=== PATIENT | male | born 1965 | race Caucasian/White ===

== ENCOUNTER 2017-11-14 22:54 | Emergency (ER) | payer SELFPAY ==
[2017-11-15] MEDS ORDERED: KETOROLAC 30 MG/ML INJ ONE (00:28)
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
[2017-11-15 01:45] VITALS: TEMP 97.9
[2017-11-15 01:48] VITALS: BP 146/98; O2SAT 98
--- NOTE | 2017-11-15 08:58 | RAD REPORT ---
EXAM DESCRIPTION: RAD - Chest Single View - 11/15/2017 12:18 am CLINICAL HISTORY: Fall, shoulder pain COMPARISON: August 2017 TECHNIQUE: AP portable chest image was obtained 0005 hours . FINDINGS: No pulmonary contusion or focal lung parenchymal process. Heart and vasculature are normal . No measurable pleural effusion and no pneumothorax. Fractures of the lateral left fourth and fifth ribs noted. These are new from the August comparison. Overall rib detail is limited. Additional fra ctures could be present. Left shoulder degenerative change without acute finding. No acute aortic fin ding. IMPRESSION: Left fourth and fifth rib fractures on the left. No associated pneumothorax or pulmonary contusion identifiable. Additional fractures could be present and nonvisualized.
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
== END 2017-11-15 01:41 | disposition home or self-care (01) ==
LOC: ER 22:54
DX: S40.012A Contusion of left shoulder, initial encounter (principal); S00.83XA Contusion of other part of head, initial encounter; V18.0XXA Pedal cycle driver injured in noncollision transport accident in nontraffic accident, initial encounter; I10 Essential (primary) hypertension; Z88.0 Allergy status to penicillin; Z88.5 Allergy status to narcotic agent; Z91.013 Allergy to seafood; Z91.048 Other nonmedicinal substance allergy status
CPT/HCPCS: 71045; 96372; 99284

== ENCOUNTER 2017-12-08 | Emergency (ER) | payer OTHER, SELFPAY ==
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
== END 2017-12-08 11:17 | disposition home or self-care (01) ==
CPT/HCPCS: 99281

== ENCOUNTER 2018-10-30 05:39 | Emergency (ER) | payer OTHER ==
[2018-10-30] MEDS ORDERED: IPRATROPIUM BROM 0.5MG/2.5ML ONE ×2 (06:27→07:52)
[2018-10-30] MEDS ORDERED: predniSONE 20 MG TAB ONE (06:27)
[2018-10-30] MEDS ORDERED: ALBUTEROL 2.5 MG/3 ML NEB SOL ONE ×2 (06:27→07:52)
--- NOTE | 2018-10-30 08:19 | EDPHYS ---
Physician Documentation [facility] Name: Codey Morin Jr Age: 53 yrs Sex: Male : 1965 Arrival Date: 10/30/2018 Time: 05:39 Bed 16 Private MD: ED Physician Toño Gale HPI: 10/30 06:22 This 53 yrs old Male presents to ER via Wheelchair with complaints of kb Shortness Of Breath. 06:22 The patient has shortness of breath at rest, and the patient has a history of COPD. kb Onset: The symptoms/episode began/occurred 3 day(s) ago. Duration: The symptoms are continuous. The patient's shortness of breath is aggravated by nothing, is alleviated by nothing. Associated signs and symptoms: Pertinent positives: fever, Pertinent negatives: chest pain, non-productive cough, productive cough, diaphoresis, dizziness, hemoptysis, loss of consciousness, nausea, numbness in extremities, visual changes, vomiting. Severity of symptoms: At their worst the symptoms were moderate in the emergency department the symptoms are unchanged. The patient has experienced similar episodes in the past, chronically. The patient has not recently seen a physician. Pt reports he needs a breathing treatment because his COPD is acting up. Reports he is out of his proair. Historical: - Allergies: 05:41 Demerol; jb4 05:41 Iodine; jb4 05:41 PENICILLINS; jb4 05:41 SEAFOOD; jb4 - Home Meds: 05:41 albuterol sulfate inhalation Inhl [Active]; jb4 - PMHx: 05:41 Arthritis; Asthma; COPD; Gout; Hypertension; jb4 - PSHx: 05:41 Cholecystectomy; Tonsillectomy; jb4 - Immunization history:: Adult Immunizations up to date, Flu vaccine is not up to date. - Social history:: Smoking status: Patient/guardian denies using tobacco, Patient uses alcohol, on a daily basis. - Ebola Screening: : No symptoms or risks identified at this time. ROS: 06:19 ENT: Negative for injury, pain, and discharge, Neck: Negative for injury, pain, and kb swelling, Cardiovascular: Negative for chest pain, palpitations, and edema, Abdomen/GI: Negative for abdominal pain, nausea, vomiting, diarrhea, and constipation, Back: Negative for injury and pain, MS/Extremity: Negative for injury and deformity, Skin: Negative for injury, rash, and discoloration, Neuro: Negative for headache, weakness, numbness, tingling, and seizure. 06:19 Constitutional: Positive for fever, Negative for body aches, chills, fatigue, malaise, poor PO intake, weight loss. 06:19 Respiratory: Positive for cough, shortness of breath, wheezing, Negative for dyspnea on exertion, hemoptysis, orthopnea, pleurisy. Exam: 06:19 Constitutional: This is a well developed, well nourished patient who is awake, alert, kb and in no acute distress. Head/Face: Normocephalic, atraumatic. ENT: Nares patent. No nasal discharge, no septal abnormalities noted. Tympanic membranes are normal and external auditory canals are clear. Oropharynx with no redness, swelling, or masses, exudates, or evidence of obstruction, uvula midline. Mucous membranes moist. Neck: Trachea midline, no thyromegaly or masses palpated, and no cervical lymphadenopathy. Supple, full range of motion without nuchal rigidity, or vertebral point tenderness. No Meningismus. Chest/axilla: Normal chest wall appearance and motion. Nontender with no deformity. No lesions are appreciated. Cardiovascular: Regular rate and rhythm with a normal S1 and S2. No gallops, murmurs, or rubs. Normal PMI, no JVD. No pulse deficits. Abdomen/GI: Soft, non-tender, with normal bowel sounds. No distension or tympany. No guarding or rebound. No evidence of tenderness throughout. Back: No spinal tenderness. No costovertebral tenderness. Full range of motion. Skin: Warm, dry with normal turgor. Normal color with no rashes, no lesions, and no evidence of cellulitis. MS/ Extremity: Pulses equal, no cyanosis. Neurovascular intact. Full, normal range of motion. Neuro: Awake and alert, GCS 15, oriented to person, place, time, and situation. Cranial nerves II-XII grossly intact. Motor strength 5/5 in all extremities. Sensory grossly intact. Cerebellar exam normal. Normal gait. 06:19 Respiratory: the patient does not display signs of respiratory distress, Respirations: normal, Breath sounds: rhonchi, that are moderate, are scattered, wheezing: expiratory that is moderate, is scattered. Vital Signs: 05:41 BP 145 / 90; Pulse 87; Resp 16; Temp 97.8(O); Pulse Ox 96% on R/A; Weight 97.07 kg (R); jb4 Height 6 ft. 60 in. (335.28 cm) (R); Pain 0/10; 07:00 BP 143 / 76; Pulse 103; Resp 17; Pulse Ox 100% on R/A; Pain 0/10; rb1 07:30 BP 134 / 84; Pulse 100; Resp 18; Pulse Ox 93% on R/A; rb1 08:30 BP 144 / 79; Pulse 68; Resp 18; Pulse Ox 100% on R/A; Pain 0/10; rb1 05:41 Body Mass Index 8.64 (97.07 kg, 335.28 cm) jb4 MDM: 05:59 Patient medically screened. kb 06:19 Data reviewed: vital signs, nurses notes. Data interpreted: Pulse oximetry: on room air kb is 96 %. Interpretation: normal. 07:38 Counseling: I had a detailed discussion with the patient and/or guardian regarding: the kb historical points, exam findings, and any diagnostic results supporting the discharge/admit diagnosis, lab results, radiology results, the need for outpatient follow up, a family practitioner, to return to the emergency department if symptoms worsen or persist or if there are any questions or concerns that arise at home. 10/30 06:07 Order name: Flu kb 10/30 06:48 Order name: Influenza Screen (A ; Complete Time: 06:57 EDMS 10/30 06:07 Order name: Chest Single View XRAY kb Administered Medications: 06:27 Drug: DuoNeb (3:1) (2.5 mg - 0.5 mg) 3 ml Route: Nebulizer; jb4 07:07 Follow up: Response: No adverse reaction; Wheezing diminished jb4 06:27 Drug: predniSONE 40 mg Route: PO; jb4 07:07 Follow up: Response: No adverse reaction jb4 07:43 Drug: DuoNeb (3:1) (2.5 mg - 0.5 mg) 3 ml Route: Nebulizer; rb1 08:12 Follow up: Response: No adverse reaction; Marked relief of symptoms rb1 Disposition: 19:08 Co-signature as Attending Physician, Toño Gale MD. rn Disposition: 10/30/18 08:18 Discharged to Home. Impression: Chronic obstructive pulmonary disease with (acute) exacerbation. - Condition is Stable. - Discharge Instructions: Chronic Obstructive Pulmonary Disease Exacerbation. - Prescriptions for Prednisone 20 mg Oral Tablet - take 1 tablet by ORAL route once daily for 5 days; 5 tablet. Zithromax Z- Bradley 250 mg Oral Tablet - take 1 tablet by ORAL route as directed for 5 days Day 1 - take two (2) tablets one time. Day 2, 3, 4 , 5 take one (1) tablet once daily.; 6 tablet. Albuterol Sulfate 90 mcg/actuation - inhale 1-2 puff by INHALATION route every 4-6 hours; 1 Inhaler. - Medication Reconciliation Form, Thank You Letter, Antibiotic Education, Prescription Opioid Use, Work release form form. - Follow up: Emergency Department; When: As needed; Reason: Worsening of condition. Follow up: Private Physician; When: 2 - 3 days; Reason: Recheck today's complaints, Continuance of care, Re-evaluation by your physician. Signatures: Dispatcher [employer] EDMS Annika Mcdaniels, SEEMA-C DRIP PUMPER-Toño Can MD MD rn Barber, Rebecca RN RN rb1 Da Greene RN RN jb4 Corrections: (The following items were deleted from the chart) 08:39 08:18 10/30/2018 08:18 Discharged to Home. Impression: Chronic obstructive pulmonary rb1 disease with (acute) exacerbation. Condition is Stable. Discharge Instructions: Chronic Obstructive Pulmonary Disease Exacerbation. Prescriptions for Prednisone 20 mg Oral Tablet - take 1 tablet by ORAL route once daily for 5 days; 5 tablet, Zithromax Z-Bradley 250 mg Oral Tablet - take 1 tablet by ORAL route as directed for 5 days Day 1 - take two (2) tablets one time. Day 2, 3, 4 , 5 take one (1) tablet once daily.; 6 tablet, Albuterol Sulfate 90 mcg/actuation - inhale 1-2 puff by INHALATION route every 4-6 hours; 1 Inhaler. and Forms are Medication Reconciliation Form, Thank You Letter, Antibiotic Education, Prescription Opioid Use. Follow up: Emergency Department; When: As needed; Reason: Worsening of condition. Follow up: Private Physician; When: 2 - 3 days; Reason: Recheck today's complaints, Continuance of care, Re-evaluation by your physician. kb
--- NOTE | 2018-10-30 08:19 | ER ---
Nurse's Notes [facility] Name: Codey Morin Jr Age: 53 yrs Sex: Male : 1965 Arrival Date: 10/30/2018 Time: 05:39 Bed 16 Private MD: Diagnosis: Chronic obstructive pulmonary disease with (acute) exacerbation Presentation: 10/30 05:41 Presenting complaint: Patient states: I am having shortness of breathe that has been jb4 going on the past 2 days, and has just gotten worse tonight. I am out of my albuterol inhaler. 05:41 Transition of care: patient was not received from another setting of care. Onset of jb4 symptoms was October 28, 2018. Risk Assessment: Do you want to hurt yourself or someone else? Patient reports no desire to harm self or others. Initial Sepsis Screen: Does the patient meet any 2 criteria? No. Patient's initial sepsis screen is negative. Does the patient have a suspected source of infection? No. Patient's initial sepsis screen is negative. Care prior to arrival: None. 05:41 Method Of Arrival: Wheelchair jb4 05:41 Acuity: KAYLIE 3 jb4 Triage Assessment: 05:41 General: Appears in no apparent distress. uncomfortable, Behavior is calm, cooperative. jb4 Pain: Denies pain. EENT: No signs and/or symptoms were reported regarding the EENT system. Neuro: Level of Consciousness is awake, alert, obeys commands, Oriented to person, place, time, situation. Cardiovascular: Heart tones S1 S2 present Patient's skin is warm and dry. Respiratory: Reports shortness of breath on exertion cough that is productive, Airway is patent Respiratory effort is even, labored, Respiratory pattern is regular, symmetrical, Breath sounds with wheezes bilaterally. Onset: The symptoms/episode began/occurred gradually, the patient has mild shortness of breath. GI: No signs and/or symptoms were reported involving the gastrointestinal system. : No signs and/or symptoms were reported regarding the genitourinary system. Derm: Skin is intact, Skin is pink, warm \T\ dry. Musculoskeletal: Circulation, motion, and sensation intact. Historical: - Allergies: 05:41 Demerol; jb4 05:41 Iodine; jb4 05:41 PENICILLINS; jb4 05:41 SEAFOOD; jb4 - Home Meds: 05:41 albuterol sulfate inhalation Inhl [Active]; jb4 - PMHx: 05:41 Arthritis; Asthma; COPD; Gout; Hypertension; jb4 - PSHx: 05:41 Cholecystectomy; Tonsillectomy; jb4 - Immunization history:: Adult Immunizations up to date, Flu vaccine is not up to date. - Social history:: Smoking status: Patient/guardian denies using tobacco, Patient uses alcohol, on a daily basis. - Ebola Screening: : No symptoms or risks identified at this time. Screenin:41 Abuse screen: Denies threats or abuse. Nutritional screening: No deficits noted. jb4 Tuberculosis screening: No symptoms or risk factors identified. Fall Risk None identified. Assessment: 05:41 General: see triage assessment.. jb4 07:00 General: Appears in no apparent distress. comfortable, Behavior is calm, cooperative. rb1 Pain: Denies pain. Neuro: Level of Consciousness is awake, alert, obeys commands, Oriented to person, place, time, situation. Cardiovascular: Rhythm is regular. Respiratory: Reports cough that is non-productive, Airway is patent Respiratory effort is even, unlabored, Respiratory pattern is regular. GI: No signs and/or symptoms were reported involving the gastrointestinal system. : No signs and/or symptoms were reported regarding the genitourinary system. Derm: Skin is pink, warm \T\ dry. Musculoskeletal: Range of motion: intact in all extremities. 08:00 Reassessment: Patient appears in no apparent distress at this time. No changes from rb1 previously documented assessment. Vital Signs: 05:41 BP 145 / 90; Pulse 87; Resp 16; Temp 97.8(O); Pulse Ox 96% on R/A; Weight 97.07 kg (R); jb4 Height 6 ft. 60 in. (335.28 cm) (R); Pain 0/10; 07:00 BP 143 / 76; Pulse 103; Resp 17; Pulse Ox 100% on R/A; Pain 0/10; rb1 07:30 BP 134 / 84; Pulse 100; Resp 18; Pulse Ox 93% on R/A; rb1 08:30 BP 144 / 79; Pulse 68; Resp 18; Pulse Ox 100% on R/A; Pain 0/10; rb1 05:41 Body Mass Index 8.64 (97.07 kg, 335.28 cm) jb4 ED Course: 05:39 Patient arrived in ED. ds1 05:41 Arm band placed on right wrist. jb4 05:41 Patient has correct armband on for positive identification. Placed in gown. Bed in low jb4 position. Call light in reach. Side rails up X 1. Pulse ox on. NIBP on. 05:53 Da Greene, RN is Primary Nurse. jb4 05:54 Triage completed. jb4 05:58 [facility] kb 05:58 Toño Gale MD is Attending Physician. kb 07:18 Flu Sent. rb1 08:39 No provider procedures requiring assistance completed. Patient did not have IV access rb1 during this emergency room visit. Administered Medications: 06:27 Drug: DuoNeb (3:1) (2.5 mg - 0.5 mg) 3 ml Route: Nebulizer; jb4 07:07 Follow up: Response: No adverse reaction; Wheezing diminished jb4 06:27 Drug: predniSONE 40 mg Route: PO; jb4 07:07 Follow up: Response: No adverse reaction jb4 07:43 Drug: DuoNeb (3:1) (2.5 mg - 0.5 mg) 3 ml Route: Nebulizer; rb1 08:12 Follow up: Response: No adverse reaction; Marked relief of symptoms rb1 Outcome: 08:18 Discharge ordered by . kb 08:39 Patient left the ED. rb1 08:39 Discharged to home ambulatory. rb1 08:39 Condition: stable 08:39 Discharge instructions given to patient, Instructed on discharge instructions, follow up and referral plans. medication usage, Demonstrated understanding of instructions, follow-up care, medications, Prescriptions given X 3. Signatures: Annika Mcdaniels FNP-C FNP-Allison Mathias ds1 Clementine Soriano, RN RN rb1 Da Greene, RN RN jb4
[2018-10-30 08:44] VITALS: TEMP 97.8
[2018-10-30 08:47] VITALS: BP 134/84; O2SAT 93
--- NOTE | 2018-10-30 10:06 | RAD REPORT ---
EXAM DESCRIPTION: Meg Single View10/30/2018 6:41 am CLINICAL HISTORY: cough COMPARISON: November 2017 FINDINGS: The lungs appear clear of acute infiltrate. The heart is normal size IMPRESSION: No acute abnormalities displayed
== END 2018-10-30 08:39 | disposition home or self-care (01) ==
LOC: ER 05:39
DX: J44.1 Chronic obstructive pulmonary disease with (acute) exacerbation (principal); I10 Essential (primary) hypertension
CPT/HCPCS: 71045; 87804; 94640; 99284; J7512

== ENCOUNTER 2018-12-01 16:13 | Emergency (ER) | payer OTHER ==
[2018-12-01] MEDS ORDERED: NA CHLORIDE 0.9% 500 ML ONE (17:37)
[2018-12-01] MEDS ORDERED: LEVALBUTEROL 1.25 MG/3 ML NEB ONE (17:37)
[2018-12-01] MEDS ORDERED: predniSONE 20 MG TAB ONE (17:37)
[2018-12-01 17:47] LABS: Protime INR 1.12
[2018-12-01 18:12] LABS: Absolute Lymphocytes (CBC) 1.7 K/uL (0.7-4.9); Absolute Monocytes 0.6 K/uL (0.1-1.3); Absolute Neutrophil 8.1 K/uL (1.8-8.0); Basophils % 1.4 % (0-1.3); Hematocrit 44.8 % (39.6-49.0); Lymphocytes % 15.8 % (15.3-44.8); Monocytes % 5.9 % (3.3-12.3); RBC Red Blood Cell Count 4.59 M/uL (4.33-5.43)
--- NOTE | 2018-12-01 18:31 | EDPHYS ---
Physician Documentation [facility] Name: Codey Morin Jr Age: 53 yrs Sex: Male : 1965 Arrival Date: 12/01/2018 Time: 16:15 Bed 5 Private MD: ED Physician Kelton Cavazos HPI: 12/01 17:20 This 53 yrs old Male presents to ER via Ambulatory with complaints of kdr Breathing Difficulty. 17:20 The patient has shortness of breath at rest, with light activity. Onset: The kdr symptoms/episode began/occurred gradually, 2 day(s) ago. Duration: The symptoms are continuous, and are steadily getting worse. The patient's shortness of breath is aggravated by coughing, exertion, light activity, is alleviated by nothing. Associated signs and symptoms: Pertinent positives: productive cough, nausea, Pertinent negatives: diaphoresis, dizziness, fever, hemoptysis, loss of consciousness, numbness in extremities, visual changes. Severity of symptoms: At their worst the symptoms were mild moderate just prior to arrival, in the emergency department the symptoms are unchanged. The patient has experienced similar episodes in the past, chronically. The patient has been recently seen by a physician: The patient has been recently seen at the [facility] Emergency Department, last month. Historical: - Allergies: 16:19 Demerol; hb 16:19 Iodine; hb 16:19 PENICILLINS; hb 16:19 SEAFOOD; hb - Home Meds: 16:19 albuterol sulfate inhalation Inhl [Active]; hb - PMHx: 16:19 Arthritis; Asthma; COPD; Gout; Hypertension; hb - PSHx: 16:19 Cholecystectomy; Tonsillectomy; hb - Immunization history:: Adult Immunizations up to date. - Social history:: Smoking status: Patient/guardian denies using tobacco. - Ebola Screening: : No symptoms or risks identified at this time. ROS: 17:20 Constitutional: Negative for fever, chills, and weight loss, Eyes: Negative for injury, kdr pain, redness, and discharge, Neck: Negative for injury, pain, and swelling, Cardiovascular: Negative for chest pain, palpitations, and edema, Abdomen/GI: Negative for abdominal pain, nausea, vomiting, diarrhea, and constipation, Back: Negative for injury and pain, : Negative for injury, bleeding, discharge, and swelling, MS/Extremity: Negative for injury and deformity, Skin: Negative for injury, rash, and discoloration, Neuro: Negative for headache, weakness, numbness, tingling, and seizure activity. Psych: Negative for depression, anxiety, suicide ideation, homicidal ideation, and hallucinations, Allergy/Immunology: Negative for hives, rash, and allergies, Endocrine: Negative for neck swelling, polydipsia, polyuria, polyphagia, and marked weight changes, Hematologic/Lymphatic: Negative for swollen nodes, abnormal bleeding, and unusual bruising. 17:20 Respiratory: Positive for cough, dyspnea on exertion, shortness of breath, wheezing, Negative for hemoptysis, orthopnea, pleurisy. Exam: 17:20 Constitutional: This is a well developed, well nourished patient who is awake, alert, kdr and in no acute distress. Head/Face: Normocephalic, atraumatic. Eyes: Pupils equal round and reactive to light, extra-ocular motions intact. Lids and lashes normal. Conjunctiva and sclera are non-icteric and not injected. Cornea within normal limits. Periorbital areas with no swelling, redness, or edema. Neck: Trachea midline, no thyromegaly or masses palpated, and no cervical lymphadenopathy. Supple, full range of motion without nuchal rigidity, or vertebral point tenderness. No Meningismus. Chest/axilla: Normal chest wall appearance and motion. Nontender with no deformity. No lesions are appreciated. Cardiovascular: Regular rate and rhythm with a normal S1 and S2. No gallops, murmurs, or rubs. Normal PMI, no JVD. No pulse deficits. Abdomen/GI: Soft, non-tender, with normal bowel sounds. No distension or tympany. No guarding or rebound. No evidence of tenderness throughout. Back: No spinal tenderness. No costovertebral tenderness. Full range of motion. Skin: Warm, dry with normal turgor. Normal color with no rashes, no lesions, and no evidence of cellulitis. MS/ Extremity: Pulses equal, no cyanosis. Neurovascular intact. Full, normal range of motion. Neuro: Awake and alert, GCS 15, oriented to person, place, time, and situation. Cranial nerves II-XII grossly intact. Motor strength 5/5 in all extremities. Sensory grossly intact. Cerebellar exam normal. Normal gait. Psych: Awake, alert, with orientation to person, place and time. Behavior, mood, and affect are within normal limits. 17:20 Respiratory: mild respiratory distress is noted, Respirations: normal, Breath sounds: wheezing: that is moderate, is heard diffusely. 17:48 ECG was reviewed by the Attending Physician. kdr Vital Signs: 16:18 BP 142 / 81; Pulse 87; Resp 20; Temp 97.2; Pulse Ox 95% on R/A; Pain 0/10; hb 16:41 BP 147 / 64; Pulse 83; Resp 18; Pulse Ox 100% on R/A; Pain 5/10; pc1 18:12 BP 127 / 77; Pulse 103; Resp 16; Pulse Ox 100% on R/A; Pain 2/10; pc1 MDM: 18:30 Patient medically screened. kdr 18:39 Data reviewed: vital signs, nurses notes, lab test result(s), radiologic studies. kdr Counseling: I had a detailed discussion with the patient and/or guardian regarding: the historical points, exam findings, and any diagnostic results supporting the discharge/admit diagnosis, lab results, radiology results, the need for outpatient follow up. 12/01 17:18 Order name: Basic Metabolic Panel [facility] 12/01 17:18 Order name: CBC with Diff [facility] 12/01 17:18 Order name: LFT's [facility] 12/01 17:18 Order name: Magnesium [facility] 12/01 17:18 Order name: NT PRO-BNP [facility] 12/01 17:18 Order name: PT-INR; Complete Time: 18:02 [facility] 12/01 17:18 Order name: Troponin (emerg Dept Use Only) [facility] 12/01 17:18 Order name: XRAY Chest (1 view) [facility] 12/01 17:18 Order name: EKG; Complete Time: 17:19 kdr 12/01 17:18 Order name: Cardiac monitoring; Complete Time: 17:49 [facility] 12/01 18:26 Order name: Manual Differential EDMS 12/01 17:18 Order name: EKG - Nurse/Tech; Complete Time: 17:49 [facility] 12/01 17:18 Order name: IV Saline Lock; Complete Time: 17:49 kdr 12/01 17:18 Order name: Labs collected and sent; Complete Time: 17:49 [facility] 12/01 17:18 Order name: O2 Per Protocol; Complete Time: 17:49 kdr 12/01 17:18 Order name: O2 Sat Monitoring; Complete Time: 17:49 kdr EC:48 Rate is 80 beats/min. Rhythm is regular, Normal Sinus Rhythm. QRS [place] is Normal. NC kdr interval is normal. QRS interval is normal. QT interval is normal. No Q waves. Clinical impression: Normal ECG and NSR w/ Non-specific ST/T Changes. Administered Medications: 17:35 Drug: predniSONE 60 mg Route: PO; pc1 17:46 Follow up: Response: No adverse reaction; Marked relief of symptoms pc1 17:35 Drug: Xopenex (3) 1.25 mg Route: Inhalation; pc1 17:45 Follow up: Response: No adverse reaction; Marked relief of symptoms pc1 17:35 Drug: NS 0.9% 500 ml Volume: 500 ml; Route: IV; Rate: 1 bolus; Site: right antecubital; pc1 18:15 Follow up: IV Status: Completed infusion jl7 Disposition: 12/01/18 18:30 Discharged to Home. Impression: COPD Exacerbation, Cough. - Condition is Stable. - Discharge Instructions: Acute Bronchitis, [id number], Cough, Adult, [id number]-[id number], Chronic Obstructive Pulmonary Disease Exacerbation, [id number]. - Prescriptions for Tessalon Perles 100 mg Oral Capsule - take 1 capsule by ORAL route every 6 hours As needed; 20 capsule. Medrol (Bradley) 4 mg Oral Tablets, Dose Pack - take 1 tablet by ORAL route as directed - follow package instructions; 1 packet. Albuterol Sulfate 90 mcg/actuation Inhalation - inhale 1-2 puff by INHALATION route every 4-6 hours As needed; 2 Inhaler. - Medication Reconciliation Form, Thank You Letter, Work release form form. - Follow up: Private Physician; When: 2 - 3 days; Reason: If symptoms return, Further diagnostic work-up, Recheck today's complaints, Continuance of care, Re-evaluation by your physician. - Problem is an acute exacerbation. - Symptoms have improved. Signatures: Dispatcher [employer] Kelton Aguiar MD MD kdr Chrissy Vann RN RN Shukri Castaneda RN RN jl7 Delgado Hussein pc1 Corrections: (The following items were deleted from the chart) 19:13 18:30 12/01/2018 18:30 Discharged to Home. Impression: COPD Exacerbation; Cough. jl7 Condition is Stable. Forms are Medication Reconciliation Form, Thank You Letter, Antibiotic Education, Prescription Opioid Use. Follow up: Private Physician; When: 2 - 3 days; Reason: If symptoms return, Further diagnostic work-up, Recheck today's complaints, Continuance of care, Re-evaluation by your physician. Problem is an acute exacerbation. Symptoms have improved. kdr
--- NOTE | 2018-12-01 18:31 | ER ---
Nurse's Notes [facility] Name: Codey Morin Jr Age: 53 yrs Sex: Male : 1965 Arrival Date: 12/01/2018 Time: 16:15 Bed 5 Private MD: Diagnosis: COPD Exacerbation;Cough Presentation: 12/01 16:17 Presenting complaint: Chest tightness, SOB, and increased cough x 2-3 days. Denies hb fever. Transition of care: patient was not received from another setting of care. Onset of symptoms was November 28, 2018. Risk Assessment: Do you want to hurt yourself or someone else? Patient reports no desire to harm self or others. Care prior to arrival: None. 16:17 Method Of Arrival: Ambulatory hb 16:17 Acuity: KAYLIE 3 hb 18:11 Initial Sepsis Screen: Does the patient meet any 2 criteria? No. Patient's initial pc1 sepsis screen is negative. Does the patient have a suspected source of infection? No. Patient's initial sepsis screen is negative. Triage Assessment: 18:11 Respiratory: pc1 Historical: - Allergies: 16:19 Demerol; hb 16:19 Iodine; hb 16:19 PENICILLINS; hb 16:19 SEAFOOD; hb - Home Meds: 16:19 albuterol sulfate inhalation Inhl [Active]; hb - PMHx: 16:19 Arthritis; Asthma; COPD; Gout; Hypertension; hb - PSHx: 16:19 Cholecystectomy; Tonsillectomy; hb - Immunization history:: Adult Immunizations up to date. - Social history:: Smoking status: Patient/guardian denies using tobacco. - Ebola Screening: : No symptoms or risks identified at this time. Screenin:41 Abuse screen: Denies threats or abuse. Denies injuries from another. Nutritional pc1 screening: No deficits noted. Tuberculosis screening: No symptoms or risk factors identified. Fall Risk None identified. Assessment: 16:34 General: Appears uncomfortable, unkempt, Behavior is calm, cooperative, Reports pc1 Shortness of breath and Chest tightness. Pain: Complains of pain in chest Pain does not radiate. Pain currently is 5 out of 10 on a pain scale. Quality of pain is described as thightness. Pain: Pain began 2-3 days ago. Is continuous, Alleviated by nothing. Also complains of shortness of breath. Neuro: Level of Consciousness is awake, alert, obeys commands, Oriented to person, place, time, Merchandiser are equal bilaterally Moves all extremities. Full function Gait is steady, Speech is normal. Cardiovascular: Reports chest pain, shortness of breath, Heart tones S1 S2 present Capillary refill < 3 seconds in bilateral Patient's skin is warm and dry. Pulses are 2+ in right radial artery and left radial artery Rhythm is sinus rhythm. Respiratory: Reports shortness of breath at rest since Wednesday cough that is productive, Airway is patent Respiratory effort is even, labored, Respiratory pattern is regular, Sputum is green Breath sounds with wheezes bilaterally. in right upper lobe, left upper lobe, right middle lobe, left lower lobe, left posterior upper lobe, right posterior upper lobe, left posterior lower lobe and right posterior middle lobe. GI: No signs and/or symptoms were reported involving the gastrointestinal system. : No signs and/or symptoms were reported regarding the genitourinary system. EENT: No signs and/or symptoms were reported regarding the EENT system. Musculoskeletal: Circulation, motion, and sensation intact. Capillary refill < 3 seconds, Range of motion: intact in all extremities. 17:12 Reassessment: No changes from previously documented assessment. Patient and/or family pc1 updated on plan of care and expected duration. Pain level reassessed. Patient is alert, oriented x 3, equal unlabored respirations, skin warm/dry/pink. 18:08 Reassessment: Patient and/or family updated on plan of care and expected duration. Pain pc1 level reassessed. Patient is alert, oriented x 3, equal unlabored respirations, skin warm/dry/pink. stated that chest does not feel as tight. reports ease of breathing Patient states feeling better. Patient states symptoms have improved. Pain: Complains of pain in chest Pain does not radiate. Pain currently is 2 out of 10 on a pain scale. Respiratory: Airway is patent Respiratory effort is even, unlabored, Respiratory pattern is regular, symmetrical, Breath sounds with wheezes bilaterally. in right upper lobe, left upper lobe, left posterior upper lobe and right posterior upper lobe. Vital Signs: 16:18 BP 142 / 81; Pulse 87; Resp 20; Temp 97.2; Pulse Ox 95% on R/A; Pain 0/10; hb 16:41 BP 147 / 64; Pulse 83; Resp 18; Pulse Ox 100% on R/A; Pain 5/10; pc1 18:12 BP 127 / 77; Pulse 103; Resp 16; Pulse Ox 100% on R/A; Pain 2/10; pc1 ED Course: 16:15 Patient arrived in ED. rg4 16:18 Triage completed. hb 16:18 Kelton Cavazos MD is Attending Physician. kdr 16:19 Arm band placed on left wrist. hb 16:20 Shukri Castaneda, CRYSTAL is Primary Nurse. jl7 16:33 Inserted saline lock: 20 gauge in right antecubital area, using aseptic technique. pc1 16:35 air sampling and monitoring on. Pulse ox on. NIBP on. jl7 16:35 Initial lab(s) drawn, by me, sent to lab. jl7 16:41 Awaiting ED provider evaluation. pc1 16:41 Patient has correct armband on for positive identification. Placed in gown. Bed in low pc1 position. Call light in reach. Side rails up X2. 16:49 EKG done, by contract technician. reviewed by Kelton Cavazos MD. sm3 18:10 No provider procedures requiring assistance completed. pc1 18:14 XRAY Chest (1 view) In Process Unspecified. EDMS 19:08 IV discontinued, bleeding controlled, No redness/swelling at site. Pressure dressing pc1 applied. Administered Medications: 17:35 Drug: predniSONE 60 mg Route: PO; pc1 17:46 Follow up: Response: No adverse reaction; Marked relief of symptoms pc1 17:35 Drug: Xopenex (3) 1.25 mg Route: Inhalation; pc1 17:45 Follow up: Response: No adverse reaction; Marked relief of symptoms pc1 17:35 Drug: NS 0.9% 500 ml Volume: 500 ml; Route: IV; Rate: 1 bolus; Site: right antecubital; pc1 18:15 Follow up: IV Status: Completed infusion jl7 Outcome: 18:30 Discharge ordered by . kdr 19:06 Discharged to home ambulatory. pc1 19:06 Condition: improved 19:06 Discharge instructions given to patient, Instructed on discharge instructions, follow up and referral plans. medication usage, Demonstrated understanding of instructions, medications, Prescriptions given X 3. 19:13 Attestation : I agree with everything documented by Delgado Hussein, Student Nurse. jl7 19:13 Patient left the ED. jl7 Signatures: Dispatcher [employer] EDMS Kelton Cavazos MD MD [facility] Chrissy Vann, RN RN Marilynn Alicia rg4 Shukri Castaneda RN RN jl7 Liz Johnson 3 Delgado Hussein [facility] Corrections: (The following items were deleted from the chart) 19:13 18:41 Attestation : I agree with everything documented by Delgado Hussein, Student Nurse. brennan jl7
[2018-12-01 18:53] LABS: Platelet Estimate ADEQ
[2018-12-01 18:54] LABS: Blood Morphology Comment NOT SEEN (NOT SEEN)
--- NOTE | 2018-12-01 19:24 | RAD REPORT ---
EXAM DESCRIPTION: RAD - Chest Single View - 12/01/2018 6:14 pm CLINICAL HISTORY: Chest tightness, shortness of breath COMPARISON: October 30 TECHNIQUE: AP portable chest image was obtained 1756 hours . FINDINGS: Lungs are clear. Lung markings are similar to comparison. Heart and vasculature are normal . No measurable pleural effusion and no pneumothorax. No acute bony abnormality seen. No acute aortic findings suspected. IMPRESSION: No acute cardiopulmonary process.
[2018-12-01 19:32] LABS: ALT/SGPT 14 U/L (12-78); AST/SGOT 9 U/L (15-37); Albumin 3.3 g/dL (3.4-5.0); Alkaline Phosphatase 83 U/L (45-117); BUN Blood Urea Nitrogen 12 mg/dL (7-18); Bicarbonate 27 mmol/L (21-32); Bilirubin Direct 0.2 mg/dL (0-0.2); Bilirubin Total 0.6 mg/dL (0.2-1.0); Glucose Level 113 mg/dL (74-106); Magnesium 1.9 mg/dL (1.8-2.4); NT PRO-BNP 164 pg/mL (<125); Potassium 4.1 mmol/L (3.5-5.1); Protein, Total 6.6 g/dL (6.4-8.2); Sodium Level 141 mmol/L (136-145); Troponin (Emerg Dept Use Only) < 0.02 ng/mL (0.0-0.045)
[2018-12-01 20:02] VITALS: TEMP 97.2
[2018-12-01 20:04] VITALS: O2SAT 100
[2018-12-01 20:05] VITALS: BP 127/77
--- NOTE | 2018-12-02 06:13 | EKG ---
Test Date: 2018-12-01 Test Time: 16:46:32 Nuclear Engineer: NOELLE MEASUREMENT RESULTS: Intervals: Rate: 80 CO: 142 QRSD: 68 QT: 348 QTc: 401 [place]: P: 68 CO: 142 QRS: -25 T: 45 INTERPRETIVE STATEMENTS: Normal sinus rhythm Septal infarct, age undetermined Abnormal ECG Compared to ECG 07/06/2017 15:57:44 No significant changes Electronically Signed On 12-02-18 06:12:44 CDT by Rajendra Huynh
== END 2018-12-01 19:13 | disposition home or self-care (01) ==
LOC: ER 16:13
DX: J44.1 Chronic obstructive pulmonary disease with (acute) exacerbation (principal); I10 Essential (primary) hypertension; M10.9 Gout, unspecified; J44.9 Chronic obstructive pulmonary disease, unspecified; J45.909 Unspecified asthma, uncomplicated; Z88.5 Allergy status to narcotic agent; Z88.0 Allergy status to penicillin; Z91.013 Allergy to seafood
CPT/HCPCS: 36415; 71045; 80048; 80076; 83735; 83880; 84484; 85025; 85610; 93005; 96360; 99285; J7512

== ENCOUNTER 2019-01-18 16:44 | Emergency (ER) | payer OTHER ==
[2019-01-18] MEDS ORDERED: NA CHLORIDE 0.9% 1,000 ML ONE (17:53)
[2019-01-18] MEDS ORDERED: ONDANSETRON 4 MG/2 ML VIAL ONE (17:53)
[2019-01-18 17:57] LABS: Absolute Lymphocytes (CBC) 2.1 K/uL (0.7-4.9); Absolute Monocytes 0.7 K/uL (0.1-1.3); Absolute Neutrophil 6.3 K/uL (1.8-8.0); Basophils % 0.6 % (0-1.3); Eosinophils % 2.6 % (0-4.4); Hematocrit 43.7 % (39.6-49.0); Lymphocytes % 22.4 % (15.3-44.8); MPV 10.6 fL (7.6-11.3); Monocytes % 7.6 % (3.3-12.3); RBC Red Blood Cell Count 4.48 M/uL (4.33-5.43)
[2019-01-18 18:09] LABS: ALT/SGPT 16 U/L (12-78); AST/SGOT 10 U/L (15-37); Albumin 3.2 g/dL (3.4-5.0); Alkaline Phosphatase 69 U/L (45-117); BUN Blood Urea Nitrogen 8 mg/dL (7-18); Bicarbonate 27 mmol/L (21-32); Bilirubin Direct < 0.1 mg/dL (0-0.2); Bilirubin Total 0.3 mg/dL (0.2-1.0); Glucose Level 143 mg/dL (74-106); Lipase 122 U/L (73-393); Potassium 3.5 mmol/L (3.5-5.1); Protein, Total 6.3 g/dL (6.4-8.2); Sodium Level 142 mmol/L (136-145)
--- NOTE | 2019-01-18 18:10 | RAD REPORT ---
EXAM DESCRIPTION: CT - Abdomen Pelvis Wo Contrast - 01/18/2019 5:36 pm CLINICAL HISTORY: Abdominal pain left flank pain COMPARISON: 2016 TECHNIQUE: Computed axial tomography of the abdomen and pelvis was obtained. IV and oral contrast we re not requested. All CT scans are performed using dose optimization technique as appropriate and may include automated exposure control or mA/KV adjustment according to patient size. FINDINGS: The evaluation of solid organs, vessels and bowel is limited secondary to the lack of con trast administration. The liver, spleen, pancreas, adrenals and right kidney appear grossly normal. 5 millimeter nonobstructing left renal calculus. The appendix is normal. Diverticula stem from the colon without evidence of diverticulitis. Cholecystectomy Small inguinal hernias contain fat Bladder wall appears thickened The wall of the distal esophagus appears thickened Minimal stranding adjacent to the proximal sigmoid colon IMPRESSION: Minimal stranding adjacent to the proximal sigmoid colon likely indicating a minimal di verticulitis Nonobstructing left renal calculus Thickened bladder wall may indicate cystitis. Wall of the distal esophagus appears thickened which may indicate an esophagitis
[2019-01-18] MEDS ORDERED: MORPHINE 4 MG/ML SYR ONE (18:31)
[2019-01-18] MEDS ORDERED: METRONIDAZOLE 500mg IVPB 500 MG/100 ML BAG IV ONE (18:32)
[2019-01-18] MEDS ORDERED: CIPROFLOXACIN 400mg IV 400 MG/200 ML BAG IV ONE (18:32)
--- NOTE | 2019-01-18 18:41 | ER ---
Nurse's Notes [facility] Name: Codey Morin Jr Age: 53 yrs Sex: Male : 1965 Arrival Date: 01/18/2019 Time: 16:46 Bed 27 Private MD: None, None Diagnosis: Diverticulitis of large intestine without perforation or abscess without bleeding Presentation: 01/18 16:52 Presenting complaint: Patient states: feeling ill since Wednesday with nausea, headaches, la1 vomiting. Transition of care: patient was not received from another setting of care. Onset of symptoms was January 18, 2019. Risk Assessment: Do you want to hurt yourself or someone else? Patient reports no desire to harm self or others. Initial Sepsis Screen: Does the patient meet any 2 criteria? No. Patient's initial sepsis screen is negative. Does the patient have a suspected source of infection? No. Patient's initial sepsis screen is negative. Care prior to arrival: None. 16:52 Method Of Arrival: Ambulatory la1 16:52 Acuity: KAYLIE 3 la1 Historical: - Allergies: 16:53 Demerol; la1 16:53 Iodine; la1 16:53 PENICILLINS; la1 16:53 SEAFOOD; la1 - Home Meds: 17:03 albuterol sulfate inhalation Inhl [Active]; mg2 - PMHx: 16:53 Arthritis; Asthma; COPD; Gout; Hypertension; la1 - Immunization history:: Adult Immunizations up to date. - Social history:: Smoking status: Patient/guardian denies using tobacco. - Ebola Screening: : No symptoms or risks identified at this time. - Family history:: not pertinent. - Hospitalizations: : No recent hospitalization is reported. Screenin:01 Abuse screen: Denies threats or abuse. Denies injuries from another. Nutritional mg2 screening: No deficits noted. Tuberculosis screening: No symptoms or risk factors identified. Fall Risk None identified. Assessment: 16:59 General: Appears in no apparent distress. comfortable, Behavior is calm, cooperative. mg2 Pain: Complains of pain in head and left flank Pain does not radiate. Pain currently is 5 out of 10 on a pain scale. Quality of pain is described as aching, Pain began gradually, 6 days ago Is intermittent. Neuro: Level of Consciousness is awake, alert, obeys commands, Oriented to person, place, time, situation. Cardiovascular: Capillary refill < 3 seconds Clubbing of nail beds is absent Patient's skin is warm and dry. Respiratory: Airway is patent Respiratory effort is even, unlabored, Respiratory pattern is regular, symmetrical. GI: Abdomen is flat, non-distended, Reports diarrhea, nausea, vomiting, since Nikos. : No signs and/or symptoms were reported regarding the genitourinary system. EENT: No signs and/or symptoms were reported regarding the EENT system. Derm: Skin is intact, is healthy with good turgor, Skin is pink, warm \T\ dry. normal. Musculoskeletal: Circulation, motion, and sensation intact. Capillary refill < 3 seconds. 17:32 Reassessment: patient sent to ct scan via wheelchair. mg2 18:44 Reassessment: patient for discharge after completing the iv antibiotics. mg2 20:03 Reassessment: Patient states feeling better. mg2 Vital Signs: 16:53 BP 126 / 88; Pulse 76; Resp 16; Temp 98.4; Pulse Ox 98% on R/A; Weight 90.72 kg; Height la1 6 ft. 0 in. (182.88 cm); 18:00 BP 128 / 75; Pulse 65; Resp 18; Temp 98.2; Pulse Ox 96% on R/A; mg2 20:05 BP 129 / 78; Pulse 75; Resp 18; Temp 98.9; Pulse Ox 100% on R/A; Pain 0/10; mg2 16:53 Body Mass Index 27.12 (90.72 kg, 182.88 cm) la1 ED Course: 16:46 Patient arrived in ED. mr 16:47 None, None is Private Physician. mr 16:52 Triage completed. la1 16:53 Arm band placed on left wrist. la1 16:57 Casper Kelley, CRYSTAL is Primary Nurse. mg2 16:58 Toño Gale MD is Attending Physician. rn 17:01 Patient has correct armband on for positive identification. Door closed. Warm blanket mg2 given. 17:32 No provider procedures requiring assistance completed. Inserted saline lock: 20 gauge mg2 in right forearm, using aseptic technique. Blood collected. 17:34 CT completed. Patient tolerated procedure well. Patient moved to CT. Patient moved back wv from CT. 17:37 CT Abd/Pelvis - Without Cont In Process Unspecified. EDMS 20:03 IV discontinued, intact, bleeding controlled, No redness/swelling at site. Pressure mg2 dressing applied. Administered Medications: 17:30 Drug: Zofran 4 mg Route: IVP; Site: right antecubital; mg2 20:02 Follow up: Response: No adverse reaction; Marked relief of symptoms mg2 17:31 Drug: NS 0.9% 1000 ml Route: IV; Rate: 1000 ml; Site: right forearm; mg2 20:02 Follow up: Response: No adverse reaction; IV Status: Completed infusion mg2 18:22 Drug: Flagyl 500 mg Volume: 100 ml; Route: IVPB; Rate: 200 ml/hr; Infused Over: 30 mg2 mins; Site: left forearm; 20:01 Follow up: Response: No adverse reaction; IV Status: Completed infusion mg2 18:22 Drug: morphine 4 mg Route: IVP; Site: left forearm; mg2 19:58 Follow up: Response: No adverse reaction; Marked relief of symptoms mg2 18:55 Drug: Cipro 400 mg Volume: 200 ml; Route: IVPB; Infused Over: 60 mins; Site: right mg2 forearm; 20:02 Follow up: Response: No adverse reaction; IV Status: Completed infusion mg2 Outcome: 18:41 Discharge ordered by . rn 20:03 Discharged to home ambulatory. mg2 20:03 Condition: stable 20:03 Discharge instructions given to patient, Instructed on discharge instructions, follow up and referral plans. medication usage, Demonstrated understanding of instructions, follow-up care, medications, Prescriptions given X 4. 20:06 Patient left the ED. mg2 Signatures: Dispatcher [employer] [facility] BernalNona Roman, MD MD rn Attema, Lee, RN RN la1 Jordan, Nathan nj Gardose, Michele, RN RN mg2
--- NOTE | 2019-01-18 18:41 | EDPHYS ---
Physician Documentation [facility] Name: Codey Mroin Jr Age: 53 yrs Sex: Male : 1965 Arrival Date: 01/18/2019 Time: 16:46 Bed 27 Private MD: None, None ED Physician Toño Gale HPI: 01/18 17:22 This 53 yrs old Male presents to ER via Ambulatory with complaints of Nausea, rn Diarrhea, abd pain. 17:22 The patient presents to the emergency department with nausea, vomiting, diarrhea, rn abdominal pain, of the left upper quadrant and left lower quadrant. Onset: The symptoms/episode began/occurred 5 day(s) ago. Possible causes: unknown. The symptoms are aggravated by pressure, The symptoms are alleviated by nothing. Associated signs and symptoms: Pertinent positives: abdominal pain, diarrhea, nausea, vomiting, Pertinent negatives: fever, GI bleeding. Severity of symptoms: At their worst the symptoms were moderate in the emergency department the symptoms are unchanged. The patient has not experienced similar symptoms in the past. Reports left sided abd pain, radiates to left axilla, assoc with nausea/vomiting/diarrhea. Reports hx of COPD, and is home sick with similar symptoms. No blood in stool. . Historical: - Allergies: 16:53 Demerol; la1 16:53 Iodine; la1 16:53 PENICILLINS; la1 16:53 SEAFOOD; la1 - Home Meds: 17:03 albuterol sulfate inhalation Inhl [Active]; mg2 - PMHx: 16:53 Arthritis; Asthma; COPD; Gout; Hypertension; la1 - Immunization history:: Adult Immunizations up to date. - Social history:: Smoking status: Patient/guardian denies using tobacco. - Ebola Screening: : No symptoms or risks identified at this time. - Family history:: not pertinent. - Hospitalizations: : No recent hospitalization is reported. ROS: 17:22 Constitutional: + chills, no weight loss Eyes: Negative for injury, pain, redness, and photography intern, Neck: Negative for injury, pain, and swelling, Cardiovascular: Negative for chest pain, palpitations, and edema, Respiratory: + cough, negative for sob Abdomen/GI: + left sided abd pain and nausea/vomiting/diarrhea Back: Negative for injury and pain, MS/Extremity: Negative for injury and deformity, Neuro: Negative for weakness, numbness, tingling, and seizure. Exam: 17:22 Constitutional: This is a well developed, well nourished patient who is awake, alert, regulatory affairs intern to bathroom without assistance Head/Face: Normocephalic, atraumatic. Eyes: Pupils equal round and reactive to light, extra-ocular motions intact. Lids and lashes normal. Conjunctiva and sclera are non-icteric and not injected. Cornea within normal limits. Periorbital areas with no swelling, redness, or edema. ENT: dry MM Respiratory: Faint exp wheezing. No increased work of breathing, no retractions or nasal flaring. Abdomen/GI: soft, mild LLQ tenderness, no rebound/peritoneal signs MS/ Extremity: Pulses equal, no cyanosis. Neurovascular intact. Full, normal range of motion. Equal circumference. Neuro: Awake and alert, GCS 15, oriented to person, place, time, and situation. Cranial nerves II-XII grossly intact. Motor strength 5/5 in all extremities. Sensory grossly intact. Cerebellar exam normal. Normal gait. Vital Signs: 16:53 BP 126 / 88; Pulse 76; Resp 16; Temp 98.4; Pulse Ox 98% on R/A; Weight 90.72 kg; Height la1 6 ft. 0 in. (182.88 cm); 18:00 BP 128 / 75; Pulse 65; Resp 18; Temp 98.2; Pulse Ox 96% on R/A; mg2 20:05 BP 129 / 78; Pulse 75; Resp 18; Temp 98.9; Pulse Ox 100% on R/A; Pain 0/10; mg2 16:53 Body Mass Index 27.12 (90.72 kg, 182.88 cm) la1 MDM: 16:58 Patient medically screened. rn 18:16 Differential diagnosis: Nonspecific abd pain, gastritis, pancreatitis, diverticulitis, rn viral gastroenteritis, gastroenteritis. Data reviewed: vital signs, nurses notes, lab test result(s), radiologic studies, CT scan, and as a result, I will discharge patient. Counseling: I had a detailed discussion with the patient and/or guardian regarding: the historical points, exam findings, and any diagnostic results supporting the discharge/admit diagnosis, lab results, radiology results, the need for outpatient follow up, to return to the emergency department if symptoms worsen or persist or if there are any questions or concerns that arise at home. Response to treatment: the patient's symptoms have mildly improved after treatment, and as a result, I will discharge patient. 01/18 17:14 Order name: Basic Metabolic Panel; Complete Time: 18:10 rn 01/18 17:14 Order name: CBC with Diff; Complete Time: 18:10 rn 01/18 17:14 Order name: Hepatic Function; Complete Time: 18:10 rn 01/18 17:14 Order name: Lipase; Complete Time: 18:10 rn 01/18 17:14 Order name: Flu; Complete Time: 17:58 rn 01/18 17:14 Order name: CT Abd/Pelvis - Without Cont; Complete Time: 18:12 rn 01/18 17:14 Order name: IV Saline Lock; Complete Time: 17:31 rn 01/18 17:14 Order name: Labs collected and sent; Complete Time: 17:31 rn Administered Medications: 17:30 Drug: Zofran 4 mg Route: IVP; Site: right antecubital; mg2 20:02 Follow up: Response: No adverse reaction; Marked relief of symptoms mg2 17:31 Drug: NS 0.9% 1000 ml Route: IV; Rate: 1000 ml; Site: right forearm; mg2 20:02 Follow up: Response: No adverse reaction; IV Status: Completed infusion mg2 18:22 Drug: Flagyl 500 mg Volume: 100 ml; Route: IVPB; Rate: 200 ml/hr; Infused Over: 30 mg2 mins; Site: left forearm; 20:01 Follow up: Response: No adverse reaction; IV Status: Completed infusion mg2 18:22 Drug: morphine 4 mg Route: IVP; Site: left forearm; mg2 19:58 Follow up: Response: No adverse reaction; Marked relief of symptoms mg2 18:55 Drug: Cipro 400 mg Volume: 200 ml; Route: IVPB; Infused Over: 60 mins; Site: right mg2 forearm; 20:02 Follow up: Response: No adverse reaction; IV Status: Completed infusion mg2 Disposition: 01/18/19 18:41 Discharged to Home. Impression: Diverticulitis of large intestine without perforation or abscess without bleeding. - Condition is Stable. - Discharge Instructions: Diverticulitis. - Prescriptions for Zofran ODT 4 mg Oral tablet,disintegrating - place 1 tablet by TRANSLINGUAL route every 8 hours As needed; 20 tablet. Flagyl 500 mg Oral Tablet - take 1 tablet by ORAL route every 8 hours for 10 days; 30 tablet. Tylenol- Codeine #3 300-30 mg Oral Tablet - take 2 tablet by ORAL route every 6 hours As needed; 30 tablet. Cipro 500 mg Oral Tablet - take 1 tablet by ORAL route every 12 hours for 7 days; 14 tablet. - Medication Reconciliation Form, Thank You Letter, Antibiotic Education, Prescription Opioid Use, Work release form form. - Follow up: Private Physician; When: As needed; Reason: Recheck today's complaints, Re-evaluation by your physician. - Problem is new. - Symptoms have improved. Signatures: Dispatcher [employer] EDMS Toño Gale MD MD rn Attema, Lee, RN RN la1 Casper Kelley RN RN mg2 Corrections: (The following items were deleted from the chart) 20:06 18:41 01/18/2019 18:41 Discharged to Home. Impression: Diverticulitis of large mg2 intestine without perforation or abscess without bleeding. Condition is Stable. Discharge Instructions: Diverticulitis. Prescriptions for Zofran ODT 4 mg Oral tablet,disintegrating - place 1 tablet by TRANSLINGUAL route every 8 hours As needed; 20 tablet, Flagyl 500 mg Oral Tablet - take 1 tablet by ORAL route every 8 hours for 10 days; 30 tablet, Tylenol-Codeine #3 300-30 mg Oral Tablet - take 2 tablet by ORAL route every 6 hours As needed; 30 tablet, Cipro 500 mg Oral Tablet - take 1 tablet by ORAL route every 12 hours for 7 days; 14 tablet. and Forms are Medication Reconciliation Form, Thank You Letter, Antibiotic Education, Prescription Opioid Use. Follow up: Private Physician; When: As needed; Reason: Recheck today's complaints, Re-evaluation by your physician. Problem is new. Symptoms have improved. rn
[2019-01-19 03:18] VITALS: BP 129/78; TEMP 98.9; O2SAT 100
== END 2019-01-18 20:06 | disposition home or self-care (01) ==
LOC: ER 16:44
DX: K57.32 Diverticulitis of large intestine without perforation or abscess without bleeding (principal); J45.909 Unspecified asthma, uncomplicated; M10.9 Gout, unspecified; I10 Essential (primary) hypertension; J44.9 Chronic obstructive pulmonary disease, unspecified; Z88.5 Allergy status to narcotic agent; Z88.0 Allergy status to penicillin; Z91.013 Allergy to seafood
CPT/HCPCS: 36415; 74176; 80048; 80076; 83690; 85025; 87804; 99284; J0744; J2405; J7030

== ENCOUNTER 2019-04-25 18:38 | Emergency (ER) | payer OTHER ==
[2019-04-25 19:37] LABS: Absolute Lymphocytes (CBC) 2.3 K/uL (0.7-4.9); Basophils % 0.8 % (0-1.3); Hematocrit 44.1 % (39.6-49.0); Lymphocytes % 24.3 % (15.3-44.8); MPV 10.9 fL (7.6-11.3); RBC Red Blood Cell Count 4.38 M/uL (4.33-5.43)
[2019-04-25] MEDS ORDERED: MORPHINE 4 MG/ML SYR ONE (19:44)
[2019-04-25] MEDS ORDERED: ONDANSETRON 4 MG/2 ML VIAL ONE (19:44)
[2019-04-25 20:02] LABS: Albumin 3.4 g/dL (3.4-5.0); Bilirubin Direct 0.1 mg/dL (0-0.2); Bilirubin Total 0.4 mg/dL (0.2-1.0); Potassium 4.4 mmol/L (3.5-5.1); Protein, Total 6.9 g/dL (6.4-8.2)
[2019-04-25 20:21] LABS: Urine Blood 1+ (NEG); Urine Glucose NEGATIVE (NEG); Urine Protein NEGATIVE (NEG); Urine Specific Gravity >1.030 (1.005-1.030)
--- NOTE | 2019-04-25 20:27 | RAD REPORT ---
EXAM DESCRIPTION: CT - Abdomen Pelvis Wo Contrast - 04/25/2019 7:57 pm CLINICAL HISTORY: Left lower quadrant pain, history of diverticulitis, fever COMPARISON: CT imaging January 2019 TECHNIQUE: Axial [address] imaging of the abdomen and pelvis was performed without IV contrast. No IV contrast was given because of allergy, abnormal renal function, patient refusal or physician re quest. Oral contrast was given. All CT scans are performed using dose optimization technique as appropriate and may include automated exposure control or mA/KV adjustment according to patient size. FINDINGS: No suspicious findings in the lung bases. The liver, spleen and pancreas show no suspicious findings on non-contrast imaging. Cholecystectomy c lips are present. No abnormal biliary tree dilatation. No right-sided hydronephrosis or obstructing calculus. No nonobstructing calculi on the right. There is minimal dilatation of the left collecting system. A 4-5 mm left UVJ calculus is present. This obst ructing stone was seen in a calyx on the January 18 study. There is a small remnant [address] ill present in a calyx in the upper pole of the left kidney. No measurable perinephric stranding. No significant adrenal finding. Isodense renal masses and pyelonephritis cannot be excluded in the abse nce of IV contrast. Urinary bladder is mostly contracted. Simms of the bladder are prominent. This is similar to the prior study. A cystitis is not excluded. Wall thickening may be due to a urethral out let stricture. No gastric dilatation or gastric wall thickening. No small bowel abnormality. Swain diverticulosis is p resent. No appendicitis findings. Moderate stool volume throughout the colon. No diverticulitis findi ngs are seen. No free air, free fluid or inflammatory stranding. No mass or bulky lymphadenopathy. Sm all left-side and moderate right-sided fat filled inguinal hernia is present. No suspicious bony findings. IMPRESSION: A 4-5 mm left UVJ calculus is present with only minimal dilatation of the left collectin g system. Isodense masses and pyelonephritis are not excluded. Cystitis is not excluded. Bladder simms are thic kened but the bladder is too contracted to allow all accurate assessment. Scattered swain diverticulosis without acute diverticulitis findings. No acute GI findings seen. Full assessment is limited is the absence of IV contrast.
[2019-04-25] MEDS ORDERED: KETOROLAC 30 MG/ML INJ ONE (20:50)
[2019-04-25] MEDS ORDERED: TAMSULOSIN 0.4 MG SR CAP ONE (20:50)
[2019-04-25] MEDS ORDERED: NA CHLORIDE 0.9% 1,000 ML ONE (20:50)
--- NOTE | 2019-04-25 20:59 | ER ---
Nurse's Notes [facility] Name: Codey Morin Jr Age: 53 yrs Sex: Male : 1965 Arrival Date: 04/25/2019 Time: 18:43 Bed 27 Private MD: Diagnosis: Left ureteral calculous Presentation: 04/25 18:43 Presenting complaint: Patient states: i have hx of diverticulitis and billie been fighting hj this episode for 3 months now, reports L side pain of my abd, reports loose stools; reports fever;. Transition of care: patient was not received from another setting of care. Onset of symptoms was April 25, 2019. Risk Assessment: Do you want to hurt yourself or someone else? Patient reports no desire to harm self or others. Initial Sepsis Screen: Does the patient meet any 2 criteria? No. Patient's initial sepsis screen is negative. Does the patient have a suspected source of infection? No. Patient's initial sepsis screen is negative. Care prior to arrival: None. 18:43 Method Of Arrival: Ambulatory 18:43 Acuity: KAYLIE 3 hj Triage Assessment: 19:30 General: Appears in no apparent distress. uncomfortable, Behavior is calm, cooperative, rr5 appropriate for age. Historical: - Allergies: 18:45 Demerol; hj 18:45 Iodine; hj 18:45 PENICILLINS; hj 18:45 SEAFOOD; hj - PMHx: 18:45 Arthritis; Asthma; COPD; Gout; Hypertension; hj - PSHx: 18:45 Cholecystectomy; hj - Immunization history:: Adult Immunizations unknown. - Social history:: Smoking status: unknown. - Ebola Screening: : Patient negative for fever greater than or equal to 101.5 degrees Fahrenheit, and additional compatible Ebola Virus Disease symptoms Patient denies exposure to infectious person Patient denies travel to an Ebola-affected area in the 21 days before illness onset. Screenin:00 Abuse screen: Denies threats or abuse. Denies injuries from another. Nutritional rr5 screening: No deficits noted. Tuberculosis screening: No symptoms or risk factors identified. Fall Risk IV access (20 points). Total Campo Fall Scale indicates No Risk (0-24 pts). Assessment: 19:30 General: Appears in no apparent distress. uncomfortable, Behavior is calm, cooperative, rr5 appropriate for age, Reports chills for fever for. 19:30 Pain: Complains of pain in left upper quadrant Pain does not radiate. Pain currently is rr5 8 out of 10 on a pain scale. Quality of pain is described as aching, Pain began gradually. Neuro: Level of Consciousness is awake, alert, obeys commands, Oriented to person, place, time, situation, Appropriate for age. Cardiovascular: Capillary refill < 3 seconds Patient's skin is warm and dry. Respiratory: Airway is patent Respiratory effort is even, unlabored, Respiratory pattern is regular, symmetrical. GI: Abdomen is round Bowel sounds present X 4 quads. Abd is soft and non tender Reports diarrhea. : No signs and/or symptoms were reported regarding the genitourinary system. EENT: No signs and/or symptoms were reported regarding the EENT system. Derm: Skin is intact, Skin temperature is warm. Musculoskeletal: Circulation, motion, and sensation intact. Capillary refill < 3 seconds. 20:15 Reassessment: Patient appears in no apparent distress at this time. Patient and/or rr5 family updated on plan of care and expected duration. Pain level reassessed. Patient is alert, oriented x 3, equal unlabored respirations, skin warm/dry/pink. awaiting for the results. 21:00 Reassessment: Patient appears in no apparent distress at this time. Patient is alert, rr5 oriented x 3, equal unlabored respirations, skin warm/dry/pink. awaiting for the fluid to finish then discharge. Patient states feeling better. Patient states symptoms have improved. 21:50 Reassessment: Patient appears in no apparent distress at this time. Patient is alert, rr5 oriented x 3, equal unlabored respirations, skin warm/dry/pink. discharge instruction given and explained without complaints made, verbalized understanding. Patient states feeling better. Patient states symptoms have improved. Pain: Pain currently is 3 out of 10 on a pain scale. Vital Signs: 18:45 BP 128 / 82; Pulse 73; Resp 18; Temp 97.7(TE); Pulse Ox 96% on R/A; Weight 81.65 kg; hj Height 6 ft. 0 in. (182.88 cm); Pain 5/10; 19:26 BP 130 / 73 LA (auto/reg); Pulse 65; Resp 18; Pulse Ox 97% on R/A; Pain 5/10; jp3 20:15 BP 131 / 86; Pulse 79; Resp 17; Pulse Ox 98% on R/A; Pain 5/10; rr5 21:00 BP 136 / 76; Pulse 69; Resp 15; Pulse Ox 98% on R/A; rr5 21:50 BP 121 / 70; Pulse 62; Resp 17; Temp 98; Pulse Ox 100% ; Pain 3/10; rr5 18:45 Body Mass Index 24.41 (81.65 kg, 182.88 cm) ED Course: 18:43 Patient arrived in ED. hj 18:45 Triage completed. hj 18:45 Arm band placed on right wrist. hj 19:15 Inserted saline lock: 20 gauge in right antecubital area, using aseptic technique. jp3 Blood collected. by Casper Kelley R.N. Patient maintains SpO2 saturation greater than 95% on room air. 19:15 Initial lab(s) drawn, by ED staff, sent to lab. jp3 19:17 Delgado Chaidez NP is PHCP. pm1 19:17 Bi Clemens MD is Attending Physician. pm1 19:24 Harry Dwyer RN is Primary Nurse. rr5 19:25 Placed in gown. Bed in low position. Call light in reach. Side rails up X 1. Warm jp3 blanket given. Pillow given. Verbal reassurance given. Pulse ox on. NIBP on. 20:02 CT Abd/Pelvis - Without Contrast In Process Unspecified. EDMS 20:59 Rica Kraft MD is Referral Physician. pm1 21:50 No provider procedures requiring assistance completed. IV discontinued, intact, rr5 bleeding controlled, No redness/swelling at site. Pressure dressing applied. Administered Medications: 20:13 Drug: Zofran 4 mg Route: IVP; Site: right antecubital; rr5 21:15 Follow up: Response: No adverse reaction rr5 20:15 Drug: morphine 4 mg {Note: rass 0.} Route: IVP; Site: right antecubital; rr5 21:15 Follow up: Response: No adverse reaction; RASS: Alert and Calm (0) rr5 20:55 Drug: NS 0.9% 1000 ml Route: IV; Rate: 1000 ml; Site: right antecubital; mg2 21:48 Follow up: Response: No adverse reaction; IV Status: Completed infusion; IV Intake: rr5 1000ml 20:55 Drug: TORadol 30 mg Route: IVP; Site: right antecubital; mg2 21:50 Follow up: Response: No adverse reaction rr5 20:55 Drug: Flomax 0.4 mg Route: PO; mg2 21:50 Follow up: Response: No adverse reaction rr5 21:13 Drug: Cipro 500 mg Route: PO; rr5 21:50 Follow up: Response: No adverse reaction rr5 Intake: 21:48 IV: 1000ml; Total: 1000ml. rr5 Outcome: 20:58 Discharge ordered by MD. pm1 21:50 Discharged to home ambulatory, with friend. rr5 21:50 Condition: stable 21:50 Discharge instructions given to patient, Instructed on discharge instructions, follow up and referral plans. medication usage, Demonstrated understanding of instructions, follow-up care, medications, Prescriptions given X 4. 21:52 Patient left the ED. rr5 Signatures: Dispatcher [employer] EDMS Petr Burnette RN RN Delgado Chaidez NP DIRECTOR TITLE pm1 Casper Kelley RN RN mg2 Daniel Azul jp3 Harry Dwyer, RN RN rr5 Corrections: (The following items were deleted from the chart) 18:47 18:45 Pulse 73bpm; Resp 18bpm; Pulse Ox 96% RA; Temp 97.7F Temporal; 81.65 kg; Height 6 hj ft. 0 in.; BMI: 24.4; Pain 5/10; hj
--- NOTE | 2019-04-25 20:59 | EDPHYS ---
Physician Documentation [facility] Name: Codey Morin Jr Age: 53 yrs Sex: Male : 1965 Arrival Date: 04/25/2019 Time: 18:43 Bed 27 Private MD: ED Physician Bi Clemens HPI: 04/25 19:08 This 53 yrs old Male presents to ER via Ambulatory with complaints of pm1 Abdominal Pain. 19:08 The patient presents with abdominal pain in the left lower quadrant. Onset: The pm1 symptoms/episode began/occurred today. The symptoms do not radiate. Associated signs and symptoms: Pertinent negatives: nausea, vomiting, and diarrhea, chest pain, dysuria, fever, shortness of breath, testicular pain. The symptoms are described as achy. Modifying factors: The symptoms are alleviated by nothing, the symptoms are aggravated by nothing. Severity of pain: in the emergency department the pain is actually worse. The patient has experienced similar episodes in the past, several times, feels like his diverticulitis in the past. The patient has not recently seen a physician. Historical: - Allergies: 18:45 Demerol; hj 18:45 Iodine; hj 18:45 PENICILLINS; hj 18:45 SEAFOOD; hj - PMHx: 18:45 Arthritis; Asthma; COPD; Gout; Hypertension; hj - PSHx: 18:45 Cholecystectomy; hj - Immunization history:: Adult Immunizations unknown. - Social history:: Smoking status: unknown. - Ebola Screening: : Patient negative for fever greater than or equal to 101.5 degrees Fahrenheit, and additional compatible Ebola Virus Disease symptoms Patient denies exposure to infectious person Patient denies travel to an Ebola-affected area in the 21 days before illness onset. ROS: 19:08 Constitutional: Negative for fever, chills, and weight loss, Eyes: Negative for injury, pm1 pain, redness, and discharge, ENT: Negative for injury, pain, and discharge, Neck: Negative for injury, pain, and swelling, Cardiovascular: Negative for chest pain, palpitations, and edema, Respiratory: Negative for shortness of breath, cough, wheezing, and pleuritic chest pain. 19:08 Back: Negative for injury and pain, : Negative for injury, bleeding, discharge, and swelling, MS/Extremity: Negative for injury and deformity, Skin: Negative for injury, rash, and discoloration, Neuro: Negative for headache, weakness, numbness, tingling, and seizure. 19:08 Abdomen/GI: Positive for abdominal pain, Negative for nausea, vomiting, and diarrhea, constipation. Exam: 19:08 Constitutional: This is a well developed, well nourished patient who is awake, alert, pm1 and in no acute distress. Head/Face: Normocephalic, atraumatic. Neck: Trachea midline, no thyromegaly or masses palpated, and no cervical lymphadenopathy. Supple, full range of motion without nuchal rigidity, or vertebral point tenderness. No Meningismus. Chest/axilla: Normal chest wall appearance and motion. Nontender with no deformity. No lesions are appreciated. Cardiovascular: Regular rate and rhythm with a normal S1 and S2. No gallops, murmurs, or rubs. Normal PMI, no JVD. No pulse deficits. Respiratory: Lungs have equal breath sounds bilaterally, clear to auscultation and percussion. No rales, rhonchi or wheezes noted. No increased work of breathing, no retractions or nasal flaring. Abdomen/GI: Soft, non-tender, with normal bowel sounds. No distension or tympany. No guarding or rebound. No evidence of tenderness throughout. Back: No spinal tenderness. No costovertebral tenderness. Full range of motion. Skin: Warm, dry with normal turgor. Normal color with no rashes, no lesions, and no evidence of cellulitis. MS/ Extremity: Pulses equal, no cyanosis. Neurovascular intact. Full, normal range of motion. 19:08 Neuro: Orientation: is normal, Motor: is normal, moves all fours. Vital Signs: 18:45 BP 128 / 82; Pulse 73; Resp 18; Temp 97.7(TE); Pulse Ox 96% on R/A; Weight 81.65 kg; hj Height 6 ft. 0 in. (182.88 cm); Pain 5/10; 19:26 BP 130 / 73 LA (auto/reg); Pulse 65; Resp 18; Pulse Ox 97% on R/A; Pain 5/10; jp3 20:15 BP 131 / 86; Pulse 79; Resp 17; Pulse Ox 98% on R/A; Pain 5/10; rr5 21:00 BP 136 / 76; Pulse 69; Resp 15; Pulse Ox 98% on R/A; rr5 21:50 BP 121 / 70; Pulse 62; Resp 17; Temp 98; Pulse Ox 100% ; Pain 3/10; rr5 18:45 Body Mass Index 24.41 (81.65 kg, 182.88 cm) hj MDM: 19:37 Patient medically screened. pm1 20:56 Data reviewed: vital signs. Data interpreted: Pulse oximetry: on room air is 97 %. pm1 Interpretation: normal. Counseling: I had a detailed discussion with the patient and/or guardian regarding: the historical points, exam findings, and any diagnostic results supporting the discharge/admit diagnosis, lab results, radiology results, the need for outpatient follow up, for definitive care, a urologist, to return to the emergency department if symptoms worsen or persist or if there are any questions or concerns that arise at home. 04/25 19:07 Order name: Basic Metabolic Panel; Complete Time: 20:05 mg2 04/25 19:07 Order name: CBC with Diff; Complete Time: 20:05 mg2 04/25 19:07 Order name: Creatinine for Radiology; Complete Time: 20:05 mg2 04/25 19:07 Order name: Hepatic Function; Complete Time: 20:05 mg2 04/25 19:07 Order name: Lipase; Complete Time: 20:05 mg2 04/25 19:25 Order name: Urine Dipstick--Ancillary (enter results); Complete Time: 20:28 mw2 04/25 19:07 Order name: IV Saline Lock; Complete Time: 19:29 mg2 04/25 19:39 Order name: CT Abd/Pelvis - Without Contrast; Complete Time: 20:41 pm1 04/25 19:07 Order name: Labs collected and sent; Complete Time: 19:29 mg2 Administered Medications: 20:13 Drug: Zofran 4 mg Route: IVP; Site: right antecubital; rr5 21:15 Follow up: Response: No adverse reaction rr5 20:15 Drug: morphine 4 mg {Note: rass 0.} Route: IVP; Site: right antecubital; rr5 21:15 Follow up: Response: No adverse reaction; RASS: Alert and Calm (0) rr5 20:55 Drug: NS 0.9% 1000 ml Route: IV; Rate: 1000 ml; Site: right antecubital; mg2 21:48 Follow up: Response: No adverse reaction; IV Status: Completed infusion; IV Intake: rr5 1000ml 20:55 Drug: TORadol 30 mg Route: IVP; Site: right antecubital; mg2 21:50 Follow up: Response: No adverse reaction rr5 20:55 Drug: Flomax 0.4 mg Route: PO; mg2 21:50 Follow up: Response: No adverse reaction rr5 21:13 Drug: Cipro 500 mg Route: PO; rr5 21:50 Follow up: Response: No adverse reaction rr5 Disposition: 04/25/19 20:58 Discharged to Home. Impression: Left ureteral calculous. - Condition is Stable. - Discharge Instructions: Kidney Stones. - Prescriptions for Tylenol- Codeine #3 300-30 mg Oral Tablet - take 2 tablets by ORAL route every 6 hours As needed; 20 tablet. Zofran 4 mg Oral Tablet - take 1 tablet by ORAL route every 12 hours As needed; 20 tablet. Flomax 0.4 mg Oral Capsule, Sust. Release 24 hr - take 1 capsule by ORAL route once daily 1/2 hour following the same meal each day; 10 capsule. Cipro 500 mg Oral Tablet - take 1 tablet by ORAL route every 12 hours for 7 days; 14 tablet. - Medication Reconciliation Form, Thank You Letter, Antibiotic Education, Prescription Opioid Use, Work release form form. - Follow up: Emergency Department; When: As needed; Reason: Worsening of condition. Follow up: Private Physician; When: 2 - 3 days; Reason: Recheck today's complaints, Continuance of care, Re-evaluation by your physician. Follow up: Rica Kraft MD; When: 2 - 3 days; Reason: Recheck today's complaints, Continuance of care, Re-evaluation by your physician. - Problem is new. - Symptoms have improved. Signatures: Dispatcher [employer] EDMS Petr Burnette RN RN hj Marinas, Patrick, NP UI DEVELOPER WITH [employer] JS pm1 Casper Kelley RN RN mg2 Harry Dwyer RN RN rr5 Corrections: (The following items were deleted from the chart) 20:59 20:58 04/25/2019 20:58 Discharged to Home. Impression: Left ureteral calculous. pm1 Condition is Stable. Forms are Medication Reconciliation Form, Thank You Letter, Antibiotic Education, Prescription Opioid Use. Follow up: Emergency Department; When: As needed; Reason: Worsening of condition. Follow up: Private Physician; When: 2 - 3 days; Reason: Recheck today's complaints, Continuance of care, Re-evaluation by your physician. Problem is new. Symptoms have improved. pm1 21:52 20:59 04/25/2019 20:58 Discharged to Home. Impression: Left ureteral calculous. rr5 Condition is Stable. Discharge Instructions: Kidney Stones. Prescriptions for Tylenol-Codeine #3 300-30 mg Oral Tablet - take 2 tablets by ORAL route every 6 hours As needed; 20 tablet, Zofran 4 mg Oral Tablet - take 1 tablet by ORAL route every 12 hours As needed; 20 tablet, Flomax 0.4 mg Oral Capsule, Sust. Release 24 hr - take 1 capsule by ORAL route once daily 1/2 hour following the same meal each day; 10 capsule, Cipro 500 mg Oral Tablet - take 1 tablet by ORAL route every 12 hours for 7 days; 14 tablet. and Forms are Medication Reconciliation Form, Thank You Letter, Antibiotic Education, Prescription Opioid Use. Follow up: Emergency Department; When: As needed; Reason: Worsening of condition. Follow up: Private Physician; When: 2 - 3 days; Reason: Recheck today's complaints, Continuance of care, Re-evaluation by your physician. Follow up: Rica Kraft; When: 2 - 3 days; Reason: Recheck today's complaints, Continuance of care, Re-evaluation by your physician. Problem is new. Symptoms have improved. pm1
[2019-04-25] MEDS ORDERED: CIPROFLOXACIN HCL 500 MG TAB ONE (21:11)
[2019-04-25 23:27] VITALS: TEMP 97.7
[2019-04-25 23:28] VITALS: BP 130/73; O2SAT 97
== END 2019-04-25 21:52 | disposition home or self-care (01) ==
LOC: ER 18:38
DX: N20.1 Calculus of ureter (principal); I10 Essential (primary) hypertension; Z88.0 Allergy status to penicillin; Z88.5 Allergy status to narcotic agent; Z91.013 Allergy to seafood; Z91.048 Other nonmedicinal substance allergy status
CPT/HCPCS: 85025; 80048; 36415; 80076; 81003; 83690; 74176; J7030; J2405; 96361; 96374; 96375; 99284

== ENCOUNTER 2019-05-24 15:17 | Emergency (ER) | payer OTHER ==
[2019-05-24] MEDS ORDERED: CYCLOBENZAPRINE 10 MG TAB ONE (15:50)
[2019-05-24] MEDS ORDERED: KETOROLAC 30 MG/ML INJ ONE (15:50)
[2019-05-24 16:21] LABS: Absolute Lymphocytes (CBC) 2.2 K/uL (0.7-4.9); Basophils % 0.9 % (0-1.3); Lymphocytes % 26.1 % (15.3-44.8); MPV 10.4 fL (7.6-11.3); RBC Red Blood Cell Count 4.36 M/uL (4.33-5.43)
[2019-05-24 16:28] LABS: Potassium 3.6 mmol/L (3.5-5.1)
--- NOTE | 2019-05-24 16:36 | EDPHYS ---
Physician Documentation [facility] Name: Codey Morin Jr Age: 53 yrs Sex: Male : 1965 Arrival Date: 05/24/2019 Time: 15:20 Bed 13 Private MD: ED Physician Kelton Cavazos HPI: 05/24 15:29 This 53 yrs old Male presents to ER via EMS with complaints of low back pain. kb 15:29 The patient presents with pain that is acute, with no known mechanism of injury, and kb tenderness. The symptoms are located in the left low back. The pain radiates to the left leg. The problem was sustained without known cause. Onset: The symptoms/episode began/occurred last night. Modifying factors: The patient symptoms are alleviated by nothing, the patient symptoms are aggravated by any movement. Associated signs and symptoms: Pertinent positives: none. Severity of symptoms: At their worst the symptoms were moderate, in the emergency department the symptoms are unchanged. The patient has not experienced similar symptoms in the past. The patient has not recently seen a physician. Pt reports he started having low back pain when he got off of work that just kept getting worse throughout the day. States he has also had itching and swelling to hands and feet. Reports he has been dealing with diverticulitis all summer and thinks the infection is spreading now. Denies abd pain, fever, n/v/d. Came in to get something for the back pain and to get checked for infection. . Historical: - Allergies: 15:28 Demerol; ph 15:28 Iodine; ph 15:28 PENICILLINS; ph 15:28 SEAFOOD; ph - Home Meds: 15:28 albuterol sulfate inhalation Inhl [Active]; ph - PMHx: 15:28 Arthritis; Asthma; COPD; Gout; Hypertension; ph - PSHx: 15:28 Cholecystectomy; ph - Immunization history:: Adult Immunizations unknown. - Social history:: Smoking status: Patient uses tobacco products, denies chronic smoking, but will smoke occasionally. - Ebola Screening: : No symptoms or risks identified at this time. ROS: 15:33 Constitutional: Negative for fever, chills, and weight loss, Neck: Negative for injury, kb pain, and swelling, Cardiovascular: Negative for chest pain, palpitations, and edema, Respiratory: Negative for shortness of breath, cough, wheezing, and pleuritic chest pain, Abdomen/GI: Negative for abdominal pain, nausea, vomiting, diarrhea, and constipation, Skin: Negative for injury, rash, and discoloration, Neuro: Negative for headache, weakness, numbness, tingling, and seizure. 15:33 Back: Positive for pain at rest, pain with movement, radiated pain, of the left low back. 15:33 MS/extremity: Positive for swelling and itching to hands and feet. Exam: 15:33 Constitutional: This is a well developed, well nourished patient who is awake, alert, kb and in no acute distress. Head/Face: Normocephalic, atraumatic. ENT: Nares patent. No nasal discharge, no septal abnormalities noted. Tympanic membranes are normal and external auditory canals are clear. Oropharynx with no redness, swelling, or masses, exudates, or evidence of obstruction, uvula midline. Mucous membranes moist. Neck: Trachea midline, no thyromegaly or masses palpated, and no cervical lymphadenopathy. Supple, full range of motion without nuchal rigidity, or vertebral point tenderness. No Meningismus. Chest/axilla: Normal chest wall appearance and motion. Nontender with no deformity. No lesions are appreciated. Cardiovascular: Regular rate and rhythm with a normal S1 and S2. No gallops, murmurs, or rubs. Normal PMI, no JVD. No pulse deficits. Respiratory: Lungs have equal breath sounds bilaterally, clear to auscultation and percussion. No rales, rhonchi or wheezes noted. No increased work of breathing, no retractions or nasal flaring. Abdomen/GI: Soft, non-tender, with normal bowel sounds. No distension or tympany. No guarding or rebound. No evidence of tenderness throughout. Skin: Warm, dry with normal turgor. Normal color with no rashes, no lesions, and no evidence of cellulitis. MS/ Extremity: Pulses equal, no cyanosis. Neurovascular intact. Full, normal range of motion. Small area of localized swelling to dorsal aspect of right hand just above 2nd and 3rd digit. Scarring noted to area and pt reports old fracture. No tenderness or decreased ROM. No other swelling, redness or other signs on infection/cellulitis noted to hands or feet. Neuro: Awake and alert, GCS 15, oriented to person, place, time, and situation. Cranial nerves II-XII grossly intact. Motor strength 5/5 in all extremities. Sensory grossly intact. Cerebellar exam normal. Normal gait. 15:33 Back: pain, that is moderate, of the left low back, ROM is normal, normal spinal alignment noted. Vital Signs: 15:26 BP 136 / 86; Pulse 60; Resp 18; Temp 97.8; Pulse Ox 100% on R/A; Weight 81.65 kg; ph Height 6 ft. 0 in. (182.88 cm); Pain 8/10; 16:36 BP 128 / 78; Pulse 62; Resp 18; Temp 98.0; Pulse Ox 100% on R/A; Pain 5/10; ph 15:26 Body Mass Index 24.41 (81.65 kg, 182.88 cm) ph MDM: 15:20 Patient medically screened. kb 15:33 Data reviewed: vital signs, nurses notes. Data interpreted: Pulse oximetry: on room air kb is 100 %. Interpretation: normal. 16:34 Counseling: I had a detailed discussion with the patient and/or guardian regarding: the kb historical points, exam findings, and any diagnostic results supporting the discharge/admit diagnosis, lab results, the need for outpatient follow up, a family practitioner, to return to the emergency department if symptoms worsen or persist or if there are any questions or concerns that arise at home. 05/24 15:28 Order name: CBC with Diff; Complete Time: 16:28 kb 05/24 15:28 Order name: Basic Metabolic Panel; Complete Time: 16:33 kb 05/24 15:28 Order name: IV Start; Complete Time: 16:11 kb Administered Medications: 16:00 Drug: TORadol - Ketorolac 15 mg Route: IVP; Site: right antecubital; ph 16:37 Follow up: Response: No adverse reaction; Pain is decreased ph 16:11 Drug: Flexeril 10 mg Route: PO; ph 16:37 Follow up: Response: No adverse reaction; Pain is decreased ph Disposition: 05/25 08:54 Co-signature as Attending Physician, Kelton Cavazos MD I agree with the assessment and kdr plan of care. Disposition: 05/24/19 16:35 Discharged to Home. Impression: Sciatica, left side. - Condition is Stable. - Discharge Instructions: Sciatica, [id number], Back Exercises, [id number]. - Prescriptions for Cyclobenzaprine 10 mg Oral Tablet - take 1 tablet by ORAL route every 8 hours As needed; 21 tablet. Diclofenac Sodium 75 mg Oral Tablet, Delayed Release (E.C.) - take 1 tablet by ORAL route 2 times per day As needed; 30 tablet. - Medication Reconciliation Form, Thank You Letter, Antibiotic Education, Prescription Opioid Use, Work release form form. - Follow up: Emergency Department; When: As needed; Reason: Worsening of condition. Follow up: Private Physician; When: 2 - 3 days; Reason: Recheck today's complaints, Continuance of care, Re-evaluation by your physician. Signatures: Dispatcher [employer] EDMS Annika Mcdaniels, Kelton Simpson MD MD kdr Hall, Patricia, RN RN ph Corrections: (The following items were deleted from the chart) 05/24 16:37 15:33 Constitutional: This is a well developed, well nourished patient who is awake, kb alert, and in no acute distress. Head/Face: Normocephalic, atraumatic. ENT: Nares patent. No nasal discharge, no septal abnormalities noted. Tympanic membranes are normal and external auditory canals are clear. Oropharynx with no redness, swelling, or masses, exudates, or evidence of obstruction, uvula midline. Mucous membranes moist. Neck: Trachea midline, no thyromegaly or masses palpated, and no cervical lymphadenopathy. Supple, full range of motion without nuchal rigidity, or vertebral point tenderness. No Meningismus. Chest/axilla: Normal chest wall appearance and motion. Nontender with no deformity. No lesions are appreciated. Cardiovascular: Regular rate and rhythm with a normal S1 and S2. No gallops, murmurs, or rubs. Normal PMI, no JVD. No pulse deficits. Respiratory: Lungs have equal breath sounds bilaterally, clear to auscultation and percussion. No rales, rhonchi or wheezes noted. No increased work of breathing, no retractions or nasal flaring. Abdomen/GI: Soft, non-tender, with normal bowel sounds. No distension or tympany. No guarding or rebound. No evidence of tenderness throughout. Skin: Warm, dry with normal turgor. Normal color with no rashes, no lesions, and no evidence of cellulitis. MS/ Extremity: Pulses equal, no cyanosis. Neurovascular intact. Full, normal range of motion. Small area of localized swelling to dorsal aspect of right hand just above 2nd and 3rd digit. Scarring noted to area and pt reports old fracture. No other swelling, redness or other signs on infection/cellulitis noted to hands or feet. Neuro: Awake and alert, GCS 15, oriented to person, place, time, and situation. Cranial nerves II-XII grossly intact. Motor strength 5/5 in all extremities. Sensory grossly intact. Cerebellar exam normal. Normal gait. kb 16:56 16:35 05/24/2019 16:35 Discharged to Home. Impression: Sciatica, left side. Condition ph is Stable. Forms are Medication Reconciliation Form, Thank You Letter, Antibiotic Education, Prescription Opioid Use. Follow up: Emergency Department; When: As needed; Reason: Worsening of condition. Follow up: Private Physician; When: 2 - 3 days; Reason: Recheck today's complaints, Continuance of care, Re-evaluation by your physician. kb
--- NOTE | 2019-05-24 16:36 | ER ---
Nurse's Notes [facility] Name: Codey Morin Jr Age: 53 yrs Sex: Male : 1965 Arrival Date: 05/24/2019 Time: 15:20 Bed 13 Private MD: Diagnosis: Sciatica, left side Presentation: 05/24 15:25 Presenting complaint: EMS states: Pt c/o low back and burning, itching pain to pauly ph feet, denies N/V/D fever, or urinary symptoms. Transition of care: patient was not received from another setting of care. Onset of symptoms was May 24, 2019. Risk Assessment: Do you want to hurt yourself or someone else? Patient reports no desire to harm self or others. Initial Sepsis Screen: Does the patient meet any 2 criteria? No. Patient's initial sepsis screen is negative. Does the patient have a suspected source of infection? No. Patient's initial sepsis screen is negative. Care prior to arrival: None. 15:25 Method Of Arrival: EMS: [facility] ph 15:25 Acuity: KAYLIE 3 ph Historical: - Allergies: 15:28 Demerol; ph 15:28 Iodine; ph 15:28 PENICILLINS; ph 15:28 SEAFOOD; ph - Home Meds: 15:28 albuterol sulfate inhalation Inhl [Active]; ph - PMHx: 15:28 Arthritis; Asthma; COPD; Gout; Hypertension; ph - PSHx: 15:28 Cholecystectomy; ph - Immunization history:: Adult Immunizations unknown. - Social history:: Smoking status: Patient uses tobacco products, denies chronic smoking, but will smoke occasionally. - Ebola Screening: : No symptoms or risks identified at this time. Screenin:29 Abuse screen: Denies threats or abuse. Denies injuries from another. Nutritional ph screening: No deficits noted. Tuberculosis screening: No symptoms or risk factors identified. Fall Risk None identified. Assessment: 16:30 General: Appears in no apparent distress. uncomfortable, unkempt, Behavior is ph cooperative, appropriate for age, Denies fever. Pain: Complains of pain in right hand, left hand, right foot and left foot and left low back Pain radiates to left leg. Neuro: Level of Consciousness is awake, alert, obeys commands, Oriented to person, place, time, situation. Cardiovascular: Capillary refill < 3 seconds in bilateral fingers Patient's skin is warm and dry. Respiratory: Airway is patent Respiratory effort is even, unlabored, Respiratory pattern is regular, symmetrical. GI: Patient currently denies diarrhea, nausea, vomiting. Derm: Skin is intact, Skin is pink, warm \T\ dry. Musculoskeletal: Circulation, motion, and sensation intact. Range of motion: intact in all extremities, Reports pain in left low back. Vital Signs: 15:26 BP 136 / 86; Pulse 60; Resp 18; Temp 97.8; Pulse Ox 100% on R/A; Weight 81.65 kg; ph Height 6 ft. 0 in. (182.88 cm); Pain 8/10; 16:36 BP 128 / 78; Pulse 62; Resp 18; Temp 98.0; Pulse Ox 100% on R/A; Pain 5/10; ph 15:26 Body Mass Index 24.41 (81.65 kg, 182.88 cm) ph ED Course: 15:20 Patient arrived in ED. kb 15:20 Annika Mcdaniels FNP-C [facility]. kb 15:20 Kelton Cavazos MD is Attending Physician. kb 15:24 Jessica Groves, CRYSTAL is Primary Nurse. ph 15:26 Triage completed. ph 15:29 Arm band placed on Patient placed in an exam room, on a stretcher. ph 15:29 Patient has correct armband on for positive identification. Placed in gown. Bed in low ph position. Call light in reach. Side rails up X 1. Pulse ox on. NIBP on. Door closed. Noise minimized. Warm blanket given. Head of bed elevated. 16:00 Inserted saline lock: 22 gauge in right antecubital area, using aseptic technique. ph Blood collected. 16:36 No provider procedures requiring assistance completed. IV discontinued, intact, ph bleeding controlled, No redness/swelling at site. Pressure dressing applied. Administered Medications: 16:00 Drug: TORadol - Ketorolac 15 mg Route: IVP; Site: right antecubital; ph 16:37 Follow up: Response: No adverse reaction; Pain is decreased ph 16:11 Drug: Flexeril 10 mg Route: PO; ph 16:37 Follow up: Response: No adverse reaction; Pain is decreased ph Outcome: 16:35 Discharge ordered by . kb 16:56 Discharged to home ambulatory. ph 16:56 Condition: good 16:56 Discharge instructions given to patient, Instructed on discharge instructions, follow up and referral plans. medication usage, Demonstrated understanding of instructions, follow-up care, medications, Prescriptions given X 2. 16:56 Patient left the ED. ph Signatures: Annika Mcdaniels FNP-C FNP-Jessica Cruz RN RN ph Corrections: (The following items were deleted from the chart) 15:29 15:25 Acuity: KAYLIE 4 ph ph
[2019-05-24 17:18] VITALS: BP 128/78; TEMP 98; O2SAT 100
== END 2019-05-24 16:56 | disposition home or self-care (01) ==
LOC: ER 15:17
DX: M54.32 Sciatica, left side (principal); I10 Essential (primary) hypertension; J45.909 Unspecified asthma, uncomplicated; Z72.0 Tobacco use; Z88.0 Allergy status to penicillin; Z88.5 Allergy status to narcotic agent; Z91.013 Allergy to seafood; Z91.048 Other nonmedicinal substance allergy status
CPT/HCPCS: 36415; 80048; 85025; 96374; 99284

== ENCOUNTER 2019-10-05 11:42 | Emergency (ER) | payer OTHER, SELFPAY ==
[2019-10-05] MEDS ORDERED: ALBUTEROL 2.5 MG/3 ML NEB SOL ONE (12:23)
[2019-10-05] MEDS ORDERED: IPRATROPIUM BROM 0.5MG/2.5ML ONE (12:23)
--- NOTE | 2019-10-05 12:42 | RAD REPORT ---
EXAM DESCRIPTION: Meg Corado (2 Views)10/05/2019 12:35 pm CLINICAL HISTORY: Cough COMPARISON: November 2018 FINDINGS: The lungs appear clear of acute infiltrate. The heart is normal size IMPRESSION: No acute abnormalities displayed
--- NOTE | 2019-10-05 12:51 | RAD REPORT ---
EXAM DESCRIPTION: CT - Stone Protocol - 10/05/2019 12:28 pm CLINICAL HISTORY: Abdominal pain. Left flank pain COMPARISON: April 2019 TECHNIQUE: Computed axial tomography of the abdomen pelvis was obtained without oral or IV contrast. Lack of IV and oral contrast limits evaluation of solid organs, bowel, and vessels. Coronal reformat tyson images were obtained and reviewed. All CT scans are performed using dose optimization technique as appropriate and may include automated exposure control or mA/KV adjustment according to patient size. FINDINGS: Bilateral renal calculi. Mild left hydronephrosis. 5 millimeter calculus very distal left ureter. The liver, spleen, pancreas and adrenals appear grossly normal Cholecystectomy There is no evidence of diverticulitis. The appendix appears normal Inguinal hernias contain fat IMPRESSION: 5 millimeter calculus very distal left ureter resulting in mild left hydronephrosis
[2019-10-05 13:12] LABS: Urine Blood NEGATIVE (NEG); Urine Glucose NEGATIVE (NEG); Urine Protein NEGATIVE (NEG); Urine pH 7.5 (5.0-7.0)
--- NOTE | 2019-10-05 13:42 | ER ---
Nurse's Notes [facility] Name: Codey Morin Jr Age: 53 yrs Sex: Male : 1965 Arrival Date: 10/05/2019 Time: 11:46 Bed 26 Private MD: Diagnosis: Bronchitis, not specified as acute or chronic;Calculus of ureter Presentation: 10/05 11:55 Presenting complaint: Patient states: , chill, congestion, difficulty urination, ca1 headache, L flank pain that radiates to the L shoulder blade 2-3 days ago. Denies N/V. Transition of care: patient was not received from another setting of care. Onset of symptoms was October 05, 2019. Risk Assessment: Do you want to hurt yourself or someone else? Patient reports no desire to harm self or others. Initial Sepsis Screen: Does the patient meet any 2 criteria? No. Patient's initial sepsis screen is negative. Does the patient have a suspected source of infection? No. Patient's initial sepsis screen is negative. Care prior to arrival: None. 11:55 Method Of Arrival: Ambulatory ca1 11:55 Acuity: KAYLIE 3 ca1 Historical: - Allergies: 12:03 Demerol; ca1 12:03 Iodine; ca1 12:03 PENICILLINS; ca1 12:03 SEAFOOD; ca1 - Home Meds: 13:11 omeprazole 40 mg Oral cpDR 1 cap 30 minutes before first meal of the day. [Active]; vc Advair Diskus 250-50 mcg/dose Inhl dsdv 1 puff 2 times per day [Active]; albuterol sulfate 90 mcg/actuation inhalation HFAA [Active]; ibuprofen 600 mg Oral tab 1 tab 3 times per day [Active]; - PMHx: 12:03 Arthritis; Asthma; COPD; Gout; Hypertension; ca1 - PSHx: 12:03 Cholecystectomy; ca1 - Immunization history:: Adult Immunizations up to date, Flu vaccine is up to date. - Coronavirus screen:: The patient has NOT traveled to [place], [place], or [place] in the past 14 days. The patient has NOT had contact with known/suspected case of Coronavirus?. - Social history:: Smoking status: Patient denies any tobacco usage or history of. - Ebola Screening: : Patient negative for fever greater than or equal to 101.5 degrees Fahrenheit, and additional compatible Ebola Virus Disease symptoms Patient denies exposure to infectious person Patient denies travel to an Ebola-affected area in the 21 days before illness onset No symptoms or risks identified at this time. Screenin:15 Abuse screen: Denies threats or abuse. Denies injuries from another. Nutritional sv screening: No deficits noted. Tuberculosis screening: No symptoms or risk factors identified. Fall Risk None identified. Assessment: 12:15 General: Appears in no apparent distress. uncomfortable, Behavior is calm, cooperative, sv appropriate for age. Pain: Complains of pain in left flank Pain currently is 5 out of 10 on a pain scale. Neuro: Level of Consciousness is awake, alert, obeys commands, Oriented to person, place, time, situation, Moves all extremities. Full function Gait is steady, Speech is normal. Respiratory: Airway is patent Respiratory effort is even, unlabored, Respiratory pattern is regular, symmetrical, Breath sounds with wheezes bilaterally. : Reports urinary retention. Derm: Skin is intact, Skin is pink, warm \T\ dry. 13:54 Reassessment: Patient appears in no apparent distress at this time. No changes from sv previously documented assessment. Patient and/or family updated on plan of care and expected duration. Pain level reassessed. Patient is alert, oriented x 3, equal unlabored respirations, skin warm/dry/pink. 15:46 Reassessment: Patient appears in no apparent distress at this time. No changes from sv previously documented assessment. Patient and/or family updated on plan of care and expected duration. Pain level reassessed. Patient is alert, oriented x 3, equal unlabored respirations, skin warm/dry/pink. Vital Signs: 12:03 BP 153 / 71; Pulse 77; Resp 19 S; Temp 98.2(O); Pulse Ox 100% on R/A; Weight 86.18 kg ca1 (R); Height 5 ft. 11 in. (180.34 cm) (R); Pain 5/10; 12:03 Body Mass Index 26.50 (86.18 kg, 180.34 cm) ca1 ED Course: 11:46 Patient arrived in ED. as 11:56 Annika Mcdaniels FNP-C [facility]. kb 11:56 Toño Gale MD is Attending Physician. kb 12:00 Triage completed. ca1 12:03 Arm band placed on right wrist. ca1 12:15 Patient has correct armband on for positive identification. Bed in low position. Call sv light in reach. Door closed. Head of bed elevated. 12:19 Svetlana Purdy, RN is Primary Nurse. sv 12:22 Flu and/or RSV swab sent to lab. jp3 12:[address] via wheelchair. sv 12:23 Flu Sent. jp3 12:30 CT Stone Protocol In Process Unspecified. EDMS 12:38 Chest Pa And Lat (2 Views) XRAY In Process Unspecified. EDMS 13:53 No provider procedures requiring assistance completed. Patient did not have IV access sv during this emergency room visit. Administered Medications: 12:46 Drug: DuoNeb (3:1) (2.5 mg - 0.5 mg) 3 ml Route: Nebulizer; sv 13:47 Follow up: Response: No adverse reaction sv 13:51 Drug: Flomax 0.4 mg Route: PO; sv 13:53 Follow up: Response: No adverse reaction; Medication administered at discharge. sv Outcome: 13:43 Discharge ordered by . kb 13:54 Discharged to home ambulatory. sv 13:54 Condition: stable 13:54 Discharge instructions given to patient, Instructed on discharge instructions, follow up and referral plans. medication usage, Demonstrated understanding of instructions, follow-up care, medications, Prescriptions given X 1. 13:54 Patient left the ED. sv Signatures: Dispatcher [employer] EDIN Annika Mcdaniels, SERVER SECURITY ADMINISTRATOR-C SERVER SECURITY ADMINISTRATOR-Svetlana Escobedo RN RN Dali Nelson Jacob jp3 Silvia Bello RN RN ca1 Radha Childress RN RN vc Corrections: (The following items were deleted from the chart) 12:01 11:55 Presenting complaint: Patient states: , chill, congestion, difficulty ca1 urination, headache, LLQ pain that radiates to the L shoulder blade 2-3 days ago. Denies N/V ca1
--- NOTE | 2019-10-05 13:43 | EDPHYS ---
Physician Documentation [facility] Name: Codey Morin Jr Age: 53 yrs Sex: Male : 1965 Arrival Date: 10/05/2019 Time: 11:46 Bed 26 Private MD: ED Physician Toño Gale HPI: 10/05 13:42 This 53 yrs old Male presents to ER via Ambulatory with complaints of Flu kb Symptoms, Urinary Retention. 13:42 The patient or guardian reports cough, that is intermittent, described as moderate, kb difficulty breathing. Onset: The symptoms/episode began/occurred 7 day(s) ago. Severity of symptoms: At their worst the symptoms were moderate, in the emergency department the symptoms are unchanged. Modifying factors: The symptoms are alleviated by nothing, the symptoms are aggravated by nothing. Associated signs and symptoms: The patient has no apparent associated signs or symptoms. The patient has experienced similar episodes in the past. The patient has not recently seen a physician. Pt reports cough, chills, difficulty breathing, difficulty urinating and left flank pain for 1 week. Historical: - Allergies: 12:03 Demerol; ca1 12:03 Iodine; ca1 12:03 PENICILLINS; ca1 12:03 SEAFOOD; ca1 - Home Meds: 13:11 omeprazole 40 mg Oral cpDR 1 cap 30 minutes before first meal of the day. [Active]; vc Advair Diskus 250-50 mcg/dose Inhl dsdv 1 puff 2 times per day [Active]; albuterol sulfate 90 mcg/actuation inhalation HFAA [Active]; ibuprofen 600 mg Oral tab 1 tab 3 times per day [Active]; - PMHx: 12:03 Arthritis; Asthma; COPD; Gout; Hypertension; ca1 - PSHx: 12:03 Cholecystectomy; ca1 - Immunization history:: Adult Immunizations up to date, Flu vaccine is up to date. - Coronavirus screen:: The patient has NOT traveled to [place], [place], or [place] in the past 14 days. The patient has NOT had contact with known/suspected case of Coronavirus?. - Social history:: Smoking status: Patient denies any tobacco usage or history of. - Ebola Screening: : Patient negative for fever greater than or equal to 101.5 degrees Fahrenheit, and additional compatible Ebola Virus Disease symptoms Patient denies exposure to infectious person Patient denies travel to an Ebola-affected area in the 21 days before illness onset No symptoms or risks identified at this time. ROS: 13:40 Eyes: Negative for injury, pain, redness, and discharge, ENT: Negative for injury, kb pain, and discharge, Neck: Negative for injury, pain, and swelling, Cardiovascular: Negative for chest pain, palpitations, and edema, Abdomen/GI: Negative for abdominal pain, nausea, vomiting, diarrhea, and constipation, MS/Extremity: Negative for injury and deformity, Skin: Negative for injury, rash, and discoloration, Neuro: Negative for headache, weakness, numbness, tingling, and seizure. 13:40 Constitutional: Positive for chills, malaise. 13:40 Respiratory: Positive for cough, shortness of breath. 13:40 : Positive for flank pain, difficulty urinating. Exam: 13:40 Constitutional: This is a well developed, well nourished patient who is awake, alert, kb and in no acute distress. Head/Face: Normocephalic, atraumatic. ENT: Nares patent. No nasal discharge, no septal abnormalities noted. Tympanic membranes are normal and external auditory canals are clear. Oropharynx with no redness, swelling, or masses, exudates, or evidence of obstruction, uvula midline. Mucous membranes moist. Neck: Trachea midline, no thyromegaly or masses palpated, and no cervical lymphadenopathy. Supple, full range of motion without nuchal rigidity, or vertebral point tenderness. No Meningismus. Chest/axilla: Normal chest wall appearance and motion. Nontender with no deformity. No lesions are appreciated. Cardiovascular: Regular rate and rhythm with a normal S1 and S2. No gallops, murmurs, or rubs. Normal PMI, no JVD. No pulse deficits. Abdomen/GI: Soft, non-tender, with normal bowel sounds. No distension or tympany. No guarding or rebound. No evidence of tenderness throughout. Skin: Warm, dry with normal turgor. Normal color with no rashes, no lesions, and no evidence of cellulitis. MS/ Extremity: Pulses equal, no cyanosis. Neurovascular intact. Full, normal range of motion. Neuro: Awake and alert, GCS 15, oriented to person, place, time, and situation. Cranial nerves II-XII grossly intact. Motor strength 5/5 in all extremities. Sensory grossly intact. Cerebellar exam normal. Normal gait. 13:40 Respiratory: the patient does not display signs of respiratory distress, Respirations: normal, Breath sounds: wheezing: expiratory that is mild, is scattered. 13:40 Back: CVA tenderness, that is mild, is noted on the left. Vital Signs: 12:03 BP 153 / 71; Pulse 77; Resp 19 S; Temp 98.2(O); Pulse Ox 100% on R/A; Weight 86.18 kg ca1 (R); Height 5 ft. 11 in. (180.34 cm) (R); Pain 5/10; 12:03 Body Mass Index 26.50 (86.18 kg, 180.34 cm) ca1 MDM: 11:56 Patient medically screened. kb 13:40 Data reviewed: vital signs, nurses notes. Data interpreted: Pulse oximetry: on room air kb is 100 %. Interpretation: normal. Counseling: I had a detailed discussion with the patient and/or guardian regarding: the historical points, exam findings, and any diagnostic results supporting the discharge/admit diagnosis, lab results, radiology results, the need for outpatient follow up, a family practitioner, to return to the emergency department if symptoms worsen or persist or if there are any questions or concerns that arise at home. 10/05 12:13 Order name: Flu; Complete Time: 12:51 kb 10/05 12:48 Order name: Urine Dipstick--Ancillary (enter results); Complete Time: 13:17 eb 10/05 12:13 Order name: CT Stone Protocol; Complete Time: 12:55 kb 10/05 12:13 Order name: Chest Pa And Lat (2 Views) XRAY; Complete Time: 12:51 kb 10/05 12:13 Order name: Urine Dipstick-Ancillary (obtain specimen); Complete Time: 12:46 kb Administered Medications: 12:46 Drug: DuoNeb (3:1) (2.5 mg - 0.5 mg) 3 ml Route: Nebulizer; sv 13:47 Follow up: Response: No adverse reaction sv 13:51 Drug: Flomax 0.4 mg Route: PO; sv 13:53 Follow up: Response: No adverse reaction; Medication administered at discharge. sv Disposition: 15:53 Co-signature as Attending Physician, Toño Gale MD. rn Disposition: 10/05/19 13:43 Discharged to Home. Impression: Bronchitis, not specified as acute or chronic, Calculus of ureter. - Condition is Stable. - Discharge Instructions: Kidney Stones, [id number], Acute Bronchitis, Nufd-fx-Ohfs, Viral Respiratory Infection, [id number]-[id number]. - Prescriptions for Flomax 0.4 mg Oral Capsule, Sust. Release 24 hr - take 1 capsule by ORAL route once daily; 10 capsule. - Medication Reconciliation Form, Thank You Letter, Antibiotic Education, Prescription Opioid Use form. - Follow up: Emergency Department; When: As needed; Reason: Worsening of condition. Follow up: Private Physician; When: 2 - 3 days; Reason: Recheck today's complaints, Continuance of care, Re-evaluation by your physician. Signatures: Dispatcher [employer] EDMS Annika Mcdaniels, SEEMA-C SEEMA-Svetlana Escobedo, RN RN Toño Teresa MD MD rn Acob, Silvia RN RN ca1 Radha Childress RN RN vc Corrections: (The following items were deleted from the chart) 13:54 13:43 10/05/2019 13:43 Discharged to Home. Impression: Bronchitis, not specified as sv acute or chronic; Calculus of ureter. Condition is Stable. Forms are Medication Reconciliation Form, Thank You Letter, Antibiotic Education, Prescription Opioid Use. Follow up: Emergency Department; When: As needed; Reason: Worsening of condition. Follow up: Private Physician; When: 2 - 3 days; Reason: Recheck today's complaints, Continuance of care, Re-evaluation by your physician. kb
[2019-10-05] MEDS ORDERED: TAMSULOSIN 0.4 MG SR CAP ONE (13:50)
[2019-10-05 17:15] VITALS: BP 153/71; TEMP 98.2; O2SAT 100
== END 2019-10-05 13:54 | disposition home or self-care (01) ==
LOC: ER 11:42
DX: J40 Bronchitis, not specified as acute or chronic (principal); N20.1 Calculus of ureter; J45.909 Unspecified asthma, uncomplicated; J44.9 Chronic obstructive pulmonary disease, unspecified; Z88.6 Allergy status to analgesic agent; Z91.09 Other allergy status, other than to drugs and biological substances; Z88.0 Allergy status to penicillin; Z91.013 Allergy to seafood
CPT/HCPCS: 71046; 74176; 76377; 81003; 87804; 94640; 99285

== ENCOUNTER 2019-10-13 02:08 | Emergency (ER) | payer SELFPAY ==
[2019-10-13 02:44] LABS: Absolute Lymphocytes (CBC) 2.3 K/uL (0.7-4.9); Basophils % 0.6 % (0-1.3); Hematocrit 40.6 % (39.6-49.0); MPV 9.9 fL (7.6-11.3); RBC Red Blood Cell Count 4.19 M/uL (4.33-5.43)
[2019-10-13] MEDS ORDERED: FAMOTIDINE 20 MG/2 ML VIAL IV ONE (02:44)
[2019-10-13] MEDS ORDERED: METHYLPREDNISOLONE 125 MG INJ ONE (02:44)
[2019-10-13] MEDS ORDERED: DIPHENHYDRAMINE 50 MG/ML VIAL ONE (02:44)
[2019-10-13] MEDS ORDERED: NA CHLORIDE 0.9% 1,000 ML ONE (02:44)
[2019-10-13] MEDS ORDERED: predniSONE 20 MG TAB ONE (02:44)
[2019-10-13 03:02] LABS: Albumin 3.3 g/dL (3.4-5.0); Bilirubin Total 0.6 mg/dL (0.2-1.0); Potassium 3.6 mmol/L (3.5-5.1); Protein, Total 6.2 g/dL (6.4-8.2)
--- NOTE | 2019-10-13 03:55 | ER ---
Nurse's Notes [facility] Name: Codey Morin Jr Age: 54 yrs Sex: Male : 1965 Arrival Date: 10/13/2019 Time: 02:11 Bed 8 Private MD: Diagnosis: Urticaria;Angioneurotic edema Presentation: 10/13 02:24 Presenting complaint: Patient states: NOTICED SWELLING ON THE LEFT HAND AND FACE AT rv ABOUT MIDNIGHT. DENIES ANY SOB/. Transition of care: patient was not received from another setting of care. Onset of symptoms was October 13, 2019 at 00:00. Risk Assessment: Do you want to hurt yourself or someone else? Patient reports no desire to harm self or others. Initial Sepsis Screen: Does the patient meet any 2 criteria? No. Patient's initial sepsis screen is negative. Does the patient have a suspected source of infection? No. Patient's initial sepsis screen is negative. Care prior to arrival: None. 02:24 Method Of Arrival: Ambulatory rv 02:24 Acuity: KAYLIE 3 rv Historical: - Allergies: 02:26 Demerol; rv 02:26 Iodine; rv 02:26 PENICILLINS; rv 02:26 SEAFOOD; rv - PMHx: 02:26 Arthritis; Asthma; COPD; Gout; Hypertension; rv - PSHx: 02:26 Cholecystectomy; Tonsillectomy; rv - Immunization history:: Adult Immunizations up to date. - Coronavirus screen:: The patient has NOT traveled to [place], [place], or [place] in the past 14 days. Proceed with normal triage process as indicated. The patient has NOT had contact with known/suspected case of Coronavirus? Proceed with normal triage procedures. - Social history:: Smoking status: Patient/guardian denies using tobacco, the patient reports quitting approximately 8 years ago. - Family history:: not pertinent. - Ebola Screening: : No symptoms or risks identified at this time. Screenin:27 Abuse screen: Denies threats or abuse. Denies injuries from another. Nutritional rv screening: No deficits noted. Tuberculosis screening: No symptoms or risk factors identified. Fall Risk None identified. Assessment: 02:26 General: Appears in no apparent distress. Behavior is calm, cooperative. Pain: Denies rv pain. Neuro: Level of Consciousness is awake, alert, obeys commands, Oriented to person, place, time, situation. Cardiovascular: Patient's skin is warm and dry. Respiratory: Airway is patent. GI: No signs and/or symptoms were reported involving the gastrointestinal system. : No signs and/or symptoms were reported regarding the genitourinary system. EENT: No signs and/or symptoms were reported regarding the EENT system. Derm: Skin is intact. Musculoskeletal: Swelling present in face and left hand. 04:13 Reassessment: Patient appears in no apparent distress at this time. Patient and/or rv family updated on plan of care and expected duration. Pain level reassessed. Patient is alert, oriented x 3, equal unlabored respirations, skin warm/dry/pink. PATIENT IS DISCHARGED, AMBULATORY. WITH THE SPOUSE WAITING OUTSIDE TO TAKE HIM BACK HOME. Vital Signs: 02:25 BP 145 / 88; Pulse 88; Resp 16; Temp 98.6; Pulse Ox 97% ; Weight 86.18 kg; Height 5 ft. rv 11 in. (180.34 cm); Pain 0/10; 03:00 BP 139 / 80; Pulse 82; Resp 16; Pulse Ox 99% on R/A; rv 04:12 BP 134 / 84; Pulse 72; Resp 16; Pulse Ox 97% on R/A; rv 02:25 Body Mass Index 26.50 (86.18 kg, 180.34 cm) rv ED Course: 02:11 Patient arrived in ED. [id number] 02:16 Azeem Burger MD is Attending Physician. [facility] 02:16 Jimy Nieves RN is Primary Nurse. rv 02:25 Triage completed. rv 02:26 Arm band placed on Patient placed Patient notified of wait time. rv 02:27 Patient has correct armband on for positive identification. Bed in low position. Call rv light in reach. Pulse ox on. NIBP on. 02:47 Inserted saline lock: 22 gauge in right forearm, using aseptic technique. Blood rv collected. 04:13 No provider procedures requiring assistance completed. IV discontinued, intact, rv bleeding controlled, No redness/swelling at site. Pressure dressing applied. Administered Medications: 02:45 Drug: SOLU-Medrol 125 mg Route: IVP; Site: right forearm; rv 04:12 Follow up: Response: No adverse reaction rv 02:45 Drug: predniSONE 60 mg Route: PO; rv 04:12 Follow up: Response: No adverse reaction rv 02:45 Drug: Benadryl 50 mg Route: IVP; Site: right forearm; rv 04:12 Follow up: Response: No adverse reaction rv 02:46 Drug: Pepcid 40 mg Route: IVP; Site: right forearm; rv 04:11 Follow up: Response: No adverse reaction rv 02:46 Drug: NS 0.9% 1000 ml Route: IV; Rate: 1 bolus; Site: right forearm; rv 04:11 Follow up: IV Status: Completed infusion; IV Intake: 1000ml rv Intake: 04:11 IV: 1000ml; Total: 1000ml. rv Outcome: 03:54 Discharge ordered by . deric 04:14 Discharged to home ambulatory, with family. rv 04:14 Condition: good 04:14 Discharge instructions given to patient, Instructed on discharge instructions, follow up and referral plans. medication usage, Demonstrated understanding of instructions, follow-up care, medications, Prescriptions given X 3. 04:14 Patient left the ED. rv Signatures: Azeem Burger MD MD cha Vicente, Ronaldo, RN RN Carlee Alexandra jg7
--- NOTE | 2019-10-13 03:56 | EDPHYS ---
Physician Documentation [facility] Name: Codey Morin Jr Age: 54 yrs Sex: Male : 1965 Arrival Date: 10/13/2019 Time: 02:11 Bed 8 Private MD: ED Physician Azeem Burger HPI: 10/13 02:32 This 54 yrs old Male presents to ER via Ambulatory with complaints of deric POSSIBLE ALLERGIC REACTION. 02:32 The patient presents with nasal itching, runny nose, swelling of the lips. Onset: The deric symptoms/episode began/occurred just prior to arrival, this morning. Associated signs and symptoms: The patient has no apparent associated signs or symptoms. Possible causes: The patient has no known obvious cause for the symptoms. At home the patient or guardian has treated the symptoms with nothing. Severity of symptoms: At their worst the symptoms were mild moderate in the emergency department the symptoms are unchanged. The patient has not experienced similar symptoms in the past. Historical: - Allergies: 02:26 Demerol; rv 02:26 Iodine; rv 02:26 PENICILLINS; rv 02:26 SEAFOOD; rv - PMHx: 02:26 Arthritis; Asthma; COPD; Gout; Hypertension; rv - PSHx: 02:26 Cholecystectomy; Tonsillectomy; rv - Immunization history:: Adult Immunizations up to date. - Coronavirus screen:: The patient has NOT traveled to [place], [place], or [place] in the past 14 days. Proceed with normal triage process as indicated. The patient has NOT had contact with known/suspected case of Coronavirus? Proceed with normal triage procedures. - Social history:: Smoking status: Patient/guardian denies using tobacco, the patient reports quitting approximately 8 years ago. - Family history:: not pertinent. - Ebola Screening: : No symptoms or risks identified at this time. ROS: 02:32 Constitutional: Negative for fever, chills, and weight loss, Eyes: Negative for injury, deric pain, redness, and discharge, ENT: Negative for injury, pain, and discharge, Neck: Negative for injury, pain, and swelling, Cardiovascular: Negative for chest pain, palpitations, and edema, Respiratory: Negative for shortness of breath, cough, wheezing, and pleuritic chest pain, Abdomen/GI: Negative for abdominal pain, nausea, vomiting, diarrhea, and constipation, Back: Negative for injury and pain, : Negative for injury, bleeding, discharge, and swelling, MS/Extremity: Negative for injury and deformity, Skin: Negative for injury, rash, and discoloration, Neuro: Negative for headache, weakness, numbness, tingling, and seizure, Psych: Negative for depression, anxiety, suicide ideation, homicidal ideation, and hallucinations, Allergy/Immunology: Negative for hives, rash, and allergies, Endocrine: Negative for neck swelling, polydipsia, polyuria, polyphagia, and marked weight changes, Hematologic/Lymphatic: Negative for swollen nodes, abnormal bleeding, and unusual bruising. Exam: 02:32 Constitutional: This is a well developed, well nourished patient who is awake, alert, deric and in no acute distress. Eyes: Pupils equal round and reactive to light, extra-ocular motions intact. Lids and lashes normal. Conjunctiva and sclera are non-icteric and not injected. Cornea within normal limits. Periorbital areas with no swelling, redness, or edema. ENT: Nares patent. No nasal discharge, no septal abnormalities noted. Tympanic membranes are normal and external auditory canals are clear. Oropharynx with no redness, swelling, or masses, exudates, or evidence of obstruction, uvula midline. Mucous membranes moist. Neck: Trachea midline, no thyromegaly or masses palpated, and no cervical lymphadenopathy. Supple, full range of motion without nuchal rigidity, or vertebral point tenderness. No Meningismus. Chest/axilla: Normal chest wall appearance and motion. Nontender with no deformity. No lesions are appreciated. Cardiovascular: Regular rate and rhythm with a normal S1 and S2. No gallops, murmurs, or rubs. Normal PMI, no JVD. No pulse deficits. Respiratory: Lungs have equal breath sounds bilaterally, clear to auscultation and percussion. No rales, rhonchi or wheezes noted. No increased work of breathing, no retractions or nasal flaring. Abdomen/GI: Soft, non-tender, with normal bowel sounds. No distension or tympany. No guarding or rebound. No evidence of tenderness throughout. Back: No spinal tenderness. No costovertebral tenderness. Full range of motion. Skin: Warm, dry with normal turgor. Normal color with no rashes, no lesions, and no evidence of cellulitis. MS/ Extremity: Pulses equal, no cyanosis. Neurovascular intact. Full, normal range of motion. Neuro: Awake and alert, GCS 15, oriented to person, place, time, and situation. Cranial nerves II-XII grossly intact. Motor strength 5/5 in all extremities. Sensory grossly intact. Cerebellar exam normal. Normal gait. Psych: Awake, alert, with orientation to person, place and time. Behavior, mood, and affect are within normal limits. 02:32 Head/face: Noted is swelling, that is mild, of the mouth. Vital Signs: 02:25 BP 145 / 88; Pulse 88; Resp 16; Temp 98.6; Pulse Ox 97% ; Weight 86.18 kg; Height 5 ft. rv 11 in. (180.34 cm); Pain 0/10; 03:00 BP 139 / 80; Pulse 82; Resp 16; Pulse Ox 99% on R/A; rv 04:12 BP 134 / 84; Pulse 72; Resp 16; Pulse Ox 97% on R/A; rv 02:25 Body Mass Index 26.50 (86.18 kg, 180.34 cm) rv MDM: 02:[address] [facility] 02:32 Data reviewed: vital signs, nurses notes, lab test result(s). [facility] 10/13 02:32 Order name: CBC with Diff [facility] 10/13 02:32 Order name: Comprehensive Metabolic Panel [facility] 10/13 02:48 Order name: CBC with Automated Diff; Complete Time: 03:54 EDMS 10/13 03:02 Order name: Comprehensive Metabolic Panel; Complete Time: 03:54 EDMS Administered Medications: 02:45 Drug: SOLU-Medrol 125 mg Route: IVP; Site: right forearm; rv 04:12 Follow up: Response: No adverse reaction rv 02:45 Drug: predniSONE 60 mg Route: PO; rv 04:12 Follow up: Response: No adverse reaction rv 02:45 Drug: Benadryl 50 mg Route: IVP; Site: right forearm; rv 04:12 Follow up: Response: No adverse reaction rv 02:46 Drug: Pepcid 40 mg Route: IVP; Site: right forearm; rv 04:11 Follow up: Response: No adverse reaction rv 02:46 Drug: NS 0.9% 1000 ml Route: IV; Rate: 1 bolus; Site: right forearm; rv 04:11 Follow up: IV Status: Completed infusion; IV Intake: 1000ml rv Disposition: 10/13/19 03:54 Discharged to Home. Impression: Urticaria, Angioneurotic edema. - Condition is Stable. - Discharge Instructions: Allergies, Adult, Hives, Angioedema, Angioedema, [id number]-[id number], Hives, Wjwn-us-Mpih. - Prescriptions for Benadryl 25 mg Oral Capsule - take 1 capsule by ORAL route every 6 hours As needed; 30 tablet. Pepcid 20 mg Oral Tablet - take 1 tablet by ORAL route every 12 hours for 10 days; 20 tablet. Prednisone 20 mg Oral Tablet - take 2 tablet by ORAL route once daily for 5 days; 10 tablet. EpiPen 0.3 mg Injection auto- injector - inject 1 pen by INTRAMUSCULAR route one time Inject into the outer portion of the thigh, through clothing if necessary. Indicated in the emergency treatment of allergic reactions; 1 Cartridge. - Medication Reconciliation Form, Thank You Letter, Antibiotic Education, Prescription Opioid Use, Work release form, Family Work Release form. - Follow up: Private Physician; When: 2 - 3 days; Reason: Recheck today's complaints, Continuance of care, Re-evaluation by your physician. - Problem is new. - Symptoms have improved. Signatures: Dispatcher [employer] EDMS Azeem Burger MD MD cha Vicente, Ronaldo RN RN rv Corrections: (The following items were deleted from the chart) 04:14 03:54 10/13/2019 03:54 Discharged to Home. Impression: Urticaria; Angioneurotic edema. rv Condition is Stable. Discharge Instructions: Allergies, Adult, Hives, Hives, Lqcb-iz-Oboa, Angioedema, Angioedema, Hmpo-lc-Bhao. Prescriptions for Benadryl 25 mg Oral Capsule - take 1 capsule by ORAL route every 6 hours As needed; 30 tablet, Pepcid 20 mg Oral Tablet - take 1 tablet by ORAL route every 12 hours for 10 days; 20 tablet, Prednisone 20 mg Oral Tablet - take 2 tablet by ORAL route once daily for 5 days; 10 tablet, EpiPen 0.3 mg Injection auto-injector - inject 1 pen by INTRAMUSCULAR route one time Inject into the outer portion of the thigh, through clothing if necessary. Indicated in the emergency treatment of allergic reactions; 1 Cartridge. and Forms are Medication Reconciliation Form, Thank You Letter, Antibiotic Education, Prescription Opioid Use. Follow up: Private Physician; When: 2 - 3 days; Reason: Recheck today's complaints, Continuance of care, Re-evaluation by your physician. Problem is new. Symptoms have improved. deric
[2019-10-13 04:22] VITALS: TEMP 98.6
[2019-10-13 04:24] VITALS: BP 134/84; O2SAT 97
== END 2019-10-13 04:14 | disposition home or self-care (01) ==
LOC: ER 02:08
DX: T78.3XXA Angioneurotic edema, initial encounter (principal); Z88.0 Allergy status to penicillin; Z88.6 Allergy status to analgesic agent; Z91.09 Other allergy status, other than to drugs and biological substances; Z91.013 Allergy to seafood
CPT/HCPCS: 36415; 80053; 85025; 96361; 96374; 96375; 99284; J1200; J2930; J7030; J7512

== ENCOUNTER 2019-11-20 14:07 | Emergency (ER) | payer SELFPAY ==
--- OUTSIDE RECORDS SUMMARY | 2019-11-20 14:11 | XMS REPORT ---
:1965 [facility] [place] [address] Care Team Providers Name Role Phone Unavailable Unavailable Unavailable Problems This patient has no known problems. Allergies, Adverse Reactions, Alerts This patient has no known allergies or adverse reactions. Medications This patient has no known medications. Results Test Description Test Time Test Comments Text Results Atomic Results Result Comments Thyroid Stimulating Hormone 2019-11-15 08:34:50 Test Item Value Reference Range Comments TSH (test code=TSH) 16.180 mIU/mL 0.270-4.200 Complete Blood Count with [id number] 07:30:28 Test Item Value Reference Range Comments WBC (test code=WBC) 8.2 x10 4.4-10.5 RBC (test code=RBC) 4.17 x10 4.10-5.70 Hgb (test code=Hgb) 13.4 g/dL 13.4-17.4 Hct (test code=Hct) 42.6 % 38.7-52.0 MCV (test code=MCV) 102.20 fL 80.00-100.00 MCHC (test code=MCHC) 31.50 g/dL 32.00-37.50 RDW CV (test code=RDW CV) 12.5 % 11.5-14.5 MCH (test code=MCH) 32.1 pg 27.0-32.5 Platelets (test 170.0 x10 140.0-440.0 code=Platelets) MPV (test code=MPV) 11.8 fL Slide Review (test code=Slide Auto Auto Result created by Review) GL_SJM_SLIDE_REV_AUTO nRBC (test code=nRBC) 0 NRBC Abs (test code=NRBC Abs) 0.00 x10 IPF (test code=IPF) 0 % Automated [id number] 07:30:28 Test Item Value Reference Range Comments Neutro Auto (test code=Neutro Auto) 46.1 % 36.0-70.0 Lymph Auto (test code=Lymph Auto) 34.0 % 12.0-44.0 [place] Auto (test code=[place] Auto) 11.2 % 0.0-11.0 Eos, Auto (test code=Eos, Auto) 7.6 % 0.0-7.0 Basophil Auto (test code=Basophil Auto) 0.4 % 0.0-2.0 Neutro Absolute (test code=Neutro Absolute) 3.8 x10 1.6-7.4 Lymph Absolute (test code=Lymph Absolute) 2.79 x10 .50-4.60 [place] Absolute (test code=[place] Absolute) .92 x10 .00-1.20 Eos Absolute (test code=Eos Absolute) 0.62 x10 0.00-0.74 Baso Absolute (test code=Baso Absolute) 0.03 x10 0.00-0.21 IG [id number] 07:30:28 Test Item Value Reference Range Comments IG (test code=IG) 0.7 % 0.0-5.0 IG Abs (test code=IG Abs) 0 x10 RPR [id number] 05:28:06 Test Item Value Reference Range Comments RPR Qual (test code=RPR Qual) Non-Reactive Non-Reactive Reactive Control (test code=Reactive Control) Reactive Weak Reactive Control (test code=Weak Reactive Weak Reactive Control) Non-Reactive Control (test code=Non-Reactive Non-Reactive Control) Lot # (test code=Lot #) [id number] Expiration Dt (test code=Expiration Dt) 09.05.2020 Hemoglobin [id number] 05:16:07 Test Item Value Reference Range Comments Hemoglobin A1c (test 5.4 % 4.8-5.9 Non Diabetic 4.8-5.9%Diabetic code=Hemoglobin A1c) <7.0% Lipid [id number] 05:16:07 Test Item Value Reference Range Comments Cholesterol Total (test 133 mg/dL 0-200 RISK OF HEART DISEASEPublished code=Cholesterol Total) by [place] [employer] Analyte Optimal Borderline Increased RiskCHOL <200 200-239 >240TRIG <150 150-199 >200HDL Male >60 <40HDL Female >60 <50LDL <100 130-159 >160LDL Near optimal is 100-129 Triglycerides (test 71 mg/dL 9-200 code=Triglycerides) HDL (test code=HDL) 55 mg/dL 40-60 LDL (test code=LDL) 64 mg/dL 0-130 The equation being used in this calculation is LDL=(Chol - HDL) - (Trig / 5) VLDL (test code=VLDL) 14 mg/dL 5-40 The equation being used in this calculation is VLDL=Trig / 5 Chol/HDL (test 2.4 ratio 0.0-5.0 code=Chol/HDL) LDL/HDL Ratio (test 1 The equation being used in this code=LDL/HDL Ratio) calculation is LDL/HDL Ratio=LDL Calc/HDL Chol Thyroid Stimulating [id number] 05:16:07 Test Item Value Reference Range Comments TSH (test code=TSH) 12.450 mIU/mL 0.270-4.200 Urine Drug [id number] 05:06:35 Test Item Value Reference Range Comments Amphetamine Screen Ur (test Negative Negative code=Amphetamine Screen Ur) Barbiturate Screen Ur (test Negative Negative code=Barbiturate Screen Ur) Benzodiazepines Ur (test Negative Negative code=Benzodiazepines Ur) Cocaine Screen Ur (test Negative Negative code=Cocaine Screen Ur) U Methadone Scr (test code=U Negative Negative Methadone Scr) Opiate Screen Ur (test Negative Negative code=Opiate Screen Ur) U PCP Scrn (test code=U PCP Negative Negative Scrn) Cannabinoid Screen Ur (test Negative Negative code=Cannabinoid Screen Ur) U TCA (test code=U TCA) Negative Negative The results of all drug screen tests are only preliminary. Clinical consideration and professional judgment should be applied to any drug of abuse test result, particularly when preliminary positive results are obtained. Please order a separate confirmatory test if desired. Urinalysis with Microscopic if [id number] 04:50:25 Test Item Value Reference Range Comments UA Color (test code=UA Color) YELLO Yellow UA Appear (test code=UA CLEAR Clear Appear) UA pH (test code=UA pH) 5 UA Spec Grav (test code=UA 1.019 1.001-1.035 Spec Grav) UA Glucose (test code=UA NEG Negative Glucose) UA Ketones (test code=UA NEG Negative Ketones) UA Blood (test code=UA Blood) NEG Negative UA Protein (test code=UA NEG Negative Protein) UA Bili (test code=UA Bili) NEG Negative UA Urobilinogen (test code=UA 0.2 mg/dL Urobilinogen) UA Nitrite (test code=UA NEG Negative Nitrite) UA Leuk Est (test code=UA Leuk NEG Negative Est) UA Micro Ind? (test code=UA Not Indicated Not Indicated Result created by rule Micro Ind?) GL_SJM_UA_MICRO_IND IG [id number] 04:01:31 Test Item Value Reference Range Comments IG (test code=IG) 0.4 % 0.0-5.0 IG Abs (test code=IG Abs) 0 x10 Complete Blood Count with [id number] 04:01:30 Test Item Value Reference Range Comments WBC (test code=WBC) 13.0 x10 4.4-10.5 RBC (test code=RBC) 4.32 x10 4.10-5.70 Hgb (test code=Hgb) 13.8 g/dL 13.4-17.4 Hct (test code=Hct) 43.4 % 38.7-52.0 MCV (test code=MCV) 100.50 fL 80.00-100.00 MCHC (test code=MCHC) 31.80 g/dL 32.00-37.50 RDW CV (test code=RDW CV) 12.4 % 11.5-14.5 MCH (test code=MCH) 31.9 pg 27.0-32.5 Platelets (test 225.0 x10 140.0-440.0 code=Platelets) MPV (test code=MPV) 12.1 fL Slide Review (test code=Slide Auto Auto Result created by Review) GL_SJM_SLIDE_REV_AUTO nRBC (test code=nRBC) 0 NRBC Abs (test code=NRBC Abs) 0.00 x10 IPF (test code=IPF) 0 % Automated [id number] 04:01:30 Test Item Value Reference Range Comments Neutro Auto (test code=Neutro Auto) 62.6 % 36.0-70.0 Lymph Auto (test code=Lymph Auto) 24.4 % 12.0-44.0 [place] Auto (test code=[place] Auto) 10.8 % 0.0-11.0 Eos, Auto (test code=Eos, Auto) 1.5 % 0.0-7.0 Basophil Auto (test code=Basophil Auto) 0.3 % 0.0-2.0 Neutro Absolute (test code=Neutro Absolute) 8.1 x10 1.6-7.4 Lymph Absolute (test code=Lymph Absolute) 3.18 x10 .50-4.60 [place] Absolute (test code=[place] Absolute) 1.41 x10 .00-1.20 Eos Absolute (test code=Eos Absolute) 0.19 x10 0.00-0.74 Baso Absolute (test code=Baso Absolute) 0.04 x10 0.00-0.21 Comprehensive Metabolic [id number] 03:49:38 Test Item Value Reference Range Comments Sodium Level (test code=Sodium Level) 142.0 mmol/L 135.0-145.0 Potassium Level (test code=Potassium Level) 4.5 mmol/L 3.5-5.1 Chloride Level (test code=Chloride Level) 105 mmol/L 98-105 CO2 (test code=CO2) 25 mmol/L 22-29 Anion Gap (test code=Anion Gap) 12 mmol/L 7-16 BUN (test code=BUN) 18.60 mg/dL 6.00-20.00 Creatinine Level (test code=Creatinine Level) 1.00 mg/dL 0.70-1.20 BUN/Creat Ratio (test code=BUN/Creat Ratio) 19 Glucose Level (test code=Glucose Level) 92 mg/dL 70-115 Calcium Level (test code=Calcium Level) 9.2 mg/dL 8.3-10.5 Alk Phos (test code=Alk Phos) 66 U/L 40-129 Bilirubin Total (test code=Bilirubin Total) 0.3 mg/dL 0.1-0.9 Albumin Level (test code=Albumin Level) 4.2 g/dL 3.5-5.2 Protein Total (test code=Protein Total) 6.6 g/dL 6.4-8.3 ALT (test code=ALT) 17 U/L 1-41 AST (test code=AST) 19 U/L 1-40 Globulin (test code=Globulin) 2.4 g/dL 2.9-3.1 A/G Ratio (test code=A/G Ratio) 1.8 ratio Comprehensive Metabolic [id number] 03:49:38 Test Item Value Reference Range Comments Sodium Level (test 142.0 mmol/L 135.0-145.0 code=Sodium Level) Potassium Level (test 4.5 mmol/L 3.5-5.1 code=Potassium Level) Chloride Level (test 105 mmol/L 98-105 code=Chloride Level) CO2 (test code=CO2) 25 mmol/L 22-29 Anion Gap (test 12 mmol/L 7-16 code=Anion Gap) BUN (test code=BUN) 18.60 mg/dL 6.00-20.00 Creatinine Level (test 1.00 mg/dL 0.70-1.20 code=Creatinine Level) BUN/Creat Ratio (test 19 code=BUN/Creat Ratio) Glucose Level (test 92 mg/dL 70-115 code=Glucose Level) Calcium Level (test 9.2 mg/dL 8.3-10.5 code=Calcium Level) Alk Phos (test code=Alk 66 U/L 40-129 Phos) Bilirubin Total (test 0.3 mg/dL 0.1-0.9 code=Bilirubin Total) Albumin Level (test 4.2 g/dL 3.5-5.2 code=Albumin Level) Protein Total (test 6.6 g/dL 6.4-8.3 code=Protein Total) ALT (test code=ALT) 17 U/L 1-41 AST (test code=AST) 19 U/L 1-40 Globulin (test 2.4 g/dL 2.9-3.1 code=Globulin) A/G Ratio (test code=A/G 1.8 ratio Ratio) eGFR AA (test code=eGFR >60 mL/min/1.73 m2 eGFR (estimated AA) Glomerular Filtration Rate) is an estimated value, calculated from the patient's serum creatinine using the MDRD equation. It is NOT the patient's actual GFR. The eGFR provides a more clinically useful measure of kidney disease than serum creatinine alone.This calculation takes sex and race into account, if the information is provided. If the race is not provided, and the patient is -[place], multiply by 1.212. If sex is not provided, and the patient is female, multiply by 0.742. Results for patients <18 years of age have not been validated by the MDRD study and should be interpreted with caution. eGFR Result Interpretation:eGFR > or=60 is in the Normal RangeeGFR < 60 may mean kidney diseaseeGFR < 15 may mean kidney failure Ranges recommended by the National Kidney Foundation, http://nkdep.nih.gov Alcohol [id number] 03:49:38 Test Item Value Reference Range Comments Ethanol Level (test <0.00 g/dL 0.00-0.01 Intoxicated 0.080 g/dL or more code=Ethanol Level) Ethanol Inst (test <0 code=Ethanol Inst) Comprehensive Metabolic [id number] 03:49:38 Test Item Value Reference Range Comments Sodium Level (test 142.0 mmol/L 135.0-145.0 code=Sodium Level) Potassium Level (test 4.5 mmol/L 3.5-5.1 code=Potassium Level) Chloride Level (test 105 mmol/L 98-105 code=Chloride Level) CO2 (test code=CO2) 25 mmol/L 22-29 Anion Gap (test 12 mmol/L 7-16 code=Anion Gap) BUN (test code=BUN) 18.60 mg/dL 6.00-20.00 Creatinine Level (test 1.00 mg/dL 0.70-1.20 code=Creatinine Level) BUN/Creat Ratio (test 19 code=BUN/Creat Ratio) Glucose Level (test 92 mg/dL 70-115 code=Glucose Level) Calcium Level (test 9.2 mg/dL 8.3-10.5 code=Calcium Level) Alk Phos (test code=Alk 66 U/L 40-129 Phos) Bilirubin Total (test 0.3 mg/dL 0.1-0.9 code=Bilirubin Total) Albumin Level (test 4.2 g/dL 3.5-5.2 code=Albumin Level) Protein Total (test 6.6 g/dL 6.4-8.3 code=Protein Total) ALT (test code=ALT) 17 U/L 1-41 AST (test code=AST) 19 U/L 1-40 Globulin (test 2.4 g/dL 2.9-3.1 code=Globulin) A/G Ratio (test code=A/G 1.8 ratio Ratio) eGFR AA (test code=eGFR >60 mL/min/1.73 m2 eGFR (estimated AA) Glomerular Filtration Rate) is an estimated value, calculated from the patient's serum creatinine using the MDRD equation. It is NOT the patient's actual GFR. The eGFR provides a more clinically useful measure of kidney disease than serum creatinine alone.This calculation takes sex and race into account, if the information is provided. If the race is not provided, and the patient is -[place], multiply by 1.212. If sex is not provided, and the patient is female, multiply by 0.742. Results for patients <18 years of age have not been validated by the MDRD study and should be interpreted with caution. eGFR Result Interpretation:eGFR > or=60 is in the Normal RangeeGFR < 60 may mean kidney diseaseeGFR < 15 may mean kidney failure Ranges recommended by the National Kidney Foundation, http://nkdep.nih.gov eGFR Non-AA (test >60.00 mL/min/1.73 eGFR (estimated code=eGFR Non-AA) m2 Glomerular Filtration Rate) is an estimated value, calculated from the patient's serum creatinine using the MDRD equation. It is NOT the patient's actual GFR. The eGFR provides a more clinically useful measure of kidney disease than serum creatinine alone.This calculation takes sex and race into account, if the information is provided. If the race is not provided, and the patient is -[place], multiply by 1.212. If sex is not provided, and the patient is female, multiply by 0.742. Results for patients <18 years of age have not been validated by the MDRD study and should be interpreted with caution. eGFR Result Interpretation:eGFR > or=60 is in the Normal RangeeGFR < 60 may mean kidney diseaseeGFR < 15 may mean kidney failure Ranges recommended by the National Kidney Foundation, http://nkdep.nih.gov
--- NOTE | 2019-11-20 14:44 | ER ---
Nurse's Notes [facility] Name: Codey Morin Jr Age: 54 yrs Sex: Male : 1965 Arrival Date: 11/20/2019 Time: 14:10 Bed 23 Private MD: Diagnosis: Chronic pain, not elsewhere classified Presentation: 11/19 14:20 Chief complaint: Patient states: [employer] told him he needs his thyroid levels and social security needs a CXR and blood work done for COPD , for disability. Coronavirus screen: The patient has NOT traveled to a country currently being monitored by the [facility] within the last 14 days. Proceed with normal triage procedures. The patient has NOT had contact with any known and/or suspected case of coronavirus. Proceed with normal triage procedures. Ebola Screen: Patient negative for fever greater than or equal to 101.5 degrees Fahrenheit, and additional compatible Ebola Virus Disease symptoms Patient denies exposure to infectious person. Patient denies travel to an Ebola-affected area in the 21 days before illness onset. No symptoms or risks identified at this time. Initial Sepsis Screen: Does the patient meet any 2 criteria? No. Patient's initial sepsis screen is negative. Does the patient have a suspected source of infection? No. Patient's initial sepsis screen is negative. Risk Assessment: Do you want to hurt yourself or someone else? Patient reports no desire to harm self or others. 14:20 Method Of Arrival: Ambulatory iw 14:20 Acuity: KAYLIE 4 iw 14:48 Onset of symptoms is unknown. dw Triage Assessment: 14:47 General: Appears in no apparent distress. Behavior is calm, cooperative. Pain: Denies dw pain. Historical: - Allergies: 14:23 Demerol; iw 14:23 Iodine; iw 14:23 PENICILLINS; iw 14:23 SEAFOOD; iw - Home Meds: 14:23 Advair Diskus 250-50 mcg/dose Inhl dsdv 1 puff 2 times per day [Active]; albuterol iw sulfate 90 mcg/actuation Inhl HFAA [Active]; ibuprofen 600 mg Oral tab 1 tab 3 times per day [Active]; omeprazole 40 mg Oral cpDR 1 cap 30 minutes before first meal of the day. [Active]; - PMHx: 14:23 Arthritis; Asthma; COPD; Gout; Hypertension; iw - PSHx: 14:23 Cholecystectomy; Tonsillectomy; iw - Immunization history:: Adult Immunizations up to date. - Social history:: Smoking status: Patient/guardian denies using tobacco, the patient reports quitting approximately 9 years ago. - Family history:: not pertinent. - Hospitalizations: : Patient was recently seen at. Screenin:46 Abuse screen: Denies threats or abuse. Nutritional screening: No deficits noted. dw Tuberculosis screening: No symptoms or risk factors identified. Fall Risk None identified. No IV (0 pts). Assessment: 14:49 General: Appears in no apparent distress. dw Vital Signs: 14:23 BP 146 / 92; Pulse 79; Resp 16; Temp 97.4; Pulse Ox 98% on R/A; Weight 86.18 kg; Height iw 5 ft. 11 in. (180.34 cm); Pain 0/10; 14:23 Body Mass Index 26.50 (86.18 kg, 180.34 cm) ED Course: 14:10 Patient arrived in ED. ag5 14:22 Triage completed. iw 14:23 Arm band placed on. iw 14:25 Toño Gale MD is Attending Physician. rn 14:45 Ernestina Olvera RN is Primary Nurse. dw 14:46 Patient has correct armband on for positive identification. Call light in reach. dw 14:47 No provider procedures requiring assistance completed. Patient did not have IV access dw during this emergency room visit. 14:49 Awaiting: Patient left before receiving discharge instructions. dw Administered Medications: No medications were administered Outcome: 14:42 Discharge ordered by . rn 14:48 Discharged to home ambulatory. dw 14:48 Condition: good 14:48 Following a medical screening exam, the patient was provided information regarding alternative care sites and resources available per registration personnel. 14:51 Patient left the ED. dw Signatures: Ernestina Olvera, RN Tamiko Yoder RN RN Toño Gale MD MD rn Gaskin, Ajare ag5
--- NOTE | 2019-11-20 14:44 | EDPHYS ---
Physician Documentation [facility] Name: Codey Morin Jr Age: 54 yrs Sex: Male : 1965 Arrival Date: 11/20/2019 Time: 14:10 Bed 23 Private MD: ED Physician Tooñ Gale HPI: 11/19 14:30 This 54 yrs old Male presents to ER via Ambulatory with complaints of Needs rn Blood Work. 14:30 Reports seen at [facility] recently, told to get repeat thyroid studies, rn otherwise feels asymptomatic. Also hoping to get CXR and spinal xrays for disability. No recent injury or new complaint. . Onset: The symptoms/episode began/occurred at an unknown time. Severity of symptoms: At their worst the symptoms were mild in the emergency department the symptoms are unchanged. The patient has experienced similar episodes in the past, chronically. The patient has been recently seen by a physician:. Historical: - Allergies: 14:23 Demerol; iw 14:23 Iodine; iw 14:23 PENICILLINS; iw 14:23 SEAFOOD; iw - Home Meds: 14:23 Advair Diskus 250-50 mcg/dose Inhl dsdv 1 puff 2 times per day [Active]; albuterol iw sulfate 90 mcg/actuation Inhl HFAA [Active]; ibuprofen 600 mg Oral tab 1 tab 3 times per day [Active]; omeprazole 40 mg Oral cpDR 1 cap 30 minutes before first meal of the day. [Active]; - PMHx: 14:23 Arthritis; Asthma; COPD; Gout; Hypertension; iw - PSHx: 14:23 Cholecystectomy; Tonsillectomy; iw - Immunization history:: Adult Immunizations up to date. - Social history:: Smoking status: Patient/guardian denies using tobacco, the patient reports quitting approximately 9 years ago. - Family history:: not pertinent. - Hospitalizations: : Patient was recently seen at. ROS: 14:30 Constitutional: Negative for fever, chills, and weight loss, Eyes: Negative for injury, rn pain, redness, and discharge, Neck: Negative for injury, pain, and swelling, Cardiovascular: Negative for chest pain, palpitations, and edema, Respiratory: Negative for shortness of breath, cough, wheezing, and pleuritic chest pain, Abdomen/GI: Negative for abdominal pain, nausea, vomiting, diarrhea, and constipation, Back: + chronic back pain MS/Extremity: Negative for injury and deformity, Skin: Negative for injury, rash, and discoloration, Neuro: Negative for headache, weakness, numbness, tingling, and seizure. Exam: 14:30 Constitutional: This is a well developed, well nourished patient who is awake, alert, rn and in no acute distress. Ambulatory to room without difficulty or assistance. Head/Face: Normocephalic, atraumatic. ENT: MMM Neuro: Awake and alert, GCS 15 Vital Signs: 14:23 BP 146 / 92; Pulse 79; Resp 16; Temp 97.4; Pulse Ox 98% on R/A; Weight 86.18 kg; Height iw 5 ft. 11 in. (180.34 cm); Pain 0/10; 14:23 Body Mass Index 26.50 (86.18 kg, 180.34 cm) iw MDM: 14:25 Patient medically screened. rn 14:30 Differential Diagnosis chronic illness. Data reviewed: vital signs, nurses notes, and rn as a result, I will discharge patient. Special discussion: I discussed with the patient/guardian in detail that at this point there is no indication for admission to the hospital. It is understood, however, that if the symptoms persist or worsen the patient needs to return immediately for re-evaluation. ED course: Pt medically screened as does not need emergent testing or imaging, directed to PCP for further care. . Administered Medications: No medications were administered Disposition: 11/20/19 14:42 Discharged to Home as Medical Screen. Impression: Chronic pain, not elsewhere classified. - Condition is Stable. - Discharge Instructions: Chronic Pain. - Medication Reconciliation Form, Thank You Letter, Antibiotic Education, Prescription Opioid Use form. - Follow up: Private Physician; When: As needed; Reason: Recheck today's complaints, Re-evaluation by your physician. - Problem is an ongoing problem. - Symptoms have improved. Signatures: Ernestina Olvera RN RN dw Williams, Irene, RN RN Toño Schwartz MD MD supervisor metal furniture fabrication: (The following items were deleted from the chart) 14:51 14:42 11/20/2019 14:42 Discharged to Home as Medical Screen. Impression: Chronic pain, dw not elsewhere classified. Condition is Stable. Forms are Medication Reconciliation Form, Thank You Letter, Antibiotic Education, Prescription Opioid Use. Follow up: Private Physician; When: As needed; Reason: Recheck today's complaints, Re-evaluation by your physician. Problem is an ongoing problem. Symptoms have improved. rn
== END 2019-11-20 14:51 | disposition home or self-care (01) ==
LOC: ER 14:07
DX: G89.29 Other chronic pain (principal); I10 Essential (primary) hypertension; J45.909 Unspecified asthma, uncomplicated; Z88.0 Allergy status to penicillin; Z88.5 Allergy status to narcotic agent; Z88.8 Allergy status to other drugs, medicaments and biological substances; Z91.013 Allergy to seafood
CPT/HCPCS: 99281

== ENCOUNTER 2020-07-17 13:52 | Emergency (ER) | payer SELFPAY ==
--- OUTSIDE RECORDS SUMMARY | 2020-07-17 14:05 | XMS REPORT | Continuity of Care Document ---
:1965 Author Organization [facility] t Address [address] [place] [address] Care Team Providers Name Role Phone Unavailable Unavailable Unavailable Problems This patient has no known problems. Allergies, Adverse Reactions, Alerts This patient has no known allergies or adverse reactions. Medications This patient has no known medications. Procedures This patient has no known procedures. Results Test Description Test Time Test Comments Results Result Comments Source Thyroid Stimulating Hormone 2019-11-15 08:34:50 Test Item Value Reference Range Interpretation Comme nts TSH (test code = TSH) 16.180 mIU/mL 0.270-4.200 H Complete Blood Count with [id number] 07:30:28 Test Item Value Reference Range Interpretation Comments WBC (test code = WBC) 8.2 x10 4.4-10.5 RBC (test code = RBC) 4.17 x10 4.10-5.70 Hgb (test code = Hgb) 13.4 g/dL 13.4-17.4 Hct (test code = Hct) 42.6 % 38.7-52.0 MCV (test code = MCV) 102.20 fL 80.00-100.00 H MCHC (test code = 31.50 g/dL 32.00-37.50 L MCHC) RDW CV (test code = 12.5 % 11.5-14.5 RDW CV) MCH (test code = MCH) 32.1 pg 27.0-32.5 Platelets (test code = 170.0 x10 140.0-440.0 Platelets) MPV (test code = MPV) 11.8 fL N Slide Review (test Auto Auto Result cr eated by code = Slide Review) GL_SJM_ SLIDE_REV_AUTO nRBC (test code = 0 N nRBC) NRBC Abs (test code = 0.00 x10 N NRBC Abs) IPF (test code = IPF) 0 % N Automated [id number] 07:30:28 Test Item Value Reference Range Interpretation Comments Neutro Auto (test code = Neutro 46.1 % 36.0-70.0 Auto) Lymph Auto (test code = Lymph Auto) 34.0 % 12.0-44.0 [place] Auto (test code = [place] Auto) 11.2 % 0.0-11.0 H Eos, Auto (test code = Eos, Auto) 7.6 % 0.0-7.0 H Basophil Auto (test code = Basophil 0.4 % 0.0-2.0 Auto) Neutro Absolute (test code = Neutro 3.8 x10 1.6-7.4 Absolute) Lymph Absolute (test code = Lymph 2.79 x10 .50-4.60 Absolute) [place] Absolute (test code = [place] .92 x10 .00-1.20 Absolute) Eos Absolute (test code = Eos 0.62 x10 0.00-0.74 Absolute) Baso Absolute (test code = Baso 0.03 x10 0.00-0.21 Absolute) IG [id number] 07:30:28 Test Item Value Reference Range Interpretation Comments IG (test code = IG) 0.7 % 0.0-5.0 IG Abs (test code = IG Abs) 0 x10 N RPR [id number] 05:28:06 Test Item Value Reference Range Interpretation Comments RPR Qual (test code = RPR Qual) Non-Reactive Non-Reactive Reactive Control (test code = Reactive Reactive Control) Weak Reactive Control (test Weak Reactive code = Weak Reactive Control) Non-Reactive Control (test code Non-Reactive = Non-Reactive Control) Lot # (test code = Lot #) [id number] N Expiration Dt (test code = 09.05.2020 N Expiration Dt) Hemoglobin [id number] 05:16:07 Test Item Value Reference Range Interpretation Comments Hemoglobin A1c (test code 5.4 % 4.8-5.9 No n Diabetic = Hemoglobin A1c) 4.8-5.9%Di abetic <7.0% Lipid [id number] 05:16:07 Test Item Value Reference Range Interpretation Comments Cholesterol Total 133 mg/dL 0-200 RISK OF HE ART (test code = DISEASEPublishe d by Cholesterol Total) [place] [employer] Nida lyte Optimal Borderl ine Increased RiskC HOL <200 200-239 >2 40TRIG <150 150-199 >2 00HDL Male >60 <40H DL Female >60 <5 0LDL <100 130-159 >1 60LDL Near optimal is 100-129 Triglycerides (test 71 mg/dL 9-200 code = Triglycerides) HDL (test code = HDL) 55 mg/dL 40-60 LDL (test code = LDL) 64 mg/dL 0-130 The eq uation being used in this calcula tion is LDL = (Chol - H DL) - (Trig / 5) VLDL (test code = 14 mg/dL 5-40 The equati on being used VLDL) in this calcula tion is VLDL = Trig / 5 Chol/HDL (test code = 2.4 ratio 0.0-5.0 Chol/HDL) LDL/HDL Ratio (test 1 N The equa tion being used code = LDL/HDL Ratio) in thi s calculation is LDL/HDL Ratio=L DL Calc/HDL Chol Thyroid Stimulating [id number] 05:16:07 Test Item Value Reference Range Interpretation Comments TSH (test code = TSH) 12.450 mIU/mL 0.270-4.200 H Urine Drug [id number] 05:06:35 Test Item Value Reference Range Interpretation Comments Amphetamine Screen Ur Negative Negative (test code = Amphetamine Screen Ur) Barbiturate Screen Ur Negative Negative (test code = Barbiturate Screen Ur) Benzodiazepines Ur (test Negative Negative code = Benzodiazepines Ur) Cocaine Screen Ur (test Negative Negative code = Cocaine Screen Ur) U Methadone Scr (test Negative Negative code = U Methadone Scr) Opiate Screen Ur (test Negative Negative code = Opiate Screen Ur) U PCP Scrn (test code = Negative Negative U PCP Scrn) Cannabinoid Screen Ur Negative Negative (test code = Cannabinoid Screen Ur) U TCA (test code = U Negative Negative The res ults of all TCA) drug screen anabelle ts are only preliminar y. Clinical consideration a nd professional ju dgment should be appli ed to any drug of abu se test result, particularly wh en preliminary pos itive results are obt ained. Please order a separate confir matory test if desired . Urinalysis with Microscopic if [id number] 04:50:25 Test Item Value Reference Range Interpretation Comments UA Color (test code = YELLO Yellow UA Color) UA Appear (test code = CLEAR Clear UA Appear) UA pH (test code = UA 5 N pH) UA Spec Grav (test 1.019 1.001-1.035 code = UA Spec Grav) UA Glucose (test code NEG Negative = UA Glucose) UA Ketones (test code NEG Negative = UA Ketones) UA Blood (test code = NEG Negative UA Blood) UA Protein (test code NEG Negative = UA Protein) UA Bili (test code = NEG Negative UA Bili) UA Urobilinogen (test 0.2 mg/dL N code = UA Urobilinogen) UA Nitrite (test code NEG Negative = UA Nitrite) UA Leuk Est (test code NEG Negative = UA Leuk Est) UA Micro Ind? (test Not Indicated Not Indicated Result created by code = UA Micro Ind?) rule GL_SJM_UA_MICRO _IN D IG [id number] 04:01:31 Test Item Value Reference Range Interpretation Comments IG (test code = IG) 0.4 % 0.0-5.0 IG Abs (test code = IG Abs) 0 x10 N Complete Blood Count with [id number] 04:01:30 Test Item Value Reference Range Interpretation Comments WBC (test code = WBC) 13.0 x10 4.4-10.5 H RBC (test code = RBC) 4.32 x10 4.10-5.70 Hgb (test code = Hgb) 13.8 g/dL 13.4-17.4 Hct (test code = Hct) 43.4 % 38.7-52.0 MCV (test code = MCV) 100.50 fL 80.00-100.00 H MCHC (test code = 31.80 g/dL 32.00-37.50 L MCHC) RDW CV (test code = 12.4 % 11.5-14.5 RDW CV) MCH (test code = MCH) 31.9 pg 27.0-32.5 Platelets (test code = 225.0 x10 140.0-440.0 Platelets) MPV (test code = MPV) 12.1 fL N Slide Review (test Auto Auto Result cr eated by code = Slide Review) GL_SJM_ SLIDE_REV_AUTO nRBC (test code = 0 N nRBC) NRBC Abs (test code = 0.00 x10 N NRBC Abs) IPF (test code = IPF) 0 % N Automated [id number] 04:01:30 Test Item Value Reference Range Interpretation Comments Neutro Auto (test code = Neutro 62.6 % 36.0-70.0 Auto) Lymph Auto (test code = Lymph Auto) 24.4 % 12.0-44.0 [place] Auto (test code = [place] Auto) 10.8 % 0.0-11.0 Eos, Auto (test code = Eos, Auto) 1.5 % 0.0-7.0 Basophil Auto (test code = Basophil 0.3 % 0.0-2.0 Auto) Neutro Absolute (test code = Neutro 8.1 x10 1.6-7.4 H Absolute) Lymph Absolute (test code = Lymph 3.18 x10 .50-4.60 Absolute) [place] Absolute (test code = [place] 1.41 x10 .00-1.20 H Absolute) Eos Absolute (test code = Eos 0.19 x10 0.00-0.74 Absolute) Baso Absolute (test code = Baso 0.04 x10 0.00-0.21 Absolute) Comprehensive Metabolic [id number] 03:49:38 Test Item Value Reference Range Interpretation Comments Sodium Level (test code = Sodium 142.0 mmol/L 135.0-145.0 Level) Potassium Level (test code = 4.5 mmol/L 3.5-5.1 Potassium Level) Chloride Level (test code = 105 mmol/L 98-105 Chloride Level) CO2 (test code = CO2) 25 mmol/L 22-29 Anion Gap (test code = Anion 12 mmol/L 7-16 Gap) BUN (test code = BUN) 18.60 mg/dL 6.00-20.00 Creatinine Level (test code = 1.00 mg/dL 0.70-1.20 Creatinine Level) BUN/Creat Ratio (test code = 19 N BUN/Creat Ratio) Glucose Level (test code = 92 mg/dL 70-115 Glucose Level) Calcium Level (test code = 9.2 mg/dL 8.3-10.5 Calcium Level) Alk Phos (test code = Alk Phos) 66 U/L 40-129 Bilirubin Total (test code = 0.3 mg/dL 0.1-0.9 Bilirubin Total) Albumin Level (test code = 4.2 g/dL 3.5-5.2 Albumin Level) Protein Total (test code = 6.6 g/dL 6.4-8.3 Protein Total) ALT (test code = ALT) 17 U/L 1-41 AST (test code = AST) 19 U/L 1-40 Globulin (test code = Globulin) 2.4 g/dL 2.9-3.1 L A/G Ratio (test code = A/G 1.8 ratio N Ratio) Comprehensive Metabolic [id number] 03:49:38 Test Item Value Reference Range Interpretation Comments Sodium Level (test 142.0 mmol/L 135.0-145.0 code = Sodium Level) Potassium Level 4.5 mmol/L 3.5-5.1 (test code = Potassium Level) Chloride Level (test 105 mmol/L 98-105 code = Chloride Level) CO2 (test code = 25 mmol/L 22-29 CO2) Anion Gap (test code 12 mmol/L 7-16 = Anion Gap) BUN (test code = 18.60 mg/dL 6.00-20.00 BUN) Creatinine Level 1.00 mg/dL 0.70-1.20 (test code = Creatinine Level) BUN/Creat Ratio 19 N (test code = BUN/Creat Ratio) Glucose Level (test 92 mg/dL 70-115 code = Glucose Level) Calcium Level (test 9.2 mg/dL 8.3-10.5 code = Calcium Level) Alk Phos (test code 66 U/L 40-129 = Alk Phos) Bilirubin Total 0.3 mg/dL 0.1-0.9 (test code = Bilirubin Total) Albumin Level (test 4.2 g/dL 3.5-5.2 code = Albumin Level) Protein Total (test 6.6 g/dL 6.4-8.3 code = Protein Total) ALT (test code = 17 U/L 1-41 ALT) AST (test code = 19 U/L 1-40 AST) Globulin (test code 2.4 g/dL 2.9-3.1 L = Globulin) A/G Ratio (test code 1.8 ratio N = A/G Ratio) eGFR AA (test code = >60 N eGFR (e stimated eGFR AA) mL/min/1.73 m2 Glomerular Filtration Rate ) is an estimated va lue, calculated from the patient's serum creatinine usin g the MDRD equation. It is NOT the patient 's actual GFR. The eGFR provides a more clinically usef ul measure of kidn ey disease than se rum creatinine alone.This calculation tristin es sex and race in to account, if the information is provided. If th e race is not provided, and t he patient is -Rocio n, multiply by 1.2 12. If sex is not provided, and t he patient is fema le, multiply by 0.7 42. Results for pat ients <18 years of ag e have not been validated by th e MDRD study and should be interpreted wit h caution. eGFR R esult Interpretation: eGFR > or = 60 is in the Normal RangeeGF R < 60 may mean kid elton diseaseeGFR < 1 5 may mean kidney failure Rang es recommended by the National Kidney Foundation, http://nkdep.ni h.gov Alcohol [id number] 03:49:38 Test Item Value Reference Range Interpretation Comments Ethanol Level (test <0.00 g/dL 0.00-0.01 Intoxica tyson 0.080 g/dL code = Ethanol or more Level) Ethanol Inst (test <0 N code = Ethanol Inst) Comprehensive Metabolic [id number] 03:49:38 Test Item Value Reference Range Interpretation Comments Sodium Level (test 142.0 mmol/L 135.0-145.0 code = Sodium Level) Potassium Level 4.5 mmol/L 3.5-5.1 (test code = Potassium Level) Chloride Level (test 105 mmol/L 98-105 code = Chloride Level) CO2 (test code = 25 mmol/L 22-29 CO2) Anion Gap (test code 12 mmol/L 7-16 = Anion Gap) BUN (test code = 18.60 mg/dL 6.00-20.00 BUN) Creatinine Level 1.00 mg/dL 0.70-1.20 (test code = Creatinine Level) BUN/Creat Ratio 19 N (test code = BUN/Creat Ratio) Glucose Level (test 92 mg/dL 70-115 code = Glucose Level) Calcium Level (test 9.2 mg/dL 8.3-10.5 code = Calcium Level) Alk Phos (test code 66 U/L 40-129 = Alk Phos) Bilirubin Total 0.3 mg/dL 0.1-0.9 (test code = Bilirubin Total) Albumin Level (test 4.2 g/dL 3.5-5.2 code = Albumin Level) Protein Total (test 6.6 g/dL 6.4-8.3 code = Protein Total) ALT (test code = 17 U/L 1-41 ALT) AST (test code = 19 U/L 1-40 AST) Globulin (test code 2.4 g/dL 2.9-3.1 L = Globulin) A/G Ratio (test code 1.8 ratio N = A/G Ratio) eGFR AA (test code = >60 N eGFR (e stimated eGFR AA) mL/min/1.73 m2 Glomerular Filtration Rate ) is an estimated va lue, calculated from the patient's serum creatinine usin g the MDRD equation. It is NOT the patient 's actual GFR. The eGFR provides a more clinically usef ul measure of kidn ey disease than se rum creatinine alone.This calculation tristin es sex and race in to account, if the information is provided. If th e race is not provided, and t he patient is -Rocio n, multiply by 1.2 12. If sex is not provided, and t he patient is fema le, multiply by 0.7 42. Results for pat ients <18 years of ag e have not been validated by th e MDRD study and should be interpreted wit h caution. eGFR R esult Interpretation: eGFR > or = 60 is in the Normal RangeeGF R < 60 may mean kid elton diseaseeGFR < 1 5 may mean kidney failure Rang es recommended by the National Kidney Foundation, http://nkdep.ni h.gov eGFR Non-AA (test >60.00 N eGFR (jared mated code = eGFR Non-AA) mL/min/1.73 m2 Glomer ular Filtration Rate ) is an estimated va lue, calculated from the patient's serum creatinine usin g the MDRD equation. It is NOT the patient 's actual GFR. The eGFR provides a more clinically usef ul measure of kidn ey disease than se rum creatinine alone.This calculation tristin es sex and race in to account, if the information is provided. If th e race is not provided, and t he patient is -Rocio n, multiply by 1.2 12. If sex is not provided, and t he patient is fema le, multiply by 0.7 42. Results for pat ients <18 years of ag e have not been validated by th e MDRD study and should be interpreted wit h caution. eGFR R esult Interpretation: eGFR > or = 60 is in the Normal RangeeGF R < 60 may mean kid elton diseaseeGFR < 1 5 may mean kidney failure Rang es recommended by the National Kidney Foundation, http://nkdep.ni h.gov
[2020-07-17] MEDS ORDERED: dexAMETHasone 4 MG/ML VIAL ONE (14:51)
[2020-07-17] MEDS ORDERED: ALBUTEROL 2.5 MG/3 ML NEB SOL ONE (14:52)
[2020-07-17 15:05] LABS: Absolute Lymphocytes (CBC) 1.9 K/uL (0.7-4.9); Basophils % 0.7 % (0-1.3); Hematocrit 41.8 % (39.6-49.0); Lymphocytes % 21.1 % (15.3-44.8); MPV 10.1 fL (7.6-11.3); RBC Red Blood Cell Count 4.43 M/uL (4.33-5.43)
[2020-07-17 15:05] LABS: Blood Gas Oxyhemoglobin 98.2 % (94-97)
[2020-07-17 15:13] LABS: Protime INR 1.03
[2020-07-17] MEDS ORDERED: FAMOTIDINE 20 MG/2 ML VIAL IV ONE (15:23)
[2020-07-17] MEDS ORDERED: DIPHENHYDRAMINE 50 MG/ML VIAL ONE (15:23)
[2020-07-17 15:34] LABS: ALT/SGPT 17 U/L (12-78); AST/SGOT 16 U/L (15-37); Albumin 3.6 g/dL (3.4-5.0); Alkaline Phosphatase 96 U/L (45-117); BUN Blood Urea Nitrogen 15 mg/dL (7-18); Bicarbonate 28 mmol/L (21-32); Bilirubin Direct 0.1 mg/dL (0-0.2); Bilirubin Total 0.5 mg/dL (0.2-1.0); Glucose Level 100 mg/dL (74-106); Magnesium 2.1 mg/dL (1.8-2.4); NT PRO-BNP 36 pg/mL (<125); Sodium Level 140 mmol/L (136-145); Troponin (Emerg Dept Use Only) < 0.02 ng/mL (0.0-0.045)
--- NOTE | 2020-07-17 16:28 | RAD REPORT ---
EXAM DESCRIPTION: RAD - Chest Single View - 07/17/2020 3:53 pm CLINICAL HISTORY: shortness of breath COMPARISON: Two-view chest September 2019 TECHNIQUE: AP portable chest image was obtained 07/17/2020 3:53 pm . FINDINGS: Lung volumes are low accentuating the baseline interstitial pattern. No peripheral mass or consolidation. No significant failure or volume overload. Heart and vasculature are normal. No measu rable pleural effusion and no pneumothorax. No acute bony abnormality seen. No acute aortic findings suspected. IMPRESSION: No acute cardiopulmonary process. No significant changes from comparison.
--- NOTE | 2020-07-17 17:59 | EDPHYS ---
Physician Documentation [facility] Name: Codey Morin Jr Age: 54 yrs Sex: Male : 1965 Arrival Date: 07/17/2020 Time: 13:55 Bed 2 Private MD: ED Physician Azeem Burger HPI: 07/17 14:30 This 54 yrs old Male presents to ER via Ambulatory with complaints of jmm Breathing Difficulty. 14:30 The patient has shortness of breath at rest. Onset: The symptoms/episode began/occurred jmm today. Duration: The symptoms are continuous. The patient's shortness of breath has no apparent modifying factors. Associated signs and symptoms: Pertinent positives: non-productive cough, Pertinent negatives: fever. This is a 54 year old male with a history of asthma, copd, gout, htn that presents to the ED with complaints of shortness of breath beginning earlier today. Denies chest pain, denies fever. . Historical: - Allergies: 14:04 Demerol; aa5 14:04 Iodine; aa5 14:04 PENICILLINS; aa5 14:04 SEAFOOD; aa5 - PMHx: 14:04 Arthritis; Asthma; COPD; Gout; Hypertension; aa5 - PSHx: 14:04 Cholecystectomy; Tonsillectomy; aa5 - Immunization history:: Adult Immunizations unknown. - Social history:: Smoking status: Patient denies any tobacco usage or history of. ROS: 14:30 Constitutional: Negative for fever, chills, and weight loss, Cardiovascular: Negative jmm for chest pain, palpitations, and edema. 14:30 Respiratory: Positive for shortness of breath. 14:30 All other systems are negative. Exam: 14:30 Head/Face: atraumatic. Eyes: EOMI, no conjunctival erythema appreciated ENT: Moist jmm Mucus Membranes Neck: Trachea midline, Supple Chest/axilla: Normal chest wall appearance and motion. 14:30 Abdomen/GI: Non distended, soft Back: Normal ROM Skin: General appearance color normal MS/ Extremity: Moves all extremities, no obvious deformities appreciated, no edema noted to the lower extremities Neuro: Awake and alert, normal gait Psych: Behavior is normal, Mood is normal, Patient is cooperative and pleasant 14:30 Constitutional: The patient appears alert, awake, anxious, uncomfortable. 14:30 Cardiovascular: Rate: normal, Rhythm: regular. 14:30 Respiratory: mild respiratory distress is noted, Respirations: labored breathing, that is mild, Breath sounds: + upper airway congestion. Vital Signs: 14:00 BP 139 / 95; Pulse 81; Resp 18 S; Temp 99.0(O); Pulse Ox 99% on R/A; Weight 92.99 kg aa5 (R); Height 5 ft. 11 in. (180.34 cm) (R); Pain 0/10; 15:46 BP 151 / 76; Pulse 83; Resp 18; Pulse Ox 99% on R/A; ph 16:30 BP 142 / 70; Pulse 68; Resp 18; Pulse Ox 99% on R/A; em 17:50 BP 129 / 71; Pulse 72; Resp 18; Pulse Ox 99% on R/A; em 14:00 Body Mass Index 28.59 (92.99 kg, 180.34 cm) aa5 MDM: 14:30 Patient medically screened. deric 17:54 Data reviewed: vital signs, nurses notes. Counseling: I had a detailed discussion with taya the patient and/or guardian regarding: the historical points, exam findings, and any diagnostic results supporting the discharge/admit diagnosis, lab results, radiology results, the need for outpatient follow up, to return to the emergency department if symptoms worsen or persist or if there are any questions or concerns that arise at home. Refusal of service: The patient/guardian displays adequate decision making capability and despite a detailed discussion of alternatives, benefits, risks, and consequences refuses: Admission to the hospital for further work-up and treatment. ED course: Symptoms improved in the ED. Patient states symptoms were most likely due to frying chicken in oil. He has had similar episodes in the past. Symptoms alleviated after IV steroids. . 07/17 14:35 Order name: Basic Metabolic Panel; Complete Time: 15:35 [facility] 07/17 14:35 Order name: CBC with Diff; Complete Time: 15:11 [facility] 07/17 14:35 Order name: LFT's; Complete Time: 15:35 [facility] 07/17 14:35 Order name: Magnesium; Complete Time: 15:35 [facility] 07/17 14:35 Order name: NT PRO-BNP; Complete Time: 15:35 [facility] 07/17 14:35 Order name: PT-INR; Complete Time: 15:18 [facility] 07/17 14:35 Order name: Troponin (emerg Dept Use Only); Complete Time: 15:35 [facility] 07/17 14:35 Order name: XRAY Chest (1 view); Complete Time: 16:40 [facility] 07/17 14:37 Order name: Lactate; Complete Time: 15:33 [facility] 07/17 14:37 Order name: Procalcitonin; Complete Time: 15:54 [facility] 07/17 14:37 Order name: Blood Culture Adult (2) [facility] 07/17 14:37 Order name: COVID-19 [facility] 07/17 14:57 Order name: ABG [facility] 07/17 14:58 Order name: ABG Arterial Blood Gas; Complete Time: 15:18 [facility] 07/17 14:35 Order name: EKG; Complete Time: 14:36 [facility] 07/17 14:35 Order name: Cardiac monitoring; Complete Time: 14:52 [facility] 07/17 14:35 Order name: EKG - Nurse/Tech; Complete Time: 17:22 [facility] 07/17 14:35 Order name: IV Saline Lock; Complete Time: 15:13 [facility] 07/17 14:35 Order name: Labs collected and sent; Complete Time: 15:13 [facility] 07/17 14:35 Order name: O2 Per Protocol; Complete Time: 15:13 [facility] 07/17 14:35 Order name: O2 Sat Monitoring; Complete Time: 15:13 [facility] Administered Medications: 14:44 Drug: Decadron - Dexamethasone 10 mg Route: IVP; Site: right antecubital; em 15:48 Follow up: Response: No adverse reaction ph 14:46 Drug: Albuterol 2.5 mg Route: Inhalation; em 15:48 Follow up: Response: No adverse reaction ph 14:46 Drug: Albuterol 2.5 mg Route: Inhalation; em 14:46 Drug: Albuterol 2.5 mg Route: Inhalation; em 15:18 Drug: Pepcid 20 mg Route: IVP; Site: right antecubital; em 15:48 Follow up: Response: No adverse reaction ph 15:20 Drug: diphenhydrAMINE 25 mg Route: IVP; Site: right antecubital; em 15:48 Follow up: Response: No adverse reaction ph Disposition: 11/12 05:35 Co-signature as Attending Physician, Azeem Burger MD I agree with the assessment and [facility] plan of care. Disposition: 07/17/20 17:58 Discharged to Home. Impression: Dyspnea, Allergic Reaction. - Condition is Stable. - Prescriptions for Prednisone 20 mg Oral Tablet - take 3 tablet by ORAL route once daily for 5 days; 15 tablet. Albuterol Sulfate 90 mcg/actuation - inhale 1-2 puff by INHALATION route every 4-6 hours; 1 Inhaler. EpiPen 0.3 mg Injection auto- injector - inject 1 pen by INTRAMUSCULAR route as directed Inject into the outer portion of the thigh, through clothing if necessary. Indicated in the emergency treatment of allergic reactions; 1 unit. - Medication Reconciliation Form, Thank You Letter, Antibiotic Education, Prescription Opioid Use, Work release form form. - Follow up: Private Physician; When: 2 - 3 days; Reason: Recheck today's complaints, Continuance of care, Re-evaluation by your physician. Signatures: Dispatcher [employer] EDAzeem Sommers MD MD cha Mickail, Joel, PA PA jmm Munoz, Edgar, RN RN Cristy Casarez, RN RN aa5 Jessica Groves RN ph Corrections: (The following items were deleted from the chart) 07/17 18:16 17:58 07/17/2020 17:58 Discharged to Home. Impression: Dyspnea; Allergic Reaction. em Condition is Stable. Forms are Medication Reconciliation Form, Thank You Letter, Antibiotic Education, Prescription Opioid Use. Follow up: Private Physician; When: 2 - 3 days; Reason: Recheck today's complaints, Continuance of care, Re-evaluation by your physician. taya
--- NOTE | 2020-07-17 17:59 | ER ---
Nurse's Notes [facility] Name: Codey Morin Jr Age: 54 yrs Sex: Male : 1965 Arrival Date: 07/17/2020 Time: 13:55 Bed 2 Private MD: Diagnosis: Dyspnea;Allergic Reaction Presentation: 07/17 14:00 Chief complaint: Patient states: "I woke up with trouble breathing this morning". Pt aa5 also reports difficulty swallowing. 14:00 Coronavirus screen: cough unrelated to allergies, shortness of breath, Client presents aa5 with at least one sign or symptom that may indicate coronavirus-19. Standard/surgical mask placed on the client. Provider contacted for isolation considerations. Ebola Screen: Patient negative for fever greater than or equal to 101.5 degrees Fahrenheit, and additional compatible Ebola Virus Disease symptoms. Initial Sepsis Screen: Does the patient meet any 2 criteria? No. Patient's initial sepsis screen is negative. Does the patient have a suspected source of infection? No. Patient's initial sepsis screen is negative. Risk Assessment: Do you want to hurt yourself or someone else? Patient reports no desire to harm self or others. Onset of symptoms was July 17, 2020. 14:00 Acuity: KAYLIE 2 aa5 14:00 Method Of Arrival: Ambulatory aa5 Historical: - Allergies: 14:04 Demerol; aa5 14:04 Iodine; aa5 14:04 PENICILLINS; aa5 14:04 SEAFOOD; aa5 - PMHx: 14:04 Arthritis; Asthma; COPD; Gout; Hypertension; aa5 - PSHx: 14:04 Cholecystectomy; Tonsillectomy; aa5 - Immunization history:: Adult Immunizations unknown. - Social history:: Smoking status: Patient denies any tobacco usage or history of. Screenin:29 Abuse screen: Denies threats or abuse. Denies injuries from another. Nutritional ph screening: No deficits noted. Tuberculosis screening: No symptoms or risk factors identified. Fall Risk None identified. Assessment: 15:44 General: Appears in no apparent distress. comfortable, Behavior is calm, cooperative, ph appropriate for age, Denies fever, feeling ill. Pain: Denies pain. Neuro: Level of Consciousness is awake, alert, obeys commands, Oriented to person, place, time, situation. Cardiovascular: Reports shortness of breath, Capillary refill < 3 seconds Patient's skin is warm and dry. Respiratory: Airway is patent Respiratory effort is even, unlabored, Respiratory pattern is regular, symmetrical. GI: No signs and/or symptoms were reported involving the gastrointestinal system. EENT: Reports pain when swallowing. Derm: Skin is intact, is healthy with good turgor, Skin is pink, warm \\T\\ dry. Musculoskeletal: Circulation, motion, and sensation intact. Range of motion: intact in all extremities. 16:35 Reassessment: Patient appears in no apparent distress at this time. Patient and/or em family updated on plan of care and expected duration. Pain level reassessed. Patient is alert, oriented x 3, equal unlabored respirations, skin warm/dry/pink. 17:25 Reassessment: Patient appears in no apparent distress at this time. Patient and/or em family updated on plan of care and expected duration. Pain level reassessed. Patient is alert, oriented x 3, equal unlabored respirations, skin warm/dry/pink. Vital Signs: 14:00 BP 139 / 95; Pulse 81; Resp 18 S; Temp 99.0(O); Pulse Ox 99% on R/A; Weight 92.99 kg aa5 (R); Height 5 ft. 11 in. (180.34 cm) (R); Pain 0/10; 15:46 BP 151 / 76; Pulse 83; Resp 18; Pulse Ox 99% on R/A; ph 16:30 BP 142 / 70; Pulse 68; Resp 18; Pulse Ox 99% on R/A; em 17:50 BP 129 / 71; Pulse 72; Resp 18; Pulse Ox 99% on R/A; em 14:00 Body Mass Index 28.59 (92.99 kg, 180.34 cm) aa ED Course: 13:55 Patient arrived in ED. mr 14:01 Arm band placed on. aa5 14:03 Triage completed. [facility] 14:27 David Dhillon PA is PHCP. [facility] 14:27 Azeem Burger MD is Attending Physician. [facility] 14:29 Jessica Groves, CRYSTAL is Primary Nurse. ph 14:29 Patient has correct armband on for positive identification. Bed in low position. Call ph light in reach. Side rails up X 1. claims sorter on. Pulse ox on. NIBP on. 14:40 Initial lab(s) drawn, by me, sent to lab. Inserted saline lock: 20 gauge in right em antecubital area, using aseptic technique. Blood collected. 15:54 XRAY Chest (1 view) In Process Unspecified. EDMS 18:13 No provider procedures requiring assistance completed. IV discontinued, intact, em bleeding controlled, No redness/swelling at site. Pressure dressing applied. Administered Medications: 14:44 Drug: Decadron - Dexamethasone 10 mg Route: IVP; Site: right antecubital; em 15:48 Follow up: Response: No adverse reaction ph 14:46 Drug: Albuterol 2.5 mg Route: Inhalation; em 15:48 Follow up: Response: No adverse reaction ph 14:46 Drug: Albuterol 2.5 mg Route: Inhalation; em 14:46 Drug: Albuterol 2.5 mg Route: Inhalation; em 15:18 Drug: Pepcid 20 mg Route: IVP; Site: right antecubital; em 15:48 Follow up: Response: No adverse reaction ph 15:20 Drug: diphenhydrAMINE 25 mg Route: IVP; Site: right antecubital; em 15:48 Follow up: Response: No adverse reaction ph Outcome: 17:58 Discharge ordered by MD. jmm 18:13 Discharged to home ambulatory. em 18:13 Condition: good 18:13 Discharge instructions given to patient, Instructed on discharge instructions, follow up and referral plans. medication usage, Demonstrated understanding of instructions, follow-up care, medications, Prescriptions given X 3. 18:16 Patient left the ED. em Signatures: Dispatcher [employer] EDMS David Dhillon PA PA jmm Rivera, Mary mr Mohsen Garvin, RN RN em Cristy Dodge, RN RN aa5 Jessica Groves RN RN ph
[2020-07-17 19:20] VITALS: TEMP 99; O2SAT 99
[2020-07-17 19:26] VITALS: BP 129/71
--- NOTE | 2020-07-21 07:54 | EKG ---
Test Date: 2020-07-17 Test Time: 17:16:29 Automatic Packer Operator: THOMAS MEASUREMENT RESULTS: Intervals: Rate: 78 VA: 150 QRSD: 72 QT: 384 QTc: 437 Longs: P: 71 VA: 150 QRS: -14 T: 97 INTERPRETIVE STATEMENTS: Normal sinus rhythm Septal infarct, age undetermined Abnormal ECG Compared to ECG 12/01/2018 16:46:32 No significant changes Electronically Signed On 07-21-20 07:42:39 MOTOR POOL DRIVER by Bogdan Chou
== END 2020-07-17 18:16 | disposition home or self-care (01) ==
LOC: ER 13:52
DX: R06.00 Dyspnea, unspecified (principal); I10 Essential (primary) hypertension; Z88.0 Allergy status to penicillin; Z88.5 Allergy status to narcotic agent; Z91.013 Allergy to seafood; Z91.048 Other nonmedicinal substance allergy status
CPT/HCPCS: 36415; 71045; 80048; 80076; 82805; 83605; 83735; 83880; 84145; 84484; 85025; 85610; 87040; 93005; 96374; 96375; 99285; J1100; J1200

== ENCOUNTER 2020-09-16 11:05 | Emergency (ER) | payer SELFPAY ==
--- OUTSIDE RECORDS SUMMARY | 2020-09-16 11:27 | XMS REPORT | Continuity of Care Document ---
:1965 Author Organization [facility] t Address [address] [place] [address] Care Team Providers Name Role Phone Unavailable [...] mIU/mL 0.270-4.200 H Complete Blood Count with [id number] 07:30:28 Test Item Value Reference Range Interpretation [...] code = IPF) 0 % N Automated [id number] 07:30:28 Test Item Value Reference Range Interpretation Comments Neutro Auto (test code = Neutro 46.1 % 36.0-70.0 Auto) Lymph Auto (test code = Lymph Auto) 34.0 % 12.0-44.0 [place] Auto (test code = [place] Auto) 11.2 % 0.0-11.0 H Eos, Auto (test code = Eos, Auto) 7.6 % 0.0-7.0 H Basophil Auto (test code = Basophil 0.4 % 0.0-2.0 Auto) Neutro Absolute (test code = Neutro 3.8 x10 1.6-7.4 Absolute) Lymph Absolute (test code = Lymph 2.79 x10 .50-4.60 Absolute) [place] Absolute (test code = [place] .92 x10 .00-1.20 Absolute) Eos Absolute (test code = Eos 0.62 x10 0.00-0.74 Absolute) Baso Absolute (test code = Baso 0.03 x10 0.00-0.21 Absolute) IG [id number] 07:30:28 Test Item Value Reference Range Interpretation Comments IG (test code = IG) 0.7 % 0.0-5.0 IG Abs (test code = IG Abs) 0 x10 N RPR [id number] 05:28:06 Test Item Value Reference Range Interpretation Comments RPR Qual (test code = RPR Qual) Non-Reactive Non-Reactive Reactive Control (test code = Reactive Reactive Control) Weak Reactive Control (test Weak Reactive code = Weak Reactive Control) Non-Reactive Control (test code Non-Reactive = Non-Reactive Control) Lot # (test code = Lot #) [id number] N Expiration Dt (test code = 09.05.2020 N Expiration Dt) Hemoglobin [id number] 05:16:07 Test Item Value Reference Range Interpretation Comments Hemoglobin A1c (test code 5.4 % 4.8-5.9 No n Diabetic = Hemoglobin A1c) 4.8-5.9%Di abetic <7.0% Lipid [id number] 05:16:07 Test Item Value Reference Range Interpretation Comments Cholesterol Total 133 mg/dL 0-200 RISK OF HE ART (test code = DISEASEPublishe d by Cholesterol Total) [place] [employer] Nida lyte Optimal Borderl ine [...] LDL/HDL Ratio=L DL Calc/HDL Chol Thyroid Stimulating [id number] 05:16:07 Test Item Value Reference Range Interpretation Comments TSH (test code = TSH) 12.450 mIU/mL 0.270-4.200 H Urine Drug [id number] 05:06:35 Test Item Value Reference Range Interpretation [...] if desired . Urinalysis with Microscopic if [id number] 04:50:25 Test Item Value Reference Range Interpretation [...] Micro Ind?) rule GL_SJM_UA_[id number] _IN D IG [id number] 04:01:31 Test Item Value Reference Range Interpretation Comments IG (test code = IG) 0.4 % 0.0-5.0 IG Abs (test code = IG Abs) 0 x10 N Complete Blood Count with [id number] 04:01:30 Test Item Value Reference Range Interpretation [...] code = IPF) 0 % N Automated [id number] 04:01:30 Test Item Value Reference Range Interpretation Comments Neutro Auto (test code = Neutro 62.6 % 36.0-70.0 Auto) Lymph Auto (test code = Lymph Auto) 24.4 % 12.0-44.0 [place] Auto (test code = [place] Auto) 10.8 % 0.0-11.0 Eos, Auto (test code = Eos, Auto) 1.5 % 0.0-7.0 Basophil Auto (test code = Basophil 0.3 % 0.0-2.0 Auto) Neutro Absolute (test code = Neutro 8.1 x10 1.6-7.4 H Absolute) Lymph Absolute (test code = Lymph 3.18 x10 .50-4.60 Absolute) [place] Absolute (test code = [place] 1.41 x10 .00-1.20 H Absolute) Eos Absolute (test code = Eos 0.19 x10 0.00-0.74 Absolute) Baso Absolute (test code = Baso 0.04 x10 0.00-0.21 Absolute) Comprehensive Metabolic [id number] 03:49:38 Test Item Value Reference Range Interpretation [...] A/G 1.8 ratio N Ratio) Comprehensive Metabolic [id number] 03:49:38 Test Item Value Reference Range Interpretation [...] the National Kidney Foundation, http://nkdep.ni h.gov Alcohol [id number] 03:49:38 Test Item Value Reference Range Interpretation Comments Ethanol Level (test <0.00 g/dL 0.00-0.01 Intoxica tyson 0.080 g/dL code = Ethanol or more Level) Ethanol Inst (test <0 N code = Ethanol Inst) Comprehensive Metabolic [id number] 03:49:38 Test Item Value Reference Range Interpretation [...]
[2020-09-16] MEDS ORDERED: NA CHLORIDE 0.9% 1,000 ML ONE (12:01)
[2020-09-16] MEDS ORDERED: FAMOTIDINE 20 MG/2 ML VIAL IV ONE (12:01)
[2020-09-16] MEDS ORDERED: DIPHENHYDRAMINE 50 MG/ML VIAL ONE (12:01)
[2020-09-16] MEDS ORDERED: METHYLPREDNISOLONE 125 MG INJ ONE (12:01)
--- NOTE | 2020-09-16 13:56 | ER ---
Nurse's Notes [facility] Name: Codey Morin Jr Age: 54 yrs Sex: Male : 1965 Arrival Date: 09/16/2020 Time: 11:07 Bed 3 Private MD: Diagnosis: Allergy status, other than to drugs and biological substances-swelling Presentation: 09/16 11:33 Chief complaint: Patient states: Tongue, throat and R hand swelling that began this ss morning. Pt reports he may be allergic to the smoke from frying food yesterday. Coronavirus screen: Client denies travel out of the [place] in the last 14 days. Ebola Screen: Patient denies exposure to infectious person. Patient denies travel to an Ebola-affected area in the 21 days before illness onset. Onset: The symptoms/episode began/occurred this morning. Anaphylaxis evaluation, moderate swelling to tongue. Initial Sepsis Screen: Does the patient meet any 2 criteria? No. Patient's initial sepsis screen is negative. Does the patient have a suspected source of infection? No. Patient's initial sepsis screen is negative. Risk Assessment: Do you want to hurt yourself or someone else? Patient reports no desire to harm self or others. Onset of symptoms was September 16, 2020. 11:33 Method Of Arrival: Ambulatory 11:33 Acuity: KAYLIE 3 ss Historical: - Allergies: 11:36 Demerol; ss 11:36 Iodine; ss 11:36 PENICILLINS; ss 11:36 SEAFOOD; ss - PMHx: 11:36 Arthritis; Asthma; COPD; Gout; Hypertension; ss - PSHx: 11:36 Cholecystectomy; Tonsillectomy; ss - Immunization history:: Adult Immunizations up to date. - Social history:: Smoking status: Patient denies any tobacco usage or history of. Screenin:50 Abuse screen: Denies threats or abuse. Nutritional screening: No deficits noted. em Tuberculosis screening: No symptoms or risk factors identified. Fall Risk None identified. Assessment: 11:50 General: Appears in no apparent distress. comfortable, Behavior is calm, cooperative, em appropriate for age, Reports swollen tongue and right hand since this morning. Pain: Denies pain. Neuro: Level of Consciousness is awake, alert, obeys commands, Oriented to person, place, time, situation, Appropriate for age. Cardiovascular: Capillary refill < 3 seconds Patient's skin is warm and dry. Respiratory: Airway is patent Respiratory effort is even, unlabored, Respiratory pattern is regular, symmetrical, Breath sounds are clear Denies shortness of breath labored breathing. Derm: Skin is intact, is healthy with good turgor, Skin is pink, warm \T\ dry. Musculoskeletal: Capillary refill < 3 seconds, Range of motion: intact in all extremities. 13:00 Reassessment: Patient appears in no apparent distress at this time. Patient and/or em family updated on plan of care and expected duration. Pain level reassessed. Patient is alert, oriented x 3, equal unlabored respirations, skin warm/dry/pink. 14:05 Reassessment: Patient appears in no apparent distress at this time. Patient and/or em family updated on plan of care and expected duration. Pain level reassessed. Patient is alert, oriented x 3, equal unlabored respirations, skin warm/dry/pink. Vital Signs: 11:33 BP 152 / 95; Pulse 75; Resp 18; Temp 97.7(TE); Pulse Ox 99% on R/A; Weight 97.52 kg; ss Height 5 ft. 11 in. (180.34 cm); Pain 0/10; 12:30 BP 140 / 86; Pulse 59; Resp 18; Pulse Ox 100% on R/A; em 13:55 BP 134 / 89; Pulse 76; Resp 17; Pulse Ox 100% on R/A; tw2 11:33 Body Mass Index 29.99 (97.52 kg, 180.34 cm) ED Course: 11:07 Patient arrived in ED. rg4 11:11 [facility]cd[facility]iels [facility] kb 11:11 Kelton Cavazos MD is Attending Physician. kb 11:35 Triage completed. ss 11:36 Arm band placed on right wrist. ss 11:42 Mohsen Garvin, CRYSTAL is Primary Nurse. em 11:50 Patient has correct armband on for positive identification. Bed in low position. Call em light in reach. Side rails up X2. Pulse ox on. NIBP on. Warm blanket given. 11:55 Inserted saline lock: 20 gauge in right antecubital area, using aseptic technique. em 14:05 No provider procedures requiring assistance completed. IV discontinued, intact, em bleeding controlled, No redness/swelling at site. Pressure dressing applied. Administered Medications: 11:55 Drug: NS 0.9% 1000 ml Route: IV; Rate: 1000 ml; Site: right antecubital; em 13:56 Follow up: Response: No adverse reaction; IV Status: Completed infusion; IV Intake: tw2 1000ml 11:55 Drug: SOLU-Medrol 125 mg Route: IVP; Site: right antecubital; em 13:56 Follow up: Response: No adverse reaction tw2 11:57 Drug: Pepcid 20 mg Route: IVP; Site: right antecubital; em 13:56 Follow up: Response: No adverse reaction tw2 11:59 Drug: Benadryl 25 mg Route: IVP; Site: right antecubital; em 13:57 Follow up: Response: No adverse reaction tw2 Intake: 13:56 IV: 1000ml; Total: 1000ml. tw2 Outcome: 13:55 Discharge ordered by . kb 14:05 Discharged to home ambulatory. em 14:05 Condition: improved 14:05 Discharge instructions given to patient, Instructed on discharge instructions, follow up and referral plans. medication usage, Demonstrated understanding of instructions, follow-up care, medications, Prescriptions given X 2. 14:06 Patient left the ED. em Signatures: Annika Mcdaniels, SEEMA-C INSPECTOR [employer]CH[employer]-Mohsen Elizabeth RN RN Oriana Tyler RN RN Jeanie Chilel RN RN tw2 Marilynn Mederos rg4
--- NOTE | 2020-09-16 13:56 | EDPHYS ---
Physician Documentation [facility] Name: Codey Morin Jr Age: 54 yrs Sex: Male : 1965 Arrival Date: 09/16/2020 Time: 11:07 Bed 3 Private MD: ED Physician Kelton Cavazos HPI: 09/16 11:50 This 54 yrs old Male presents to ER via Ambulatory with complaints of kb Allergic Reaction. 11:50 The patient presents with difficulty swallowing, localized swelling, swelling of the kb tongue. Onset: The symptoms/episode began/occurred last night. Associated signs and symptoms: Pertinent positives: swelling. Possible causes: possibly smoke. At home the patient or guardian has treated the symptoms with nothing. Severity of symptoms: At their worst the symptoms were moderate in the emergency department the symptoms are unchanged. The patient has experienced similar episodes in the past. The patient has not recently seen a physician. Pt reports swelling to tongue, right hand, and neck that began in the middle of the night. States he was smoking a ham last night and thinks this is a reaction to the smoke. Pt has had this several times in the past, but unable to identify cause. . Historical: - Allergies: 11:36 Demerol; ss 11:36 Iodine; ss 11:36 PENICILLINS; ss 11:36 SEAFOOD; ss - PMHx: 11:36 Arthritis; Asthma; COPD; Gout; Hypertension; ss - PSHx: 11:36 Cholecystectomy; Tonsillectomy; ss - Immunization history:: Adult Immunizations up to date. - Social history:: Smoking status: Patient denies any tobacco usage or history of. ROS: 11:52 Constitutional: Negative for fever, chills, and weight loss, Cardiovascular: Negative kb for chest pain, palpitations, and edema, Respiratory: Negative for shortness of breath, cough, wheezing, and pleuritic chest pain, Abdomen/GI: Negative for abdominal pain, nausea, vomiting, diarrhea, and constipation, Back: Negative for injury and pain, MS/Extremity: Negative for injury and deformity, Neuro: Negative for headache, weakness, numbness, tingling, and seizure. 11:52 ENT: Positive for tongue swelling. 11:52 Neck: Positive for swelling. 11:52 Skin: Positive for swelling, of the right hand. Exam: 11:52 Constitutional: This is a well developed, well nourished patient who is awake, alert, kb and in no acute distress. Head/Face: Normocephalic, atraumatic. Chest/axilla: Normal chest wall appearance and motion. Nontender with no deformity. No lesions are appreciated. Cardiovascular: Regular rate and rhythm with a normal S1 and S2. No gallops, murmurs, or rubs. Normal PMI, no JVD. No pulse deficits. Respiratory: Lungs have equal breath sounds bilaterally, clear to auscultation and percussion. No rales, rhonchi or wheezes noted. No increased work of breathing, no retractions or nasal flaring. Abdomen/GI: Soft, non-tender, with normal bowel sounds. No distension or tympany. No guarding or rebound. No evidence of tenderness throughout. Skin: Warm, dry with normal turgor. Normal color with no rashes, no lesions, and no evidence of cellulitis. Neuro: Awake and alert, GCS 15, oriented to person, place, time, and situation. Cranial nerves II-XII grossly intact. Motor strength 5/5 in all extremities. Sensory grossly intact. Cerebellar exam normal. Normal gait. 11:52 ENT: Mouth: Tongue: is swollen. 11:52 Neck: External neck: swelling, that is mild, of the right side of neck. 11:52 Musculoskeletal/extremity: Extremities: grossly normal except: noted in the right hand: swelling, ROM: intact in all extremities, Circulation is intact in all extremities. Sensation intact. Vital Signs: 11:33 BP 152 / 95; Pulse 75; Resp 18; Temp 97.7(TE); Pulse Ox 99% on R/A; Weight 97.52 kg; ss Height 5 ft. 11 in. (180.34 cm); Pain 0/10; 12:30 BP 140 / 86; Pulse 59; Resp 18; Pulse Ox 100% on R/A; em 13:55 BP 134 / 89; Pulse 76; Resp 17; Pulse Ox 100% on R/A; tw2 11:33 Body Mass Index 29.99 (97.52 kg, 180.34 cm) MDM: 11:41 Patient medically screened. kb 12:33 Data reviewed: vital signs, nurses notes. Data interpreted: Pulse oximetry: on room air kb is 99 %. Interpretation: normal. 12:34 Response to treatment: the patient's symptoms have mildly improved after treatment. kb 13:53 Counseling: I had a detailed discussion with the patient and/or guardian regarding: the kb historical points, exam findings, and any diagnostic results supporting the discharge/admit diagnosis, the need for outpatient follow up, a family practitioner, to return to the emergency department if symptoms worsen or persist or if there are any questions or concerns that arise at home. Response to treatment: the patient's symptoms have markedly improved after treatment. ED course: Pt reports he feels much better. . 09/16 11:42 Order name: IV Start; Complete Time: 11:58 kb Administered Medications: 11:55 Drug: NS 0.9% 1000 ml Route: IV; Rate: 1000 ml; Site: right antecubital; em 13:56 Follow up: Response: No adverse reaction; IV Status: Completed infusion; IV Intake: tw2 1000ml 11:55 Drug: SOLU-Medrol 125 mg Route: IVP; Site: right antecubital; em 13:56 Follow up: Response: No adverse reaction tw2 11:57 Drug: Pepcid 20 mg Route: IVP; Site: right antecubital; em 13:56 Follow up: Response: No adverse reaction tw2 11:59 Drug: Benadryl 25 mg Route: IVP; Site: right antecubital; em 13:57 Follow up: Response: No adverse reaction tw2 Disposition: 09/17 07:29 Co-signature as Attending Physician, Kelton Cavazos MD I agree with the assessment and kdr plan of care. Disposition: 09/16/20 13:55 Discharged to Home. Impression: Allergy status, other than to drugs and biological substances - swelling . - Condition is Stable. - Discharge Instructions: Angioedema, [id number], Allergies, [id number]. - Prescriptions for Pepcid 20 mg Oral Tablet - take 1 tablet by ORAL route every 12 hours for 5 days; 10 tablet. Prednisone 20 mg Oral Tablet - take 1 tablet by ORAL route once daily for 5 days; 5 tablet. - Medication Reconciliation Form, Thank You Letter, Antibiotic Education, Prescription Opioid Use, Work release form form. - Follow up: Emergency Department; When: As needed; Reason: Worsening of condition. Follow up: Private Physician; When: 2 - 3 days; Reason: Recheck today's complaints, Continuance of care, Re-evaluation by your physician. Signatures: Annika Mcdaniels, RACHEL STEPHENSON-Kelton Manzanares MD MD kdr Munoz, Edgar, RN RN em Smirch, Shelby, RN RN ss Wise, Tara RN tw2 Corrections: (The following items were deleted from the chart) 09/16 14:06 13:55 09/16/2020 13:55 Discharged to Home. Impression: Allergy status, other than to em drugs and biological substances - swelling . Condition is Stable. Forms are Medication Reconciliation Form, Thank You Letter, Antibiotic Education, Prescription Opioid Use. Follow up: Emergency Department; When: As needed; Reason: Worsening of condition. Follow up: Private Physician; When: 2 - 3 days; Reason: Recheck today's complaints, Continuance of care, Re-evaluation by your physician. kb
[2020-09-16 14:10] VITALS: TEMP 97.7
[2020-09-16 14:12] VITALS: O2SAT 100
[2020-09-16 14:13] VITALS: BP 134/89
== END 2020-09-16 14:06 | disposition home or self-care (01) ==
LOC: ER 11:05
DX: T78.40XA Allergy, unspecified, initial encounter (principal); J44.9 Chronic obstructive pulmonary disease, unspecified; M19.90 Unspecified osteoarthritis, unspecified site; M10.9 Gout, unspecified; I10 Essential (primary) hypertension
CPT/HCPCS: 96361; 96374; 96375; 99284; J1200; J2930; J7030

== ENCOUNTER 2020-12-02 11:34 | Emergency (ER) | payer SELFPAY ==
--- OUTSIDE RECORDS SUMMARY | 2020-12-02 11:37 | XMS REPORT | Continuity of Care Document ---
:1965 Author Organization [facility] t Address [address] [place] [address] Care Team Providers Name Role Phone Unavailable [...] mIU/mL 0.270-4.200 H Complete Blood Count with [id number] 07:30:28 Test Item Value Reference Range Interpretation [...] code = IPF) 0 % N Automated [id number] 07:30:28 Test Item Value Reference Range Interpretation Comments Neutro Auto (test code = Neutro 46.1 % 36.0-70.0 Auto) Lymph Auto (test code = Lymph Auto) 34.0 % 12.0-44.0 [place] Auto (test code = [place] Auto) 11.2 % 0.0-11.0 H Eos, Auto (test code = Eos, Auto) 7.6 % 0.0-7.0 H Basophil Auto (test code = Basophil 0.4 % 0.0-2.0 Auto) Neutro Absolute (test code = Neutro 3.8 x10 1.6-7.4 Absolute) Lymph Absolute (test code = Lymph 2.79 x10 .50-4.60 Absolute) [place] Absolute (test code = [place] .92 x10 .00-1.20 Absolute) Eos Absolute (test code = Eos 0.62 x10 0.00-0.74 Absolute) Baso Absolute (test code = Baso 0.03 x10 0.00-0.21 Absolute) IG [id number] 07:30:28 Test Item Value Reference Range Interpretation Comments IG (test code = IG) 0.7 % 0.0-5.0 IG Abs (test code = IG Abs) 0 x10 N RPR [id number] 05:28:06 Test Item Value Reference Range Interpretation Comments RPR Qual (test code = RPR Qual) Non-Reactive Non-Reactive Reactive Control (test code = Reactive Reactive Control) Weak Reactive Control (test Weak Reactive code = Weak Reactive Control) Non-Reactive Control (test code Non-Reactive = Non-Reactive Control) Lot # (test code = Lot #) [id number] N Expiration Dt (test code = 09.05.2020 N Expiration Dt) Hemoglobin [id number] 05:16:07 Test Item Value Reference Range Interpretation Comments Hemoglobin A1c (test code 5.4 % 4.8-5.9 No n Diabetic = Hemoglobin A1c) 4.8-5.9%Di abetic <7.0% Lipid [id number] 05:16:07 Test Item Value Reference Range Interpretation Comments Cholesterol Total 133 mg/dL 0-200 RISK OF HE ART (test code = DISEASEPublishe d by Cholesterol Total) [place] [employer] Nida lyte Optimal Borderl ine [...] LDL/HDL Ratio=L DL Calc/HDL Chol Thyroid Stimulating [id number] 05:16:07 Test Item Value Reference Range Interpretation Comments TSH (test code = TSH) 12.450 mIU/mL 0.270-4.200 H Urine Drug [id number] 05:06:35 Test Item Value Reference Range Interpretation [...] if desired . Urinalysis with Microscopic if [id number] 04:50:25 Test Item Value Reference Range Interpretation [...] Micro Ind?) rule GL_SJM_UA_MICRO _IN D IG [id number] 04:01:31 Test Item Value Reference Range Interpretation Comments IG (test code = IG) 0.4 % 0.0-5.0 IG Abs (test code = IG Abs) 0 x10 N Complete Blood Count with [id number] 04:01:30 Test Item Value Reference Range Interpretation [...] code = IPF) 0 % N Automated [id number] 04:01:30 Test Item Value Reference Range Interpretation Comments Neutro Auto (test code = Neutro 62.6 % 36.0-70.0 Auto) Lymph Auto (test code = Lymph Auto) 24.4 % 12.0-44.0 [place] Auto (test code = [place] Auto) 10.8 % 0.0-11.0 Eos, Auto (test code = Eos, Auto) 1.5 % 0.0-7.0 Basophil Auto (test code = Basophil 0.3 % 0.0-2.0 Auto) Neutro Absolute (test code = Neutro 8.1 x10 1.6-7.4 H Absolute) Lymph Absolute (test code = Lymph 3.18 x10 .50-4.60 Absolute) [place] Absolute (test code = [place] 1.41 x10 .00-1.20 H Absolute) Eos Absolute (test code = Eos 0.19 x10 0.00-0.74 Absolute) Baso Absolute (test code = Baso 0.04 x10 0.00-0.21 Absolute) Comprehensive Metabolic [id number] 03:49:38 Test Item Value Reference Range Interpretation [...] A/G 1.8 ratio N Ratio) Comprehensive Metabolic [id number] 03:49:38 Test Item Value Reference Range Interpretation [...] the National Kidney Foundation, http://nkdep.ni h.gov Alcohol [id number] 03:49:38 Test Item Value Reference Range Interpretation Comments Ethanol Level (test <0.00 g/dL 0.00-0.01 Intoxica tyson 0.080 g/dL code = Ethanol or more Level) Ethanol Inst (test <0 N code = Ethanol Inst) Comprehensive Metabolic [id number] 03:49:38 Test Item Value Reference Range Interpretation [...]
--- NOTE | 2020-12-02 14:25 | RAD REPORT ---
EXAM DESCRIPTION: RAD - Chest Single View - 12/02/2020 2:10 pm CLINICAL HISTORY: COUGH Chest pain. COMPARISON: Chest Single View dated 07/17/2020; Chest Pa And Lat (2 Views) dated 10/05/2019; Chest Si ngle View dated 12/01/2018; Chest Single View dated 10/30/2018 FINDINGS: Portable technique limits examination quality. The lungs are grossly clear. The heart is normal in size. No displaced fractures.Old left posterior r ib fractures are seen. IMPRESSION: No acute intrathoracic process suspected.
[2020-12-02] MEDS ORDERED: LIDOCAINE 4% PATCH ONE (14:38)
[2020-12-02] MEDS ORDERED: HYDROCODONE/CHLORPHEN 5 ML/OSYR ONE (14:38)
[2020-12-02 16:02] LABS: SARS-COV-2 RT PCR NEGATIVE (NEGATIVE)
--- NOTE | 2020-12-02 16:56 | ER ---
Nurse's Notes [facility] Name: Codey Morin Jr Age: 55 yrs Sex: Male : 1965 Arrival Date: 12/02/2020 Time: 11:43 Bed 17 Private MD: Diagnosis: Strain of muscle, fascia and tendon at neck level;Acute pharyngitis;Chronic obstructive pulmonary disease, unspecified Presentation: 12/02 12:51 Chief complaint: Chief complaint: Patient states: Been going on for a while, for about ca1 a month. Back my head hurts, back of my neck hurt, pauly ears ringing. And has uncontrollable consistent shakes/tremors. 12:51 Method Of Arrival: Ambulatory ca1 12:59 Coronavirus screen: Client denies travel out of the [place] in the last 14 days. At this ca1 time, the client does not indicate any symptoms associated with coronavirus-19. Ebola Screen: Patient negative for fever greater than or equal to 101.5 degrees Fahrenheit, and additional compatible Ebola Virus Disease symptoms Patient denies exposure to infectious person. Patient denies travel to an Ebola-affected area in the 21 days before illness onset. No symptoms or risks identified at this time. Initial Sepsis Screen: Does the patient meet any 2 criteria? No. Patient's initial sepsis screen is negative. Does the patient have a suspected source of infection? No. Patient's initial sepsis screen is negative. Risk Assessment: Do you want to hurt yourself or someone else? Patient reports no desire to harm self or others. Onset of symptoms was December 02, 2020. 12:59 Acuity: KAYLIE 3 ca1 Triage Assessment: 13:22 General: Appears in no apparent distress. uncomfortable, Behavior is cooperative, bp appropriate for age, anxious. Pain: Complains of pain in head and neck. EENT: Reports ringing. Neuro: Reports headache. Cardiovascular: No deficits noted. Respiratory: No deficits noted. GI: No signs and/or symptoms were reported involving the gastrointestinal system. : No signs and/or symptoms were reported regarding the genitourinary system. Derm: No deficits noted. Musculoskeletal: No deficits noted. Historical: - Allergies: 13:02 Demerol; ca1 13:02 Iodine; ca1 13:02 PENICILLINS; ca1 13:02 SEAFOOD; ca1 - PMHx: 13:02 Arthritis; Asthma; COPD; Gout; Hypertension; Diverticulitis; ca1 - PSHx: 13:02 Cholecystectomy; Tonsillectomy; ca1 - Immunization history:: Flu vaccine is up to date. - Social history:: Smoking status: Patient/guardian denies using tobacco, the patient reports quitting approximately 10 years ago. Screenin:30 Abuse screen: Denies threats or abuse. Denies injuries from another. Nutritional bp screening: No deficits noted. Tuberculosis screening: No symptoms or risk factors identified. Fall Risk None identified. Assessment: 13:30 General: SEE TRIAGE NOTE. bp 14:30 Reassessment: No changes from previously documented assessment. Patient and/or family bp updated on plan of care and expected duration. Pain level reassessed. 16:30 Reassessment: Patient appears in no apparent distress at this time. No changes from bp previously documented assessment. Patient and/or family updated on plan of care and expected duration. Pain level reassessed. 17:33 Reassessment: PT D/C HOME AMBULATORY, DX WITH MUSCLE AND FASCIA STRAIN. bp Vital Signs: 12:59 BP 133 / 99; Pulse 83; Resp 16 S; Pulse Ox 99% on R/A; Weight 99.79 kg (R); Height 6 ca1 ft. 0 in. (182.88 cm) (R); Pain 5/10; 14:30 BP 113 / 78; Pulse 95; Resp 23; Pulse Ox 100% ; bp 16:30 BP 120 / 77; Pulse 60; Resp 17; Pulse Ox 97% ; bp 17:33 BP 121 / 70; Pulse 63; Resp 17; Temp 98; Pulse Ox 98% ; bp 12:59 Body Mass Index 29.84 (99.79 kg, 182.88 cm) ca1 ED Course: 11:43 Patient arrived in ED. as 13:01 Triage completed. ca1 13:02 Arm band placed on right wrist. ca1 13:21 Gaurang Willis, RN is Primary Nurse. bp 13:30 Patient has correct armband on for positive identification. Bed in low position. Call bp light in reach. Side rails up X2. 13:33 Delgado Chaidez NP is PHCP. pm1 13:33 Sanjana Fitzgerald MD is Attending Physician. pm1 14:11 Chest Single View XRAY In Process Unspecified. EDMS 17:34 No provider procedures requiring assistance completed. Patient did not have IV access bp during this emergency room visit. Administered Medications: 14:15 Drug: Lidoderm 5 % (700 mg/patch) 1 patches Route: Topical; Site: affected area; bp 14:15 Drug: Tussionex Pennkinetic ER (chlorpheniramine-hydrocodone) 5 ml Route: PO; bp 16:34 Follow up: Response: No adverse reaction bp Outcome: 16:55 Discharge ordered by MD. pm1 17:34 Discharged to home ambulatory. bp 17:34 Condition: stable 17:34 Discharge instructions given to patient, Instructed on discharge instructions, follow up and referral plans. medication usage, Demonstrated understanding of instructions, follow-up care, medications, Prescriptions given X 2. 17:34 Patient left the ED. bp Signatures: Dispatcher [employer] EDMS Dali Nelson Patrick, PROPULSION ENGINEER PROPULSION ENGINEER pm1 Gaurang Willis RN RN bp Silvia Bello RN RN ca1 Corrections: (The following items were deleted from the chart) 13:01 12:51 Chief complaint: ca1 ca1
--- NOTE | 2020-12-02 16:56 | EDPHYS ---
Physician Documentation [facility] Name: Codey Morin Jr Age: 55 yrs Sex: Male : 1965 Arrival Date: 12/02/2020 Time: 11:43 Bed 17 Private MD: ED Physician Sanjana Fitzgerald HPI: 12/02 14:29 This 55 yrs old Male presents to ER via Ambulatory with complaints of Neck pm1 Pain, >24Hrs Old, Headache, Ear Pain. 14:29 The patient or guardian complains of pain, that is acute. The symptoms are located pm1 posterior aspect of neck and bilateral trapezius. Onset: The symptoms/episode began/occurred 1 month(s) ago. Context: The problem was sustained at home, The neck injury/problem resulted from woke up with neck pain 1 month ago. Attributes to pillow. Bought a new pill to help with the neck pain. Associated signs and symptoms: Pertinent positives: headache, Pertinent negatives: fever, numbness, tingling, weakness. The pain does not radiate. Modifying factors: the symptoms are aggravated by movement. Severity of symptoms: in the emergency department the symptoms are unchanged. The patient has not recently seen a physician. Patient's main complaint is neck pain, but he also reports bilateral ear pain and headache for 1 month, cough and shortness of breath for two weeks, tremors to bilateral arms for 1 year. Historical: - Allergies: 13:02 Demerol; ca1 13:02 Iodine; ca1 13:02 PENICILLINS; ca1 13:02 SEAFOOD; ca1 - PMHx: 13:02 Arthritis; Asthma; COPD; Gout; Hypertension; Diverticulitis; ca1 - PSHx: 13:02 Cholecystectomy; Tonsillectomy; ca1 - Immunization history:: Flu vaccine is up to date. - Social history:: Smoking status: Patient/guardian denies using tobacco, the patient reports quitting approximately 10 years ago. ROS: 14:29 Constitutional: Negative for fever, chills, and weight loss, Cardiovascular: Negative pm1 for chest pain, palpitations, and edema, Respiratory: Negative for shortness of breath, cough, wheezing, and pleuritic chest pain, Abdomen/GI: Negative for abdominal pain, nausea, vomiting, diarrhea, and constipation, Back: Negative for injury and pain, MS/Extremity: Negative for injury and deformity, Skin: Negative for injury, rash, and discoloration. 14:29 ENT: Positive for ear pain, Negative for sore throat, difficulty swallowing, difficulty handling secretions, hoarseness. 14:29 Neck: Positive for muscle spasm, Negative for bony tenderness. 14:29 Neuro: Positive for headache, Negative for dizziness, numbness, tingling, weakness. Exam: 14:29 Constitutional: This is a well developed, well nourished patient who is awake, alert, pm1 and in no acute distress. Head/Face: Normocephalic, atraumatic. 14:29 Back: No spinal tenderness. No costovertebral tenderness. Full range of motion. Skin: Warm, dry with normal turgor. Normal color with no rashes, no lesions, and no evidence of cellulitis. MS/ Extremity: Pulses equal, no cyanosis. Neurovascular intact. Full, normal range of motion. 14:29 Neck: External neck: muscle spasm, C-spine: vertebral tenderness, is not appreciated, ROM/movement: is normal, is supple. 14:29 Cardiovascular: Rate: normal, Rhythm: regular, Pulses: no pulse deficits are appreciated, Edema: is not appreciated. 14:29 Respiratory: Exam negative for acute changes, respiratory distress, shortness of breath, Breath sounds: are clear throughout. 14:29 Neuro: Exam negative for acute changes, Orientation: is normal, Mentation: is normal, Motor: is normal, moves all fours. Vital Signs: 12:59 BP 133 / 99; Pulse 83; Resp 16 S; Pulse Ox 99% on R/A; Weight 99.79 kg (R); Height 6 ca1 ft. 0 in. (182.88 cm) (R); Pain 5/10; 14:30 BP 113 / 78; Pulse 95; Resp 23; Pulse Ox 100% ; bp 16:30 BP 120 / 77; Pulse 60; Resp 17; Pulse Ox 97% ; bp 17:33 BP 121 / 70; Pulse 63; Resp 17; Temp 98; Pulse Ox 98% ; bp 12:59 Body Mass Index 29.84 (99.79 kg, 182.88 cm) ca1 MDM: 13:34 Patient medically screened. pm1 16:55 Data reviewed: vital signs. Data interpreted: Pulse oximetry: on room air is 97 %. pm1 Interpretation: normal. Counseling: I had a detailed discussion with the patient and/or guardian regarding: the historical points, exam findings, and any diagnostic results supporting the discharge/admit diagnosis, lab results, radiology results, the need for outpatient follow up, to return to the emergency department if symptoms worsen or persist or if there are any questions or concerns that arise at home. 16:58 ED course: [place] reviewed. pm1 12/02 13:48 Order name: Strep pm1 12/02 16:03 Order name: COVID-19/FLU A+B; Complete Time: 16:09 EDAR 12/02 16:53 Order name: Throat Culture EDAR 12/02 13:48 Order name: Chest Single View XRAY; Complete Time: 14:29 pm1 12/02 13:48 Order name: Droplet/Contact Precautions; Complete Time: 14:14 pm1 12/02 13:48 Order name: Labs collected and sent; Complete Time: 14:14 pm1 12/02 13:48 Order name: O2 Per Protocol; Complete Time: 14:14 pm1 Administered Medications: 14:15 Drug: Lidoderm 5 % (700 mg/patch) 1 patches Route: Topical; Site: affected area; bp 14:15 Drug: Tussionex Pennkinetic ER (chlorpheniramine-hydrocodone) 5 ml Route: PO; bp 16:34 Follow up: Response: No adverse reaction bp Disposition: 12/02/20 16:55 Discharged to Home. Impression: Strain of muscle, fascia and tendon at neck level, Acute pharyngitis, Chronic obstructive pulmonary disease, unspecified. - Condition is Stable. - Discharge Instructions: Chronic Obstructive Pulmonary Disease, Muscle Strain, Pharyngitis. - Prescriptions for Tylenol- Codeine #3 300-30 mg Oral Tablet - take 2 tablets by ORAL route every 4-6 hours As needed; 20 tablet. Cyclobenzaprine 10 mg Oral Tablet - take 1 tablet by ORAL route every 8 hours As needed; 30 tablet. - Medication Reconciliation Form, Thank You Letter, Antibiotic Education, Prescription Opioid Use form. - Follow up: Emergency Department; When: As needed; Reason: Worsening of condition. Follow up: Private Physician; When: 2 - 3 days; Reason: Recheck today's complaints, Continuance of care, Re-evaluation by your physician. - Problem is new. - Symptoms have improved. Addendum: 12/03/2020 18:44 Co-signature as Attending Physician, Sanjana Fitzgerald MD. m a2 Signatures: Dispatcher [employer] [facility] Delgado Chaidez, ROLANDA PAY PER CLICK STRATEGIST pm1 Gaurang Willis, RN RN bp Sanjana Fitzgerald MD MD ma2 Silvia Bello RN RN ca1 Corrections: (The following items were deleted from the chart) 12/02 15:15 13:49 Influenza Screen (A \T\ B)+BA.LAB.BRZ ordered. [facility] EDAR 15:15 13:49 Influenza Screen (A ordered. [facility] EDAR 16:55 16:55 12/02/2020 16:55 Discharged to Home. Impression: Strain of muscle, fascia and pm1 tendon at neck level. Condition is Stable. Forms are Medication Reconciliation Form, Thank You Letter, Antibiotic Education, Prescription Opioid Use. Follow up: Emergency Department; When: As needed; Reason: Worsening of condition. Follow up: Private Physician; When: 2 - 3 days; Reason: Recheck today's complaints, Continuance of care, Re-evaluation by your physician. Problem is new. Symptoms have improved. pm1 17:00 16:55 12/02/2020 16:55 Discharged to Home. Impression: Strain of muscle, fascia and pm1 tendon at neck level; Acute pharyngitis. Condition is Stable. Forms are Medication Reconciliation Form, Thank You Letter, Antibiotic Education, Prescription Opioid Use. Follow up: Emergency Department; When: As needed; Reason: Worsening of condition. Follow up: Private Physician; When: 2 - 3 days; Reason: Recheck today's complaints, Continuance of care, Re-evaluation by your physician. Problem is new. Symptoms have improved. pm1 17:34 17:00 12/02/2020 16:55 Discharged to Home. Impression: Strain of muscle, fascia and bp tendon at neck level; Acute pharyngitis; Chronic obstructive pulmonary disease, unspecified. Condition is Stable. Discharge Instructions: Muscle Strain, Pharyngitis. Prescriptions for Tylenol-Codeine #3 300-30 mg Oral Tablet - take 2 tablets by ORAL route every 4-6 hours As needed; 20 tablet, Cyclobenzaprine 10 mg Oral Tablet - take 1 tablet by ORAL route every 8 hours As needed; 30 tablet. and Forms are Medication Reconciliation Form, Thank You Letter, Antibiotic Education, Prescription Opioid Use. Follow up: Emergency Department; When: As needed; Reason: Worsening of condition. Follow up: Private Physician; When: 2 - 3 days; Reason: Recheck today's complaints, Continuance of care, Re-evaluation by your physician. Problem is new. Symptoms have improved. pm1
[2020-12-02 17:53] VITALS: BP 121/70; TEMP 98; O2SAT 98
== END 2020-12-02 17:34 | disposition home or self-care (01) ==
LOC: ER 11:34
DX: S16.1XXA Strain of muscle, fascia and tendon at neck level, initial encounter (principal); J44.9 Chronic obstructive pulmonary disease, unspecified; J02.9 Acute pharyngitis, unspecified; Z20.822 Contact with and (suspected) exposure to COVID-19; I10 Essential (primary) hypertension; Z88.0 Allergy status to penicillin; Z88.5 Allergy status to narcotic agent; Z91.013 Allergy to seafood; Z91.048 Other nonmedicinal substance allergy status
CPT/HCPCS: 0240U; 71045; 87070; 87081; 99283

== ENCOUNTER 2020-12-10 14:54 | Emergency (ER) | payer SELFPAY ==
--- OUTSIDE RECORDS SUMMARY | 2020-12-10 14:57 | XMS REPORT | Continuity of Care Document ---
:1965 Author Organization [facility] t Address [address] [place] [address] Care Team Providers Name Role Phone Unavailable [...] mIU/mL 0.270-4.200 H Complete Blood Count with [id number] 07:30:28 Test Item Value Reference Range Interpretation [...] code = IPF) 0 % N Automated [id number] 07:30:28 Test Item Value Reference Range Interpretation Comments Neutro Auto (test code = Neutro 46.1 % 36.0-70.0 Auto) Lymph Auto (test code = Lymph Auto) 34.0 % 12.0-44.0 [place] Auto (test code = [place] Auto) 11.2 % 0.0-11.0 H Eos, Auto (test code = Eos, Auto) 7.6 % 0.0-7.0 H Basophil Auto (test code = Basophil 0.4 % 0.0-2.0 Auto) Neutro Absolute (test code = Neutro 3.8 x10 1.6-7.4 Absolute) Lymph Absolute (test code = Lymph 2.79 x10 .50-4.60 Absolute) [place] Absolute (test code = [place] .92 x10 .00-1.20 Absolute) Eos Absolute (test code = Eos 0.62 x10 0.00-0.74 Absolute) Baso Absolute (test code = Baso 0.03 x10 0.00-0.21 Absolute) IG [id number] 07:30:28 Test Item Value Reference Range Interpretation Comments IG (test code = IG) 0.7 % 0.0-5.0 IG Abs (test code = IG Abs) 0 x10 N RPR [id number] 05:28:06 Test Item Value Reference Range Interpretation Comments RPR Qual (test code = RPR Qual) Non-Reactive Non-Reactive Reactive Control (test code = Reactive Reactive Control) Weak Reactive Control (test Weak Reactive code = Weak Reactive Control) Non-Reactive Control (test code Non-Reactive = Non-Reactive Control) Lot # (test code = Lot #) [id number] N Expiration Dt (test code = 09.05.2020 N Expiration Dt) Hemoglobin [id number] 05:16:07 Test Item Value Reference Range Interpretation Comments Hemoglobin A1c (test code 5.4 % 4.8-5.9 No n Diabetic = Hemoglobin A1c) 4.8-5.9%Di abetic <7.0% Lipid [id number] 05:16:07 Test Item Value Reference Range Interpretation Comments Cholesterol Total 133 mg/dL 0-200 RISK OF HE ART (test code = DISEASEPublishe d by Cholesterol Total) [place] [employer] Nida lyte Optimal Borderl ine [...] LDL/HDL Ratio=L DL Calc/HDL Chol Thyroid Stimulating [id number] 05:16:07 Test Item Value Reference Range Interpretation Comments TSH (test code = TSH) 12.450 mIU/mL 0.270-4.200 H Urine Drug [id number] 05:06:35 Test Item Value Reference Range Interpretation [...] if desired . Urinalysis with Microscopic if [id number] 04:50:25 Test Item Value Reference Range Interpretation [...] Micro Ind?) rule GL_SJM_UA_MICRO _IN D IG [id number] 04:01:31 Test Item Value Reference Range Interpretation Comments IG (test code = IG) 0.4 % 0.0-5.0 IG Abs (test code = IG Abs) 0 x10 N Complete Blood Count with [id number] 04:01:30 Test Item Value Reference Range Interpretation [...] code = IPF) 0 % N Automated [id number] 04:01:30 Test Item Value Reference Range Interpretation Comments Neutro Auto (test code = Neutro 62.6 % 36.0-70.0 Auto) Lymph Auto (test code = Lymph Auto) 24.4 % 12.0-44.0 [place] Auto (test code = [place] Auto) 10.8 % 0.0-11.0 Eos, Auto (test code = Eos, Auto) 1.5 % 0.0-7.0 Basophil Auto (test code = Basophil 0.3 % 0.0-2.0 Auto) Neutro Absolute (test code = Neutro 8.1 x10 1.6-7.4 H Absolute) Lymph Absolute (test code = Lymph 3.18 x10 .50-4.60 Absolute) [place] Absolute (test code = [place] 1.41 x10 .00-1.20 H Absolute) Eos Absolute (test code = Eos 0.19 x10 0.00-0.74 Absolute) Baso Absolute (test code = Baso 0.04 x10 0.00-0.21 Absolute) Comprehensive Metabolic [id number] 03:49:38 Test Item Value Reference Range Interpretation [...] A/G 1.8 ratio N Ratio) Comprehensive Metabolic [id number] 03:49:38 Test Item Value Reference Range Interpretation [...] the National Kidney Foundation, http://nkdep.ni h.gov Alcohol [id number] 03:49:38 Test Item Value Reference Range Interpretation Comments Ethanol Level (test <0.00 g/dL 0.00-0.01 Intoxica tyson 0.080 g/dL code = Ethanol or more Level) Ethanol Inst (test <0 N code = Ethanol Inst) Comprehensive Metabolic [id number] 03:49:38 Test Item Value Reference Range Interpretation [...]
[2020-12-10] MEDS ORDERED: NA CHLORIDE 0.9% 1,000 ML ONE (17:49)
[2020-12-10] MEDS ORDERED: KETOROLAC 30 MG/ML INJ ONE (17:49)
[2020-12-10] MEDS ORDERED: METOCLOPRAMIDE 10 MG/2mL INJ ONE (17:49)
[2020-12-10] MEDS ORDERED: DIPHENHYDRAMINE 50 MG/ML VIAL ONE (17:49)
--- NOTE | 2020-12-10 18:58 | RAD REPORT ---
EXAM DESCRIPTION: CT - Head Brain Wo Cont - 12/10/2020 6:24 pm CLINICAL HISTORY: HEADACHE COMPARISON: <Comparisons> TECHNIQUE: All CT scans are performed using dose optimization technique as appropriate and may inclu de automated exposure control or mA/KV adjustment according to patient size. FINDINGS: No intracranial hemorrhage, hydrocephalus or extra-axial fluid collection.No areas of brai n edema or evidence of midline shift. The paranasal sinuses and mastoids are clear. The calvarium is intact. IMPRESSION: No acute intracranial abnormality.
--- NOTE | 2020-12-10 19:38 | EDPHYS ---
[facility] Name: Codey Morin Jr Age: 55 yrs Sex: Male : 1965 Arrival Date: 12/10/2020 Time: 14:56 Bed 13 Private MD: ED Physician Toño Gale HPI: 12/10 17:39 This 55 yrs old Male presents to ER via EMS with complaints of Neck Pain, pm1 >24Hrs Old. 17:39 The patient complains of pain to the left occipital area and right occipital area. The pm1 patient describes the headache as aching. Onset: The symptoms/episode began/occurred 2 week(s) ago. Associated signs and symptoms: Pertinent positives: tinnitus, Pertinent negatives: dizziness, fever, nausea, vision changes, vision loss, vomiting. Severity of symptoms: in the emergency department the pain is unchanged. Headache History: The patient has had previous headaches and this one is similar to previous episodes. The patient has not experienced similar symptoms in the past. Historical: - Allergies: 15:20 Demerol; ll1 15:20 Iodine; ll1 15:20 PENICILLINS; ll1 15:20 SEAFOOD; ll1 - PMHx: 15:20 Arthritis; Asthma; COPD; Diverticulitis; Gout; Hypertension; Hypothyroidism; ll1 - PSHx: 15:20 Cholecystectomy; Tonsillectomy; ll1 - Immunization history:: Flu vaccine is up to date. - Social history:: Smoking status: Patient/guardian denies using tobacco, the patient reports quitting approximately 10 years ago. ROS: 17:39 Constitutional: Negative for fever, chills, and weight loss, Neck: Negative for injury, pm1 pain, and swelling, Cardiovascular: Negative for chest pain, palpitations, and edema, Respiratory: Negative for shortness of breath, cough, wheezing, and pleuritic chest pain, Abdomen/GI: Negative for abdominal pain, nausea, vomiting, diarrhea, and constipation, Back: Negative for injury and pain. 17:39 MS/Extremity: Negative for injury and deformity, Skin: Negative for injury, rash, and discoloration. 17:39 ENT: Positive for tinnitus. 17:39 Neuro: Positive for headache, Negative for dizziness, numbness, tingling, weakness. Exam: 17:39 Constitutional: This is a well developed, well nourished patient who is awake, alert, pm1 and in no acute distress. 17:39 Neck: Trachea midline, no thyromegaly or masses palpated, and no cervical lymphadenopathy. Supple, full range of motion without nuchal rigidity, or vertebral point tenderness. No Meningismus. 17:39 Back: No spinal tenderness. No costovertebral tenderness. Full range of motion. Skin: Warm, dry with normal turgor. Normal color with no rashes, no lesions, and no evidence of cellulitis. MS/ Extremity: Pulses equal, no cyanosis. Neurovascular intact. Full, normal range of motion. 17:39 Head/face: Noted is no obvious of injury or deformity except tenderness, of the left occipital area and right occipital area. 17:39 Cardiovascular: Exam negative for acute changes, Rate: normal, Rhythm: regular, Pulses: no pulse deficits are appreciated. 17:39 Respiratory: Exam negative for acute changes, respiratory distress, shortness of breath. 17:39 Neuro: Exam negative for acute changes, Orientation: is normal, Mentation: is normal, Motor: is normal, moves all fours. Vital Signs: 15:18 BP 158 / 93; Pulse 88; Resp 17; Temp 98.4; Pulse Ox 98% ; Weight 99.79 kg; Height 6 ft. ll1 0 in. (182.88 cm); Pain 7/10; 17:13 BP 137 / 91; Pulse 74; Resp 18; Pulse Ox 99% on R/A; Pain 6/10; jp3 18:09 BP 153 / 93; Pulse 74; Resp 16; Pulse Ox 100% on R/A; vg1 19:35 BP 144 / 68; Pulse 80; Resp 16; Pulse Ox 100% on R/A; vg1 15:18 Body Mass Index 29.84 (99.79 kg, 182.88 cm) ll1 MDM: 17:15 Patient medically screened. pm1 19:34 Data reviewed: vital signs. Data interpreted: Pulse oximetry: on room air is 100 %. pm1 Interpretation: normal. Counseling: I had a detailed discussion with the patient and/or guardian regarding: the historical points, exam findings, and any diagnostic results supporting the discharge/admit diagnosis, radiology results, the need for outpatient follow up, to return to the emergency department if symptoms worsen or persist or if there are any questions or concerns that arise at home. 04/06 17:20 Order name: CT Head Brain wo Cont; Complete Time: 19:34 pm1 04 17:20 Order name: IV Saline Lock; Complete Time: 18:04 pm1 Administered Medications: 18:06 Drug: Benadryl (diphenhydrAMINE) 25 mg Route: IVP; Site: left hand; vg1 20:18 Follow up: Response: No adverse reaction vg1 18:06 Drug: TORadol 30 mg Route: IVP; Site: left hand; vg1 20:18 Follow up: Response: Pain is decreased vg1 18:06 Drug: NS 0.9% 1000 ml Route: IV; Rate: 1000 ml; Site: left hand; vg1 20:18 Follow up: IV Status: Completed infusion; IV Intake: 450ml vg1 18:07 Drug: Reglan 10 mg Route: IVP; Site: left hand; vg1 20:18 Follow up: Response: No adverse reaction; Nausea is decreased vg1 20:17 Drug: [place] (HYDROcodone-acetaminophen) 5 mg-325 mg 1 tabs Route: PO; vg1 20:18 Follow up: Response: Medication administered at discharge. vg1 Disposition: 12/11 07:02 Co-signature as Attending Physician, Toño Gale MD. rn Disposition: 12/10/20 19:37 Discharged to Home. Impression: Headache. - Condition is Stable. - Discharge Instructions: General Headache Without Cause. - Prescriptions for Fiorinal 50- 325-40 mg Oral Capsule - take 1 capsule by ORAL route every 4 hours As needed - not to exceed 6 capsules per day; 20 capsule. - Medication Reconciliation Form, Thank You Letter, Antibiotic Education, Prescription Opioid Use form. - Follow up: Emergency Department; When: As needed; Reason: Worsening of condition. Follow up: Private Physician; When: 2 - 3 days; Reason: Recheck today's complaints, Continuance of care, Re-evaluation by your physician. - Problem is new. - Symptoms have improved. Signatures: Dispatcher [employer] EDToño Auguste MD MD rn Marinas, Patrick, [employer] pm1 Alesha Mederos RN RN vg1 James Lee RN RN ll1 Corrections: (The following items were deleted from the chart) 12/10 20:19 19:37 12/10/2020 19:37 Discharged to Home. Impression: Headache. Condition is Stable. vg1 Forms are Medication Reconciliation Form, Thank You Letter, Antibiotic Education, Prescription Opioid Use. Follow up: Emergency Department; When: As needed; Reason: Worsening of condition. Follow up: Private Physician; When: 2 - 3 days; Reason: Recheck today's complaints, Continuance of care, Re-evaluation by your physician. Problem is new. Symptoms have improved. pm1
--- NOTE | 2020-12-10 19:38 | ER ---
Nurse's Notes [facility] Name: Codey oMrin Jr Age: 55 yrs Sex: Male : 1965 Arrival Date: 12/10/2020 Time: 14:56 Bed 13 Private MD: Diagnosis: Headache Presentation: 12/10 15:18 Chief complaint: Patient states: Occiptal KC and neck pain for 2+ weeks. No trauma or ll1 falls. Ringing to ears for 2 weeks. Coronavirus screen: Client denies travel out of the [place] in the last 14 days. At this time, the client does not indicate any symptoms associated with coronavirus-19. Ebola Screen: Patient denies travel to an Ebola-affected area in the 21 days before illness onset. Acute neurological deficit: none identified. Initial Sepsis Screen: Does the patient meet any 2 criteria? No. Patient's initial sepsis screen is negative. Does the patient have a suspected source of infection? Yes: Skin breakdown/wound. Risk Assessment: Do you want to hurt yourself or someone else? Patient reports no desire to harm self or others. Onset of symptoms was November 27, 2020. 15:18 Method Of Arrival: EMS ll1 15:18 Acuity: KAYLIE 4 ll1 Historical: - Allergies: 15:20 Demerol; ll1 15:20 Iodine; ll1 15:20 PENICILLINS; ll1 15:20 SEAFOOD; ll1 - PMHx: 15:20 Arthritis; Asthma; COPD; Diverticulitis; Gout; Hypertension; Hypothyroidism; ll1 - PSHx: 15:20 Cholecystectomy; Tonsillectomy; ll1 - Immunization history:: Flu vaccine is up to date. - Social history:: Smoking status: Patient/guardian denies using tobacco, the patient reports quitting approximately 10 years ago. Screenin:09 Abuse screen: Denies threats or abuse. Nutritional screening: No deficits noted. vg1 Tuberculosis screening: No symptoms or risk factors identified. Fall Risk No fall in past 12 months (0 pts). No secondary diagnosis (0 pts). IV access (20 points). Ambulatory Aid- None/Bed Rest/Nurse Assist (0 pts). Gait- Normal/Bed Rest/Wheelchair (0 pts) Mental Status- Oriented to own ability (0 pts). Total [place] Fall Scale indicates No Risk (0-24 pts). Assessment: 17:40 General: Appears in no apparent distress. uncomfortable, Behavior is calm, cooperative. vg1 Pain: Complains of pain in occipital area and base of the skull and neck Pain currently is 6 out of 10 on a pain scale. Quality of pain is described as dull. Neuro: Level of Consciousness is awake, alert, obeys commands, Oriented to person, place, time, situation. Cardiovascular: Patient's skin is warm and dry. Respiratory: Airway is patent Respiratory effort is even, unlabored. GI: Reports nausea. : No signs and/or symptoms were reported regarding the genitourinary system. EENT: No signs and/or symptoms were reported regarding the EENT system. Derm: Skin is intact, is healthy with good turgor. Musculoskeletal: Circulation, motion, and sensation intact. 19:35 Reassessment: Patient appears in no apparent distress at this time. Patient and/or vg1 family updated on plan of care and expected duration. Pain level reassessed. Patient is alert, oriented x 3, equal unlabored respirations, skin warm/dry/pink. Patient states feeling better. Vital Signs: 15:18 BP 158 / 93; Pulse 88; Resp 17; Temp 98.4; Pulse Ox 98% ; Weight 99.79 kg; Height 6 ft. ll1 0 in. (182.88 cm); Pain 7/10; 17:13 BP 137 / 91; Pulse 74; Resp 18; Pulse Ox 99% on R/A; Pain 6/10; jp3 18:09 BP 153 / 93; Pulse 74; Resp 16; Pulse Ox 100% on R/A; vg1 19:35 BP 144 / 68; Pulse 80; Resp 16; Pulse Ox 100% on R/A; vg1 15:18 Body Mass Index 29.84 (99.79 kg, 182.88 cm) ll1 ED Course: 14:56 Patient arrived in ED. as 15:19 Triage completed. ll1 15:21 Arm band placed on Patient notified of wait time. ll1 17:04 Delgado Chaidez NP is PHCP. pm1 17:04 Toño Gale MD is Attending Physician. pm1 17:13 Patient maintains SpO2 saturation greater than 95% on room air. jp3 17:14 Bed in low position. Call light in reach. Verbal reassurance given. Pulse ox on. NIBP jp3 on. 17:28 Alesha Mederos, RN is Primary Nurse. vg1 17:41 Missed attempt(s): 20 gauge in right antecubital area. mt 17:55 Missed attempt(s): 20 gauge in right antecubital area. Bleeding controlled, band aid jp3 applied, catheter tip intact. 17:59 Missed attempt(s): 22 gauge in right hand. Bleeding controlled, band aid applied, jp3 catheter tip intact. 18:03 Inserted saline lock: 24 gauge in left hand, using aseptic technique. Blood collected. jp3 18:24 CT Head Brain wo Cont In Process Unspecified. EDMS 20:18 No provider procedures requiring assistance completed. IV discontinued, intact, vg1 bleeding controlled, No redness/swelling at site. Pressure dressing applied. Administered Medications: 18:06 Drug: Benadryl (diphenhydrAMINE) 25 mg Route: IVP; Site: left hand; vg1 20:18 Follow up: Response: No adverse reaction vg1 18:06 Drug: TORadol 30 mg Route: IVP; Site: left hand; vg1 20:18 Follow up: Response: Pain is decreased vg1 18:06 Drug: NS 0.9% 1000 ml Route: IV; Rate: 1000 ml; Site: left hand; vg1 20:18 Follow up: IV Status: Completed infusion; IV Intake: 450ml vg1 18:07 Drug: Reglan 10 mg Route: IVP; Site: left hand; vg1 20:18 Follow up: Response: No adverse reaction; Nausea is decreased vg1 20:17 Drug: [place] (HYDROcodone-acetaminophen) 5 mg-325 mg 1 tabs Route: PO; vg1 20:18 Follow up: Response: Medication administered at discharge. vg1 Intake: 20:18 IV: 450ml; Total: 450ml. vg1 Outcome: 19:37 Discharge ordered by MD. pm1 20:19 Discharged to home ambulatory. vg1 20:19 Condition: stable 20:19 Discharge instructions given to patient, Instructed on discharge instructions, follow up and referral plans. medication usage, Demonstrated understanding of instructions, follow-up care, medications, Prescriptions given X 1. 20:19 Patient left the ED. vg1 Signatures: Dispatcher [employer] EDMS aDli Nelson Patrick, KEYBOARD INSTRUMENT TUNER KEYBOARD INSTRUMENT TUNER pm1 Kathryn Rodrigues mt, Jacob jp3 Alesha Mederos, RN RN vg1 James Lee, RN RN ll1
[2020-12-10 20:24] VITALS: TEMP 98.4
[2020-12-10] MEDS ORDERED: HYDROCODONE/APAP 5/325 MG TAB ONE (20:26)
[2020-12-10 20:27] VITALS: O2SAT 100
[2020-12-10 20:28] VITALS: BP 144/68
== END 2020-12-10 20:19 | disposition home or self-care (01) ==
LOC: ER 14:54
DX: R51.9 Headache, unspecified (principal); M54.2 Cervicalgia; H93.19 Tinnitus, unspecified ear; I10 Essential (primary) hypertension; Z88.0 Allergy status to penicillin; Z88.5 Allergy status to narcotic agent; Z91.013 Allergy to seafood; Z91.048 Other nonmedicinal substance allergy status
CPT/HCPCS: 70450; 96361; 96374; 96375; 99285; J1200; J2765; J7030

== ENCOUNTER 2020-12-25 17:22 | Emergency (ER) | payer SELFPAY ==
--- OUTSIDE RECORDS SUMMARY | 2020-12-25 17:25 | XMS REPORT | Continuity of Care Document ---
:1965 Author Organization [facility] t Address [address] [place] [address] Care Team Providers Name Role Phone Unavailable [...] mIU/mL 0.270-4.200 H Complete Blood Count with [id number] 07:30:28 Test Item Value Reference Range Interpretation [...] code = IPF) 0 % N Automated [id number] 07:30:28 Test Item Value Reference Range Interpretation Comments Neutro Auto (test code = Neutro 46.1 % 36.0-70.0 Auto) Lymph Auto (test code = Lymph Auto) 34.0 % 12.0-44.0 Weber Auto (test code = Weber Auto) 11.2 % 0.0-11.0 H Eos, Auto (test code = Eos, Auto) 7.6 % 0.0-7.0 H Basophil Auto (test code = Basophil 0.4 % 0.0-2.0 Auto) Neutro Absolute (test code = Neutro 3.8 x10 1.6-7.4 Absolute) Lymph Absolute (test code = Lymph 2.79 x10 .50-4.60 Absolute) Weber Absolute (test code = Weber .92 x10 .00-1.20 Absolute) Eos Absolute (test code = Eos 0.62 x10 0.00-0.74 Absolute) Baso Absolute (test code = Baso 0.03 x10 0.00-0.21 Absolute) IG [id number] 07:30:28 Test Item Value Reference Range Interpretation Comments IG (test code = IG) 0.7 % 0.0-5.0 IG Abs (test code = IG Abs) 0 x10 N RPR [id number] 05:28:06 Test Item Value Reference Range Interpretation Comments RPR Qual (test code = RPR Qual) Non-Reactive Non-Reactive Reactive Control (test code = Reactive Reactive Control) Weak Reactive Control (test Weak Reactive code = Weak Reactive Control) Non-Reactive Control (test code Non-Reactive = Non-Reactive Control) Lot # (test code = Lot #) [id number] N Expiration Dt (test code = 09.05.2020 N Expiration Dt) Hemoglobin [id number] 05:16:07 Test Item Value Reference Range Interpretation Comments Hemoglobin A1c (test code 5.4 % 4.8-5.9 No n Diabetic = Hemoglobin A1c) 4.8-5.9%Di abetic <7.0% Lipid [id number] 05:16:07 Test Item Value Reference Range Interpretation Comments Cholesterol Total 133 mg/dL 0-200 RISK OF HE ART (test code = DISEASEPublishe d by Cholesterol Total) [place] [employer] Nida lyte Optimal Borderl ine [...] LDL/HDL Ratio=L DL Calc/HDL Chol Thyroid Stimulating [id number] 05:16:07 Test Item Value Reference Range Interpretation Comments TSH (test code = TSH) 12.450 mIU/mL 0.270-4.200 H Urine Drug [id number] 05:06:35 Test Item Value Reference Range Interpretation [...] if desired . Urinalysis with Microscopic if [id number] 04:50:25 Test Item Value Reference Range Interpretation [...] Micro Ind?) rule [id number]_[id number] _IN D IG [id number] 04:01:31 Test Item Value Reference Range Interpretation Comments IG (test code = IG) 0.4 % 0.0-5.0 IG Abs (test code = IG Abs) 0 x10 N Complete Blood Count with [id number] 04:01:30 Test Item Value Reference Range Interpretation [...] code = IPF) 0 % N Automated [id number] 04:01:30 Test Item Value Reference Range Interpretation Comments Neutro Auto (test code = Neutro 62.6 % 36.0-70.0 Auto) Lymph Auto (test code = Lymph Auto) 24.4 % 12.0-44.0 Weber Auto (test code = Weber Auto) 10.8 % 0.0-11.0 Eos, Auto (test code = Eos, Auto) 1.5 % 0.0-7.0 Basophil Auto (test code = Basophil 0.3 % 0.0-2.0 Auto) Neutro Absolute (test code = Neutro 8.1 x10 1.6-7.4 H Absolute) Lymph Absolute (test code = Lymph 3.18 x10 .50-4.60 Absolute) Weber Absolute (test code = Weber 1.41 x10 .00-1.20 H Absolute) Eos Absolute (test code = Eos 0.19 x10 0.00-0.74 Absolute) Baso Absolute (test code = Baso 0.04 x10 0.00-0.21 Absolute) Comprehensive Metabolic [id number] 03:49:38 Test Item Value Reference Range Interpretation [...] A/G 1.8 ratio N Ratio) Comprehensive Metabolic [id number] 03:49:38 Test Item Value Reference Range Interpretation [...] the National Kidney Foundation, http://nkdep.ni h.gov Alcohol [id number] 03:49:38 Test Item Value Reference Range Interpretation Comments Ethanol Level (test <0.00 g/dL 0.00-0.01 Intoxica tyson 0.080 g/dL code = Ethanol or more Level) Ethanol Inst (test <0 N code = Ethanol Inst) Comprehensive Metabolic [id number] 03:49:38 Test Item Value Reference Range Interpretation [...]
[2020-12-25 20:54] LABS: Absolute Lymphocytes (CBC) 2.3 K/uL (0.7-4.9); Basophils % 0.3 % (0-1.3); Hematocrit 44.1 % (39.6-49.0); Lymphocytes % 25.7 % (15.3-44.8); MPV 10.3 fL (7.6-11.3); RBC Red Blood Cell Count 4.56 M/uL (4.33-5.43)
[2020-12-25 20:55] LABS: Protime INR 1.1
[2020-12-25 21:07] LABS: ALT/SGPT 32 U/L (12-78); AST/SGOT 19 U/L (15-37); Albumin 3.7 g/dL (3.4-5.0); Alkaline Phosphatase 77 U/L (45-117); BUN Blood Urea Nitrogen 20 mg/dL (7-18); Bicarbonate 22 mmol/L (21-32); Bilirubin Direct 0.1 mg/dL (0-0.2); Bilirubin Total 0.3 mg/dL (0.2-1.0); Glucose Level 107 mg/dL (74-106); Magnesium 2.1 mg/dL (1.8-2.4); NT PRO-BNP 106 pg/mL (<125); Sodium Level 138 mmol/L (136-145); Troponin (Emerg Dept Use Only) < 0.02 ng/mL (0.0-0.045)
--- NOTE | 2020-12-25 21:21 | RAD REPORT ---
EXAM DESCRIPTION: RAD - Chest Single View - 12/25/2020 8:43 pm CLINICAL HISTORY: CHEST PAIN COMPARISON: Portable December 02 TECHNIQUE: AP portable chest image was obtained 12/25/2020 8:43 pm . FINDINGS: Lung volumes are low. Right lung field is clear. There is hazy lower left lung field opaci fication part of which is due to the low lung volumes. Minimal left base infiltrate is possible and n eeds correlation with exam findings. Heart and vasculature are normal. No measurable pleural effusion and no pneumothorax. No acute bony abnormality seen. No acute aortic findings suspected. IMPRESSION: Questionable left lung base pneumonia.
[2020-12-25] MEDS ORDERED: METHYLPREDNISOLONE 125 MG INJ ONE (21:58)
[2020-12-25] MEDS ORDERED: LEVALBUTEROL 1.25 MG/3 ML NEB ONE (21:59)
[2020-12-25] MEDS ORDERED: METOPROLOL TAR 25 MG TAB ONE (21:59)
[2020-12-25] MEDS ORDERED: IPRATROPIUM BROM 0.5MG/2.5ML ONE (21:59)
[2020-12-25] MEDS ORDERED: ASPIRIN 81 MG CHEWABLE TABLET ONE (21:59)
[2020-12-25 22:07] LABS: Urine Blood Negative (Negative); Urine Glucose Negative (Negative); Urine Protein Negative (Negative)
--- NOTE | 2020-12-25 22:38 | EDPHYS ---
Physician Documentation [facility] Name: Codey Morin Jr Age: 55 yrs Sex: Male : 1965 Arrival Date: 12/25/2020 Time: 17:23 Bed 5 Private MD: ED Physician Azeem Burger HPI: 12/25 21:17 This 55 yrs old Male presents to ER via Ambulatory with complaints of Chest deric Pain, Headache. 21:17 The patient or guardian reports chest pain that is located primarily in the anterior deric chest wall, bilaterally. Onset: 2 day(s) ago. The pain does not radiate. Associated signs and symptoms: Pertinent positives: shortness of breath. Historical: - Allergies: 17:40 SEAFOOD; ll1 17:40 PENICILLINS; ll1 17:40 Iodine; ll1 17:40 Demerol; ll1 - PMHx: 17:40 Arthritis; Asthma; COPD; Diverticulitis; Gout; Hypertension; Hypothyroidism; ll1 - PSHx: 17:40 Cholecystectomy; Tonsillectomy; ll1 - Immunization history:: Flu vaccine is up to date. - Social history:: Smoking status: Patient denies any tobacco usage or history of. ROS: 21:24 Constitutional: Negative for fever, chills, and weight loss, Eyes: Negative for injury, deric pain, redness, and discharge, ENT: Negative for injury, pain, and discharge, Neck: Negative for injury, pain, and swelling, Abdomen/GI: Negative for abdominal pain, nausea, vomiting, diarrhea, and constipation, Back: Negative for injury and pain, : Negative for injury, bleeding, discharge, and swelling, MS/Extremity: Negative for injury and deformity, Skin: Negative for injury, rash, and discoloration, Neuro: Negative for headache, weakness, numbness, tingling, and seizure, Psych: Negative for depression, anxiety, suicide ideation, homicidal ideation, and hallucinations, Allergy/Immunology: Negative for hives, rash, and allergies, Endocrine: Negative for neck swelling, polydipsia, polyuria, polyphagia, and marked weight changes, Hematologic/Lymphatic: Negative for swollen nodes, abnormal bleeding, and unusual bruising. 21:24 Cardiovascular: Positive for chest pain, of the chest. 21:24 Respiratory: Positive for cough, shortness of breath, on exertion. wheezing, expiratory. Exam: 21:24 Constitutional: This is a well developed, well nourished patient who is awake, alert, deric and in no acute distress. Head/Face: Normocephalic, atraumatic. Eyes: Pupils equal round and reactive to light, extra-ocular motions intact. Lids and lashes normal. Conjunctiva and sclera are non-icteric and not injected. Cornea within normal limits. Periorbital areas with no swelling, redness, or edema. ENT: Nares patent. No nasal discharge, no septal abnormalities noted. Tympanic membranes are normal and external auditory canals are clear. Oropharynx with no redness, swelling, or masses, exudates, or evidence of obstruction, uvula midline. Mucous membranes moist. Neck: Trachea midline, no thyromegaly or masses palpated, and no cervical lymphadenopathy. Supple, full range of motion without nuchal rigidity, or vertebral point tenderness. No Meningismus. Chest/axilla: Normal chest wall appearance and motion. Nontender with no deformity. No lesions are appreciated. Cardiovascular: Regular rate and rhythm with a normal S1 and S2. No gallops, murmurs, or rubs. Normal PMI, no JVD. No pulse deficits. Abdomen/GI: Soft, non-tender, with normal bowel sounds. No distension or tympany. No guarding or rebound. No evidence of tenderness throughout. Back: No spinal tenderness. No costovertebral tenderness. Full range of motion. Male : Normal genitalia with no discharge or lesions. Skin: Warm, dry with normal turgor. Normal color with no rashes, no lesions, and no evidence of cellulitis. MS/ Extremity: Pulses equal, no cyanosis. Neurovascular intact. Full, normal range of motion. Neuro: Awake and alert, GCS 15, oriented to person, place, time, and situation. Cranial nerves II-XII grossly intact. Motor strength 5/5 in all extremities. Sensory grossly intact. Cerebellar exam normal. Normal gait. Psych: Awake, alert, with orientation to person, place and time. Behavior, mood, and affect are within normal limits. 21:24 Respiratory: the patient does not display signs of respiratory distress, Respirations: no acute changes, Breath sounds: bronchial sounds, that are mild, decreased breath sounds, rhonchi, that are mild, stridor, is not appreciated, Respiratory rate: 18 21:37 ECG was reviewed by the Attending Physician. deric 22:14 Musculoskeletal/extremity: DVT Exam: No signs of deep vein thrombosis. no pain, no deric swelling, no tenderness, negative Homans' sign noted on exam, no appreciated bluish discoloration, no erythema, no increased warmth. Vital Signs: 17:38 BP 130 / 91; Pulse 90; Resp 18; Temp 97.5; Pulse Ox 98% ; Weight 91.17 kg; Height 5 ft. ll1 6 in. (167.64 cm); Pain 5/10; 20:43 BP 133 / 75; Pulse 85; Resp 17; Pulse Ox 98% ; rr5 21:40 BP 126 / 89; Pulse 90; Resp 17; Pulse Ox 100% ; rr5 23:36 BP 135 / 70; Pulse 80; Resp 16; Pulse Ox 98% ; rr5 12/26 00:30 BP 120 / 83; Pulse 85; Resp 19; Pulse Ox 98% ; rr5 12/25 17:38 Body Mass Index 32.44 (91.17 kg, 167.64 cm) ll1 MDM: 12/25 20:48 Patient medically screened. deric 21:25 Differential diagnosis: abnormal EKG, acute myocardial infarction, coronary artery deric disease congestive heart failure costochondritis, hiatal hernia, pleurisy, stable angina, unstable angina. HEART Score: History: Slightly Suspicious (0), ECG: Normal (0), Age: > 45 and < 65 years (1), Risk Factors: > or = 3 Risk factors for atherosclerotic disease (2), [Hypercholesterolemia] [Hypertension] [+ Family HX] Troponin: < or = 1 x Normal Limit (0). The patient was given aspirin in the Emergency Department. The patient's deep vein thrombosis risk score was calculated as follows: Total Score: 0. This patient was found to be at low risk for a deep vein thrombosis by using the Well's assessment criteria. The patient's pulmonary embolism risk score was calculated as follows: Total Score: 0-2 points. This patient was found to be at low risk for a pulmonary embolism by using the Well's assessment criteria. JEANNE Risk Score: TOTAL SCORE = 0. Data reviewed: vital signs, nurses notes, lab test result(s), EKG, radiologic studies, doppler, plain films. Data interpreted: nuclear monitoring technician: rate is 85 beats/min, rhythm is regular, Pulse oximetry: on room air is 98 %. Test interpretation: by ED physician or midlevel provider: ECG, plain radiologic studies. Counseling: I had a detailed discussion with the patient and/or guardian regarding: the historical points, exam findings, and any diagnostic results supporting the discharge/admit diagnosis, lab results, radiology results, the need for outpatient follow up, for definitive care, a printing roller polisher, a family practitioner, a hadoop engineer. 12/25 20:19 Order name: Basic Metabolic Panel [facility] 12/25 20:19 Order name: CBC with Diff; Complete Time: 21:16 rr5 12/25 20:19 Order name: LFT's; Complete Time: 21:16 rr5 12/25 20:19 Order name: Magnesium; Complete Time: 21:16 rr5 12/25 20:19 Order name: NT PRO-BNP; Complete Time: 21:16 rr5 12/25 20:19 Order name: PT-INR; Complete Time: 21:16 rr 12/25 20:19 Order name: Troponin (emerg Dept Use Only); Complete Time: 21:16 rr5 12/25 20:19 Order name: XRAY Chest (1 view); Complete Time: 22:35 rr5 12/25 20:19 Order name: Basic Metabolic Panel; Complete Time: 21:16 EDWA 12/25 21:32 Order name: Troponin (emerg Dept Use Only): 10 pm; Complete Time: 22:35 [facility] 12/25 21:48 Order name: Blood Culture Adult (2) [facility] 12/25 22:07 Order name: Urine Dipstick-Ancillary; Complete Time: 22:35 EDWA 12/26 00:16 Order name: SARS-COV-2 RT PCR [facility] 12/25 17:44 Order name: EKG; Complete Time: 17:44 ll1 12/25 17:44 Order name: EKG - Nurse/Tech; Complete Time: 17:44 ll1 12/25 20:19 Order name: Cardiac monitoring; Complete Time: 20:40 rr5 12/25 20:19 Order name: IV Saline Lock; Complete Time: 20:40 rr5 12/25 20:19 Order name: Labs collected and sent; Complete Time: 20:41 rr5 12/25 20:19 Order name: O2 Per Protocol; Complete Time: 20:41 rr5 12/25 20:19 Order name: O2 Sat Monitoring; Complete Time: 20:41 rr5 12/25 21:48 Order name: CT Chest Wo Con deric 12/25 20:49 Order name: Urine Dipstick-Ancillary (obtain specimen); Complete Time: 22:11 deric EC:37 Rate is 93 beats/min. Rhythm is regular. QRS [place] is Normal. [place] interval is normal. QRS deric interval is normal. QT interval is normal. No Q waves. T waves are Normal. No ST changes noted. Clinical impression: NSR w/ Non-specific ST/T Changes and No evidence of ischemia. Interpreted by me. Reviewed by me. Administered Medications: 21:35 Drug: Aspirin Chewable Tablet 324 mg Route: PO; rr5 22:30 Follow up: Response: No adverse reaction rr5 21:35 Drug: Lopressor (metoprolol TARTRATE)) 25 mg Route: PO; rr5 22:30 Follow up: Response: No adverse reaction rr5 21:40 Drug: SOLU-Medrol (methylPrednisoLONE) 125 mg Route: IVP; Site: right wrist; rr5 22:59 Follow up: Response: No adverse reaction rr5 21:45 Drug: Xopenex (levalbuterol) 2.5 mg Route: Inhalation; rr5 22:45 Follow up: Response: No adverse reaction rr5 21:45 Drug: AtroVENT (ipratropium) Aerosol 0.5 mg Route: Inhalation; rr5 22:45 Follow up: Response: No adverse reaction rr5 22:20 Drug: Rocephin (cefTRIAXone) 2 grams Route: IV; Rate: per protocol; Site: right wrist; rr5 23:00 Follow up: Response: No adverse reaction; IV Status: Completed infusion; IV Intake: rr5 100ml 22:40 Drug: Pepcid (famotidine) 20 mg Route: IVP; Site: right wrist; rr5 23:40 Follow up: Response: No adverse reaction rr5 23:25 Dru mg of (Zithromax (azithromycin) 500 mg, NS 0.9% 250 ml) Route: IVPB; Infused rr5 Over: 1 hrs; Site: right wrist; 12/26 00:31 Follow up: Response: No adverse reaction; IV Status: Completed infusion; IV Intake: rr5 250ml Disposition: 12/25/20 22:38 Discharged to Home. Impression: Chest pain, unspecified, Chronic obstructive pulmonary disease, unspecified, Pneumonia, unspecified organism - left lower lobe, PATCHY BILATERAL, RERIPHERY, Other viral pneumonia - Covid 19. - Condition is Fair. - Discharge Instructions: Nonspecific Chest Pain, Chest Wall Pain, Chronic Bronchitis, Community-Acquired Pneumonia, Adult, Chest Wall Pain, [id number], Nonspecific Chest Pain, Sndz-lf-[id number], Community-Acquired Pneumonia, Adult, Fnav-wh-Nepw, Aspirin and Your Heart, COVID-19. - Prescriptions for Lopressor 50 mg Oral tablet - take 0.5 tablet by ORAL route 2 times per day with meals; 30 tablet. Pepcid 20 mg Oral Tablet - take 1 tablet by ORAL route every 12 hours for 10 days; 20 tablet. Albuterol Sulfate 90 mcg/actuation Inhalation - inhale 2 puff by INHALATION route every 4-6 hours; 1 Inhaler. Zithromax 500 mg Oral Tablet - take 1 tablet by ORAL route once daily for 5 days; 5 tablet. dexamethasone 2 mg Oral tablet - take 1 tablet by ORAL route 3 times per day; 15 tablet. - Medication Reconciliation Form, Thank You Letter, Antibiotic Education, Prescription Opioid Use, Family Work Release form. - Follow up: Private Physician; When: 2 - 3 days; Reason: Recheck today's complaints, Continuance of care, Re-evaluation by your physician. Follow up: Lisandro Gomez; When: 2 - 3 days; Reason: Recheck today's complaints, Re-evaluation by your physician. Follow up: Bogdan Chou; When: 2 - 3 days; Reason: Recheck today's complaints, Continuance of care, Re-evaluation by your physician. - Problem is new. - Symptoms have improved. Signatures: Dispatcher [employer] [facility] Azeem Burger MD MD cha Roque, Raymond RN RN rr5 James Lee RN RN ll1 Corrections: (The following items were deleted from the chart) 12/25 23:07 22:37 CORONAVIRUS+MRKT.BRZ ordered. [facility] 12/26 00:18 12/25 22:38 12/25/2020 22:38 Discharged to Home. Impression: Chest pain, unspecified; deric Chronic obstructive pulmonary disease, unspecified; Pneumonia, unspecified organism - left lower lobe, PATCHY BILATERAL, RERIPHERY. Condition is Fair. Discharge Instructions: Nonspecific Chest Pain, Chest Wall Pain, Chronic Bronchitis, Chest Wall Pain, Psdz-[id number], Nonspecific Chest Pain, Bsti-pp-Rijy, Aspirin and Your Heart, Community-Acquired Pneumonia, Adult, Community-Acquired Pneumonia, Adult, Clov-se-Obye. Prescriptions for Lopressor 50 mg Oral tablet - take 0.5 tablet by ORAL route 2 times per day with meals; 30 tablet, Pepcid 20 mg Oral Tablet - take 1 tablet by ORAL route every 12 hours for 10 days; 20 tablet, Albuterol Sulfate 90 mcg/actuation Inhalation - inhale 2 puff by INHALATION route every 4-6 hours; 1 Inhaler, Medrol ([place]) 4 mg Oral Tablets, Dose Pack - take 1 tablet by ORAL route as directed - follow package instructions; 1 packet, Zithromax 500 mg Oral Tablet - take 1 tablet by ORAL route once daily for 5 days; 5 tablet. and Forms are Medication Reconciliation Form, Thank You Letter, Antibiotic Education, Prescription Opioid Use. Follow up: Private Physician; When: 2 - 3 days; Reason: Recheck today's complaints, Continuance of care, Re-evaluation by your physician. Follow up: Lisandro Gomez; When: 2 - 3 days; Reason: Recheck today's complaints, Re-evaluation by your physician. Follow up: Bogdan Chou; When: 2 - 3 days; Reason: Recheck today's complaints, Continuance of care, Re-evaluation by your physician. Problem is new. Symptoms have improved. deric 12/26 00:31 00:18 12/25/2020 22:38 Discharged to Home. Impression: Chest pain, unspecified; Chronic rr5 obstructive pulmonary disease, unspecified; Pneumonia, unspecified organism - left lower lobe, PATCHY BILATERAL, RERIPHERY; Other viral pneumonia - Covid 19. Condition is Fair. Discharge Instructions: Nonspecific Chest Pain, Chest Wall Pain, Chronic Bronchitis, Chest Wall Pain, Gagh-fn-[id number], Nonspecific Chest Pain, Beyl-wy-Qudw, Aspirin and Your Heart, Community-Acquired Pneumonia, Adult, Community-Acquired Pneumonia, Adult, Xzkq-es-[id number]. Prescriptions for Lopressor 50 mg Oral tablet - take 0.5 tablet by ORAL route 2 times per day with meals; 30 tablet, Pepcid 20 mg Oral Tablet - take 1 tablet by ORAL route every 12 hours for 10 days; 20 tablet, Albuterol Sulfate 90 mcg/actuation Inhalation - inhale 2 puff by INHALATION route every 4-6 hours; 1 Inhaler, Zithromax 500 mg Oral Tablet - take 1 tablet by ORAL route once daily for 5 days; 5 tablet, dexamethasone 2 mg Oral tablet - take 1 tablet by ORAL route 3 times per day; 15 tablet. and Forms are Medication Reconciliation Form, Thank You Letter, Antibiotic Education, Prescription Opioid Use. Follow up: Private Physician; When: 2 - 3 days; Reason: Recheck today's complaints, Continuance of care, Re-evaluation by your physician. Follow up: Lisandro Gomez; When: 2 - 3 days; Reason: Recheck today's complaints, Re-evaluation by your physician. Follow up: Bogdan Chou; When: 2 - 3 days; Reason: Recheck today's complaints, Continuance of care, Re-evaluation by your physician. Problem is new. Symptoms have improved. deric
--- NOTE | 2020-12-25 22:38 | ER ---
Nurse's Notes [facility] Name: Codey Morin Jr Age: 55 yrs Sex: Male : 1965 Arrival Date: 12/25/2020 Time: 17:23 Bed 5 Private MD: Diagnosis: Chest pain, unspecified;Chronic obstructive pulmonary disease, unspecified;Pneumonia, unspecified organism-left lower lobe, PATCHY BILATERAL, RERIPHERY;Other viral pneumonia-Covid 19 Presentation: 12/25 17:38 Chief complaint:. Coronavirus screen: Client denies travel out of the [place] in the last ll1 14 days. cough unrelated to allergies, difficulty breathing, fatigue, muscle pain, shortness of breath, Client presents with at least one sign or symptom that may indicate coronavirus-19. Standard/surgical mask placed on the client. Ebola Screen: Patient denies travel to an Ebola-affected area in the 21 days before illness onset. Initial Sepsis Screen: Does the patient meet any 2 criteria? No. Patient's initial sepsis screen is negative. Does the patient have a suspected source of infection? Yes: Productive cough/pneumonia. Risk Assessment: Do you want to hurt yourself or someone else? Patient reports no desire to harm self or others. Onset of symptoms was November 23, 2020. 17:38 Method Of Arrival: Ambulatory ll1 17:38 Acuity: KAYLIE 3 ll1 Historical: - Allergies: 17:40 SEAFOOD; ll1 17:40 PENICILLINS; ll1 17:40 Iodine; ll1 17:40 Demerol; ll1 - PMHx: 17:40 Arthritis; Asthma; COPD; Diverticulitis; Gout; Hypertension; Hypothyroidism; ll1 - PSHx: 17:40 Cholecystectomy; Tonsillectomy; ll1 - Immunization history:: Flu vaccine is up to date. - Social history:: Smoking status: Patient denies any tobacco usage or history of. Screenin:41 Abuse screen: Denies threats or abuse. Denies injuries from another. Nutritional rr5 screening: No deficits noted. Tuberculosis screening: No symptoms or risk factors identified. Fall Risk IV access (20 points). Total [place] Fall Scale indicates No Risk (0-24 pts). Assessment: 20:42 General: Appears in no apparent distress. comfortable, Behavior is calm, cooperative, rr5 appropriate for age. Pain: Complains of pain in chest. Pain: Pain currently is 5 out of 10 on a pain scale. Quality of pain is described as aching, Pain began gradually, Is intermittent. Neuro: Level of Consciousness is awake, alert, obeys commands, Oriented to person, place, time, Reports headache. Cardiovascular: Reports chest pain, Capillary refill < 3 seconds Patient's skin is warm and dry. Respiratory: Airway is patent Respiratory effort is even, unlabored, Respiratory pattern is regular, symmetrical. GI: No signs and/or symptoms were reported involving the gastrointestinal system. : No signs and/or symptoms were reported regarding the genitourinary system. EENT: No signs and/or symptoms were reported regarding the EENT system. Derm: Skin is intact, is healthy with good turgor, Skin temperature is warm. Musculoskeletal: Capillary refill < 3 seconds. 21:40 Reassessment: Patient appears in no apparent distress at this time. Patient is alert, rr5 oriented x 3, equal unlabored respirations, skin warm/dry/pink. awaiting for results. 22:40 Reassessment: Patient appears in no apparent distress at this time. Patient is alert, rr5 oriented x 3, equal unlabored respirations, skin warm/dry/pink. for discharge after antibiotic infusion. 12/26 00:30 Reassessment: Patient appears in no apparent distress at this time. Patient is alert, rr5 oriented x 3, equal unlabored respirations, skin warm/dry/pink. discharge instruction given and explained without complaints made. Vital Signs: 12/25 17:38 BP 130 / 91; Pulse 90; Resp 18; Temp 97.5; Pulse Ox 98% ; Weight 91.17 kg; Height 5 ft. ll1 6 in. (167.64 cm); Pain 5/10; 20:43 BP 133 / 75; Pulse 85; Resp 17; Pulse Ox 98% ; rr5 21:40 BP 126 / 89; Pulse 90; Resp 17; Pulse Ox 100% ; rr5 23:36 BP 135 / 70; Pulse 80; Resp 16; Pulse Ox 98% ; rr5 12/26 00:30 BP 120 / 83; Pulse 85; Resp 19; Pulse Ox 98% ; rr5 12/25 17:38 Body Mass Index 32.44 (91.17 kg, 167.64 cm) ll1 ED Course: 12/25 17:23 Patient arrived in ED. am2 17:34 EKG completed in triage. Results shown to . ll1 17:39 Triage completed. ll1 17:40 Arm band placed on. ll1 20:11 Harry Dwyer, RN is Primary Nurse. rr5 20:40 XRAY Chest (1 view) In Process Unspecified. EDMS 20:41 Patient has correct armband on for positive identification. Placed in gown. Bed in low rr5 position. Call light in reach. surveillance monitor on. Pulse ox on. NIBP on. 20:41 Inserted saline lock: 20 gauge in right wrist, using aseptic technique. Blood collected.rr5 20:41 No provider procedures requiring assistance completed. Patient maintains SpO2 rr5 saturation greater than 95% on room air. 20:47 Azeem Burger MD is Attending Physician. [facility] 22:11 Urine collected: clean catch specimen, clear. rr5 22:13 CT Chest Wo Con In Process Unspecified. EDMS 22:37 Lisandro Gomez MD is Referral Physician. deric 22:37 Bogdan Chou MD is Referral Physician. [facility] 12/26 00:30 IV discontinued, intact, bleeding controlled, No redness/swelling at site. Pressure rr5 dressing applied. Administered Medications: 12/25 21:35 Drug: Aspirin Chewable Tablet 324 mg Route: PO; rr5 22:30 Follow up: Response: No adverse reaction rr5 21:35 Drug: Lopressor (metoprolol TARTRATE)) 25 mg Route: PO; rr5 22:30 Follow up: Response: No adverse reaction rr5 21:40 Drug: SOLU-Medrol (methylPrednisoLONE) 125 mg Route: IVP; Site: right wrist; rr5 22:59 Follow up: Response: No adverse reaction rr5 21:45 Drug: Xopenex (levalbuterol) 2.5 mg Route: Inhalation; rr5 22:45 Follow up: Response: No adverse reaction rr5 21:45 Drug: AtroVENT (ipratropium) Aerosol 0.5 mg Route: Inhalation; rr5 22:45 Follow up: Response: No adverse reaction rr5 22:20 Drug: Rocephin (cefTRIAXone) 2 grams Route: IV; Rate: per protocol; Site: right wrist; rr5 23:00 Follow up: Response: No adverse reaction; IV Status: Completed infusion; IV Intake: rr5 100ml 22:40 Drug: Pepcid (famotidine) 20 mg Route: IVP; Site: right wrist; rr5 23:40 Follow up: Response: No adverse reaction rr5 23:25 Dru mg of (Zithromax (azithromycin) 500 mg, NS 0.9% 250 ml) Route: IVPB; Infused rr5 Over: 1 hrs; Site: right wrist; 12/26 00:31 Follow up: Response: No adverse reaction; IV Status: Completed infusion; IV Intake: rr5 250ml Intake: 12/25 23:00 IV: 100ml; Total: 100ml. rr5 12/26 00:31 IV: 250ml; Total: 350ml. rr5 Outcome: 12/25 22:38 Discharge ordered by MD. leos 12/26 00:30 Discharged to home ambulatory. rr5 Condition: stable Discharge instructions given to patient, Instructed on discharge instructions, follow up and referral plans. medication usage, Demonstrated understanding of instructions, follow-up care, medications, Prescriptions given X 4. 00:31 Patient left the ED. rr5 Signatures: Dispatcher [employer] EDMS Azeem Burger MD MD cha Moreno, Amanda am2 Harry Dwyer RN RN rr5 James Lee RN RN ll1
[2020-12-25] MEDS ORDERED: FAMOTIDINE 20 MG/2 ML VIAL IV ONE (23:01)
[2020-12-25] MEDS ORDERED: NA CHLORIDE 0.9% 250 ML ONE (23:01)
[2020-12-25] MEDS ORDERED: AZITHROMYCIN 500 MG INJ IVPB ONE (23:01)
[2020-12-25] MEDS ORDERED: CEFTRIAXONE/SWI 1gm 2 GM/20 ML SYR ONE (23:01)
[2020-12-25] MEDS ORDERED: NA CHLORIDE 0.9% 100 ML ONE (23:01)
[2020-12-26 00:50] VITALS: TEMP 97.5
[2020-12-26 00:54] VITALS: O2SAT 98
[2020-12-26 00:56] VITALS: BP 120/83
--- NOTE | 2020-12-26 10:17 | RAD REPORT ---
EXAM DESCRIPTION: CT - Thorax Wo Lars - 12/26/2020 6:37 am CLINICAL HISTORY: PAIN. COMPARISON: None. TECHNIQUE: CT of the chest was performed without contrast. Axial, coronal, and sagittal reconstructi ons were created and sent to PACS. This exam was performed according to our departmental dose-optimization program, which includes autom ated exposure control, adjustment of the mA and/or kV according to patient size and/or use of iterati ve reconstruction technique. FINDINGS: Lungs and pleura: Numerous small patches of groundglass opacification in both lungs, most prominent in the periphery. Mild pleural thickening with associated thin pleural calcifications on th e left, measuring up to 1 cm in thickness in the medial aspect of the left lower lobe superior segmen t. No pleural effusion. No pneumothorax. Mediastinum and neck: No mediastinal lymphadenopathy by CT size criteria. Partially imaged hypodense nodule in the left thyroid lobe measures 1.7 cm. Cardiovascular: No cardiomegaly or pericardial effusion. No thoracic aortic aneurysm. Abdomen: Cholecystectomy. Musculoskeletal: No concerning osseous abnormality. Prior healed multilevel left-sided rib fractures. IMPRESSION: 1. Numerous small patches of groundglass opacification in both lungs, most prominent i n the periphery. Correlate for infectious or inflammatory change. 2. Mild partially calcified pleural thickening on the left. Correlate for prior asbestos exposure. 3. Incidentally noted 1.7 cm left thyroid nodule. Recommend thyroid US (Reference: J Am Heber Radiol . 2015 Oct;12(2): 143-50). Electronically signed by: Krystle Humphrey MD 12/25/2020 10:28 PM CDT Due to temporary technical issues with the PACS/Fluency reporting system, reports are being signed by the in house radiologist without review as a courtesy to ensure prompt reporting. The interpreting r adiologist is fully responsible for the content of the report.
== END 2020-12-26 00:31 | disposition home or self-care (01) ==
LOC: ER 17:22
DX: U07.1 COVID-19 (principal); J12.82 Pneumonia due to coronavirus disease 2019; J44.9 Chronic obstructive pulmonary disease, unspecified; I10 Essential (primary) hypertension; Z88.0 Allergy status to penicillin; Z88.5 Allergy status to narcotic agent; Z88.8 Allergy status to other drugs, medicaments and biological substances; Z91.013 Allergy to seafood
CPT/HCPCS: 36415; 71045; 71250; 80048; 80076; 81003; 83735; 83880; 84484; 85025; 85610; 87040; 87205; 93005; 96365; 96367; 96375; 99285; J0456; J0696; J2930; J7050; U0003

== ENCOUNTER 2022-11-07 18:15 | Inpatient (IN) | payer OTHER, SELFPAY ==
--- OUTSIDE RECORDS SUMMARY | 2022-11-07 18:18 | XMS REPORT | Continuity of Care Document ---
:1965 Author Organization [facility] t Address [address] [place] [address] Care Team Providers Name Role Phone JENNIFER TRUJILLO Primary Care Physician Unavailable BEAU STAFUFER Attending Clinician Unavailable Shoaib Nguyen MD Attending Clinician SHOAIB NGUYEN Attending Clinician Unavailable Doctor Unassigned, [place] Attending Clinician Unavailable Sally Galicia Attending Clinician Unavailable Sally Galicia Attending Clinician Unavailable Sally Galicia Admitting Clinician Unavailable Problems Condition Condition Condition Status Onset Resolution Last Treating Co mments Source Name Details Category Date Date Treatment Clinician Date No known No known Disease Unive rs active active ity of problems problems [facility] Allergies, Adverse Reactions, Alerts Allergy Allergy Status Severity Reaction(s) Onset Inactive Treating Comm ents Source Name Type Date Date Clinician Fluticas Propensi Active Other - See Headache Univers one ty to comments 02-25 ity of Propion- adverse 00:00: [place] Salmeter reaction 00 Medica l ol s Branch Meperidi Propensi Active Swelling Univ ers ne ty to 02-25 ity of adverse 00:00: [place] reaction 00 Medical s Branch Penicill Propensi Active Hives Univer s ins ty to 02-25 ity of adverse 00:00: [place] reaction 00 Medical s Branch Seafood/ Propensi Active Swelling Allergic Un sybil Fish ty to 02-25 to the ity of adverse 00:00: iodine [place] reaction 00 Medical s Branch FLUTICAS DRUG Active Hives Univers ONE - ity of PROPION- 00:00: [place] SALMETER 00 Medical OL Branch MEPERIDI DRUG Active SOB Univers NE INGREDI 02-25 ity of 00:00: [place] 00 Medical Branch PENICILL Drug Active Hives Univers INS Class 02-25 ity of 00:00: [place] 00 Medical Branch SEAFOOD/ Food Active Swelling Univer s FISH 02-25 ity of 00:00: [place] 00 Medical Branch NO KNOWN Drug Active Univers ALLERGIE Class ity of S [facility] penicill Drug Active [facility] penicill Drug Active [facility] penicill Drug Active [facility] penicill Drug Active [facility] penicill Drug Active . [facility] penicill Drug Active . [facility] penicill Drug Active . [facility] penicill Drug Active . [facility] penicill Drug Active . [facility] penicill Drug Active . [facility] penicill Drug Active . [facility] Social History Social Habit Start Date Stop Date Quantity Comments Source Tobacco use and 2021-02-25 2021-02-25 Never used [facility] exposure 00:00:00 00:00:00 [facility] Sex Ass[birth year] [facility] 00:00:00 00:00:00 [facility] Smoking Status Start Date Stop Date Source Unknown if ever smoked [facility] Never smoker [facility] Medications Ordered Filled Start Stop Current Ordering Indication Dosage Frequency Signature Comments Components Source Medication Medication Date Date Medication? Clinician (SIG) Name Name No known No Univers medications [facility] No known No Univers medications [facility] Vital Signs Vital Name Observation Time Observation Value Comments Source Systolic blood 2021-02-25 21:18:00 149 mm[facility]Hg[facility] pressure [facility] Diastolic blood 2021-02-25 21:18:00 96 mm[facility]Hg[facility] 2021-02-25 21:17:00 77 /min [facility] Body weight 2021-02-25 21:17:00 92.987 kg [facility] Oxygen saturation 2021-02-25 21:17:00 97 /min [facility] in Arterial blood Medical Br anch by Pulse oximetry Height/Length 2021-09-23 10:02:11 180.34 cm Measured Weight Dosing 2021-09-23 10:02:11 83.20 kg Height/Length 2021-09-23 09:44:18 180.34 cm Measured Weight Dosing 2021-09-23 09:44:18 83.20 kg Height/Length 2021-09-23 09:42:57 180.34 cm Measured Weight Dosing 2021-09-23 09:42:57 83.20 kg Height/Length 2021-09-23 09:32:08 180.34 cm Measured Weight Dosing 2021-09-23 09:32:08 83.20 kg Height/Length 2021-09-23 09:28:21 180.34 cm Measured Weight Dosing 2021-09-23 09:28:21 83.20 kg Height/Length 2021-09-23 09:27:56 180.34 cm Measured Weight Dosing 2021-09-23 09:27:56 83.20 kg Height/Length 2021-09-23 09:27:48 180.34 cm Measured Weight Dosing 2021-09-23 09:27:48 83.20 kg Height/Length 2021-09-23 09:26:59 180.34 cm Measured Height/Length 2021-09-23 09:26:58 180.34 cm Measured Height/Length 2021-09-23 09:26:57 180.34 cm Measured Height/Length 2021-09-23 09:26:56 180.34 cm Measured Height/Length 2021-09-23 09:26:55 180.34 cm Measured Height/Length 2019-11-11 02:28:04 Measured Procedures Procedure Date / Time Performed Performing Clinician [facility] e CONSENT/REFUSAL FOR 2021-02-25 21:01:54 [facility] Name [facility] Branch TREATMENT Encounters Start End Encounter Admission Attending Care Care Encounter Source Date/Time Date/Time Type Type Clinicians Facility Department ID 2021-08-21 2021-08-21 Outpatient Ulisses STAUFFER [facility] [id number] Univers 14:30:00 14:30:00 BEAU mo [facility] 2021-04-09 2021-04-09 Outpatient Ulisses STAUFFER [facility] [id number] Univers 09:00:00 09:00:00 BEAU ity of [facility] 2021-02-25 2021-02-25 [facility] [id number] Univers 16:02:45 16:30:08 Visit Shoaib Anderson [id number] [id number] [id number] dical nal [address] [facility] 2021-02-25 2021-02-25 Outpatient R WENDY [facility] [id number] Univers 16:00:00 16:00:00 SHOAIB chely o f [facility] 2021-02-25 2021-02-25 Orders Doctor ALEJANDRA [id number] Univers 00:00:00 00:00:00 Only Unassigned, REILLY [id number] ity of [place] [facility] [id number] [place] as [id number] [address] 2019-11-11 2019-11-11 Emergency [facility] [id number] 00:52:00 00:52:00 [facility] 2019-11-11 2019-11-11 Emergency 1 [facility] [id number] 00:52:00 00:52:00 Sally Galicia -[id number] [facility] Results Test Description Test Time Test Comments Results Result Comments Source Thyroid Stimulating Hormone 2019-11-15 08:34:50 Test Item Value Reference Range Interpretation Comme nts TSH (test code = TSH) 16.180 mIU/mL 0.270-4.200 H Complete Blood Count with [id number] 07:30:28 Test Item Value Reference Range Interpretation [...] code = IPF) 0 % N Automated [id number] 07:30:28 Test Item Value Reference Range Interpretation Comments Neutro Auto (test code = Neutro 46.1 % 36.0-70.0 Auto) Lymph Auto (test code = Lymph Auto) 34.0 % 12.0-44.0 Duval Auto (test code = Duval Auto) 11.2 % 0.0-11.0 H Eos, Auto (test code = Eos, Auto) 7.6 % 0.0-7.0 H Basophil Auto (test code = Basophil 0.4 % 0.0-2.0 Auto) Neutro Absolute (test code = Neutro 3.8 x10 1.6-7.4 Absolute) Lymph Absolute (test code = Lymph 2.79 x10 .50-4.60 Absolute) Duval Absolute (test code = Duval .92 x10 .00-1.20 Absolute) Eos Absolute (test code = Eos 0.62 x10 0.00-0.74 Absolute) Baso Absolute (test code = Baso 0.03 x10 0.00-0.21 Absolute) IG [id number] 07:30:28 Test Item Value Reference Range Interpretation Comments IG (test code = IG) 0.7 % 0.0-5.0 IG Abs (test code = IG Abs) 0 x10 N RPR [id number] 05:28:06 Test Item Value Reference Range Interpretation Comments RPR Qual (test code = RPR Qual) Non-Reactive Non-Reactive Reactive Control (test code = Reactive Reactive Control) Weak Reactive Control (test Weak Reactive code = Weak Reactive Control) Non-Reactive Control (test code Non-Reactive = Non-Reactive Control) Lot # (test code = Lot #) [id number] N Expiration Dt (test code = 09.05.2020 N Expiration Dt) Hemoglobin [id number] 05:16:07 Test Item Value Reference Range Interpretation Comments Hemoglobin A1c (test code 5.4 % 4.8-5.9 No n Diabetic = Hemoglobin A1c) 4.8-5.9%Di abetic <7.0% Lipid [id number] 05:16:07 Test Item Value Reference Range Interpretation Comments Cholesterol Total 133 mg/dL 0-200 RISK OF HE ART (test code = DISEASEPublishe d by Cholesterol Total) [place] [employer] Nida lyte Optimal Borderl ine Increased RiskC HOL <200 200-239 >240TRI G <150 150-199 >200HDL Male >60 <40HDL Fema le >60 <50LDL <100 130 -159 >160LDL Near op timal is 100-129 Triglycerides (test 71 mg/dL 9-200 [...] LDL/HDL Ratio=L DL Calc/HDL Chol Thyroid Stimulating [id number] 05:16:07 Test Item Value Reference Range Interpretation Comments TSH (test code = TSH) 12.450 mIU/mL 0.270-4.200 H Urine Drug [id number] 05:06:35 Test Item Value Reference Range Interpretation [...] if desired . Urinalysis with Microscopic if [id number] 04:50:25 Test Item Value Reference Range Interpretation [...] Micro Ind?) rule GL_[id number]_[id number] _IN D IG [id number] 04:01:31 Test Item Value Reference Range Interpretation Comments IG (test code = IG) 0.4 % 0.0-5.0 IG Abs (test code = IG Abs) 0 x10 N Complete Blood Count with [id number] 04:01:30 Test Item Value Reference Range Interpretation [...] code = IPF) 0 % N Automated [id number] 04:01:30 Test Item Value Reference Range Interpretation Comments Neutro Auto (test code = Neutro 62.6 % 36.0-70.0 Auto) Lymph Auto (test code = Lymph Auto) 24.4 % 12.0-44.0 Duval Auto (test code = Duval Auto) 10.8 % 0.0-11.0 Eos, Auto (test code = Eos, Auto) 1.5 % 0.0-7.0 Basophil Auto (test code = Basophil 0.3 % 0.0-2.0 Auto) Neutro Absolute (test code = Neutro 8.1 x10 1.6-7.4 H Absolute) Lymph Absolute (test code = Lymph 3.18 x10 .50-4.60 Absolute) Duval Absolute (test code = Duval 1.41 x10 .00-1.20 H Absolute) Eos Absolute (test code = Eos 0.19 x10 0.00-0.74 Absolute) Baso Absolute (test code = Baso 0.04 x10 0.00-0.21 Absolute) Comprehensive Metabolic [id number] 03:49:38 Test Item Value Reference Range Interpretation [...] A/G 1.8 ratio N Ratio) Comprehensive Metabolic [id number] 03:49:38 Test Item Value Reference Range Interpretation [...] the National Kidney Foundation, http://nkdep.ni h.gov Alcohol [id number] 03:49:38 Test Item Value Reference Range Interpretation Comments Ethanol Level (test <0.00 g/dL 0.00-0.01 Intoxica tyson 0.080 g/dL code = Ethanol or more Level) Ethanol Inst (test <0 N code = Ethanol Inst) Comprehensive Metabolic [id number] 03:49:38 Test Item Value Reference Range Interpretation [...]
[2022-11-07] MEDS ORDERED: ALBUTEROL 2.5 MG/3 ML NEB SOL ONE (18:59)
[2022-11-07] MEDS ORDERED: FUROSEMIDE 40 MG/4 ML VIAL ONE (18:59)
[2022-11-07] MEDS ORDERED: ASPIRIN 81 MG CHEWABLE TABLET ONE (18:59)
[2022-11-07] MEDS ORDERED: IPRATROPIUM BROM 0.5MG/2.5ML ONE (19:00)
[2022-11-07 19:07] LABS: Absolute Lymphocytes (CBC) 2.2 K/uL (0.7-4.9); Hematocrit 42.6 % (39.6-49.0); Lymphocytes % 16.1 % (15.3-44.8); MPV 9.6 fL (7.6-11.3); RBC Red Blood Cell Count 4.48 M/uL (4.33-5.43)
[2022-11-07 19:14] LABS: Protime INR 1.06
[2022-11-07 19:33] LABS: Albumin 3.5 g/dL (3.4-5.0); Bilirubin Direct 0.1 mg/dL (0-0.2); Bilirubin Total 0.4 mg/dL (0.2-1.0); Protein, Total 7.8 g/dL (6.4-8.2); Troponin High Sensitivity 17.7 pg/mL (<58.9)
[2022-11-07] MEDS ORDERED: NITROGLYCERIN 1 GM PKT TD ONE (19:37)
[2022-11-07] MEDS ORDERED: dexAMETHasone 10 MG/ML VIAL ONE (19:37)
[2022-11-07] MEDS ORDERED: NA CHLORIDE 0.9% 250 ML ONE (19:38)
[2022-11-07] MEDS ORDERED: AZITHROMYCIN 500 MG INJ IVPB ONE (19:38)
[2022-11-07 19:39] LABS: Magnesium 2.3 mg/dL (1.6-2.4); Potassium 4.6 mmol/L (3.5-5.1)
[2022-11-07 19:43] LABS: SARS-CoV-2 Antigen Rapid Res Negative (Negative)
--- NOTE | 2022-11-07 20:03 | ER ---
Nurse's Notes [facility] Name: Codey Morin Jr Age: 57 yrs Sex: Male : 1965 Arrival Date: 11/07/2022 Time: 18:21 Bed 4 Private MD: Justin Mahajan Diagnosis: COPD/ Chronic obstructive pulmonary disease with (acute) exacerbation;Unspecified systolic (congestive) heart failure Presentation: 11/07 18:26 Chief complaint: Patient states: cough and difficulty breathing that began a week ago. ss Denies fever. HX of COPD. Pt believes it may be a COPD exacerbation. Coronavirus screen: Client denies travel out of the [place] in the last 14 days. Ebola Screen: Patient denies exposure to infectious person. Patient denies travel to an Ebola-affected area in the 21 days before illness onset. Initial Sepsis Screen: Does the patient meet any 2 criteria? No. Patient's initial sepsis screen is negative. Does the patient have a suspected source of infection? No. Patient's initial sepsis screen is negative. Risk Assessment: Do you want to hurt yourself or someone else? Patient reports no desire to harm self or others. Onset of symptoms was November 03, 2022. 18:26 Method Of Arrival: Ambulatory ss 18:26 Acuity: KAYLIE 2 ss Historical: - Allergies: 18:30 Demerol; ss 18:30 Iodine; ss 18:30 PENICILLINS; ss 18:30 SEAFOOD; ss - Home Meds: 18:30 Advair Diskus 250-50 mcg/dose Inhl dsdv 1 puff 2 times per day [Active]; albuterol ss sulfate 90 mcg/actuation Inhl HFAA [Active]; levothyroxine oral [Active]; unknown BP med [Active]; - PMHx: 18:30 Arthritis; Asthma; COPD; Diverticulitis; Gout; Hypertension; Hypothyroidism; ss - Immunization history:: Client reports having NOT received the Covid vaccine. - Social history:: Smoking status: Patient/guardian denies using tobacco, but has a distant history of tobacco abuse. Screenin:26 [facility] ED Fall Risk Assessment (Adult) Score/Fall Risk Level 0 - 2 = Low Risk. Abuse as6 screen: Denies threats or abuse. Denies injuries from another. Nutritional screening: No deficits noted. Tuberculosis screening: No symptoms or risk factors identified. Assessment: 19:02 General: Appears distressed, uncomfortable, Behavior is cooperative, appropriate for kr3 age. Neuro: Level of Consciousness is awake, alert, obeys commands, Oriented to person, place, time, situation. Cardiovascular: Patient's skin is warm and dry. Respiratory: Airway is patent Respiratory effort is labored, Respiratory pattern is tachypnea. GI: No signs and/or symptoms were reported involving the gastrointestinal system. : No signs and/or symptoms were reported regarding the genitourinary system. EENT: No signs and/or symptoms were reported regarding the EENT system. Derm: No signs and/or symptoms reported regarding the dermatologic system. Musculoskeletal: No signs and/or symptoms reported regarding the musculoskeletal system. 22:27 General: attempted to call report, no answer . as6 23:24 Pain: Denies pain. as6 Vital Signs: 18:26 BP 147 / 95; Pulse 85; Resp 22; Temp 98.5(O); Pulse Ox 94% on R/A; Weight 114.31 kg; ss Height 6 ft. 0 in. (182.88 cm); Pain 3/10; 20:19 BP 140 / 61; Pulse 92; Resp 22 S; Temp 98.6(O); Pulse Ox 97% on R/A; as7 22:25 BP 128 / 81; Pulse 95; Resp 17 S; Pulse Ox 95% on R/A; as6 23:24 BP 139 / 69; Pulse 90; Resp 18 S; Pulse Ox 95% on R/A; as6 18:26 Body Mass Index 34.18 (114.31 kg, 182.88 cm) ED Course: 18:21 Patient arrived in ED. am2 18:21 Justin Mahajan DO is Private Physician. am2 18:30 Triage completed. ss 18:30 Arm band placed on right wrist. ss 18:37 Melissa Segovia FNP-C is PHCP. snw 18:37 Eliecer Mahajan MD is Attending Physician. snw 18:52 Ciara Morales RN is Primary Nurse. kr3 19:24 Blood Culture Adult (2) Sent. kr3 19:25 Inserted saline lock: 20 gauge in right antecubital area, using aseptic technique. rv1 Blood collected. 19:25 Basic Metabolic Panel Sent. rv1 19:25 CBC with Diff Sent. rv1 19:25 LFT's Sent. rv1 19:25 Magnesium Sent. rv1 19:25 NT PRO-BNP Sent. rv1 19:25 PT-INR Sent. rv1 19: Troponin HS Sent. rv1 19:30 SARS RAPID Sent. rv1 20:01 Lisandro Gomez MD is Hospitalizing Provider. snw 22:26 Placed in gown. Bed in low position. Call light in reach. Side rails up X2. Client as6 placed on continuous cardiac and pulse oximetry monitoring. NIBP monitoring applied. 22:26 No provider procedures requiring assistance completed. Patient admitted, IV remains in as6 place. Administered Medications: 19:02 Drug: Aspirin Chewable Tablet 324 mg Route: PO; kr3 22:28 Follow up: Response: No adverse reaction as6 19:02 Drug: Albuterol - atroVENT (ipratropium) (3:1) (2.5 mg - 0.5 mg) 3 ml Route: Nebulizer; kr3 22:28 Follow up: Response: No adverse reaction as6 19:24 Drug: Lasix (furosemide) 40 mg Route: IVP; Site: right antecubital; kr3 23:25 Follow up: Response: No adverse reaction as6 19:49 Drug: Nitro-Bid (nitroglycerin) Ointment 2 % 1 inches Route: Transdermal; Site: kr3 anterior chest wall; 22:28 Follow up: Response: No adverse reaction as6 19:49 Drug: Decadron - Dexamethasone 10 mg Route: IVP; Site: right antecubital; kr3 22:28 Follow up: Response: No adverse reaction as6 19:49 Drug: Zithromax (azithromycin) 500 mg Route: IVPB; Infused Over: 1 hrs; Site: right kr3 antecubital; 22:28 Follow up: Response: No adverse reaction; IV Status: Completed infusion; IV Intake: as6 250ml Medication: 22:26 VIS not applicable for this client. as6 Intake: 22:28 IV: 250ml; Total: 250ml. as6 Outcome: 20:02 Decision to Hospitalize by Provider. snw 22:26 Condition: stable as6 22:26 Instructed on the need for admit. 23:24 Admitted to Tele accompanied by jim via wheelchair, room 408, with chart, Report as6 called to Veronica ROJAS 23:25 Patient left the ED. as6 Signatures: Melissa Segovia, RACHEL STEPHENSON-Oriana Orona, RN RN Gilma Rodríguez Ashby, RN RN as6 Ciara Morales RN RN kr Clementine Leyva [facility] Isabella Saenz as7
--- NOTE | 2022-11-07 20:03 | EDPHYS ---
Physician Documentation [facility] Name: Codey Morin Jr Age: 57 yrs Sex: Male : 1965 Arrival Date: 11/07/2022 Time: 18:21 Bed 4 Private MD: Keyshawn [facility] ED Physician Eliecer Mahajan HPI: 11/07 19:02 This 57 yrs old Male presents to ER via Ambulatory with complaints of Breathing snw Difficulty. 19:02 The patient has shortness of breath at rest, and the patient has a history of COPD, snw denies hx of CHF. Onset: The symptoms/episode began/occurred gradually, 1 week(s) ago, and became persistent. Duration: The symptoms are continuous, and are unchanged since they started. Associated signs and symptoms: Pertinent positives: non-productive cough, fatigue, dyspnea. Severity of symptoms: At their worst the symptoms were moderate severe. The patient has experienced similar episodes in the past. sees Dr. Welch. Historical: - Allergies: 18:30 Demerol; ss 18:30 Iodine; ss 18:30 PENICILLINS; ss 18:30 SEAFOOD; ss - Home Meds: 18:30 Advair Diskus 250-50 mcg/dose Inhl dsdv 1 puff 2 times per day [Active]; albuterol ss sulfate 90 mcg/actuation Inhl HFAA [Active]; levothyroxine oral [Active]; unknown BP med [Active]; - PMHx: 18:30 Arthritis; Asthma; COPD; Diverticulitis; Gout; Hypertension; Hypothyroidism; ss - Immunization history:: Client reports having NOT received the Covid vaccine. - Social history:: Smoking status: Patient/guardian denies using tobacco, but has a distant history of tobacco abuse. ROS: 19:01 Constitutional: Negative for fever, chills, and weight loss, Eyes: Negative for injury, snw pain, redness, and discharge, ENT: Negative for injury, pain, and discharge, Neck: Negative for injury, pain, and swelling, Cardiovascular: Negative for chest pain, palpitations, and edema. 19:01 Abdomen/GI: Negative for abdominal pain, nausea, vomiting, diarrhea, and constipation, Back: Negative for injury and pain, : Negative for injury, bleeding, discharge, and swelling, MS/Extremity: Negative for injury and deformity, Skin: Negative for injury, rash, and discoloration, Neuro: Negative for headache, weakness, numbness, tingling, and seizure, Psych: Negative for depression, anxiety, suicide ideation, homicidal ideation, and hallucinations. 19:01 Respiratory: Positive for cough, dyspnea on exertion, orthopnea, shortness of breath, wheezing, expiratory. Exam: 18:50 Head/Face: Normocephalic, atraumatic. Eyes: Pupils equal round and reactive to light, snw extra-ocular motions intact. Lids and lashes normal. Conjunctiva and sclera are non-icteric and not injected. Cornea within normal limits. Periorbital areas with no swelling, redness, or edema. ENT: Nares patent. No nasal discharge, no septal abnormalities noted. Tympanic membranes are normal and external auditory canals are clear. Oropharynx with no redness, swelling, or masses, exudates, or evidence of obstruction, uvula midline. Mucous membranes moist. Neck: Trachea midline, no thyromegaly or masses palpated, and no cervical lymphadenopathy. Supple, full range of motion without nuchal rigidity, or vertebral point tenderness. No Meningismus. Chest/axilla: Normal chest wall appearance and motion. Nontender with no deformity. No lesions are appreciated. 18:50 Back: No spinal tenderness. No costovertebral tenderness. Full range of motion. 18:50 Neuro: Awake and alert, GCS 15, oriented to person, place, time, and situation. Cranial nerves II-XII grossly intact. Motor strength 5/5 in all extremities. Sensory grossly intact. Cerebellar exam normal. Normal gait. Psych: Awake, alert, with orientation to person, place and time. Behavior, mood, and affect are within normal limits. 18:50 Constitutional: The patient appears awake, in obvious distress, mildly distressed, pale, uncomfortable. 18:50 Cardiovascular: Rate: normal, Rhythm: regular, Heart sounds: normal, Edema: 3+ edema to level of waist, left ankle, left foot, right ankle and right foot, JVD: is noted bilaterally. 18:50 Cardiovascular: pt has on shoes that have been cut 2nd to swelling this week. Pt states he has not been on diuretics and knows of no hx of CHF. 18:50 Respiratory: mild respiratory distress is noted, Respirations: shallow respirations, Breath sounds: bronchial sounds, that are moderate, wheezing: expiratory is heard diffusely. 18:50 Abdomen/GI: Inspection: distension, obese Bowel sounds: normal, Palpation: tense. 18:50 Skin: Appearance: Color: mary, pale. Vital Signs: 18:26 BP 147 / 95; Pulse 85; Resp 22; Temp 98.5(O); Pulse Ox 94% on R/A; Weight 114.31 kg; ss Height 6 ft. 0 in. (182.88 cm); Pain 3/10; 20:19 BP 140 / 61; Pulse 92; Resp 22 S; Temp 98.6(O); Pulse Ox 97% on R/A; as7 22:25 BP 128 / 81; Pulse 95; Resp 17 S; Pulse Ox 95% on R/A; as6 23:24 BP 139 / 69; Pulse 90; Resp 18 S; Pulse Ox 95% on R/A; as6 18:26 Body Mass Index 34.18 (114.31 kg, 182.88 cm) ss MDM: 18:38 Patient medically screened. snw 20:07 Differential diagnosis: CHF exacerbation, Chronic Obstructive Pulmonary Disease snw pneumonia, pulmonary edema. Data reviewed: vital signs, nurses notes, lab test result(s), radiologic studies. Management of patient was discussed with the following: Hospitalist: Haider Zapata NP. Counseling: I had a detailed discussion with the patient and/or guardian regarding: the historical points, exam findings, and any diagnostic results supporting the discharge/admit diagnosis, the presence of at least one elevated blood pressure reading (>120/80) during this emergency department visit, lab results, radiology results, the need for further work-up and treatment in the hospital. Special discussion:. ED course: Pt feeling much better, SpO2 on room air 97%, pt states he has not voided but needs to at this time. 11/07 18:38 Order name: Basic Metabolic Panel snw 11/07 18:38 Order name: CBC with Diff snw 11/07 18:38 Order name: LFT's w 11/07 18:38 Order name: Magnesium snw 11/07 18:38 Order name: NT PRO-BNP snw 11/07 18:38 Order name: PT-INR snw 11/07 18:38 Order name: Troponin HS snw 11/07 18:38 Order name: XRAY Chest (1 view) snw 11/07 18:38 Order name: EKG; Complete Time: 18:39 snw 11/07 18:38 Order name: Cardiac monitoring; Complete Time: 19:09 snw 11/07 18:38 Order name: EKG - Nurse/Tech; Complete Time: 19:26 snw 11/07 18:38 Order name: IV Saline Lock; Complete Time: 19:24 snw 11/07 18:38 Order name: Labs collected and sent; Complete Time: 19:24 snw 11/07 18:38 Order name: O2 Per Protocol; Complete Time: 19:09 snw 11/07 18:38 Order name: O2 Sat Monitoring; Complete Time: 19:09 snw 11/07 18:38 Order name: Blood Culture Adult (2) w 11/07 18:50 Order name: SARS RAPID snw 11/07 19:08 Order name: CBC with Automated Diff; Complete Time: 19:08 EDMS 11/07 19:14 Order name: Protime (+INR); Complete Time: 19:23 EDMS 11/07 19:39 Order name: Basic Metabolic Panel; Complete Time: 19:40 EDMS 11/07 19:39 Order name: Liver (Hepatic) Function; Complete Time: 19:40 EDMS 04 19:39 Order name: Troponin High Sensitivity; Complete Time: 19:40 EDMS 04 19:39 Order name: NT PRO-BNP; Complete Time: 19:40 EDMS 04 19:39 Order name: Magnesium; Complete Time: 19:40 EDMS 04 19:44 Order name: SARS-COV-2 Antigen Rapid; Complete Time: 19:48 EDMS 04 21:16 Order name: RAD; Complete Time: 22:46 EDMS EC:20 Rate is 89 beats/min. Rhythm is regular. QRS [place] is Normal. GA interval is normal. QRS snw interval is normal. ST Segment is elevated in leads V1, V2. Clinical impression: NSR w/ Non-specific ST/T Changes. Administered Medications: 19:02 Drug: Aspirin Chewable Tablet 324 mg Route: PO; kr3 22:28 Follow up: Response: No adverse reaction as6 19:02 Drug: Albuterol - atroVENT (ipratropium) (3:1) (2.5 mg - 0.5 mg) 3 ml Route: Nebulizer; kr3 22:28 Follow up: Response: No adverse reaction as6 19:24 Drug: Lasix (furosemide) 40 mg Route: IVP; Site: right antecubital; kr3 23:25 Follow up: Response: No adverse reaction as6 19:49 Drug: Nitro-Bid (nitroglycerin) Ointment 2 % 1 inches Route: Transdermal; Site: kr3 anterior chest wall; 22:28 Follow up: Response: No adverse reaction as6 19:49 Drug: Decadron - Dexamethasone 10 mg Route: IVP; Site: right antecubital; kr3 22:28 Follow up: Response: No adverse reaction as6 19:49 Drug: Zithromax (azithromycin) 500 mg Route: IVPB; Infused Over: 1 hrs; Site: right kr3 antecubital; 22:28 Follow up: Response: No adverse reaction; IV Status: Completed infusion; IV Intake: as6 250ml Disposition Summary: 11/07/22 20:02 Hospitalization Ordered Hospitalization Status: Inpatient Admission snw Provider: Lisandro Gomez Location: Telemetry/MedSurg (Inpatient) snw Condition: Stable snw Problem: an ongoing problem snw Symptoms: have improved snw Bed/Room Type: Standard snw Room Assignment: [id number](11/07/22 22:20) cg Diagnosis - COPD/ Chronic obstructive pulmonary disease with (acute) exacerbation snw - Unspecified systolic (congestive) heart failure snw Forms: - Medication Reconciliation Form snw - SBAR form snw Signatures: Dispatcher [employer] Melissa Ibarra FNP-C RAIL CAR PAINTER/SANDBLASTER-Maryw Oriana Tyler RN RN ss Haider Zapata FNP-C FNP-Nora Baker RN RN cg Ciara Morales RN RN [id number] Mil Alvarez RN as6 Corrections: (The following items were deleted from the chart) 22:20 20:02 snw cg
--- NOTE | 2022-11-07 21:15 | RAD REPORT ---
[facility] 9:04 pm CLINICAL HISTORY: COPD COMPARISON: < 12/25/2020 and 12/02/2020 TECHNIQUE: Portable AP view of the chest. FINDINGS: The lungs are clear. No pneumothorax or effusion. The cardiomediastinal contours are unrem arkable. IMPRESSION: No acute cardiopulmonary process.
--- NOTE | 2022-11-07 21:41 | P.HP ---
Certification for Inpatient Patient admitted to: Inpatient With expected LOS: >2 Midnights Patient will require the following post-hospital care: None Practitioner: I am a practitioner with admitting privileges, knowledge of patient current condition, hospital course, and medical plan of care. Services: Services provided to patient in accordance with Admission requirements found in Title 42 Section 412.3 of the Code of Federal Regulations Patient History Date of Service: 11/07/22 Reason for admission: COPD exacerbation, anasarca History of Present Illness: 57-year-old male with history of COPD, hypertension, hypothyroidism presents to the emergency department for 1 week of worsening dyspnea, swelling of the lower extremities. He was evaluated in the emergency department his labs were significant for mild leukocytosis with a white blood cell count of 13.4 chest x- ray was performed which showed no acute cardiopulmonary process. Patient was s till dyspneic, sats in the low 90s after nebulizer treatments he does have expiratory wheezing as well as 3+ pitting edema of the lower extremities and anasarca of the abdomen. He has no known history of congestive heart failure. Will admit for further evaluation and management of dyspnea, anasarca, COPD exacerbation. Allergies iodine Allergy (Unverified 09/25/16 16:25) Unknown ketorolac [From Toradol] Allergy (Verified 03/25/16 21:11) Anaphylaxis meperidine [From Demerol] Allergy (Unverified 09/02/17 14:25) Unknown Penicillins Allergy (Verified 12/23/12 07:25) Itching/Hives/Rash seafood Allergy (Intermediate, Uncoded 03/26/16 00:27) Hives/Rash "unknown antibiotic Allergy (Uncoded 05/11/16 14:11) Unknown Home Medications: Diphenhydramine [Benadryl Tab/Cap] 25 mg PO Q6HP PRN #30 tab 03/26/16 Epinephrine [Epipen Jr 2-Bradley] 0.15 mg IM PRN PRN #1 ml 03/26/16 Methylprednisolone [Medrol dosepack] 4 mg PO DIRECTED #1 bradley 03/26/16 - Past Medical/Surgical History Diabetic: No -: HTN -: GOUT -: COPD -: Hypothyroidism -: cholecysectomy 2004 -: tonsillectomy Psychosocial/ Personal History: Patient lives at home with his family - Family History Mother -: Lung disease, Cancer Father -: Heart disease - Social History Smoking Status: Former smoker Alcohol use: Yes CD- Drugs: No Caffeine use: Yes Place of Residence: Home Review of Systems 10-point ROS is otherwise unremarkable Respiratory: Cough, Shortness of Breath Cardiovascular: Edema Physical Examination - Physical Exam General: Alert, In no apparent distress, Oriented x3 HEENT: Atraumatic, PERRLA, Mucous membr. moist/pink, EOMI, Sclerae nonicteric Neck: Supple, 2+ carotid pulse no bruit, No LAD, Without JVD or thyroid abnormality Respiratory: Clear to auscultation bilaterally, Normal air movement Cardiovascular: Regular rate/rhythm, Normal S1 S2, Edema (3+ pitting edema bilateral lower extremities, anasarca of the abdomen) Capillary refill: <2 Seconds Gastrointestinal: Normal bowel sounds, No tenderness Musculoskeletal: No tenderness Integumentary: No rashes Neurological: Normal speech, Normal strength at 5/5 x4 extr, Normal tone, Normal affect - Studies Laboratory Data (last 24 hrs) 11/07/22 18:55: PT 11.7, INR 1.06 11/07/22 18:55: WBC 13.40 H, Hgb 13.8, Hct 42.6, Plt Count 183 11/07/22 18:55: Sodium 136, Potassium 4.6, BUN 13, Creatinine 1.01, Glucose 109 H, Magnesium 2.3, Total Bilirubin 0.4, AST 27, ALT 24, Alkaline Phosphatase 90 Assessment and Plan - Plan Assessment: Dyspnea secondary to COPD with exacerbation Anasarca Hypertension Hyperlipidemia Hypothyroidism Plan: Dyspnea secondary to COPD with exacerbation Continue steroids, as needed breathing treatments, ICS. Pulmonology to see patient. Anasarca Suspect underlying CHFunknown EF. Echocardiogram ordered, cardiology consulted continue diuresis with IV Lasix. Significant edema of the lower extremities, abdomen. Hypertension Hyperlipidemia Hypothyroidism Continue home meds. DVT PPX: Lovenox Code status: Full Discharge Plan: Home Plan to discharge in: 48 Hours - Advance Directives Does patient have a Living Will: No Does patient have a Durable POA for Healthcare: No - Code Status/Comfort Care Code Status Assessed: Yes (Full code) Critical Care: No Time Spent Managing Pts Care (In Minutes): 70
[2022-11-07] MEDS ORDERED: IPRATROPIUM BROM 0.5MG/2.5ML NEB PRN (22:04)
[2022-11-07] MEDS ORDERED: ONDANSETRON 4 MG/2 ML VIAL IV PRN (22:04)
[2022-11-07] MEDS ORDERED: ALBUTEROL 2.5 MG/3 ML NEB SOL NEB PRN (22:04)
[2022-11-07 23:34] VITALS: O2SAT 95
[2022-11-07 23:57] VITALS: BMI 35.5
[2022-11-08 03:45] LABS: Absolute Lymphocytes (CBC) 0.6 K/uL (0.7-4.9); Lymphocytes % 5.3 % (15.3-44.8); MCV 95.5 fL (80-100); MPV 9.9 fL (7.6-11.3); RBC Red Blood Cell Count 4.08 M/uL (4.33-5.43)
[2022-11-08 04:09] LABS: Potassium 4.5 mmol/L (3.5-5.1); Troponin High Sensitivity 9.8 pg/mL (<58.9)
[2022-11-08 04:19] LABS: Thyroid Stimulating Hormone 13.6 uIU/mL (0.358-3.740)
[2022-11-08] MEDS: DULERA 200/5 (MOMETASONE/FORMOTEROL) INHALER IH SCH ×2 (08:17→20:58)
[2022-11-08] MEDS: ENOXAPARIN 40 MG/0.4 ML SQ SCH (08:18)
[2022-11-08] MEDS ORDERED: predniSONE 20 MG TAB PO SCH ×2 (09:00→21:00)
[2022-11-08] MEDS ORDERED: FUROSEMIDE 40 MG/4 ML VIAL IV SCH (09:00)
--- NOTE | 2022-11-08 10:20 | P.PN ---
Subjective Date of Service: 11/08/22 Chief Complaint: COPD exacerbation, anasarca Subjective: Improving (Patient is doing better admitted with 1 week history of increasing shortness of breath orthopnea lower extremity edema former smoker prior history of coronary artery disease) Review of Systems General: Weakness Respiratory: Shortness of Breath Physical Examination - Vital Signs Temperature: 97.0 F Blood Pressure: 132/63 Pulse: 84 Respirations: 16 Pulse Ox (%): 93 - Physical Exam General: Alert, In no apparent distress, Oriented x3 Respiratory: Clear to auscultation bilaterally, Diminished Cardiovascular: Normal S1 S2 (3+ edema), Edema - Studies Laboratory Data (last 24 hrs) 11/07/22 18:55: PT 11.7, INR 1.06 11/07/22 18:55: WBC 13.40 H, Hgb 13.8, Hct 42.6, Plt Count 183 11/07/22 18:55: Sodium 136, Potassium 4.6, BUN 13, Creatinine 1.01, Glucose 109 H, Magnesium 2.3, Total Bilirubin 0.4, AST 27, ALT 24, Alkaline Phosphatase 90 Assessment And Plan - Current Problems (Diagnosis) (1) Cor pulmonale Current Visit: Yes Status: Acute Plan: Patient admitted with 1 week history of increasing shortness of breath wheezing lower extremity edema chest x-ray is clear BNP is also normal echocardiogram has been ordered of ordered spine spironolactone change Lasix to once a day bronchodilators liver function test is normal
[2022-11-08] MEDS: SPIRONOLACTONE 25 MG TABLET PO SCH ×2 (11:04→20:56)
[2022-11-08] MEDS: IPRATROPIUM BROM 0.5MG/2.5ML NEB SCH ×2 (14:40→20:00)
[2022-11-09] MEDS: IPRATROPIUM BROM 0.5MG/2.5ML NEB SCH ×4 (01:32→20:15)
[2022-11-09 06:20] LABS: Potassium 4.4 mmol/L (3.5-5.1)
--- NOTE | 2022-11-09 07:31 | P.PN ---
Subjective Date of Service: 11/09/22 Chief Complaint: COPD exacerbation, anasarca Subjective: Improving (Slightly better still has significant lower extremity edema no new change) Review of Systems General: Weakness Respiratory: Shortness of Breath Cardiovascular: Edema Physical Examination - Vital Signs Temperature: 98.3 F Blood Pressure: 148/68 Pulse: 96 Respirations: 18 Pulse Ox (%): 95 - Physical Exam General: Alert, In no apparent distress, Oriented x3 Respiratory: Clear to auscultation bilaterally Cardiovascular: Regular rate/rhythm, Normal S1 S2, Edema (3+ edema) Assessment And Plan - Current Problems (Diagnosis) (1) Cor pulmonale Current Visit: Yes Status: Acute Plan: No changes still patient is edematous numbness of breath is only slightly better patient is on once a day of Lasix and spironolactone chest x-ray clear no evidence of left ventricular heart failure echocardiogram is pending Labs reviewed unremarkable vital signs oxygenation stable. Cardiology consult possible underlying obstructive airways disease reduced dose of prednisone continue with inhalers patient's oxygenation is normal
[2022-11-09 09:03] LABS: Absolute Lymphocytes (CBC) 2.2 K/uL (0.7-4.9); Hematocrit 39.3 % (39.6-49.0); Lymphocytes % 11.4 % (15.3-44.8); MCV 95.5 fL (80-100); MPV 10.3 fL (7.6-11.3); RBC Red Blood Cell Count 4.12 M/uL (4.33-5.43)
[2022-11-09] MEDS: DULERA 200/5 (MOMETASONE/FORMOTEROL) INHALER IH SCH ×2 (09:38→21:14)
[2022-11-09] MEDS: predniSONE 10 MG TAB PO SCH ×2 (09:38→21:13)
[2022-11-09] MEDS: ENOXAPARIN 40 MG/0.4 ML SQ SCH (09:38)
[2022-11-09] MEDS: SPIRONOLACTONE 25 MG TABLET PO SCH ×2 (09:38→21:13)
[2022-11-09] MEDS: FUROSEMIDE 40 MG/4 ML VIAL IV SCH (09:39)
[2022-11-09 09:50] LABS: Arterial Blood Carboxyhemoglob 1.1 % (0-1.5); Blood Gas Oxyhemoglobin 89.9 % (94-97); Blood O2 Saturation 92.1 % (92-98.5)
[2022-11-09] MEDS ORDERED: ALBUTEROL 2.5 MG/3 ML NEB SOL NEB PRN (15:00)
--- NOTE | 2022-11-09 16:43 | EKG ---
Test Date: 2022-11-07 Test Time: 19:18:38 Computer Lab Assistant: RV MEASUREMENT RESULTS: Intervals: Rate: 89 RI: 150 QRSD: 68 QT: 378 QTc: 459 [place]: P: 70 RI: 150 QRS: 10 T: 87 INTERPRETIVE STATEMENTS: Normal sinus rhythm Low voltage QRS Septal infarct, age undetermined Abnormal ECG Compared to ECG 12/25/2020 17:33:12 Low QRS voltage now present Atrial premature complex(es) no longer present Myocardial infarct finding still present Electronically Signed On 11-09-22 16:38:27 SOCIAL MEDIA MARKETING ANALYST by Cb Mendoza
--- NOTE | 2022-11-09 22:42 | CON ---
Date of Consultation: 11/09/2022 Reason For Consultation: Fluid retention. History Of Present Illness: This is a 57-year-old with history of hypertension, hypothyroidism, COPD , presented with worsening shortness of breath, orthopnea, and lower extremity edema. Denies having any chest pain or cough. He is wheezing. Nebulizers helps some, but the patient has significant ort hopnea as well. Past Medical History: As outlined above in the HPI. Medications: Refer to reconciliation sheet for detailed list. Allergies: IODINE, TORADOL, MEPERIDINE, AND PENICILLIN. Family History: No premature coronary artery disease. Social History: He is an ex-smoker. Does not drink or use any drugs. Review of Systems: All systems were reviewed and they were all negative except what mentioned in HPI. Physical Examination: Vital Signs: Reviewed. Head and Neck: Pupils are equal and reactive to light. Intact eye movements. No cervical lymphaden opathy. No JVD. Lungs: Clear to auscultation bilaterally, but decreased breathing sounds. No accessory muscle use o r muscle retraction. Heart: Irregular. No extra sounds. Abdomen: Soft, nontender. Bowel sounds positive. No organomegaly. No masses or hernia. No rigidi ty or rebound. Extremities: No clubbing or cyanosis, but has 3+ edema bilaterally. Neurologic: Alert, awake, and oriented x3. No acute focal deficits appreciated. Investigations: Cardiac enzymes are negative. NT-proBNP is normal. BUN 22 and creatinine 1.03. Assessment/recommendations: 1.Fluid retention. NT-proBNP is normal and his echocardiogram was very poor study, but the ejection fraction appears to be normal. I agree with the diuresis. Continue Lasix and Aldactone. Carefully monitor BUN, creatinine, and electrolytes. 2.Chronic obstructive pulmonary disease exacerbation. Under the care of Dr. Gomez. SR/MODL Voice ID: [id number] Report ID: [id number]
[2022-11-10] MEDS: IPRATROPIUM BROM 0.5MG/2.5ML NEB SCH ×4 (02:00→20:10)
--- NOTE | 2022-11-10 07:38 | ECHO ---
HEIGHT: 6 ft 0 in WEIGHT: 262 lb 1.6 oz DATE OF STUDY: 11/09/[address]: Haider Zapata NP 2-DIMENSIONAL: YES M.MODE: YES DOPPLER: YES COLOR FLOW: YES TDS: YES PORTABLE: YES DEFINITY: NO BUBBLE STUDY: NO DIAGNOSIS: DYSPNEA CARDIAC HISTORY: CATHERIZATION: SURGERY: PROSTHETIC VALVE: PACEMAKER: MEASUREMENTS (cm) DIASTOLIC (NORMALS) SYSTOLIC (NORMALS) IVSd 1.1 (0.6-1.2) LA Diam 3.4 (1.9-4.0) LVEF 74% LVIDd 4.4 (3.5-5.7) LVIDs 2.5 (2.0-3.5) %FS 42% LVPWd 1.2 (0.6-1.2) Ao Diam 2.7 (2.0-3.7) 2 DIMENSIONAL ASSESSMENT: RIGHT ATRIUM: NOT SEEN WELL LEFT ATRIUM: NORMAL RIGHT VENTRICLE: NORMAL LEFT VENTRICLE: NORMAL TRICUSPID VALVE: NOT SEEN WELL MITRAL VALVE: NORMAL PULMONIC VALVE: NOT SEEN WELL AORTIC VALVE: NORMAL PERICARDIAL EFFUSION: NONE AORTIC ROOT: NORMAL LEFT VENTRICULAR WALL MOTION: APPEARS NORMAL DOPPLER/COLOR FLOW: SEE BELOW COMMENTS: 1. VERY POOR WINDOWS. 2. LEFT VENTRICULAR EJECTION FRACTION APPEARS NORMAL >60%. TECHNOLOGIST: Marcus JOHNSON
[2022-11-10 07:50] LABS: Absolute Lymphocytes (CBC) 3.4 K/uL (0.7-4.9); Hematocrit 41.2 % (39.6-49.0); MCV 95.3 fL (80-100); MPV 9.6 fL (7.6-11.3); RBC Red Blood Cell Count 4.32 M/uL (4.33-5.43)
[2022-11-10 08:16] LABS: Potassium 4.1 mmol/L (3.5-5.1)
[2022-11-10] MEDS: ENOXAPARIN 40 MG/0.4 ML SQ SCH (08:27)
[2022-11-10] MEDS: SPIRONOLACTONE 25 MG TABLET PO SCH ×2 (08:27→22:00)
[2022-11-10] MEDS: FUROSEMIDE 40 MG/4 ML VIAL IV SCH (08:27)
[2022-11-10] MEDS: DULERA 200/5 (MOMETASONE/FORMOTEROL) INHALER IH SCH ×2 (08:27→22:01)
[2022-11-10] MEDS: predniSONE 10 MG TAB PO SCH ×2 (08:27→21:00)
--- NOTE | 2022-11-10 13:51 | RAD REPORT ---
EXAM DESCRIPTION: NM - Vent Perfusion VQ Scan - 11/10/2022 1:34 pm CLINICAL HISTORY: RO PE Chest pain, shortness of breath COMPARISON: Thorax Wo Con dated 12/25/2020 TECHNIQUE: 20.4mCi Xe-133 gas inhaled and 7.6mCi Tc-MAA IV. Planar ventilation scan was performed in posterior projection after Xe-133 gas inhalation (wash-in, e quilibrium, and wash-out phases) followed by perfusion scan with Tc-MAA IV in multiple projections. Examination is correlated with recent chest radiograph. FINDINGS: Normal ventilation with appropriate wash-out and no significant air-trapping. There are several defects noted peripherally of both lungs compatible with mismatched perfusion defec ts. IMPRESSION: High probability of pulmonary embolism. Findings discussed with Dr. Gomez at 1:47 pm on 11/10/22 by telephone.
[2022-11-10] MEDS ORDERED: DIPHENHYDRAMINE 50 MG/ML VIAL IV PRN (14:53)
[2022-11-10] MEDS ORDERED: DIPHENHYDRAMINE 50 MG/ML VIAL IV ONE (14:58)
[2022-11-10] MEDS ORDERED: METHYLPREDNISOLONE 125 MG INJ IV ONE (14:59)
--- NOTE | 2022-11-10 15:55 | RAD REPORT ---
EXAM DESCRIPTION: CT - Chest For Pe Angio - 11/10/2022 3:47 pm CLINICAL HISTORY: Chest pain. PE COMPARISON: Thorax Wo Con dated 12/25/2020 TECHNIQUE: CT angiogram of the pulmonary arteries was performed with MIP. All CT scans are performed using dose optimization technique as appropriate and may include automated exposure control or mA/KV adjustment according to patient size. FINDINGS: No evidence of pulmonary thromboembolism. No acute aortic finding demonstrated. The lungs are clear. Thyroid gland appears prominent in size. Calcified pleural plaquing is seen on the left. No concerning bony finding. IMPRESSION: No evidence of pulmonary thromboembolism. No acute lung findings.
[2022-11-10] MEDS: METHYLPREDNISOLONE 125 MG INJ IV SCH (22:01)
[2022-11-11] MEDS: IPRATROPIUM BROM 0.5MG/2.5ML NEB SCH ×2 (02:00→08:20)
[2022-11-11] MEDS: METHYLPREDNISOLONE 125 MG INJ IV SCH ×2 (06:47)
[2022-11-11] MEDS: FUROSEMIDE 40 MG/4 ML VIAL IV SCH (08:52)
[2022-11-11] MEDS: ENOXAPARIN 40 MG/0.4 ML SQ SCH (08:52)
[2022-11-11] MEDS: SPIRONOLACTONE 25 MG TABLET PO SCH (08:53)
[2022-11-11] MEDS: DULERA 200/5 (MOMETASONE/FORMOTEROL) INHALER IH SCH (08:53)
[2022-11-11 08:54] VITALS: BP 152/64
[2022-11-11] MEDS: predniSONE 10 MG TAB PO SCH (08:54)
[2022-11-11 08:58] VITALS: TEMP 97.7
--- NOTE | 2022-11-11 21:32 | PN ---
Date of Progress Note: 11/10/2022 Subjective: Seen by bedside. Doing clinically well and diuresing. Review of Systems: No chest pain. Has shortness of breath and wheezing. No nausea, vomiting, or diarrhea. All other s ystems were reviewed, they were negative. Physical Examination: Vital Signs: Reviewed. Head and Neck: Pupils are equal and reactive to light. Intact eye movements. No JVD. No cervical lymphadenopathy. Neck is supple. Thyroid is not enlarged. Lungs: Decreased breathing sounds with faint crackles on the bases. No accessory muscle use or musc le retraction. Heart: Regular rate and rhythm. No extra sounds. Abdomen: Soft, nontender. Bowel sounds positive. No organomegaly. No masses or hernia. No rigidi ty or rebound. Extremities: No clubbing or cyanosis. 2+ pedal edema. Neurologic: Alert, awake, and oriented x3. No acute focal deficits appreciated. Investigations: BUN is 28, creatinine 1.09, and hemoglobin was 13.4. Assessment And Recommendations: 1.Fluid overload, improving. Continue IV diuresis. May be switch by tomorrow to oral diuretics whe re he can be released home. 2.Chronic obstructive pulmonary disease exacerbation. This is stable. SR/MODL Voice ID: [id number] Report ID: [id number]
== END 2022-11-11 10:45 | disposition home or self-care (01) | DRG 192 ==
LOC: ER 18:15 → ERHOLD 21:03 → 4TH 22:27
PROVIDERS: ADMIT Internal Medicine Sleep Medicine; ATTEND Hospitalist
DX: J44.1 Chronic obstructive pulmonary disease with (acute) exacerbation (principal); E87.70 Fluid overload, unspecified; E03.9 Hypothyroidism, unspecified; I10 Essential (primary) hypertension; I27.81 Cor pulmonale (chronic); M10.9 Gout, unspecified; I25.10 Atherosclerotic heart disease of native coronary artery without angina pectoris; Z88.0 Allergy status to penicillin; Z88.5 Allergy status to narcotic agent; Z90.49 Acquired absence of other specified parts of digestive tract; Z91.013 Allergy to seafood; Z91.048 Other nonmedicinal substance allergy status; Z79.890 Hormone replacement therapy; Z79.899 Other long term (current) drug therapy; Z28.310 Unvaccinated for COVID-19; Z87.891 Personal history of nicotine dependence; Z20.822 Contact with and (suspected) exposure to COVID-19
CPT/HCPCS: 36415; 71045; 71275; 78582; 80048; 80076; 82805; 83735; 83880; 84439; 84443; 84484; 85025; 85610; 87040; 87811; 93005; 93306; 94640; 96365; 96366; 96375; 99285; A9540; A9558; J0456; J1100; J1200; J1650; J1940; J2930; J3535; J7050; J7512; J7613; J7644; Q9967

== ENCOUNTER 2023-01-27 02:06 | Observation (INO) | payer OTHER ==
--- OUTSIDE RECORDS SUMMARY | 2023-01-27 02:09 | XMS REPORT | Continuity of Care Document ---
:1965 Author Organization [facility] t Address [address] [facility] [address] [place] [address] Care Team Providers Name Role Phone JENNIFER TRUJILLO Primary Care Physician Unavailable BEAU STAUFFER Attending Clinician Unavailable Shoaib Nguyen MD Attending Clinician SHOAIB NGUYEN Attending Clinician Unavailable Doctor Unassigned, [place] Attending Clinician Unavailable Sally Galicia Attending Clinician Unavailable Sally Galicia Attending Clinician Unavailable Sally Galicia Admitting Clinician Unavailable Problems Condition Condition Condition Status Onset Resolution Last Treating Co mments Source Name Details Category Date Date Treatment Clinician Date No known No known Disease Unive rs active active ity of problems problems [facility] Allergies, Adverse Reactions, Alerts Allergy Allergy Status [...] Univers NE INGREDI 02-25 ity of 00:00: [place] [facility] PENICILL Drug Active Hives Univers INS Class 02-25 ity of 00:00: [facility] SEAFOOD/ Food Active Swelling Univer s FISH 02-25 ity of 00:00: [place] [facility] NO KNOWN Drug Active Univers ALLERGIE Class ity of S [facility] penicill Drug Active [facility] penicill Drug Active [facility] penicill Drug Active [facility] penicill Drug Active [facility] penicill Drug Active . [facility] penicill Drug Active . [facility] penicill Drug Active . [facility] penicill Drug Active . [facility] penicill Drug Active . [facility] penicill Drug Active . [facility] penicill Drug Active . [facility] Social History Social Habit Start Date Stop Date Quantity Comments Source Tobacco use and 2021-02-25 2021-02-25 Never used [facility] exposure 00:00:00 00:00:00 [facility] Sex Ass[birth year] At [birth year] [facility] 00:00:00 00:00:00 [facility] Smoking Status Start Date Stop Date Source Unknown if ever smoked [facility] Never smoker [facility] Medications Ordered Filled Start Stop Current Ordering Indication Dosage Frequency Signature Comments Components Source Medication Medication Date Date Medication? Clinician (SIG) Name Name No known No [facility] medications [facility] No known No [facility] medications [facility] Vital Signs Vital Name Observation Time Observation Value Comments Source Systolic blood 2021-02-25 21:18:00 149 mm[Hg] [facility] [place] Diastolic blood 2021-02-25 21:18:00 96 mm[Hg] [facility] Heart rate 2021-02-25 21:17:00 77 /min [facility] Body weight 2021-02-25 21:17:00 92.987 kg [facility] Oxygen saturation 2021-02-25 21:17:00 97 /min [facility] in Arterial blood Medical Br anch by [...] Procedure Date / Time Performed Performing Clinician [facility] e CONSENT/REFUSAL FOR 2021-02-25 21:01:54 [facility] TREATMENT Encounters Start End Encounter Admission Attending Care Care Encounter Source Date/Time Date/Time Type Type Clinicians Facility Department ID 2022-12-03 2022-12-03 Outpatient AMELIA CISNEROS [id number] [place] 14:59:45 14:59:45 0330 Diana Umanzor 2021-08-21 2021-08-21 Outpatient Ulisses STAUFFER [facility] [id number] Univers 14:30:00 14:30:00 BEAU mo [facility] 2021-04-09 2021-04-09 Outpatient R XIOMY [facility] [id number] Univers 09:00:00 09:00:00 BEAU mo [facility] 2021-02-25 2021-02-25 [id number] Univers 16:02:45 16:30:08 Visit Shoaib Anderson [id number] ity [facility] [id number] [id number] [facility] 2021-02-25 2021-02-25 [facility] [id number] Univers 16:00:00 16:00:00 SHOAIB mo o f [facility] 2021-02-25 2021-02-25 Orders Doctor ALEJANDRA [id number] Univers 00:00:00 00:00:00 Only Unassigned, REILLY [id number] ity of [facility] [id number] [place] [id number] [address] 2019-11-11 2019-11-11 Emergency [facility] [id number] 00:52:00 00:52:00 [facility] 2019-11-11 2019-11-11 Emergency 1 Sally Galicia [facility] [id number] 00:52:00 00:52:00 Sally Galicia -[id number] [facility] Results Test Description Test Time Test Comments Results Result Comments Source Thyroid Stimulating Hormone 2019-11-15 08:34:50 Test Item Value Reference Range Interpretation Comme nts TSH (test code = TSH) 16.180 mIU/mL 0.270-4.200 H Complete Blood Count with [id number] 07:30:28 Test Item Value Reference Range Interpretation [...] code = IPF) 0 % N Automated [id number] 07:30:28 Test Item Value Reference Range Interpretation Comments Neutro Auto (test code = Neutro 46.1 % 36.0-70.0 Auto) Lymph Auto (test code = Lymph Auto) 34.0 % 12.0-44.0 [place] Auto (test code = [place] Auto) 11.2 % 0.0-11.0 H Eos, Auto (test code = Eos, Auto) 7.6 % 0.0-7.0 H Basophil Auto (test code = Basophil 0.4 % 0.0-2.0 Auto) Neutro Absolute (test code = Neutro 3.8 x10 1.6-7.4 Absolute) Lymph Absolute (test code = Lymph 2.79 x10 .50-4.60 Absolute) [place] Absolute (test code = [place] .92 x10 .00-1.20 Absolute) Eos Absolute (test code = Eos 0.62 x10 0.00-0.74 Absolute) Baso Absolute (test code = Baso 0.03 x10 0.00-0.21 Absolute) IG [id number] 07:30:28 Test Item Value Reference Range Interpretation Comments IG (test code = IG) 0.7 % 0.0-5.0 IG Abs (test code = IG Abs) 0 x10 N RPR [id number] 05:28:06 Test Item Value Reference Range Interpretation Comments RPR Qual (test code = RPR Qual) Non-Reactive Non-Reactive Reactive Control (test code = Reactive Reactive Control) Weak Reactive Control (test Weak Reactive code = Weak Reactive Control) Non-Reactive Control (test code Non-Reactive = Non-Reactive Control) Lot # (test code = Lot #) [id number] Expiration Dt (test code = 09.05.2020 N Expiration Dt) Hemoglobin [id number] 05:16:07 Test Item Value Reference Range Interpretation Comments Hemoglobin A1c (test code 5.4 % 4.8-5.9 No n Diabetic = Hemoglobin A1c) 4.8-5.9%Di abetic <7.0% Lipid [id number] 05:16:07 Test Item Value Reference Range Interpretation Comments Cholesterol Total 133 mg/dL 0-200 RISK OF HE ART (test code = DISEASEPublishe d by Cholesterol Total) [place] [employer] Nida lyte Optimal Borderl ine [...] LDL/HDL Ratio=L DL Calc/HDL Chol Thyroid Stimulating [id number] 05:16:07 Test Item Value Reference Range Interpretation Comments TSH (test code = TSH) 12.450 mIU/mL 0.270-4.200 H Urine Drug [id number] 05:06:35 Test Item Value Reference Range Interpretation [...] if desired . Urinalysis with Microscopic if [id number] 04:50:25 Test Item Value Reference Range Interpretation [...] Micro Ind?) rule GL_SJM_UA_MICRO _IN D IG [id number] 04:01:31 Test Item Value Reference Range Interpretation Comments IG (test code = IG) 0.4 % 0.0-5.0 IG Abs (test code = IG Abs) 0 x10 N Complete Blood Count with [id number] 04:01:30 Test Item Value Reference Range Interpretation [...] code = IPF) 0 % N Automated [id number] 04:01:30 Test Item Value Reference Range Interpretation Comments Neutro Auto (test code = Neutro 62.6 % 36.0-70.0 Auto) Lymph Auto (test code = Lymph Auto) 24.4 % 12.0-44.0 [place] Auto (test code = [place] Auto) 10.8 % 0.0-11.0 Eos, Auto (test code = Eos, Auto) 1.5 % 0.0-7.0 Basophil Auto (test code = Basophil 0.3 % 0.0-2.0 Auto) Neutro Absolute (test code = Neutro 8.1 x10 1.6-7.4 H Absolute) Lymph Absolute (test code = Lymph 3.18 x10 .50-4.60 Absolute) [place] Absolute (test code = [place] 1.41 x10 .00-1.20 H Absolute) Eos Absolute (test code = Eos 0.19 x10 0.00-0.74 Absolute) Baso Absolute (test code = Baso 0.04 x10 0.00-0.21 Absolute) Comprehensive Metabolic [id number] 03:49:38 Test Item Value Reference Range Interpretation [...] A/G 1.8 ratio N Ratio) Comprehensive Metabolic [id number] 03:49:38 Test Item Value Reference Range Interpretation [...] the National Kidney Foundation, http://nkdep.ni h.gov Alcohol [id number] 03:49:38 Test Item Value Reference Range Interpretation Comments Ethanol Level (test <0.00 g/dL 0.00-0.01 Intoxica tyson 0.080 g/dL code = Ethanol or more Level) Ethanol Inst (test <0 N code = Ethanol Inst) Comprehensive Metabolic [id number] 03:49:38 Test Item Value Reference Range Interpretation [...] ag e have not been validated by [facility] MDRD study and should be interpreted wit [...] ag e have not been validated by [facility] MDRD study and should be interpreted wit h caution. eGFR R esult Interpretation: eGFR > or = 60 is in the Normal RangeeGF R < 60 may mean kid elton diseaseeGFR < 1 5 may mean kidney failure Rang es recommended by the National Kidney Foundation, http://nkdep.ni h.gov
[2023-01-27] MEDS ORDERED: METHYLPREDNISOLONE 125 MG INJ ONE (02:28)
[2023-01-27] MEDS ORDERED: ASPIRIN 325 MG TAB ONE (02:29)
[2023-01-27] MEDS ORDERED: CODEINE 30MG/APAP 300MG TAB ONE (03:03)
[2023-01-27] MEDS ORDERED: ALBUTEROL 2.5 MG/3 ML NEB SOL ONE ×2 (03:03→03:53)
[2023-01-27] MEDS ORDERED: AZITHROMYCIN 500 MG INJ IVPB ONE (03:04)
[2023-01-27] MEDS ORDERED: IPRATROPIUM BROM 0.5MG/2.5ML ONE ×2 (03:04→03:53)
[2023-01-27] MEDS ORDERED: NA CHLORIDE 0.9% 250 ML ONE (03:04)
[2023-01-27 03:36] LABS: Absolute Lymphocytes (CBC) 2.1 K/uL (0.7-4.9); Hematocrit 37.3 % (39.6-49.0); Lymphocytes % 19.9 % (15.3-44.8); MCV 98.3 fL (80-100); Protime INR 1.1
[2023-01-27 03:44] LABS: Arterial Blood Carboxyhemoglob 0.8 % (0-1.5); Blood Gas Oxyhemoglobin 97.1 % (94-97); Blood O2 Saturation 99.1 % (92-98.5)
[2023-01-27 03:47] LABS: Albumin 3.2 g/dL (3.4-5.0); Bilirubin Direct 0.1 mg/dL (0-0.2); Bilirubin Indirect, Calculated 0.2 mg/dL (0.2-0.8); Bilirubin Total 0.3 mg/dL (0.2-1.0); Magnesium 2.2 mg/dL (1.6-2.4); Potassium 3.9 mEq/L (3.5-5.1); Protein, Total 7.1 g/dL (6.4-8.2); Troponin High Sensitivity 9.4 pg/mL (<58.9)
--- NOTE | 2023-01-27 04:54 | EKG ---
Test Date: 2023-01-27 Test Time: 02:47:22 Salvage Worker: SANJAY MEASUREMENT RESULTS: Intervals: Rate: 90 SD: 148 QRSD: 72 QT: 356 QTc: 435 [place]: P: 66 SD: 148 QRS: -5 T: 86 INTERPRETIVE STATEMENTS: Normal sinus rhythm Low voltage QRS Septal infarct, age undetermined Abnormal ECG Compared to ECG 11/07/2022 19:18:38 No significant changes Electronically Signed On 01-27-23 04:53:29 CDT by Bogdan Chou
--- NOTE | 2023-01-27 04:55 | ER ---
Nurse's Notes [facility] Name: Codey Morin Jr Age: 57 yrs Sex: Male : 1965 Arrival Date: 01/27/2023 Time: 02:06 Bed 6 Private MD: Diagnosis: COPD/ Chronic obstructive pulmonary disease with (acute) exacerbation;Bilateral lower extremity edema with pitting , dyspnea on exertion. Presentation: 01/27 02:07 Chief complaint: EMS states: He started having shortness of breath about a week ago. Pt kd3 states that he has a history of COPD and there is audible wheezing on exhalation. A\T\A treatment given in route. Wheezing slightly improved. Coronavirus screen: Vaccine status: Patient reports being unvaccinated. Ebola Screen: No symptoms or risks identified at this time. Initial Sepsis Screen: Does the patient meet any 2 criteria? No. Patient's initial sepsis screen is negative. Does the patient have a suspected source of infection? No. Patient's initial sepsis screen is negative. Risk Assessment: Do you want to hurt yourself or someone else? Patient reports no desire to harm self or others. Onset of symptoms was January 27, 2023. 02:07 Method Of Arrival: EMS: [facility] kd3 02:07 Acuity: KAYLIE 3 kd3 Triage Assessment: 02:09 General: Appears ill, Behavior is calm, cooperative. Pain: Denies pain. Cardiovascular: kd3 Patient's skin is warm and dry. Respiratory: Reports shortness of breath at rest Onset: The symptoms/episode began/occurred gradually, the patient has moderate shortness of breath. Historical: - Allergies: 02:09 Demerol; kd3 02:09 Iodine; kd3 02:09 PENICILLINS; kd3 02:09 SEAFOOD; kd3 - PMHx: 02:09 Hypothyroidism; Hypertension; Gout; Diverticulitis; COPD; Arthritis; Asthma; kd3 - Immunization history:: Adult Immunizations up to date. - Social history:: Smoking status: Patient denies any tobacco usage or history of. - Family history:: not pertinent. Screenin:10 [facility] ED Fall Risk Assessment (Adult) History of falling in the last 3 months, kd3 including since admission No falls in past 3 months (0 pts). [facility] ED Fall Risk Assessment (Adult) History of falling in the last 3 months, including since admission No falls in past 3 months (0 pts) Confusion or Disorientation No (0 pts) Intoxicated or Sedated No (0 pts) Impaired Gait No (0 pts) Mobility Assist Device Used No (0 pt) Altered Elimination No (0 pt) Score/Fall Risk Level 0 - 2 = Low Risk Maintained a safe environment. Abuse screen: Denies threats or abuse. Denies injuries from another. Nutritional screening: No deficits noted. Tuberculosis screening: No symptoms or risk factors identified. Assessment: 02:11 Cardiovascular: Rhythm is regular. Respiratory: Airway is patent Respiratory effort is kd3 even, unlabored, Breath sounds with wheezes bilaterally. 03:30 Reassessment: Patient appears in no apparent distress at this time. Patient and/or jb4 family updated on plan of care and expected duration. Pain level reassessed. Patient is alert, oriented x 3, equal unlabored respirations, skin warm/dry/pink. Lab paged again for second set of blood cultures. 04:51 Reassessment: Patient appears in no apparent distress at this time. Patient and/or jb4 family updated on plan of care and expected duration. Pain level reassessed. Patient is alert, oriented x 3, equal unlabored respirations, skin warm/dry/pink. admitting provider at the bedside. 05:32 General: Appears uncomfortable, Behavior is calm, cooperative. Pain: Complains of pain kd3 in chest. Neuro: Level of Consciousness is awake, alert, obeys commands, Oriented to person, place, time, situation. 07:00 Reassessment: Patient appears in no apparent distress at this time. No changes from kc6 previously documented assessment. Patient and/or family updated on plan of care and expected duration. Pain level reassessed. Patient is alert, oriented x 3, equal unlabored respirations, skin warm/dry/pink. 07:20 Reassessment: ATTEMPTED TO CALL REPORT. FLOOR STAFF IN MEETING. bp 07:38 Reassessment: ATTEMPTED TO CALL REPORT. FLOOR STAFF IN STAFF MEETING. bp 08:00 Reassessment: Patient appears in no apparent distress at this time. No changes from kc6 previously documented assessment. Patient and/or family updated on plan of care and expected duration. Pain level reassessed. Patient is alert, oriented x 3, equal unlabored respirations, skin warm/dry/pink. 08:05 Reassessment: ATTEMPTED TO CALL REPORT. STAFF IN READY. bp 08:30 Reassessment: ATTEMPTED TO CALL REPORT, PT NOT ASSIGNED. FLOOR WILL CALL BACK. bp 09:00 Reassessment: Patient appears in no apparent distress at this time. No changes from kc6 previously documented assessment. Patient and/or family updated on plan of care and expected duration. Pain level reassessed. Patient is alert, oriented x 3, equal unlabored respirations, skin warm/dry/pink. 09:15 Reassessment: Patient denies pain at this time. report called to Scarlett French RN on kc6 second floor. Vital Signs: 02:07 BP 144 / 80; Pulse 96; Resp 21; Temp 98.2(O); Pulse Ox 98% on R/A; Weight 109.77 kg; kd3 Height 6 ft. 0 in. ; 03:07 BP 148 / 80; Pulse 92; Resp 22; Pulse Ox 100% on Nebulizer Mask; jb4 04:45 BP 121 / 74; Pulse 107; Resp 22; Pulse Ox 95% on R/A; jb4 09:17 BP 140 / 86; Pulse 96; Resp 17 S; Pulse Ox 96% on R/A; kc6 02:07 Body Mass Index 32.82 (109.77 kg, 182.88 cm) kd3 ED Course: 02:00 Missed attempt(s): 18 gauge in left in right antecubital area. Bleeding controlled, jb4 band aid applied, catheter tip intact. 02:06 Patient arrived in ED. ja2 02:07 Claire Youssef, CRYSTAL is Primary Nurse. kd3 02:09 Triage completed. kd3 02:09 Arm band placed on right wrist. kd3 02:10 Patient has correct armband on for positive identification. Bed in low position. Call kd3 light in reach. Side rails up X2. 02:16 Severo Ansari MD is Attending Physician. sp4 02:45 EKG done, by ED staff, reviewed by Severo Ansari MD. wm 02:49 XRAY CXR (1 view) In Process Unspecified. EDMS 02:54 Inserted saline lock: 20 gauge in left antecubital area, using aseptic technique. Blood kd3 collected. 04:54 Brett Victor MD is Hospitalizing Provider. sp4 05:59 No provider procedures requiring assistance completed. Patient admitted, IV remains in kd3 place. Administered Medications: 02:43 Drug: Aspirin PO 325 mg Route: PO; jb4 05:33 Follow up: Response: No adverse reaction kd3 03:04 Drug: MethylPrednisoLONE IVP 125 mg Route: IVP; Site: left antecubital; jb4 05:33 Follow up: Response: No adverse reaction kd3 03:04 Drug: DuoNeb Nebulize (3:1) (2.5 mg - 0.5 mg) 3 ml Route: Nebulizer; jb4 05:33 Follow up: Response: No adverse reaction kd3 03:04 Drug: Acetaminophen-Codeine PO (300 mg-30 mg) 2 tabs Route: PO; jb4 05:32 Follow up: Response: No adverse reaction; Pain is decreased kd3 04:31 Drug: Zithromax IVPB 500 mg Route: IVPB; Infused Over: 1 hrs; Site: left antecubital; jb4 06:00 Follow up: Response: No adverse reaction; IV Status: Completed infusion kd3 Medication: 02:12 VIS not applicable for this client. kd3 Outcome: 04:55 Decision to Hospitalize by Provider. sp4 05:59 Admitted to ER Hold. Please see [facility] for further documentation. kd3 05:59 Condition: stable 05:59 Discharge instructions given to patient, Instructed on the need for admit, Demonstrated understanding of instructions. 09:47 Patient left the ED. kc6 Signatures: Dispatcher [employer] EDDa Valentine RN RN jb4 Gaurang Willis RN RN bp Marsh, Wendy Carlee David Kyli, RN RN kd3 Anayeli Reeves RN RN kc6 Severo Ansari MD MD sp4
--- NOTE | 2023-01-27 04:56 | EDPHYS ---
Physician Documentation [facility] Name: Codey Morin Jr Age: 57 yrs Sex: Male : 1965 Arrival Date: 01/27/2023 Time: 02:06 Bed 6 Private MD: ED Physician Severo Ansari HPI: 01/27 02:18 This 57 yrs old Male presents to ER via EMS with complaints of Breathing sp4 Difficulty. 04:42 Acute onset of worsening shortness of breath which has been present for the past 2 sp4 weeks associated with history of COPD. Patient reports wheezing and associated cough without fever. Breathing was much worse this morning.. Historical: - Allergies: 02:09 Demerol; kd3 02:09 Iodine; kd3 02:09 PENICILLINS; kd3 02:09 SEAFOOD; kd3 - PMHx: 02:09 Hypothyroidism; Hypertension; Gout; Diverticulitis; COPD; Arthritis; Asthma; kd3 - Immunization history:: Adult Immunizations up to date. - Social history:: Smoking status: Patient denies any tobacco usage or history of. - Family history:: not pertinent. ROS: 04:42 Constitutional: Negative for fever, chills, and weight loss, Eyes: Negative for injury, sp4 pain, redness, and discharge, ENT: Negative for injury, pain, and discharge, Neck: Negative for injury, pain, and swelling, Cardiovascular: Negative for chest pain, palpitations, and edema, Respiratory: Positive for shortness of breath, cough, bilateral wheezing, dyspnea on exertion Abdomen/GI: Negative for abdominal pain, nausea, vomiting, diarrhea, and constipation, Back: Negative for injury and pain, : Negative for injury, bleeding, discharge, and swelling, MS/Extremity: Negative for injury and deformity, Skin: Negative for injury, rash, and discoloration, Neuro: Negative for headache, weakness, numbness, tingling, and seizure, Psych: Negative for depression, anxiety, Allergy/Immunology: Negative for hives, rash, and allergies Endocrine: Negative for neck swelling, polydipsia, polyuria, polyphagia, and weight changes Hematologic/Lymphatic: Negative for swollen nodes, abnormal bleeding, and unusual bruising Exam: 04:42 Constitutional: This is a well developed, well nourished patient who is awake, alert, sp4 and in no acute distress. Head/Face: Normocephalic, atraumatic. Eyes: Pupils equal round and reactive to light, extra-ocular motions intact. Lids and lashes normal. Conjunctiva and sclera are not injected. Cornea within normal limits. Periorbital areas with no swelling, redness, or edema. ENT: Nares patent. No nasal discharge, no septal abnormalities noted. Tympanic membranes are normal and external auditory canals are clear. Oropharynx with no redness, swelling, or masses, exudates, or evidence of obstruction, uvula midline. Mucous membranes moist. Neck: Trachea midline, no thyromegaly or masses palpated, and no cervical lymphadenopathy. Supple, full range of motion without nuchal rigidity, or vertebral point tenderness. No Meningismus. Chest/axilla: Normal chest wall appearance and motion. Nontender with no deformity. No lesions are appreciated. Cardiovascular: Regular rate and rhythm with a normal S1 and S2. No gallops, murmurs, or rubs. Normal PMI, no JVD. No pulse deficits. Respiratory: Lungs have equal breath sounds bilaterally, positive bilateral moderate expiratory wheezing, positive mild retractions, dyspnea, tachypnea, Abdomen/GI: Soft, non-tender, with normal bowel sounds. No distension or tympany. No guarding or rebound. No evidence of tenderness throughout. Back: No spinal tenderness. No costovertebral tenderness. Male : Normal genitalia with no discharge or lesions. Skin: Warm, dry with normal turgor. Normal color with no rashes, no lesions, and no evidence of cellulitis. MS/ Extremity: Pulses equal, no cyanosis. Neurovascular intact. Full, normal range of motion. Neuro: Awake and alert, GCS 15, oriented to person, place, time, and situation. Cranial nerves II-XII grossly intact. Motor strength 5/5 in all extremities. Sensory grossly intact. Psych: Awake, alert, with orientation to person, place and time. Behavior, mood, and affect are within normal limits 04:42 ECG was reviewed by the Attending Physician. The area a normal sinus rhythm at the rate sp4 of 90. EKG time 0 247. 01/27/2023. Normal sinus rhythm. No ST elevation or depression. No ectopy , overall normal EKG. Vital Signs: 02:07 BP 144 / 80; Pulse 96; Resp 21; Temp 98.2(O); Pulse Ox 98% on R/A; Weight 109.77 kg; kd3 Height 6 ft. 0 in. ; 03:07 BP 148 / 80; Pulse 92; Resp 22; Pulse Ox 100% on Nebulizer Mask; jb4 04:45 BP 121 / 74; Pulse 107; Resp 22; Pulse Ox 95% on R/A; jb4 09:17 BP 140 / 86; Pulse 96; Resp 17 S; Pulse Ox 96% on R/A; kc6 02:07 Body Mass Index 32.82 (109.77 kg, 182.88 cm) kd3 MDM: 02:18 Patient medically screened. sp4 04:42 Differential diagnosis: asthma, Bronchitis CHF exacerbation, Chronic Obstructive sp4 Pulmonary Disease pneumonia, Psychogenic pulmonary edema. Antibiotic administration: Zithromax given IV. Data reviewed: vital signs, nurses notes, old medical records, lab test result(s), CBC, electrolytes, hepatic panel, urinalysis, EKG, radiologic studies, plain films. 04:52 ED course: Patient has history of extensive COPD, not oxygen dependent, hypertension, sp4 hypothyroidism. Last management for COPD was 11/11/2022, patient today presents with persistent wheeze, worsening dyspnea, exacerbation of COPD. Home medications include Benadryl. EpiPen. Medrol Dosepak. Albuterol. Spironolactone. Prednisone. Nebulizer. At this time patient warrants admission for COPD exacerbation.. 01/27 02:17 Order name: BMP; Complete Time: 04:01/27 02:17 Order name: Blood Culture Adult (2) sp4 01/27 02:17 Order name: CBC with Diff; Complete Time: 04:4 01/27 02:17 Order name: CPK; Complete Time: 04:4 01/27 02:17 Order name: Hepatic Function; Complete Time: 04:4 01/27 02:17 Order name: Lipase; Complete Time: 04:01/27 02:17 Order name: Magnesium; Complete Time: 04:4 01/27 02:17 Order name: NT PRO-BNP; Complete Time: 04:4 01/27 02:17 Order name: PT-INR; Complete Time: 04:4 01/27 02:17 Order name: Ptt, Activated; Complete Time: 04:23 01/27 02:17 Order name: Troponin HS; Complete Time: 04:23 01/27 02:17 Order name: ABG 01/27 02:18 Order name: Blood Culture Adult (2) 01/27 02:45 Order name: Lactate w/ 2H reflex if indic.; Complete Time: 04:23 3 01/27 02:17 Order name: XRAY CXR (1 view) 01/27 02:17 Order name: Call RT 01/27 02:17 Order name: EKG; Complete Time: 02:18 01/27 02:17 Order name: Cardiac monitoring; Complete Time: 02:18 01/27 02:17 Order name: EKG - Nurse/Tech; Complete Time: 02:45 01/27 02:17 Order name: IV Saline Lock; Complete Time: 02:44 01/27 02:17 Order name: Labs collected and sent; Complete Time: 02:44 01/27 02:17 Order name: O2 Per Protocol; Complete Time: 02:17 01/27 02:17 Order name: O2 Sat Monitoring; Complete Time: 02:17 EC:42 Rate is 90 beats/min. Rhythm is regular, Normal Sinus Rhythm. QRS [place] is Normal. [place] sp4 interval is normal. QRS interval is normal. T waves are Normal. No ST changes noted. Interpreted by me. Administered Medications: 02:43 Drug: Aspirin PO 325 mg Route: PO; jb4 05:33 Follow up: Response: No adverse reaction kd3 03:04 Drug: MethylPrednisoLONE IVP 125 mg Route: IVP; Site: left antecubital; jb4 05:33 Follow up: Response: No adverse reaction kd3 03:04 Drug: DuoNeb Nebulize (3:1) (2.5 mg - 0.5 mg) 3 ml Route: Nebulizer; jb4 05:33 Follow up: Response: No adverse reaction kd3 03:04 Drug: Acetaminophen-Codeine PO (300 mg-30 mg) 2 tabs Route: PO; jb4 05:32 Follow up: Response: No adverse reaction; Pain is decreased kd3 04:31 Drug: Zithromax IVPB 500 mg Route: IVPB; Infused Over: 1 hrs; Site: left antecubital; jb4 06:00 Follow up: Response: No adverse reaction; IV Status: Completed infusion kd3 Disposition Summary: 01/27/23 04:55 Hospitalization Ordered Hospitalization Status: Inpatient Admission sp4 Provider: Brett Victor sp4 Condition: Stable sp4 Problem: new sp4 Symptoms: have improved sp4 Bed/Room Type: Standard sp4 Location: Telemetry/MedSurg (Inpatient)(01/27/23 07:05) ja1 Room Assignment: 224(01/27/23 07:05) ja1 Diagnosis - COPD/ Chronic obstructive pulmonary disease with (acute) exacerbation sp4 - Bilateral lower extremity edema with pitting , dyspnea on exertion. sp4 Forms: - Medication Reconciliation Form sp4 - SBAR form sp4 Signatures: Dispatcher [employer] EDMS Mabel Wilson RN RN Da Kelley RN RN jb4 Sanchez Dennis RN RN ja1 Claire Youssef RN RN kd3 Severo Ansari MD MD sp4 Corrections: (The following items were deleted from the chart) 04:19 02:18 BLOOD CULTURE*+[id number].BRZ ordered. EDMS EDMS 05:54 04:55 Telemetry/MedSurg (Inpatient) sp4 mw 05:54 04:55 sp4 mw 07:05 05:54 BR ER HOLD mw ja1 07:05 05:54 ERHOLD- mw ja1
--- NOTE | 2023-01-27 05:03 | P.HP ---
Certification for Inpatient Patient admitted to: Observation With expected LOS: <2 Midnights Patient will require the following post-hospital care: None Practitioner: I am a practitioner with admitting privileges, knowledge of patient current condition, hospital course, and medical plan of care. Services: Services provided to patient in accordance with Admission requirements found in Title 42 Section 412.3 of the Code of Federal Regulations Patient History Date of Service: 01/27/23 Reason for admission: COPD exacerbation History of Present Illness: 57-year-old male with history of COPD, hypertension, hypothyroidism, gout presents to the emergency department with chief complaint of shortness of breath. He reports increasing shortness of breath over the course of the last 1 week or so, not getting relief with his rescue inhaler or nebulizer treatments at home. He was evaluated in the emergency department his labs were significant for white blood cell count 10.5 hemoglobin 12.3 hematocrit 37.3 BNP 195 chest x- ray was unremarkable. He was given IV steroids, nebulizer treatments in ED, still with expiratory wheezing, dyspnea. ED provider wishes to admit under observation for COPD exacerbation. Allergies iodine Allergy (Verified 11/08/22 00:02) Unknown ketorolac [From Toradol] Allergy (Verified 11/08/22 00:02) Anaphylaxis meperidine [From Demerol] Allergy (Verified 11/08/22 00:02) Unknown Penicillins Allergy (Verified 11/08/22 00:02) Itching/Hives/Rash seafood Allergy (Intermediate, Uncoded 11/08/22 00:02) Hives/Rash Home Medications: Diphenhydramine [Benadryl*] 25 mg PO Q6HP PRN #30 tab 03/26/16 Epinephrine [Epipen Jr 2-Bradley] 0.15 mg IM PRN PRN #1 ml 03/26/16 Methylprednisolone [Medrol dosepack] 4 mg PO DIRECTED #1 bradley 03/26/16 Albuterol Neb [Proventil 0.083% Neb Soln] 2.5 mg NEB [id number] PRN #60 amp 11/11/22 Ipratropium Neb [Atrovent*] 0.5 mg NEB [id number] #60 amp 11/11/22 Spironolactone [Aldactone*] 25 mg PO BID #60 tab 11/11/22 predniSONE [Deltasone*] 10 mg PO BID #11 tab 11/11/22 Nebulizer 1 each MC DAILY #1 ea 11/13/22 Nebulizer Accessories [Aeroneb Go] 1 each MC DAILY #1 ea 11/13/22 - Past Medical/Surgical History Diabetic: No -: HTN -: GOUT -: COPD -: Hypothyroidism -: cholecysectomy 2004 -: tonsillectomy Psychosocial/ Personal History: Patient lives at home with his family - Family History Mother -: Lung disease, Cancer Father -: Heart disease - Social History Smoking Status: Former smoker Alcohol use: Yes CD- Drugs: No Caffeine use: Yes Place of Residence: Home Review of Systems 10-point ROS is otherwise unremarkable Respiratory: Cough, Shortness of Breath, SOB with Excertion, Wheezing Physical Examination - Physical Exam General: Alert, In no apparent distress, Oriented x3 HEENT: Atraumatic, PERRLA, Mucous membr. moist/pink, EOMI, Sclerae nonicteric Neck: Supple, 2+ carotid pulse no bruit, No LAD, Without JVD or thyroid abnormality Respiratory: Normal air movement, Expiratory wheezes Cardiovascular: No edema, Regular rate/rhythm, Normal S1 S2 Gastrointestinal: Normal bowel sounds, No tenderness Musculoskeletal: No tenderness Integumentary: No rashes Neurological: Normal gait, Normal speech, Normal strength at 5/5 x4 extr, Normal tone, Normal affect Lymphatics: No axilla or inguinal lymphadenopathy - Studies Laboratory Data (last 24 hrs) 01/27/23 02:41: PT 12.1, INR 1.10, APTT 26.4 01/27/23 02:41: WBC 10.50, Hgb 12.3 L, Hct 37.3 L, Plt Count 178 01/27/23 02:41: Sodium 141, Potassium 3.9, BUN 9, Creatinine 1.11, Glucose 121 H, Magnesium 2.2, Total Bilirubin 0.3, AST 9 L, ALT 19, Alkaline Phosphatase 70, Lipase 23 Assessment and Plan - Plan Assessment: COPD exacerbation Hypertension Hypothyroidism Gout Plan: COPD exacerbation Former smokerquit 2010, continue p.o. steroids, ICS, as needed nebulizer treatments. Pulmonology consulted. Daily room air saturations. Hypertension Hypothyroidism Gout Continue home medications. DVT PPX: Lovenox Code status: Full Discharge Plan: Home Plan to discharge in: 24 Hours - Advance Directives Does patient have a Living Will: No Does patient have a Durable POA for Healthcare: No - Code Status/Comfort Care Code Status Assessed: Yes (Full code) Critical Care: No Time Spent Managing Pts Care (In Minutes): 55
[2023-01-27] MEDS ORDERED: ALBUTEROL 2.5 MG/3 ML NEB SOL NEB PRN ×2 (05:43→14:00)
[2023-01-27] MEDS ORDERED: IPRATROPIUM BROM 0.5MG/2.5ML NEB PRN (05:43)
[2023-01-27] MEDS ORDERED: ONDANSETRON 4 MG/2 ML VIAL IV PRN (05:43)
[2023-01-27] MEDS ORDERED: BENZONATATE 100 MG CAP PO PRN (05:43)
[2023-01-27] MEDS ORDERED: ACETAMINOPHEN 500 MG TAB PO PRN (05:43)
[2023-01-27 05:53] VITALS: BMI 4725.7
[2023-01-27] MEDS ORDERED: predniSONE 20 MG TAB PO SCH (08:00)
[2023-01-27] MEDS ORDERED: POTASSIUM CL SA 10 MEQ TAB PO ONE (09:00)
[2023-01-27] MEDS ORDERED: DULERA 200/5 (MOMETASONE/FORMOTEROL) INHALER IH SCH (09:00)
[2023-01-27] MEDS ORDERED: ENOXAPARIN 40 MG/0.4 ML SQ SCH (09:00)
[2023-01-27 09:57] VITALS: O2SAT 96
--- NOTE | 2023-01-27 11:58 | P.SSS ---
Patient History Date of Service: 01/27/23 Reason for admission: COPD exacerbation Allergies iodine Allergy (Verified 01/27/23 09:56) Unknown ketorolac [From Toradol] Allergy (Verified 01/27/23 09:56) Anaphylaxis meperidine [From Demerol] Allergy (Verified 01/27/23 09:56) Unknown Penicillins Allergy (Verified 01/27/23 09:56) Itching/Hives/Rash seafood Allergy (Intermediate, Uncoded 01/27/23 09:56) Hives/Rash Home Medications: Diphenhydramine [Benadryl*] 25 mg PO Q6HP PRN #30 tab 03/26/16 Epinephrine [Epipen Jr 2-Bradley] 0.15 mg IM PRN PRN #1 ml 03/26/16 Methylprednisolone [Medrol dosepack] 4 mg PO DIRECTED #1 bradley 03/26/16 Albuterol Neb [Proventil 0.083% Neb Soln] 2.5 mg NEB [id number] PRN #60 amp 11/11/22 Ipratropium Neb [Atrovent*] 0.5 mg NEB [id number] #60 amp 11/11/22 Spironolactone [Aldactone*] 25 mg PO BID #60 tab 11/11/22 Nebulizer 1 each MC DAILY #1 ea 11/13/22 Nebulizer Accessories [Aeroneb Go] 1 each MC DAILY #1 ea 11/13/22 Dextromethorphan HBr 15 mg PO TID PRN #30 cap 01/27/23 predniSONE [Prednisone*] 20 mg PO DAILY 5 Days #5 tab 01/27/23 - Past Medical/Surgical History Has patient received pneumonia vaccine in the past: Yes Diabetic: No -: HTN -: GOUT -: COPD -: Hypothyroidism -: cholecysectomy 2004 -: tonsillectomy Psychosocial/ Personal History: Patient lives at home with his family - Family History Mother -: Lung disease, Cancer Father -: Heart disease - Social History Smoking Status: Former smoker Alcohol use: Yes CD- Drugs: No Caffeine use: Yes Place of Residence: Home Review of Systems Respiratory: Cough, Shortness of Breath Physical Examination - Vital Signs Temperature: 96.7 F Blood Pressure: 140/86 Pulse: 96 Respirations: 17 Pulse Ox (%): 97 - Physical Exam General: Alert, Oriented x3 HEENT: Atraumatic, Normocephalic Neck: Supple Respiratory: Expiratory wheezes Cardiovascular: Regular rate/rhythm, Normal S1 S2 Neurological: Normal speech - Studies Laboratory Data (last 24 hrs) 01/27/23 02:41: PT 12.1, INR 1.10, APTT 26.4 01/27/23 02:41: WBC 10.50, Hgb 12.3 L, Hct 37.3 L, Plt Count 178 01/27/23 02:41: Sodium 141, Potassium 3.9, BUN 9, Creatinine 1.11, Glucose 121 H, Magnesium 2.2, Total Bilirubin 0.3, AST 9 L, ALT 19, Alkaline Phosphatase 70, Lipase 23 Microbiology Data (last 24 hrs): 01/27/23 04:23 Blood - Blood Anaerobic Blood Culture - Final Treatment Summary: Patient was kept on observation for COPD exacerbation and he received a dose of azithromycin, steroid and breathing treatment. He improved significantly and was having less work of breathing. He was deemed stable for discharge after brief period of observation to follow-up with pulmonary physician Dr. Lisandro Watts on outpatient basis. He will complete a course of oral steroid and be on as needed cough mixture. - Disposition Disposition: ROUTINE DISCHARGE Condition: GOOD
[2023-01-27] MEDS ORDERED: IPRATROPIUM BROM 0.5MG/2.5ML NEB SCH (14:00)
[2023-01-27 14:24] VITALS: BP 135/75; TEMP 97.3
--- NOTE | 2023-01-28 22:29 | RAD REPORT ---
EXAM DESCRIPTION: RAD - Chest Single View - 01/27/2023 2:47 am CLINICAL HISTORY: CHEST PAIN COMPARISON: None. TECHNIQUE: XR CHEST 1 VIEW 01/27/2023 2:17 AM CDT FINDINGS: Cardiac silhouette is normal in size. Lungs are clear without consolidation, atelectasis, mass or edema. There is no pleural effusion. There is no pneumothorax. There are no acute osseous fin dings. IMPRESSION: Clear lungs. Electronically signed by: Den Chan MD 01/27/2023 3:08 AM CDT Due to temporary technical issues with the PACS/Fluency reporting system, reports are being signed by the in house radiologists without review as a courtesy to insure prompt reporting. The interpreting radiologist is fully responsible for the content of the report.
== END 2023-01-27 15:08 | disposition home or self-care (01) ==
LOC: ER 02:06 → ERHOLD 04:57 → 2ND 07:59
PROVIDERS: ADMIT Internal Medicine Nephrology; ATTEND Internal Medicine Nephrology
DX: J44.1 Chronic obstructive pulmonary disease with (acute) exacerbation (principal); I10 Essential (primary) hypertension; E03.9 Hypothyroidism, unspecified; M10.9 Gout, unspecified; Z87.891 Personal history of nicotine dependence; Z80.9 Family history of malignant neoplasm, unspecified; Z83.6 Family history of other diseases of the respiratory system
CPT/HCPCS: 93005; 87040 ×2; 85025; 80048; 36415; 83735; 82550; 85610; 80076; 83605; 85730; 84484; 83690; 83880; 71045; 94640; 82805; J7512; J3535; J7613 ×2; J7644 ×3; J1650; J2930; J7050; G0378

== ENCOUNTER 2025-01-24 02:02 | Emergency (ER) | payer OTHER, SELFPAY ==
--- OUTSIDE RECORDS SUMMARY | 2025-01-24 02:05 | XMS REPORT | Continuity of Care Document ---
Author Name Unknown Address [address] [facility] [address] [place] [address] [facility] Address [address] [facility] [address] [place] [address] Care Team Providers Care Tester Compressed Gases Name Role Phone ALTON SUAREZ Primary Care Physician UnavailSHOAIB Dickson Attending Clinician Unavailable DION GAMING Attending Clinician Unavailable DION GAMING Attending Clinician Unavailable Shoaib Nguyen MD Attending Clinician [phone] Dion Gaming DO Attending Clinician [facility] Attending Clinician UnavailElizabeth Mckeon MD Attending Clinician [phone] ELIZABETH OG Attending Clinician UnavailELIZABETH Mckeon Attending Clinician Unavailbeni isaacs Doctor Unassigned, [place] Attending Clinician U BEAU Suarez Attending Clinician Unavaila Sally Cisneros Attending Clinician Unavailable Sally Galicia Attending Clinician Unavailable Sally Galicia Admitting Clinician Unavailable Payers Payer Name Policy Type Policy Number Effective Date Expirati on Date Source [employer] [id number] 2022 00:00:00 Problems Condition Name Condition Details Condition Category Status Onset Date Resolution Date Last Treatment Date Treating Clinician Comments Source Chronic heart failure with preserved ejection fraction Chronic heart failure with preserved ejection fraction Disease Active 11-16 00:00: 00 [facility] ETTA (obstructi ve sleep apnea) ETTA (obstructi ve sleep apnea) Disease Active 11-16 00:00: 00 [facility] Primary hypertensi on Primary hypertensi on Disease Active 313 00:00: 00 [facility] Obesity (BMI 30-39.9) Obesity (BMI 30-39.9) Disease Active 313 00:00: 00 [facility] Congestive heart failure, unspecifie d HF chronicity , unspecifie d heart failure type Congestive heart failure, unspecifie d HF chronicity , unspecifie d heart failure type Disease Active 2022-09 016 00:00: 00 [facility] No known active problems No known active problems Disease [facility] Allergies, Adverse Reactions, Alerts Allergy Name Allergy Type Status Severity Reaction(s) Onset Date Inactive Date Treating Clinician Comments Source Penicill ins Propensi ty to adverse reaction s Active Hives 02-25 00:00: 00 [facility] Fluticas one Propion- Salmeter ol Propensi ty to adverse reaction s Active Other - See comments 02-25 00:00: 00 Headache [facility] Meperidi ne Propensi ty to adverse reaction s Active Swelling 02-25 00:00: 00 [facility] Penicill ins Propensi ty to adverse reaction s Active Hives 02-25 00:00: 00 [facility] Seafood/ Fish Propensi ty to adverse reaction s Active Swelling 02-25 00:00: 00 Allergic to the iodine [facility] FLUTICAS ONE PROPION- SALMETER OL DRUG Active Hives 02-25 00:00: 00 [facility] MEPERIDI NE DRUG INGREDI Active SOB 02-25 00:00: 00 [facility] PENICILL INS Drug Class Active Hives 02-25 00:00: 00 [facility] SEAFOOD/ FISH Food Active Swelling 02-25 00:00: 00 [facility] penicill ins Drug Active [facility] penicill ins Drug Active [facility] penicill ins Drug Active [facility] penicill ins Drug Active [facility] penicill ins Drug Active [facility] penicill ins Drug Active [facility] penicill ins Drug Active [facility] penicill ins Drug Active [facility] penicill ins Drug Active [facility] NO KNOWN ALLERGIE S Drug Class Active [facility] penicill ins Drug Active [facility] penicill ins Drug Active [facility] Social History Social Habit Start Date Stop Date Quantity Comments Source History of tobacco use Passive smoker [facility] Sexual orientation U [facility] Tobacco use and exposure 2023-09-27 00:00:00 2023-09-27 00:00:00 Smokeless tobacco non-user [facility] History of Social function 2023-06-21 00:00:00 2023-06-21 00:00:00 [facility] Sex Ass[birth year] At 1965 00:00:00 1965 00:00:00 [facility] Smoking Status Start Date Stop Date Source Unknown if ever smoked [facility] Ex-smoker 2023-09-27 00:00:00 2023-09-27 00:00:00 U [facility] Never smoker [facility] Medications Ordered Medication Name Filled Medication Name Start Date Stop Date Current Medication? Ordering Clinician Indication Dosage Frequency Signature (SIG) Comments Components Source sildenafiL 25 mg tablet 11-15 00:00: 00 Yes [facility] albuterol 2.5 mg /3 mL (0.083 %) nebulizer solution 09-27 09:56: 54 09-27 00:00 :00 No Inhalation for 8 Days [facility] budesonide- glycopyr-fo rmoterol (BREZTRI AEROSPHERE) 160-9-4.8 mcg/actuati on HFAA 09-27 00:00: 00 Yes [id number] 2{puff} Inhale 2 Puffs in the morning and 2 Puffs in the evening. [facility] albuterol 2.5 mg /3 mL (0.083 %) nebulizer solution 09-27 00:00: 00 Yes [id number] 2.5mg Inhale 3 mL every 6 (six) hours as needed for Wheezing or Shortness of Breath. [facility] albuterol 90 mcg/actuati on inhaler 09-27 00:00: 00 Yes [id number] 2{puff} Inhale 2 Puffs every 6 (six) hours as needed for Wheezing or Shortness of Breath. [facility] albuterol 2.5 mg /3 mL (0.083 %) nebulizer solution 2022-09 0-16 10:51: 33 Yes Inhalation for 8 Days [facility] empaglifloz in 10 mg tablet 2022-09 016 00:00: 00 Yes 10mg Take 1 tablet by mouth in the morning. [facility] lisinopriL 10 mg tablet 2022-09 0-09 00:00: 00 Yes [facility] spironolact one 25 mg tablet 2022-09 0-06 00:00: 00 Yes [facility] levothyroxi ne 75 mcg tablet 2022-09 0-05 00:00: 00 Yes [facility] Cholecalcif ramon, Vitamin D3, 125 mcg (5,000 unit) capsule 2-08 00:00: 00 Yes 5000U 1 capsule. [facility] albuterol 90 mcg/actuati on inhaler 1 00:00: 00 09-27 00:00 :00 No 1 puff as needed Inhalation every 4 hrs for 90 days [facility] No known medications No Un sybil [facility] No known medications No Un sybil [facility] Immunizations Ordered Immunization Name Filled Immunization Name Date Status Comments Source Influenza High Dose Unknown Completed [facility] Influenza High Dose Unknown Completed [facility] Vital Signs Vital Name Observation Time Observation Value Comments S ource Systolic blood pressure 2023-11-17 18:55:00 124 mm[Hg] [facility] Diastolic blood pressure 2023-11-17 18:55:00 74 mm[Hg] [facility] Heart rate 2023-11-17 18:55:00 74 /min Unive [facility] Body temperature 2023-11-17 18:55:00 36.11 Maye [facility] Body height 2023-11-17 18:55:00 182.9 cm Univ [facility] Body weight 2023-11-17 18:55:00 101.787 kg Univ [facility] BMI 2023-11-17 18:55:00 30.43 kg/m2 Univ [facility] Oxygen saturation in Arterial blood by Pulse oximetry 2023-11-17 18:55:00 98 /min [facility] Systolic blood pressure 2023-09-27 15:11:00 136 mm[Hg] [facility] Diastolic blood pressure 2023-09-27 15:11:00 75 mm[Hg] [facility] Heart rate 2023-09-27 15:11:00 81 /min Unive [facility] Respiratory rate 2023-09-27 15:11:00 18 /min [facility] Body height 2023-09-27 15:11:00 182.9 cm Univ [facility] Body weight 2023-09-27 15:11:00 109.77 kg [facility] BMI 2023-09-27 15:11:00 32.82 kg/m2 Univ [facility] Oxygen saturation in Arterial blood by Pulse oximetry 2023-09-27 15:11:00 99 /min [facility] Systolic blood pressure 2023-06-21 15:49:00 125 mm[Hg] [facility] Diastolic blood pressure 2023-06-21 15:49:00 67 mm[Hg] [facility] Heart rate 2023-06-21 15:49:00 80 /min Unive [facility] Respiratory rate 2023-06-21 15:49:00 19 /min [facility] Body height 2023-06-21 15:49:00 177.8 cm Univ [facility] Body weight 2023-06-21 15:49:00 108.863 kg Univ [facility] BMI 2023-06-21 15:49:00 34.44 kg/m2 Univ [facility] Oxygen saturation in Arterial blood by Pulse oximetry 2023-06-21 15:49:00 97 /min [facility] Systolic blood pressure 2023-06-21 15:49:00 125 mm[Hg] [facility] Diastolic blood pressure 2023-06-21 15:49:00 67 mm[Hg] [facility] Heart rate 2023-06-21 15:49:00 80 /min Unive [facility] Respiratory rate 2023-06-21 15:49:00 19 /min [facility] Body height 2023-06-21 15:49:00 177.8 cm [facility] Body weight 2023-06-21 15:49:00 108.863 kg [facility] BMI 2023-06-21 15:49:00 34.44 kg/m2 [facility] Oxygen saturation in Arterial blood by Pulse oximetry 2023-06-21 15:49:00 97 /min [facility] Systolic blood pressure 2021-02-25 21:18:00 149 mm[Hg] [facility] Diastolic blood pressure 2021-02-25 21:18:00 96 mm[Hg] [facility] Heart rate 2021-02-25 21:17:00 77 /min [facility] 2021-02-25 21:17:00 92.987 kg [facility] Oxygen saturation in Arterial blood by Pulse oximetry 2021-02-25 21:17:00 97 /min [facility] Height/Length Measured 2021-09-23 10:02:11 180.34 cm Weight Dosing 2021-09-23 10:02:11 83.20 kg Height/Length Measured 2021-09-23 09:44:18 180.34 cm Weight Dosing 2021-09-23 09:44:18 83.20 kg Height/Length Measured 2021-09-23 09:42:57 180.34 cm Weight Dosing 2021-09-23 09:42:57 83.20 kg Height/Length Measured 2021-09-23 09:32:08 180.34 cm Weight Dosing 2021-09-23 09:32:08 83.20 kg Height/Length Measured 2021-09-23 09:28:21 180.34 cm Weight Dosing 2021-09-23 09:28:21 83.20 kg Height/Length Measured 2021-09-23 09:27:56 180.34 cm Weight Dosing 2021-09-23 09:27:56 83.20 kg Height/Length Measured 2021-09-23 09:27:48 180.34 cm Weight Dosing 2021-09-23 09:27:48 83.20 kg Height/Length Measured 2021-09-23 09:26:59 180.34 cm Height/Length Measured 2021-09-23 09:26:58 180.34 cm Height/Length Measured 2021-09-23 09:26:57 180.34 cm Height/Length Measured 2021-09-23 09:26:56 180.34 cm Height/Length Measured 2021-09-23 09:26:55 180.34 cm Height/Length Measured 2019-11-11 02:28:04 Procedures Procedure Date / Time Performed Performing Clinician Source SLEEP STUDY DATA REPORT 2023-09-16 06:01:00 Doct or Unassigned, [place] [facility] ASSIGNMENT OF BENEFITS 2023-06-21 15:02:59 Docto r Unassigned, [place] [facility] INSURANCE CORRESPONDENCE 2023-06-02 05:01:00 Doc tor Unassigned, [place] [facility] CONSENT/REFUSAL FOR DIAGNOSIS AND TREATMENT 2021-02-25 21:01:54 Doctor Unassigned, [place] [facility] Encounters Start Date/Time End Date/Time Encounter Type Admission Type Attending Clinicians Care Facility Care Department Encounter ID Source 2024-11-16 14:00:00 2024-11-16 14:00:00 Outpatient SHOAIB CALDWELL [facility] [id number] [facility] 2024-01-06 11:00:00 2024-01-06 11:00:00 Outpatient DION TRISTAN SHIWAN [facility] [id number] [facility] 2023-11-23 13:00:00 2023-11-23 13:00:00 Outpatient R [facility] [id number] [facility] 2023-11-17 14:00:00 2023-11-17 14:13:56 [id number] 2023-11-17 14:00:00 2023-11-17 14:13:56 [facility] [id number] 350.1.13.10 4.2.7.2.686 [id number] [facility] 2023-09-27 09:00:00 2023-09-27 10:00:07 Office Visit Madison Gamingtnenid [facility] [id number] 350.1.13.10 4.2.7.2.686 [id number] [facility] 2023-09-27 09:00:00 2023-09-27 10:00:07 Outpatient R DION GAMING [facility] [id number] [facility] 2023-09-24 00:00:00 2023-09-24 00:00:00 Telephone James [facility] [id number] 350.1.13.10 4.2.7.2.686 [id number] [facility] 2023-09-21 09:20:00 2023-09-21 09:20:00 [facility] [id number] [facility] 2023-09-16 13:00:00 2023-09-16 13:15:00 Scientific Informatics Analyst Visit [facility] Elizabeth Og [facility] [id number] 350.1.13.10 4.2.7.2.686 [id number] [facility] 2023-09-16 13:00:00 2023-09-16 13:00:00 Outpatient R ELIZABETH OG [facility] [id number] [facility] 2023-09-16 00:00:00 2023-09-16 00:00:00 Orders Only Doctor Unassigned, [place] [facility] [id number] 350.1.13.10 4.2.7.2.686 [id number] [facility] 2023-08-05 14:00:00 2023-08-05 14:00:00 Outpatient R MARGARETMYRNA ELIZAB[facility] [id number] [facility] 2023-07-13 09:00:00 2023-07-13 09:00:00 Outpatient R [facility] [id number] [facility] 2023-06-21 10:40:00 2023-06-21 11:11:44 [facility] [id number] [facility] 2023-06-21 10:40:00 2023-06-21 11:11:44 [facility] 1.84.114 350.1.13.10 4.2.7.2.686 [id number] [facility] 2023-06-21 09:20:00 2023-06-21 09:20:00 Out[facility] [id number] [facility] 2023-06-21 00:00:00 2023-06-21 00:00:00 Orders Only Doctor Unassigned, [place] [facility] 1.20.114 350.1.13.10 4.2.7.2.686 [id number] [facility] 2023-06-02 00:00:00 2023-06-02 00:00:00 Orders Only Doctor Unassigned, [place] [facility] 1.20.114 350.1.13.10 4.2.7.2.686 [id number] [facility] 2022-12-03 14:59:45 2022-12-03 14:59:45 Outpatient [facility] [id number] Chin Umanzor 2021-08-21 14:30:00 2021-08-21 14:30:00 Outpatient BEAU FLORES [facility] [id number] [facility] 2021-04-09 09:00:00 2021-04-09 09:00:00 Outpatient BEAU FLORES [facility] [id number] [facility] 2021-02-25 16:02:45 2021-02-25 16:30:08 [facility] [id number] 350.1.13.10 4.2.7.2.686 [id number] [facility] 2021-02-25 16:00:00 2021-02-25 16:00:00 Outpatient SHOAIB CALDWELL [facility] [id number] [facility] 2021-02-25 00:00:00 2021-02-25 00:00:00 Orders Only Doctor Unassigned, [place] [facility] [id number] 350.1.13.10 4.2.7.2.686 [id number] [facility] 2019-11-11 00:52:00 2019-11-11 00:52:00 Emergency [facility] [id number] [facility] 2019-11-11 00:52:00 2019-11-11 00:52:00 Emergency 1 Sally Galicia Amir [facility] [id number] [facility] Results Test Description Test Time Test Comments Results Result Co mments Source Complete Blood Count with [id number] 07:30:28* Test Item Value Reference Range Interpretation Comme nts WBC (test code = WBC) 8.2 x10 4.4-10.5 RBC (test code = RBC) 4.17 x10 4.10-5.70 Hgb (test code = Hgb) 13.4 g/dL 13.4-17.4 Hct (test code = Hct) 42.6 % 38.7-52.0 MCV (test code = MCV) 102.20 fL 80.00-100.00 H MCHC (test code = MCHC) 31.50 g/dL 32.00-37.50 L RDW CV (test code = RDW CV) 12.5 % 11.5-14.5 MCH (test code = MCH) 32.1 pg 27.0-32.5 Platelets (test code = Platelets) 170.0 x10 140.0-440.0 MPV (test code = MPV) 11.8 fL N Slide Review (test code = Slide Review) Auto Auto Result crea tyson by GL_SJM_SLIDE_REV_AUTO nRBC (test code = nRBC) 0 N NRBC Abs (test code = NRBC Abs) 0.00 x10 N IPF (test code = IPF) 0 % N Automated [id number] 07:30:28* Test Item Value Reference Range Interpretation Comme nts Neutro Auto (test code = Shade tro Auto) 46.1 % 36.0-70.0 Lymph Auto (test code = Lymph Auto) 34.0 % 12.0-44.0 Foster Auto (test code = Foster Auto) 11.2 % 0.0-11.0 H Eos, Auto (test code = Eos, Auto) 7.6 % 0.0-7.0 H Basophil Auto (test code = B asophil Auto) 0.4 % 0.0-2.0 Neutro Absolute (test code = Neutro Absolute) 3.8 x10 1.6-7.4 Lymph Absolute (test code = Lymph Absolute) 2.79 x10 .50-4.60 Foster Absolute (test code = M kiera Absolute) .92 x10 .00-1.20 Eos Absolute (test code = Eo s Absolute) 0.62 x10 0.00-0.74 Baso Absolute (test code = B aso Absolute) 0.03 x10 0.00-0.21 IG [id number] 07:30:28* Test Item Value Reference Range Interpretation Comme nts IG (test code = IG) 0.7 % 0.0-5.0 IG Abs (test code = IG Abs) 0 x10 N RPR [id number] 05:28:06* Test Item Value Reference Range Interpretation Comme nts RPR Qual (test code = RPR Qual) Non-Reactive Non-Reactive Reactive Control (test code = Reactive Control) Reactive Weak Reactive Control (test code = Weak Reactive Control) Weak Reactive Non-Reactive Control (test c ode = Non-Reactive Control) Non-Reactive Lot # (test code = Lot #) [id number] N Expiration Dt (test code = Expiration Dt) 09.05.2020 N Hemoglobin [id number] 05:16:07* Test Item Value Reference Range Interpretation Comme nts Hemoglobin A1c (test code = Hemoglobin A1c) 5.4 % 4.8-5.9 Non Diabetic 4.8-5.9%Diabetic <7.0% Lipid [id number] 05:16:07* Test Item Value Reference Range Interpretation Comme nts Cholesterol Total (test code = Cholesterol Total) 133 mg/dL 0-200 RISK OF HEART DISEASEPublished by [place] [employer] Analyte Optimal Borderline Increased RiskCHOL <200 200-239 >240TRIG <150 150-199 >200HDL Male >60 <40HDL Female >60 <50LDL <100 130-159 >160LDL Near optimal is 100-129 Triglycerides (test code = Triglycerides) 71 mg/dL 9-200 HDL (test code = HDL) 55 mg/dL 40-60 LDL (test code = LDL) 64 mg/dL 0-130 The equation being used in this calculation is LDL = (Chol - HDL) - (Trig / 5) VLDL (test code = VLDL) 14 mg/dL 5-40 The equation yumiko ng used in this calculation is VLDL = Trig / 5 Chol/HDL (test code = Chol/HDL) 2.4 ratio 0.0-5.0 LDL/HDL Ratio (test code = LDL/HDL Ratio) 1 N The equati on being used in this calculation is LDL/HDL Ratio=LDL Calc/HDL Chol Thyroid Stimulating [id number] 05:16:07* Test Item Value Reference Range Interpretation Comme nts TSH (test code = TSH) 12.450 mIU/mL 0.270-4.200 H Urine Drug [id number] 05:06:35* Test Item Value Reference Range Interpretation Comme nts Amphetamine Screen Ur (test code = Amphetamine Screen Ur) Negative Negative Barbiturate Screen Ur (test code = Barbiturate Screen Ur) Negative Negative Benzodiazepines Ur (test code = Benzodiazepines Ur) Negative Negative Cocaine Screen Ur (test code = Cocaine Screen Ur) Negative Negative U Methadone Scr (test code = U Methadone Scr) Negative Negative Opiate Screen Ur (test code = Opiate Screen Ur) Negative Negative U PCP Scrn (test code = U PCP Scrn) Negative Negative Cannabinoid Screen Ur (test code = Cannabinoid Screen Ur) Negative Negative U TCA (test code = U TCA) Negative Negative The results of a ll drug screen tests are only preliminary. Clinical consideration and professional judgment should be applied to any drug of abuse test result, particularly when preliminary positive results are obtained. Please order a separate confirmatory test if desired. Urinalysis with Microscopic if [id number] 04:50:25* Test Item Value Reference Range Interpretation Comme nts UA Color (test code = UA Color) YELLO Yellow UA Appear (test code = UA Appear) CLEAR Clear UA pH (test code = UA pH) 5 N UA Spec Grav (test code = UA Spec Grav) 1.019 1.001-1.035 UA Glucose (test code = UA Glucose) NEG Negative UA Ketones (test code = UA Ketones) NEG Negative UA Blood (test code = UA Blood) NEG Negative UA Protein (test code = UA Protein) NEG Negative UA Bili (test code = UA Bili) NEG Negative UA Urobilinogen (test code = UA Urobilinogen) 0.2 mg/dL N UA Nitrite (test code = UA Nitrite) NEG Negative UA Leuk Est (test code = UA Leuk Est) NEG Negative UA Micro Ind? (test code = UA Micro Ind?) Not Indicated Not Indicated Result cre ated by rule GL_SJM_UA_MICRO_IN D IG [id number] 04:01:31* Test Item Value Reference Range Interpretation Comme nts IG (test code = IG) 0.4 % 0.0-5.0 IG Abs (test code = IG Abs) 0 x10 N Complete Blood Count with [id number] 04:01:30* Test Item Value Reference Range Interpretation Comme nts WBC (test code = WBC) 13.0 x10 4.4-10.5 H RBC (test code = RBC) 4.32 x10 4.10-5.70 Hgb (test code = Hgb) 13.8 g/dL 13.4-17.4 Hct (test code = Hct) 43.4 % 38.7-52.0 MCV (test code = MCV) 100.50 fL 80.00-100.00 H MCHC (test code = MCHC) 31.80 g/dL 32.00-37.50 L RDW CV (test code = RDW CV) 12.4 % 11.5-14.5 MCH (test code = MCH) 31.9 pg 27.0-32.5 Platelets (test code = Platelets) 225.0 x10 140.0-440.0 MPV (test code = MPV) 12.1 fL N Slide Review (test code = Slide Review) Auto Auto Result crea tyson by GL_SJM_SLIDE_REV_AUTO nRBC (test code = nRBC) 0 N NRBC Abs (test code = NRBC Abs) 0.00 x10 N IPF (test code = IPF) 0 % N Automated [id number] 04:01:30* Test Item Value Reference Range Interpretation Comme nts Neutro Auto (test code = Shade tro Auto) 62.6 % 36.0-70.0 Lymph Auto (test code = Lymph Auto) 24.4 % 12.0-44.0 Foster Auto (test code = Foster Auto) 10.8 % 0.0-11.0 Eos, Auto (test code = Eos, Auto) 1.5 % 0.0-7.0 Basophil Auto (test code = B asophil Auto) 0.3 % 0.0-2.0 Neutro Absolute (test code = Neutro Absolute) 8.1 x10 1.6-7.4 H Lymph Absolute (test code = Lymph Absolute) 3.18 x10 .50-4.60 Foster Absolute (test code = M kiera Absolute) 1.41 x10 .00-1.20 H Eos Absolute (test code = Eo s Absolute) 0.19 x10 0.00-0.74 Baso Absolute (test code = B aso Absolute) 0.04 x10 0.00-0.21 Comprehensive Metabolic [id number] 03:49:38* Test Item Value Reference Range Interpretation Comme nts Sodium Level (test code = So dium Level) 142.0 mmol/L 135.0-145.0 Potassium Level (test code = Potassium Level) 4.5 mmol/L 3.5-5.1 Chloride Level (test code = Chloride Level) 105 mmol/L 98-105 CO2 (test code = CO2) 25 mmol/L 22-29 Anion Gap (test code = Anion Gap) 12 mmol/L 7-16 BUN (test code = BUN) 18.60 mg/dL 6.00-20.00 Creatinine Level (test code = Creatinine Level) 1.00 mg/dL 0.70-1.20 BUN/Creat Ratio (test code = BUN/Creat Ratio) 19 N Glucose Level (test code = Glucose Level) 92 mg/dL 70-115 Calcium Level (test code = Calcium Level) 9.2 mg/dL 8.3-10.5 Alk Phos (test code = Alk Phos) 66 U/L 40-129 Bilirubin Total (test code = Bilirubin Total) 0.3 mg/dL 0.1-0.9 Albumin Level (test code = Albumin Level) 4.2 g/dL 3.5-5.2 Protein Total (test code = Protein Total) 6.6 g/dL 6.4-8.3 ALT (test code = ALT) 17 U/L 1-41 AST (test code = AST) 19 U/L 1-40 Globulin (test code = Globulin) 2.4 g/dL 2.9-3.1 L A/G Ratio (test code = A/G Ratio) 1.8 ratio N Comprehensive Metabolic [id number] 03:49:38* Test Item Value Reference Range Interpretation Comme nts Sodium Level (test code = Sodium Level) 142.0 mmol/L 135.0-145.0 Potassium Level (test code = Potassium Level) 4.5 mmol/L 3.5-5.1 Chloride Level (test code = Chloride Level) 105 mmol/L 98-105 CO2 (test code = CO2) 25 mmol/L 22-29 Anion Gap (test code = Anion Gap) 12 mmol/L 7-16 BUN (test code = BUN) 18.60 mg/dL 6.00-20.00 Creatinine Level (test code = Creatinine Level) 1.00 mg/dL 0.70-1.20 BUN/Creat Ratio (test code = BUN/Creat Ratio) 19 N Glucose Level (test code = Glucose Level) 92 mg/dL 70-115 Calcium Level (test code = Calcium Level) 9.2 mg/dL 8.3-10.5 Alk Phos (test code = Alk Phos) 66 U/L 40-129 Bilirubin Total (test code = Bilirubin Total) 0.3 mg/dL 0.1-0.9 Albumin Level (test code = Albumin Level) 4.2 g/dL 3.5-5.2 Protein Total (test code = Protein Total) 6.6 g/dL 6.4-8.3 ALT (test code = ALT) 17 U/L 1-41 AST (test code = AST) 19 U/L 1-40 Globulin (test code = Globulin) 2.4 g/dL 2.9-3.1 L A/G Ratio (test code = A/G Ratio) 1.8 ratio N eGFR AA (test code = eGFR AA) >60 mL/min/1.73 m2 N eGFR (estimated Glomerular Filtration Rate) is an estimated value, calculated from the patient's serum creatinine using the MDRD equation. It is NOT the patient's actual GFR. The eGFR provides a more clinically useful measure of kidney disease than serum creatinine alone.This calculation takes sex and race into account, if the information is provided. If the race is not provided, and the patient is -[place]aur[place], multiply by 1.212. If sex is not provided, and the patient is female, multiply by 0.742. Results for patients <18 years of age have not been validated by the MDRD study and should be interpreted with caution. eGFR Result Interpretation:eGFR > or = 60 is in the Normal RangeeGFR < 60 may mean kidney diseaseeGFR < 15 may mean kidney failure Ranges recommended by the National Kidney Foundation, http://nkdep.nih.gov Alcohol [id number] 03:49:38* Test Item Value Reference Range Interpretation Comme nts Ethanol Level (test code = Ethanol Level) <0.00 g/dL 0.00-0.01 Intoxicated 0.08 0 g/dL or more Ethanol Inst (test code = Ethanol Inst) <0 N Comprehensive Metabolic [id number] 03:49:38* Test Item Value Reference Range Interpretation Comme nts Sodium Level (test code = Sodium Level) 142.0 mmol/L 135.0-145.0 Potassium Level (test code = Potassium Level) 4.5 mmol/L 3.5-5.1 Chloride Level (test code = Chloride Level) 105 mmol/L 98-105 CO2 (test code = CO2) 25 mmol/L 22-29 Anion Gap (test code = Anion Gap) 12 mmol/L 7-16 BUN (test code = BUN) 18.60 mg/dL 6.00-20.00 Creatinine Level (test code = Creatinine Level) 1.00 mg/dL 0.70-1.20 BUN/Creat Ratio (test code = BUN/Creat Ratio) 19 N Glucose Level (test code = Glucose Level) 92 mg/dL 70-115 Calcium Level (test code = Calcium Level) 9.2 mg/dL 8.3-10.5 Alk Phos (test code = Alk Phos) 66 U/L 40-129 Bilirubin Total (test code = Bilirubin Total) 0.3 mg/dL 0.1-0.9 Albumin Level (test code = Albumin Level) 4.2 g/dL 3.5-5.2 Protein Total (test code = Protein Total) 6.6 g/dL 6.4-8.3 ALT (test code = ALT) 17 U/L 1-41 AST (test code = AST) 19 U/L 1-40 Globulin (test code = Globulin) 2.4 g/dL 2.9-3.1 L A/G Ratio (test code = A/G Ratio) 1.8 ratio N eGFR AA (test code = eGFR AA) >60 mL/min/1.73 m2 N eGFR (estimated Glomerular Filtration Rate) is an estimated value, calculated from the patient's serum creatinine using the MDRD equation. It is NOT the patient's actual GFR. The eGFR provides a more clinically useful measure of kidney disease than serum creatinine alone.This calculation takes sex and race into account, if the information is provided. If the race is not provided, and the patient is -[place]aur[place], multiply by 1.212. If sex is not provided, and the patient is female, multiply by 0.742. Results for patients <18 years of age have not been validated by the MDRD study and should be interpreted with caution. eGFR Result Interpretation:eGFR > or = 60 is in the Normal RangeeGFR < 60 may mean kidney diseaseeGFR < 15 may mean kidney failure Ranges recommended by the National Kidney Foundation, http://nkdep.nih.gov eGFR Non-AA (test code = eGFR Non-AA) >60.00 mL/min/1.73 m2 N eGFR (estimated Glomerular Filtration Rate) is an estimated value, calculated from the patient's serum creatinine using the MDRD equation. It is NOT the patient's actual GFR. The eGFR provides a more clinically useful measure of kidney disease than serum creatinine alone.This calculation takes sex and race into account, if the information is provided. If the race is not provided, and the patient is -[place], multiply by 1.212. If sex is not provided, and the patient is female, multiply by 0.742. Results for patients <18 years of age have not been validated by the MDRD study and should be interpreted with caution. eGFR Result Interpretation:eGFR > or = 60 is in the Normal RangeeGFR < 60 may mean kidney diseaseeGFR < 15 may mean kidney failure Ranges recommended by the National Kidney Foundation, http://nkdep.nih.gov Notes Date/Time Note Provider Source 2023-09-24 11:11:47 Codey Santiago is a 57 year old male Spouse is returning call and patient is already scheduled to see MD Gaming with pulmonology on 09/27/23. TENER Laura Mederos [facility] 2023-09-24 10:40:31 Images from the original note were not included. Attempted to contact patient with results/recommendations. No vm was set up. Shoaib Nguyen MD P Cardiology Nurse Please make an appointment with sleep clinic Dr. Og for obstructive sleep apnea. QUE [place] MA [facility] 2023-06-21 10:40:00 Addended by: SHOAIB NGUYEN MD on: 06/21/2023 01:11 PM Modules accepted: Orders [facility] 2023-06-21 10:40:00 Addended by: SHOAIB NGUYEN MD on: 09/24/2023 09:28 AM Modules accepted: Orders [facility]
[2025-01-24] MEDS ORDERED: ONDANSETRON 4 MG/2 ML VIAL ONE (02:57)
[2025-01-24] MEDS ORDERED: KETOROLAC 30 MG/ML INJ ONE (02:58)
[2025-01-24] MEDS ORDERED: methocarbamoL 750 MG TAB ONE (02:58)
[2025-01-24] MEDS ORDERED: NA CHLORIDE 0.9% 1,000 ML ONE (02:58)
[2025-01-24 03:16] LABS: Specific Gravity 1.011 (1.005-1.030); Sqamous Epithelial None Seen /HPF (None Seen); Urine Bacteria None Seen /HPF (<20); Urine Bilirubin NEGATIVE (Negative); Urine Blood Negative (Negative); Urine Clarity Clear (Clear); Urine Color Colorless (Yellow); Urine Culture Reflex Order NOT NEEDED; Urine Glucose NEGATIVE (Negative); Urine Ketones NEGATIVE (Negative); Urine Microscopic Reflex YN ORDER UMIC; Urine Nitrite NEGATIVE (Negative); Urine Protein NEGATIVE (Negative); Urine RBC <5 /HPF (None Seen); Urine Urobilinogen Normal (Normal); Urine WBC <5 /HPF (<5); Urine pH 5.5 (5.0-7.0)
[2025-01-24 03:16] LABS: Absolute Basophils 0.1 K/uL (0-0.5); Absolute Eosinophils 0.3 K/uL (0-0.5); Absolute Lymphocytes (CBC) 3.4 K/uL (0.7-4.9); Absolute Monocytes 0.8 K/uL (0.1-1.3); Absolute Neutrophil 5.8 K/uL (1.8-8.0); Basophils % 0.9 % (0-1.3); Eosinophils % 2.8 % (0-4.4); Hematocrit 43.7 % (39.6-49.0); Hemoglobin 14.6 g/dL (13.6-17.9); Lymphocytes % 32.6 % (15.3-44.8); MCH 33.8 pg (27.0-35.0); MCHC 33.4 g/dL (32.0-36.0); MCV 101.4 fL (80-100); MPV 10.4 fL (7.6-11.3); Neutrophils % 55.7 % (41.7-73.7); Platelets 160 thou/uL (152-406); RBC Red Blood Cell Count 4.31 M/uL (4.33-5.43); Red Cell Distribution Width 13.5 % (12.1-15.2)
[2025-01-24 03:26] LABS: Albumin 3.2 g/dL (3.4-5.0); Albumin/Globulin Ratio 0.9 (1.1-1.8); Anion Gap 10.8 mEq/L (5.0-15.0); Bilirubin Total 0.4 mg/dL (0.2-1.0); Globulin 3.4 g/dL (2.3-3.5); Potassium 3.8 mEq/L (3.5-5.1); Protein, Total 6.6 g/dL (6.4-8.2)
--- NOTE | 2025-01-24 04:46 | RAD REPORT ---
EXAM DESCRIPTION: Abdomen Pelvis Wo Contrast CLINICAL HISTORY: ABD PAIN COMPARISON: 10/05/2019 TECHNIQUE: CT of the abdomen and pelvis without IV contrast. Evaluation of the solid organs and vascu lature is suboptimal due to lack of IV contrast. This exam was performed according to our departmental dose-optimization program, which includes automated exposure control, adjustment of the mA and/or kV according to patient size and/or use of iterative reconstruction technique. FINDINGS: Mild motion artifact. Lung Bases: No basilar consolidation. Abdomen: Liver: The liver has normal contour and density. No obvious mass within the limitations of noncontr ast technique. Gallbladder: Surgically absent. Spleen, Pancreas, and Adrenal Glands: The spleen, pancreas, and adrenal glands are unremarkable. Kidneys: The kidneys have normal size without suspicious mass within the limitations of noncontrast t echnique. Nonobstructing left renal calculus. No distal obstructing calculus. Minimal bilateral hydronephrosis. Vasculature: The aorta and IVC have normal caliber and position. Stomach: The stomach and duodenum have normal course. Pelvis: Bowel: No bowel obstruction. Colon diverticulosis. Appendix: Normal appendix. Bladder: Diffuse bladder wall thickening. Reproductive: Prostate gland is mildly enlarged. Other: No free intraperitoneal air. No free fluid or lymphadenopathy. Bones: No destructive bone lesions identified. IMPRESSION: 1. Diffuse bladder wall thickening. This could be due to cystitis or chronic bladder outlet obstruc tion. 2. Minimal bilateral hydronephrosis. No distal obstructing calculus. 3. Nonobstructing left renal calculus. 4. Colon diverticulosis. 5. Mildly enlarged prostate gland. Electronically signed by: Mary Lou Stoll MD 01/24/2025 04:39 AM [facility] Due to temporary technical issues with the [employer] reporting system, reports are being court d by the in-house radiologist without review as a courtesy to ensure prompt reporting the interpreting radiologist is fully responsible for the content of the report. Transcribed Date/Time: 01/24/2025 4:45 AM
--- NOTE | 2025-01-24 05:38 | ER ---
Nurse's Notes [facility] Name: Codey Morin Jr Age: 59 yrs Sex: Male : 1965 Arrival Date: 01/24/2025 Time: 02:02 Bed 7 Private MD: Diagnosis: Acute lower back pain, acute musculoskeletal back pain;Enlarged prostate Presentation: 01/24 02:31 Chief complaint: Patient states: LOWER BACK PAIN FOR 2 WEEKS. PT STATES HE THINKS HE br2 HAS KIDNEY STONE IN HIS "SAC" BECAUSE HE CAN FEEL IT.. FREQ URINATION AND HESITANCY. Coronavirus screen: Client denies travel out of the [place] in the last 14 days. Ebola Screen: Patient denies exposure to infectious person. Initial Sepsis Screen: Does the patient meet any 2 criteria? No. Patient's initial sepsis screen is negative. Does the patient have a suspected source of infection? No. Patient's initial sepsis screen is negative. Risk Assessment: Do you want to hurt yourself or someone else? Patient reports no desire to harm self or others. Onset of symptoms was January 10, 2025. 02:31 Method Of Arrival: Ambulatory br2 02:31 Acuity: KAYLIE 3 br2 Triage Assessment: 02:36 General: Appears uncomfortable, Behavior is calm, cooperative. Pain: Complains of pain br2 in lumbar area, left low back and right low back. : Reports urinary frequency. Historical: - Allergies: 02:36 Demerol; br2 02:36 Iodine; br2 02:36 PENICILLINS; br2 02:36 SEAFOOD; br2 - PMHx: 02:36 Arthritis; Asthma; COPD; Diverticulitis; Gout; Hypertension; Hypothyroidism; br2 - Immunization history:: Adult Immunizations not up to date. - Infectious Disease History:: Denies. - Social history:: Smoking status: Patient reports the use of cigarette tobacco products, smokes one-half pack cigarettes per day, Patient uses alcohol, on a daily basis. admits to "couple of beers" a day. Patient/guardian denies using street drugs. - Family history:: not pertinent. Screenin:43 [facility] ED Fall Risk Assessment (Adult) History of falling in the last 3 months, kd3 including since admission No falls in past 3 months (0 pts) Confusion or Disorientation No (0 pts) Intoxicated or Sedated No (0 pts) Impaired Gait No (0 pts) Mobility Assist Device Used No (0 pt) Altered Elimination No (0 pt) Score/Fall Risk Level 0 - 2 = Low Risk Oriented to surroundings. Abuse screen: Denies threats or abuse. Denies injuries from another. Nutritional screening: No deficits noted. Tuberculosis screening: No symptoms or risk factors identified. Assessment: 03:05 General: Appears in no apparent distress. General: Appears uncomfortable. Pain: km10 Complains of pain in back Pain currently is 5 out of 10 on a pain scale. Aggravated by increased activity. Neuro: Level of Consciousness is awake, alert, Oriented to person, place, time, situation. GI: Bowel sounds present X 4 quads. Abd is soft and non tender X 4 quads. : Reports burning with urination. Musculoskeletal: Reports pain in back. 05:19 Reassessment: No changes from previously documented assessment. Patient and/or family kd3 updated on plan of care and expected duration. Pain level reassessed. Vital Signs: 02:31 BP 148 / 90; Pulse 84; Resp 18; Temp 97(O); Pulse Ox 100% on R/A; Weight 86.18 kg; br2 Height 6 ft. 0 in. ; Pain 5/10; 03:43 BP 152 / 90; Pulse 71; Resp 16; Pulse Ox 100% on R/A; kd3 05:14 BP 137 / 00; Pulse 74; Resp 16; Pulse Ox 100% ; km10 05:19 BP 154 / 97; Pulse 87; Resp 16; Pulse Ox 100% on R/A; kd3 02:31 Body Mass Index 25.77 (86.18 kg, 182.88 cm) br2 02:31 Pain Scale: Adult br2 Peg Coma Score: 20:58 Eye Response: spontaneous(4). Motor Response: obeys commands(6). Verbal Response: sp4 oriented(5). Total: 15. ED Course: 02:05 Patient arrived in ED. jj6 02:19 Felipa Hitchcock, CRYSTAL is Primary Nurse. km10 02:36 Triage completed. br2 02:36 Arm band placed on right wrist. br2 02:48 Severo Ansari MD is Attending Physician. sp4 02:49 Inserted saline lock: 20 gauge in right antecubital area, using aseptic technique. kd3 Blood collected. Flushed with 10 mL NS. 02:54 CBC with Diff Sent. kd3 02:54 CMP Sent. kd3 02:54 Lipase Sent. kd3 02:54 UA Rfx Pankaj Cult if indicated Sent. kd3 03:37 Abdomen In Process Unspecified. EDMS 03:43 No provider procedures requiring assistance completed. kd3 03:44 Patient has correct armband on for positive identification. Provided Education on: kd3 urine sample . 05:44 IV discontinued, intact, bleeding controlled, No redness/swelling at site. Pressure kd3 dressing applied. Administered Medications: 03:03 Drug: Ketorolac IVP 30 mg IVP once Route: IVP; Site: right antecubital; km10 03:04 Drug: Ondansetron IVP 8 mg IVP once; over 2 minutes Route: IVP; Site: right antecubital;km10 03:04 Drug: NS 0.9% IV 1000 ml IV at 1 bolus Per protocol; to be given as a bolus over 60 km10 minutes Route: IV; Rate: 1 bolus; Site: right antecubital; 03:04 Drug: Methocarbamol PO 1500 mg PO once Route: PO; km10 Medication: 03:44 VIS not applicable for this client. kd3 Outcome: 05:37 Discharge ordered by . sp4 05:44 Discharged to home ambulatory, kd3 05:44 Condition: stable 05:44 Discharge instructions given to patient, Instructed on discharge instructions, follow up and referral plans. Demonstrated understanding of instructions, follow-up care, medications, Prescriptions given X 2, 05:45 Patient left the ED. kd3 Signatures: Dispatcher [employer] EDMS Mickie Alvarez jj6 Claire Youssef RN RN kd3 Severo Ansari MD MD sp4 Kalie Yun RN RN br2 Felipa Hitchcock RN RN km10
--- NOTE | 2025-01-24 05:38 | EDPHYS ---
Physician Documentation [facility] Name: Codey Morin Jr Age: 59 yrs Sex: Male : 1965 Arrival Date: 01/24/2025 Time: 02:02 Bed 7 Private MD: ED Physician Severo Ansari HPI: 01/24 02:48 This 59 yrs old Male presents to ER via Ambulatory with complaints of sp4 Possible Kidney Stone. 20:58 59-year-old male presents via bicycle to the emergency department for complaint of sp4 bilateral lower back pain. Patient has history of arthritis, asthma, COPD, tobacco use disorder, diverticulitis, gout, hypertension, hypothyroidism. Patient states he is lifting heavy things in the house while doing house chores.. Historical: - Allergies: 02:36 Demerol; br2 02:36 Iodine; br2 02:36 PENICILLINS; br2 02:36 SEAFOOD; br2 - PMHx: 02:36 Arthritis; Asthma; COPD; Diverticulitis; Gout; Hypertension; Hypothyroidism; br2 - Immunization history:: Adult Immunizations not up to date. - Infectious Disease History:: Denies. - Social history:: Smoking status: Patient reports the use of cigarette tobacco products, smokes one-half pack cigarettes per day, Patient uses alcohol, on a daily basis. admits to "couple of beers" a day. Patient/guardian denies using street drugs. - Family history:: not pertinent. ROS: 20:58 Constitutional: Negative for fever, chills, and weight loss, positive bilateral lower sp4 back pain. 20:58 All other systems are negative, Exam: 20:58 Constitutional: This is a well developed, well nourished patient who is awake, alert, sp4 and in no acute distress. Head/Face: Normocephalic, atraumatic. Eyes: Pupils equal round and reactive to light, extra-ocular motions intact. Lids and lashes normal. Conjunctiva and sclera are not injected. Cornea within normal limits. Periorbital areas with no swelling, redness, or edema. ENT: Nares patent. No nasal discharge, no septal abnormalities noted. Tympanic membranes are normal and external auditory canals are clear. Oropharynx with no redness, swelling, or masses, exudates, or evidence of obstruction, uvula midline. Mucous membranes moist. Neck: Trachea midline, no thyromegaly or masses palpated, and no cervical lymphadenopathy. Supple, full range of motion without nuchal rigidity, or vertebral point tenderness. Chest/axilla: Normal chest wall appearance and motion. Nontender with no deformity. No lesions are appreciated. Cardiovascular: Regular rate and rhythm with a normal S1 and S2. No gallops, murmurs, or rubs. Normal PMI, no JVD. No pulse deficits. Respiratory: Lungs have equal breath sounds bilaterally, clear to auscultation and percussion. No rales, rhonchi or wheezes noted. No increased work of breathing, no retractions or nasal flaring. Abdomen/GI: Soft, with normal bowel sounds. No distension or tympany. No guarding or rebound. No evidence of tenderness throughout. Back: No spinal tenderness. No costovertebral tenderness. Skin: Warm, dry with normal turgor. Normal color with no rashes, no lesions, and no evidence of cellulitis. MS/ Extremity: Pulses equal, no cyanosis. Neurovascular intact. Full, normal range of motion. Neuro: Awake and alert, GCS 15, oriented to person, place, time, and situation. Cranial nerves II-XII grossly intact. Motor strength 5/5 in all extremities. Sensory grossly intact. Psych: Awake, alert, with orientation to person, place and time. Behavior, mood, and affect are within normal limits Vital Signs: 02:31 BP 148 / 90; Pulse 84; Resp 18; Temp 97(O); Pulse Ox 100% on R/A; Weight 86.18 kg; br2 Height 6 ft. 0 in. ; Pain 5/10; 03:43 BP 152 / 90; Pulse 71; Resp 16; Pulse Ox 100% on R/A; kd3 05:14 BP 137 / 00; Pulse 74; Resp 16; Pulse Ox 100% ; km10 05:19 BP 154 / 97; Pulse 87; Resp 16; Pulse Ox 100% on R/A; kd3 02:31 Body Mass Index 25.77 (86.18 kg, 182.88 cm) br2 02:31 Pain Scale: Adult br2 Peg Coma Score: 20:58 Eye Response: spontaneous(4). Motor Response: obeys commands(6). Verbal Response: sp4 oriented(5). Total: 15. MDM: 02:50 Medical Screening Exam initiated sp4 05:29 ED course: EXAM DESCRIPTION: Abdomen Pelvis Wo Contrast CLINICAL HISTORY: ABD PAIN sp4 COMPARISON: 10/05/2019 TECHNIQUE: CT of the abdomen and pelvis without IV contrast. Evaluation of the solid organs and vasculature is suboptimal due to lack of IV contrast. This exam was performed according to our departmental dose-optimization program, which includes automated exposure control, adjustment of the mA and/or kV according to patient size and/or use of iterative reconstruction technique. FINDINGS: Mild motion artifact. Lung Bases: No basilar consolidation. Abdomen: Liver: The liver has normal contour and density. No obvious mass within the limitations of noncontrast technique. Gallbladder: Surgically absent. Spleen, Pancreas, and Adrenal Glands: The spleen, pancreas, and adrenal glands are unremarkable. Kidneys: The kidneys have normal size without suspicious mass within the limitations of noncontrast technique. Nonobstructing left renal calculus. No distal obstructing calculus. Minimal bilateral hydronephrosis. Vasculature: The aorta and IVC have normal caliber and position. Stomach: The stomach and duodenum have normal course. Pelvis: Bowel: No bowel obstruction. Colon diverticulosis. Appendix: Normal appendix. Bladder: Diffuse bladder wall thickening. Reproductive:Prostate gland is mildly enlarged. Other: No free intraperitoneal air. No free fluid or lymphadenopathy. Bones: No destructive bone lesions identified. IMPRESSION: 1. Diffuse bladder wall thickening. This could be due to cystitis or chronic bladder outlet obstruction. 2. Minimal bilateral hydronephrosis. No distal obstructing calculus. 3. Nonobstructing left renal calculus. 4. Colon diverticulosis. 5. Mildly enlarged prostate gland. Electronically signed by: Mary Lou Stoll MD 01/24/2025 04:39 AM CDT. 21:00 Differential diagnosis: diverticulitis, gastritis, Hepatitis, Irritable bowel syndrome, sp4 non-specific abd pain. Data reviewed: vital signs, nurses notes, lab test result(s), radiologic studies, CT scan. Consideration of Admission/Observation Escalation of care including admission/observation considered. ED course: CT has revealed no acute intra-abdominal emergencies. Pain likely secondary to acute back sprain. Will prescribe Robaxin.. 01/24 02:50 Order name: CBC with Diff; Complete Time: 04:15 sp4 01/24 02:50 Order name: CMP; Complete Time: 04:15 sp4 01/24 02:50 Order name: Lipase; Complete Time: 04:15 sp4 01/24 02:53 Order name: UA Rfx Pankaj Cult if indicated; Complete Time: 04:15 km10 01/24 03:28 Order name: Abdomen EDMS 01/24 02:50 Order name: IV Saline Lock; Complete Time: 02:53 sp4 01/24 02:50 Order name: Labs collected and sent; Complete Time: 02:54 sp4 Administered Medications: 03:03 Drug: Ketorolac IVP 30 mg IVP once Route: IVP; Site: right antecubital; km10 03:04 Drug: Ondansetron IVP 8 mg IVP once; over 2 minutes Route: IVP; Site: right antecubital;km10 03:04 Drug: NS 0.9% IV 1000 ml IV at 1 bolus Per protocol; to be given as a bolus over 60 km10 minutes Route: IV; Rate: 1 bolus; Site: right antecubital; 03:04 Drug: Methocarbamol PO 1500 mg PO once Route: PO; km10 Disposition: 21:00 Chart complete. sp4 Disposition Summary: 01/24/25 05:37 Discharge Ordered Notes: Location: Home sp4 Problem: new sp4 Symptoms: have improved sp4 Condition: Stable sp4 Diagnosis - Acute lower back pain, acute musculoskeletal back pain sp4 - Enlarged prostate sp4 Followup: sp4 - With: Private Physician - When: As needed - Reason: Recheck today's complaints Discharge Instructions: - Discharge Summary Sheet sp4 - Acute Back Pain, Adult sp4 Forms: - Patient Portal Instructions sp4 Prescriptions: - naproxen 250 mg Oral tablet - take 2 tablet ORAL route 2 times per day PRN pain; 50 tablet; Refills: 0, sp4 Product Selection Permitted - methocarbamol 750 mg Oral tablet - take 2 tablets ORAL route every 8 hours for 3 days PRN back pain; 50 tablet; sp4 Refills: 0, Product Selection Permitted Signatures: Dispatcher [employer] Severo Kruse MD MD sp4 Kalie Yun RN RN br2 Felipa Hitchcock RN RN km10 Corrections: (The following items were deleted from the chart) 03:28 02:50 Abdomen Pelvis W Con+CT.RAD.BRZ ordered. EDMS EDMS
[2025-01-24 06:01] VITALS: TEMP 97; O2SAT 100
[2025-01-24 06:13] VITALS: BP 154/97
== END 2025-01-24 05:45 | disposition home or self-care (01) ==
LOC: ER 02:02
DX: M54.50 Low back pain, unspecified (principal); M54.9 Dorsalgia, unspecified; N40.0 Benign prostatic hyperplasia without lower urinary tract symptoms; F17.210 Nicotine dependence, cigarettes, uncomplicated
CPT/HCPCS: 85025; 81001; 36415; 83690; 80053; 74176; J2405; J7030

== ENCOUNTER 2025-04-06 13:20 | Inpatient (IN) | payer OTHER ==
--- NOTE | 2025-04-06 13:42 | ER ---
Nurse's Notes [facility] Name: Codey Morin Jr Age: 59 yrs Sex: Male : 1965 Arrival Date: 04/06/2025 Time: 13:20 Bed 20 Private MD: Diagnosis: COPD/ Chronic obstructive pulmonary disease with (acute) exacerbation Presentation: 04/06 13:26 Chief complaint: EMS states: toned out to [employer] for sob. On arrival patient was sob me1 w/labored breathing and wheezing. o2 sat was 97% on room air. Given A\T\A neb tx with some relief. Was seen here a few days ago for sob and given steroids and antibiotics. Coronavirus screen: Vaccine status: Patient reports being unvaccinated. Ebola Screen: No symptoms or risks identified at this time. Initial Sepsis Screen: Does the patient meet any 2 criteria? No. Patient's initial sepsis screen is negative. Does the patient have a suspected source of infection? No. Patient's initial sepsis screen is negative. Risk Assessment: Do you want to hurt yourself or someone else? Patient reports no desire to harm self or others. Onset of symptoms is unknown. 13:26 Method Of Arrival: EMS: [facility] [place] 13:26 Acuity: KAYLIE 3 me1 Triage Assessment: 13:29 General: Appears in no apparent distress. well groomed, well developed, well nourished, me1 Behavior is calm, cooperative, appropriate for age, Reports sob. Pain: Denies pain. EENT: No signs and/or symptoms were reported regarding the EENT system. Neuro: Level of Consciousness is awake, alert, obeys commands, Oriented to person, place, time, situation, Appropriate for age. Cardiovascular: Patient's skin is warm and dry. Respiratory: Reports shortness of breath at rest on exertion cough that is persistent Onset: The symptoms/episode began/occurred just prior to arrival, the patient has moderate shortness of breath. Respiratory: Reports Breath sounds are diminished bilaterally. Breath sounds with wheezes. GI: No signs and/or symptoms were reported involving the gastrointestinal system. : No signs and/or symptoms were reported regarding the genitourinary system. Derm: Skin is intact, is healthy with good turgor, Skin is pink, warm \T\ dry. Musculoskeletal: No signs and/or symptoms reported regarding the musculoskeletal system. Circulation, motion, and sensation intact. Range of motion: intact in all extremities. Historical: - Allergies: 13:29 Demerol; me1 13:29 Iodine; me1 13:29 PENICILLINS; me1 13:29 SEAFOOD; me1 - PMHx: 13:29 Arthritis; COPD; Asthma; Diverticulitis; Gout; Hypertension; Hypothyroidism; Congestive me1 heart failure; - PSHx: 13:29 Cholecystectomy; Tonsillectomy; me1 - Immunization history:: Adult Immunizations up to date. - Infectious Disease History:: Denies. - Social history:: Smoking status: Patient reports the use of cigarette tobacco products, denies chronic smoking, but will smoke occasionally, Reported history of juuling and/or vaping. Screenin:32 [facility] ED Fall Risk Assessment (Adult) History of falling in the last 3 months, me1 including since admission No falls in past 3 months (0 pts) Confusion or Disorientation No (0 pts) Intoxicated or Sedated No (0 pts) Impaired Gait No (0 pts) Mobility Assist Device Used No (0 pt) Altered Elimination No (0 pt) Score/Fall Risk Level 0 - 2 = Low Risk Maintained a safe environment, Provided non-skid footwear, Hourly rounding (assess needs \T\ fall precautionary measures) done. Abuse screen: Denies threats or abuse. Nutritional screening: No deficits noted. Tuberculosis screening: No symptoms or risk factors identified. Assessment: 13:32 Reassessment: See triage assessment. me1 13:32 Cardiovascular: Patient's skin is warm and dry. Rhythm is sinus rhythm with PACs. me1 17:30 Respiratory: Airway is patent Respiratory effort is even, unlabored, Respiratory me1 pattern is regular, symmetrical. Vital Signs: 13:26 BP 139 / 72; Pulse 85; Resp 20; Temp 98.2; Pulse Ox 98% on R/A; Weight 81.65 kg; Height me1 6 ft. 0 in. ; Pain 0/10; 14:00 BP 133 / 82; Pulse 75; Resp 22; Pulse Ox 96% on R/A; me1 15:00 BP 131 / 83; Pulse 62; Resp 16; Pulse Ox 97% ; me1 16:00 BP 131 / 88; Pulse 74; Resp 21; Pulse Ox 97% on R/A; me1 16:46 BP 127 / 80; Pulse 79; Resp 22; Pulse Ox 100% on R/A; me1 13:26 Body Mass Index 24.41 (81.65 kg, 182.88 cm) me1 13:26 Pain Scale: Adult or1 ED Course: 13:22 Patient arrived in ED. me1 13:29 Triage completed. me1 13:29 Arm band placed on Patient placed in an exam room. me1 13:30 Danika Cadena PA-C is PHCP. sb4 13:30 Azeem Burger MD is Attending Physician. sb4 13:32 Patient has correct armband on for positive identification. Bed in low position. Call me1 light in reach. Side rails up X2. Provided Education on: POC. Verbalized understanding. . Client placed on continuous cardiac and pulse oximetry monitoring. NIBP monitoring applied. night monitor on. Pulse ox on. NIBP on. 13:32 No provider procedures requiring assistance completed. me1 13:32 Patient admitted, IV remains in place. me1 13:41 Toño Gale MD is Hospitalizing Provider. sb4 13:41 Hospitalizing Provider role handed off by Toño Gale MD sb4 13:41 Harry Gale MD is Hospitalizing Provider. sb4 13:43 Latisha Garcia, CRYSTAL is Primary Nurse. me1 14:14 Initial lab(s) drawn, by ED staff, sent to lab. First set of blood cultures drawn by ED or1 staff. 14:15 BNP Sent. me1 14:15 Blood Culture Adult (2) Sent. me1 14:15 CBC with Diff Sent. me1 14:15 CMP Sent. me1 14:15 Lactate w/ 2H reflex if indic. Sent. me1 14:15 Protime (+inr) Sent. me1 14:15 Ptt, Activated Sent. me1 14:15 Troponin HS Sent. me1 14:16 EKG done, by ED staff, reviewed by Danika Cadena PA-C. me1 14:24 Inserted saline lock: 20 gauge in right antecubital area, using aseptic technique. me1 14:35 Chest Single View XRAY In Process Unspecified. EDMS 14:42 Second set of blood cultures drawn. me1 15:05 Prince Gupta MD is Hospitalizing Provider. sb4 Administered Medications: 14:25 Drug: MethylPrednisoLONE IVP 125 mg IVP once Route: IVP; Site: right antecubital; me1 14:41 Follow up: Response: No adverse reaction me1 14:25 Drug: levofloxacin IVPB 750 mg 150 ml IVPB once over 90 mins Volume: 150 ml; Route: me1 IVPB; Infused Over: 90 mins; Site: right antecubital; 16:47 Follow up: Response: No adverse reaction; IV Status: Completed infusion me1 Medication: 13:32 VIS not applicable for this client. me1 Outcome: 13:41 Decision to Hospitalize by Provider. sb4 17:25 Patient left the ED. bc6 17:25 Admitted to Med/surg accompanied by tech, via wheelchair, room 228, with chart, Report me1 called to tubed up by Cristy charge nurse. 17:25 Condition: stable 17:25 Instructed on the need for admit, Signatures: Dispatcher [employer] Danika Blum PA-C PA-C 4 Victorina Engel 6 Latisha Garcia, RN RN me1
--- NOTE | 2025-04-06 13:42 | EDPHYS ---
Physician Documentation [facility] Name: Codey Morin Jr Age: 59 yrs Sex: Male : 1965 Arrival Date: 04/06/2025 Time: 13:20 Bed 20 Private MD: ED Physician Azeem Burger HPI: 04/06 14:21 This 59 yrs old Male presents to ER via EMS with complaints of Shortness Of Breath. sb4 14:21 Patient reports difficulty breathing. Has a history of COPD. Was seen here 4 days ago sb4 with a COPD exacerbation by me, was discharged with prednisone, Levaquin, and a rescue inhaler. Was unable to fill his medications due to financial reasons, states that his symptoms have worsened. Called EMS for assistance, they reported significant wheezing and labored breathing and administered a breathing treatment which did improve his symptoms. Historical: - Allergies: 13:29 Demerol; me1 13:29 Iodine; me1 13:29 PENICILLINS; me1 13:29 SEAFOOD; me1 - PMHx: 13:29 Arthritis; COPD; Asthma; Diverticulitis; Gout; Hypertension; Hypothyroidism; Congestive me1 heart failure; - PSHx: 13:29 Cholecystectomy; Tonsillectomy; me1 - Immunization history:: Adult Immunizations up to date. - Infectious Disease History:: Denies. - Social history:: Smoking status: Patient reports the use of cigarette tobacco products, denies chronic smoking, but will smoke occasionally, Reported history of juuling and/or vaping. ROS: 14:21 Constitutional: Negative for fever, chills, and weight loss, sb4 14:21 Respiratory: Positive for cough, dyspnea on exertion, shortness of breath, wheezing, 14:21 All other systems are negative, Exam: 14:21 Head/Face: Normocephalic, atraumatic. Eyes: Extra-ocular motions intact. Periorbital sb4 areas with no swelling, redness, or edema. ENT: Mucous membranes moist. Cardiovascular: Regular rate and rhythm with a normal S1 and S2. Skin: Warm, dry with normal turgor. Normal color with no rashes, no lesions, and no evidence of cellulitis. 14:21 Constitutional: The patient appears alert, awake, in obvious distress, mildly distressed, 14:21 Respiratory: Respirations: labored breathing, that is mild, Breath sounds: rhonchi, that are moderate, are heard diffusely, Vital Signs: 13:26 BP 139 / 72; Pulse 85; Resp 20; Temp 98.2; Pulse Ox 98% on R/A; Weight 81.65 kg; Height me1 6 ft. 0 in. ; Pain 0/10; 14:00 BP 133 / 82; Pulse 75; Resp 22; Pulse Ox 96% on R/A; me1 15:00 BP 131 / 83; Pulse 62; Resp 16; Pulse Ox 97% ; me1 16:00 BP 131 / 88; Pulse 74; Resp 21; Pulse Ox 97% on R/A; me1 16:46 BP 127 / 80; Pulse 79; Resp 22; Pulse Ox 100% on R/A; me1 13:26 Body Mass Index 24.41 (81.65 kg, 182.88 cm) me1 13:26 Pain Scale: Adult me1 MDM: 13:31 Medical Screening Exam initiated sb4 14:21 Differential diagnosis: Anemia Anxiety Reaction asthma, Bronchitis CHF exacerbation, sb4 Chronic Obstructive Pulmonary Disease pneumonia, Sepsis. Antibiotic administration: Levaquin given. Data reviewed: vital signs, nurses notes, EMS record, lab test result(s), EKG, radiologic studies, and as a result, I will admit patient. Consideration of Admission/Observation Patient was admitted/placed on observation. Care significantly affected by the following chronic conditions: Hypertension, Congestive Heart Failure, Chronic Obstructive Pulmonary Disease. Care significantly affected by the following Social Determinants of Health: Financial struggle, issue with Social Security check. Counseling: I had a detailed discussion with the patient and/or guardian regarding the historical points, exam findings, and any diagnostic results supporting the discharge/admit diagnosis, the presence of at least one elevated blood pressure reading (>120/80) during this emergency department visit, lab results, radiology results, the need for further work-up and treatment in the hospital. 15:50 Management of patient was discussed with the following: Hospitalist: Svetlana Deng sb4 PAWN BROKER accepts patient for admission. 04/06 13:39 Order name: BNP; Complete Time: 15:05 [facility] 04/06 13:39 Order name: Blood Culture Adult (2) [facility] 04/06 13:39 Order name: CBC with Diff; Complete Time: 14:35 4 04/06 13:39 Order name: CMP; Complete Time: 15:05 sb4 04/06 13:39 Order name: Lactate w/ 2H reflex if indic.; Complete Time: 14:54 sb4 04/06 13:39 Order name: Protime (+inr); Complete Time: 14:42 sb4 04/06 13:39 Order name: Ptt, Activated; Complete Time: 14:42 sb4 04/06 13:39 Order name: Troponin HS; Complete Time: 15:05 sb4 04/06 16:14 Order name: T4 Free EDMS 04/06 16:14 Order name: CBC with Automated Diff EDMS 04/06 16:14 Order name: CBC with Automated Diff EDMS 04/06 16:14 Order name: CBC with Automated Diff EDMS 04/06 16:14 Order name: CBC with Automated Diff EDMS 04/06 16:14 Order name: Comprehensive Metabolic Panel EDMS 04/06 16:14 Order name: Comprehensive Metabolic Panel EDMS 04/06 16:14 Order name: Comprehensive Metabolic Panel EDMS 04/06 16:14 Order name: Comprehensive Metabolic Panel EDMS 04/06 16:14 Order name: Magnesium EDMS 04/06 16:14 Order name: Magnesium EDMS 04/06 16:14 Order name: Magnesium EDMS 04/06 16:14 Order name: Magnesium EDMS 04/06 16:14 Order name: Phosphorus EDMS 04/06 16:14 Order name: Phosphorus EDMS 04/06 16:14 Order name: Phosphorus EDMS 04/06 16:14 Order name: Phosphorus EDMS 04/06 16:14 Order name: Thyroid Stimulating Hormone EDMS 04/06 16:14 Order name: Thyroid Stimulating Hormone EDMS 04/06 13:39 Order name: Chest Single View XRAY; Complete Time: 14:41 sb4 04/06 16:17 Order name: Social Service Consult EDMS 04/06 13:39 Order name: Accucheck; Complete Time: 14:15 sb4 04/06 13:39 Order name: Cardiac monitoring; Complete Time: 14:16 sb4 04/06 13:39 Order name: EKG - Nurse/Tech; Complete Time: 14:16 sb4 04/06 13:39 Order name: IV Saline Lock - Large Bore; Complete Time: 14:15 sb4 04/06 13:39 Order name: Labs collected and sent; Complete Time: 14:15 sb4 04/06 13:39 Order name: O2 Per Protocol; Complete Time: 14:15 sb4 04/06 13:39 Order name: O2 Sat Monitoring; Complete Time: 14:15 sb4 04/06 13:39 Order name: Vital Signs; Complete Time: 14:15 sb4 EC:15 Rate is 73 beats/min. Rhythm is regular, Sinus Rhythm with PACs. [place] interval is normal sb4 at 136 msec. QRS interval is normal at 68 msec. QT interval is normal at 378 msec. No Q waves. Clinical impression: No evidence of ischemia. Interpreted by me. Reviewed by me. Administered Medications: 14:25 Drug: MethylPrednisoLONE IVP 125 mg IVP once Route: IVP; Site: right antecubital; me1 14:41 Follow up: Response: No adverse reaction me1 14:25 Drug: levofloxacin IVPB 750 mg 150 ml IVPB once over 90 mins Volume: 150 ml; Route: me1 IVPB; Infused Over: 90 mins; Site: right antecubital; 16:47 Follow up: Response: No adverse reaction; IV Status: Completed infusion me1 Disposition Summary: 04/06/25 13:41 Hospitalization Ordered Notes: Hospitalization Status: Inpatient Admission sb4 Location: Telemetry/MedSurg (Inpatient) sb4 Condition: Fair sb4 Problem: an acute exacerbation sb4 Symptoms: have improved sb4 Bed/Room Type: Standard sb4 Provider: Prince Candy(04/06/25 15:05) sb4 Room Assignment: [facility](04/06/25 16:18) Diagnosis - COPD/ Chronic obstructive pulmonary disease with (acute) exacerbation sb4 Forms: - Medication Reconciliation Form sb4 - SBAR form sb4 - Leadership Thank You Letter sb4 Addendum: 04/12/2025 15:46 Co-signature as Attending Physician, Azeem Burger MD I agree with the assessment and c garrett plan of care. Signatures: Dispatcher [employer] Azeem Arora MD MD cha Botello, Elizabeth eb Brown, Sophia, PA-C PACarloC sb4 Latisha Garcia, CRYSTAL RN me1 Corrections: (The following items were deleted from the chart) 04/06 13:40 13:40 PROBNP+C.LAB.BRZ ordered. EDMS EDMS 13:40 13:40 BLOOD CULTURE*+BA.LAB.BRZ ordered. EDMS EDMS 13:40 13:40 CBC+H.LAB.BRZ ordered. EDMS EDMS 13:40 13:40 COMPREHENSIVE METABOLIC PANEL+C.LAB.BRZ ordered. EDMS EDMS 13:40 13:40 LACTATE+C.LAB.BRZ ordered. EDMS EDMS 13:40 13:40 PROTIME (+INR)+COAG.LAB.BRZ ordered. EDMS EDMS 13:40 13:40 PTT, ACTIVATED+COAG.LAB.BRZ ordered. EDMS EDMS 13:40 13:40 Troponin High Sensitivity+C.LAB.BRZ ordered. EDMS EDMS 13:40 13:40 Chest Single View+RAD.RAD.BRZ ordered. EDMS EDMS 15:05 13:41 Harry Gale sb4 sb4 16:18 13:41 sb4 eb
--- OUTSIDE RECORDS SUMMARY | 2025-04-06 13:44 | XMS REPORT | Continuity of Care Document ---
Author Name Unknown Address [address] [facility] [place] [address] [facility] Address [address] 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 Name Role Phone NONE, NONE Primary Care Physician Unavailab DR ESTELA Issa Attending Clinician Unavailable DR ESTELA ALAS Attending Clinician Unavailable Jessica [employer], [place] Attending Clinician SHOAIB NGUYEN Attending Clinician Unavailable DION GAMING Attending Clinician Unavailable DION GAMING Attending Clinician Unavailable Shoaib Nguyen MD Attending Clinician Dion Gaming DO Attending Clinician [facility] Sleep Lab Attending Clinician Elizabeth Wang MD Attending Clinician [phone] ELIZABETH OG Attending Clinician UnavailELIZABETH Holloway Attending Clinician Unavailbeni isaacs Doctor Unassigned, [place] Attending Clinician U navailable BEAU STAUFFER Attending Clinician Unavaila Sally Cisneros Attending Clinician Unavailable Sally Galicia Attending Clinician Unavailable DR ESTELA ALAS Admitting Clinician Unavailable Sally Galicia Admitting Clinician Unavailable Payers Payer Name Policy Type Policy Number Effective Date Expirati on Date Source 0516 [id number] 2025 00:00:00 [employer] [id number] 2022 00:00:00 Problems Condition Name Condition Details Condition Category Status Onset Date Resolution Date Last Treatment Date Treating Clinician Comments Source Chronic heart failure with preserved ejection fraction Chronic heart failure with preserved ejection fraction Disease Active 3-13 00:00: 00 [facility] ETTA (obstructi ve sleep apnea) ETTA (obstructi ve sleep apnea) Disease Active 3-13 00:00: 00 [facility] Primary hypertensi on Primary hypertensi on Disease Active 11-16 00:00: 00 [facility] Obesity (BMI 30-39.9) Obesity (BMI 30-39.9) Disease Active 11-16 00:00: 00 [facility] Congestive heart failure, unspecifie d HF chronicity , unspecifie d heart failure type Congestive heart failure, unspecifie d HF chronicity , unspecifie d heart failure type Disease Active 2022-09 0-16 00:00: 00 [facility] No known active problems No known active problems Disease [facility] Allergies, Adverse Reactions, Alerts Allergy Name Allergy Type Status Severity Reaction(s) Onset Date Inactive Date Treating Clinician Comments Source penecill in (Not Checked) Propensi ty to adverse reaction to drug Active 02-10 00:00: 00 [facility] Fluticas one Propion- Salmeter ol Propensi ty to adverse reaction s Active Other - See comments 02-25 00:00: 00 Headache [facility] Meperidi ne Propensi ty to adverse reaction s Active Swelling 02-25 00:00: 00 [facility] Penicill ins Propensi ty to adverse reaction s Active Hives 02-25 00:00: 00 [facility] Seafood/ Fish Propensi ty to adverse reaction s Active Swelling 02-25 00:00: 00 Allergic to the iodine [facility] Penicill ins Propensi ty to adverse reaction s Active Hives 02-25 00:00: 00 [facility] FLUTICAS ONE PROPION- SALMETER OL DRUG Active Hives 02-25 00:00: 00 [facility] MEPERIDI NE DRUG INGREDI Active SOB 02-25 00:00: 00 [facility] PENICILL INS Drug Class Active Hives 02-25 00:00: 00 [facility] SEAFOOD/ FISH Food Active Swelling 02-25 00:00: 00 [facility] Penicill ins Propensi ty to adverse reaction s Active Hives 02-25 00:00: 00 [facility] crawfish (Not Checked) Propensi ty to adverse reaction to drug Inactiv e 10-16 00:00: 00 [facility] Iodine Propensi ty to adverse reaction to drug Inactiv e 2018-09 00:00: 00 [facility] penicill ins Drug Active [facility] penicill ins Drug Active [facility] penicill ins Drug Active [facility] penicill ins Drug Active [facility] penicill ins Drug Active [facility] penicill ins Drug Active [facility] penicill ins Drug Active [facility] penicill ins Drug Active [facility] penicill ins Drug Active [facility] penicill ins Drug Active [facility] penicill ins Drug Active [facility] No Known Drug Allergie s DA Active [facility] Penicill ins DA Active Unknown [facility] NO KNOWN ALLERGIE S Drug Class Active [facility] Social History Social Habit Start Date Stop Date Quantity Comments Source History of tobacco use Passive smoker [facility] Tobacco use and exposure 2023-09-27 00:00:00 2023-09-27 00:00:00 Smokeless tobacco non-user [facility] History of Social function 2023-06-21 00:00:00 2023-06-21 00:00:00 [facility] Sex assigned at 1965 00:00:00 1965 00:00:00 [facility] Smoking Status Start Date Stop Date Source Unknown if ever smoked [facility] Ex-smoker 2023-09-27 00:00:00 2023-09-27 [facility]00[facility] Medications Ordered Medication Name Filled Medication Name Start Date Stop Date Current Medication? Ordering Clinician Indication Dosage Frequency Signature (SIG) Comments Components Source Viagra 50 mg tablet 02-14 00:00: 00 Yes 1mg [facility] ProAir RespiClick 90 mcg/actuati on breath activated 02-10 00:00: 00 Yes 12mcg/a ctuatio n [facility] ibuprofen 600 mg tablet 02-10 00:00: 00 Yes 1mg [facility] levothyroxi ne 75 mcg tablet 02-10 00:00: 00 Yes 1mcg [facility] fluoxetine 40 mg capsule 02-10 00:00: 00 Yes 1mg [facility] omeprazole 40 mg capsule,del ayed release 02-10 00:00: 00 Yes 1mg [facility] hydrochloro thiazide 12.5 mg capsule 02-10 00:00: 00 Yes 1mg [facility] sildenafiL 25 mg tablet 12 00:00: 00 Yes [facility] albuterol 2.5 mg /3 mL (0.083 %) nebulizer solution 09-27 09:56: 54 09-27 00:00 :00 No Inhalation for 8 Days [facility] budesonide- glycopyr-fo rmoterol (BREZTRI AEROSPHERE) 160-9-4.8 mcg/actuati on HFAA 09-27 00:00: 00 Yes [id number] 2{puff} Inhale 2 Puffs in the morning and 2 Puffs in the evening. [facility] albuterol 2.5 mg /3 mL (0.083 %) nebulizer solution 09-27 00:00: 00 Yes [id number] 2.5mg Inhale 3 mL every 6 (six) hours as needed for Wheezing or Shortness of Breath. [facility] albuterol 90 mcg/actuati on inhaler 09-27 00:00: 00 Yes [id number] 2{puff} Inhale 2 Puffs every 6 (six) hours as needed for Wheezing or Shortness of Breath. [facility] albuterol 2.5 mg /3 mL (0.083 %) nebulizer solution 2022-0916 10:51: 33 Yes Inhalation for 8 Days [facility] empaglifloz in 10 mg tablet empaglifloz in 10 mg tablet 2022-09 00:00: 00 Yes 10mg Take 1 tablet by mouth in the morning. [facility] lisinopriL 10 mg tablet 2022-09 0-09 00:00: 00 Yes [facility] spironolact one 25 mg tablet 2022-09 006 00:00: 00 Yes [facility] levothyroxi ne 75 mcg tablet 2022-09 005 00:00: 00 Yes [facility] INHALE 2 PUFFS EVERY 4-6 HOURS, SPACED 60 SECONDS APART. 01-04 00:00: 00 Yes [id number] [facility] 3 ML INHALATION Q 6 HOURS 01-04 00:00: 00 04-21 00:00 :00 No [id number] Chin Umanzor TAKE 1 TABLET BY MOUTH TWICE DAILY FOR 3 DAYS , THEN TAKE 1 TABLET ONCE A DAY FOR 3 DAYS,THEN TAKE 1/2 TABLET DAILY FOR 4 DAYS , THEN STOP 11-11 00:00: 00 Yes Cihn Umanzor TAKE 1 TABLET BY MOUTH ONCE DAILY 11-11 00:00: 00 Yes [facility] TAKE 1 TABLET BY MOUTH TWICE DAILY 11-11 00:00: 00 Yes Chin U[facility] USE 1 VIAL IN NEBULIZER EVERY 6 HOURS NEEDED FOR SHORTNESS OF BREATH 11-11 00:00: 00 04-21 00:00 :00 No [facility] TAKE 1 TABLET BY MOUTH ONCE DAILY IN THE MORNING ON AN EMPTY STOMACH 10-14 00:00: 00 Yes [facility] Cholecalcif ramon, Vitamin D3, 125 mcg (5,000 unit) capsule 10-14 00:00: 00 Yes 5000U 1 capsule. [facility] TAKE 1 TABLET BY MOUTH ONCE DAILY - 00:00: 00 Yes [facility] INHALE 1 PUFF BY MOUTH EVERY 4 HOURS -30 00:00: 00 - 00:00 :00 No [facility] amlodipine 5 mg tablet 2020-09 0-11 00:00: 00 Yes 1mg [facility] levothyroxi ne 75 mcg tablet 2020-09 0- 00:00: 00 Yes 1mcg [facility] levothyroxi ne 75 mcg tablet 03-03 00:00: 00 Yes 1mcg [facility] levothyroxi ne 50 mcg tablet 24 00:00: 00 Yes 1mcg [facility] Bromfed DM 2 mg-30 mg-10 mg/5 mL oral syrup - 00:00: 00 Yes 10mg/5 mL [facility] Symbicort 160 mcg-4.5 mcg/actuati on HFA aerosol inhaler - 00:00: 00 Yes 2mcg/ac tuation [facility] nystatin 100,000 unit/mL oral suspension 02-06 00:00: 00 Yes 5unit/m L [facility] prednisone 20 mg tablet -19 00:00: 00 Yes 2mg [facility] U[facility] Breo Ellipta 100 mcg-25 mcg/dose powder for inhalation -08 00:00: 00 Yes 1mcg/do se [facility] levothyroxi ne 75 mcg tablet -08 00:00: 00 Yes 1mcg [facility] levothyroxi ne 75 mcg tablet - 00:00: 00 Yes 1mcg [facility] U[facility]zor ProAir HFA 90 mcg/actuati on aerosol inhaler 1-06 00:00: 00 Yes 12mcg/a ctuatio n [facility] Advair Diskus 250 mcg-50 mcg/dose powder for inhalation 1-06 00:00: 00 Yes 1mcg/do se [facility] levothyroxi ne 50 mcg tablet 1-06 00:00: 00 Yes 1mcg [facility] levothyroxi ne 50 mcg tablet 0 4-17 00:00: 00 Yes 1mcg [facility] omeprazole 40 mg capsule,del ayed release 0 3- 00:00: 00 Yes 1mg [facility] trazodone 50 mg tablet 3- 00:00: 00 Yes 1mg [facility]or levothyroxi ne 25 mcg tablet 3- 00:00: 00 Yes 1mcg [facility] fluoxetine 40 mg capsule 3- 00:00: 00 Yes 1mg [facility] EpiPen 0.3 mg/0.3 mL injection, auto-inject or 2-10 00:00: 00 Yes 1(1.5 mL) [facility]or Advair Diskus 250 mcg-50 mcg/dose powder for inhalation 2- 00:00: 00 Yes 1mcg/do se [facility] omeprazole 40 mg capsule,del ayed release 2 00:00: 00 Yes 1mg [facility] Umanzor ProAir HFA 90 mcg/actuati on aerosol inhaler 2018-09 00:00: 00 Yes 12mcg/a ctuatio n [facility] Advair Diskus 250 mcg-50 mcg/dose powder for inhalation 2018-09 00:00: 00 Yes 1mcg/do se [facility] ibuprofen 600 mg tablet 2018-09 00:00: 00 Yes 1mg [facility] U[facility] omeprazole 40 mg capsule,del ayed release 2018-09 00:00: 00 Yes 1mg [facility] U[facility]zor ProAir HFA 90 mcg/actuati on aerosol inhaler 2018-09 00:00: 00 Yes 12mcg/a ctuatio n [facility] Advair Diskus 250 mcg-50 mcg/dose powder for inhalation 2018-09 00:00: 00 Yes 1mcg/do se [facility] No known medications No Un sybil ity [facility] No known medications No Un sybil ity [facility] Immunizations Ordered Immunization Name Filled Immunization Name Date Status Comments Source Influenza, injectable, Madin [place] Canine Kidney, preservative-free, quadrivalent Influenza, injectable, Madin [place] Canine Kidney, preservative-free, quadrivalent 2025-02-10 00:00:00 Completed [facility] Influenza, High-Dose, Trivalent, PF (FLUZONE) 2023-07-20 00:00:00 Completed [facility] SHINGRIX VACCINE SHINGRIX VACCINE 2023-04-13 00:00:00 Completed [facility] SHINGRIX VACCINE SHINGRIX VACCINE 2023-01-06 00:00:00 Completed [facility] Prevnar 20 Prevnar 20 2023-01-06 00:00:00 Completed [facility] Influenza, seasonal, inj Influenza, seasonal, inj 2020-09-11 00:00:00 Completed [facility] Tdap Tdap 2019-12-21 00:00:00 Completed [facility] Influenza, seasonal, inj Influenza, seasonal, inj 2019-08-15 00:00:00 Completed [facility] Influenza High Dose Unknown Completed [facility] Influenza High Dose Unknown Completed [facility] Vital Signs Vital Name Observation Time Observation Value Comments S ource Height 2025-02-23 19:40:00 162.56 CM Weight 2025-02-23 19:40:00 84.09 KG Height 2025-02-23 19:40:00 162.56 CM Weight 2025-02-23 19:40:00 84.09 KG Systolic blood pressure 2023-11-17 18:55:00 124 mm[Hg] [facility] Diastolic blood pressure 2023-11-17 18:55:00 74 mm[Hg] [facility] Heart rate 2023-11-17 18:55:00 74 /min [facility] Body temperature 2023-11-17 18:55:00 36.11 Maye [facility] Body height 2023-11-17 18:55:00 182.9 cm [facility] Body weight 2023-11-17 18:55:00 101.787 kg [facility] BMI 2023-11-17 18:55:00 30.43 kg/m2 [facility] Oxygen saturation in Arterial blood by Pulse oximetry 2023-11-17 18:55:00 98 /min [facility] Systolic blood pressure 2023-09-27 15:11:00 136 mm[Hg] [facility] Diastolic blood pressure 2023-09-27 15:11:00 75 mm[Hg] [facility] Heart rate 2023-09-27 15:11:00 81 /min [facility] Respiratory rate 2023-09-27 15:11:00 18 /min [facility] Body height 2023-09-27 15:11:00 182.9 cm [facility] Body weight 2023-09-27 15:11:00 109.77 kg [facility] BMI 2023-09-27 15:11:00 32.82 kg/m2 [facility] Oxygen saturation in Arterial blood by Pulse oximetry 2023-09-27 15:11:00 99 /min [facility] Systolic blood pressure 2023-06-21 15:49:00 125 mm[Hg] [facility] Diastolic blood pressure 2023-06-21 15:49:00 67 mm[Hg] [facility] Heart rate 2023-06-21 15:49:00 80 /min [facility] Respiratory rate 2023-06-21 15:49:00 19 /min [facility] Body height 2023-06-21 15:49:00 177.8 cm [facility] Body weight 2023-06-21 15:49:00 108.863 kg [facility] BMI 2023-06-21 15:49:00 34.44 kg/m2 [facility] Oxygen saturation in Arterial blood by Pulse oximetry 2023-06-21 15:49:00 97 /min [facility] Systolic blood pressure 2023-06-21 15:49:00 125 mm[Hg] [facility] Diastolic blood pressure 2023-06-21 15:49:00 67 mm[Hg] [facility] Heart rate 2023-06-21 15:49:00 80 /min [facility] Respiratory rate 2023-06-21 15:49:00 19 /min [facility] Body height 2023-06-21 15:49:00 177.8 cm [facility] Body weight 2023-06-21 15:49:00 108.863 kg [facility] BMI 2023-06-21 15:49:00 34.44 kg/m2 [facility] Oxygen saturation in Arterial blood by Pulse oximetry 2023-06-21 15:49:00 97 /min [facility] Systolic blood pressure 2021-02-25 21:18:00 149 mm[Hg] [facility] Diastolic blood pressure 2021-02-25 21:18:00 96 mm[Hg] [facility] Heart rate 2021-02-25 21:17:00 77 /min [facility] Body weight 2021-02-25 21:17:00 92.987 kg [facility] Oxygen saturation in Arterial blood by Pulse oximetry 2021-02-25 21:17:00 97 /min [facility] Height/Length Measured 2021-09-23 10:02:11 180.34 [...] 09:26:55 180.34 cm Height/Length Measured 2019-11-11 02:28:04 BP Systolic 2025-02-14 11:14:00 138 mm[Hg] Step hen F Noé BP Diastolic 2025-02-14 11:14:00 80 mm[Hg] Gerardo phen F Noé Weight Measured 2025-02-14 11:14:00 178.20 pounds Chin F Noé Height Measured 2025-02-14 11:14:00 70.47 inches Chin F Noé Body Temperature 2025-02-14 11:14:00 97.80 degrees Chin F Noé Heart Rate 2025-02-14 11:14:00 81.00 /min Mela en F Noé Respiratory Rate 2025-02-14 11:14:00 17.00 /min Chin F Noé Height Measured 2025-02-10 09:24:00 70.47 inches Chin F Noé Body Temperature 2025-02-10 09:24:00 97.50 degrees Chin F Noé Heart Rate 2025-02-10 09:24:00 72.00 /min Mela en F Noé Respiratory Rate 2025-02-10 09:24:00 18.00 /min Chin F Noé BP Systolic 2025-02-10 09:24:00 163 mm[Hg] Step hen F Noé BP Diastolic 2025-02-10 09:24:00 76 mm[Hg] Gerardo phen F Noé Weight Measured 2025-02-10 09:24:00 179.20 pounds Chin F Noé BP Systolic 2021-06-16 11:46:00 154 mm[Hg] Step hen F Noé BP Diastolic 2021-06-16 11:46:00 88 mm[Hg] Gerardo phen F Noé Weight Measured 2021-06-16 11:46:00 207.20 pounds Chin F Noé Height Measured 2021-06-16 11:46:00 70.47 inches Chin F Noé Body Temperature 2021-06-16 11:46:00 99.00 degrees Chin F Noé Heart Rate 2021-06-16 11:46:00 72.00 /min Mela en F Noé Respiratory Rate 2021-06-16 11:46:00 Chin F Noé BP Systolic 2021-04-18 10:29:00 145 mm[Hg] Step hen F Noé BP Diastolic 2021-04-18 10:29:00 82 mm[Hg] Gerardo phen F Noé Weight Measured 2021-04-18 10:29:00 204.00 pounds Chin F Noé Height Measured 2021-04-18 10:29:00 70.47 inches Chin F Noé Body Temperature 2021-04-18 10:29:00 98.10 degrees Chin F Noé Heart Rate 2021-04-18 10:29:00 76.00 /min Mela en F Noé Respiratory Rate 2021-04-18 10:29:00 Chin F Oné BP Systolic 2021-02-27 11:28:00 146 mm[Hg] Step hen F Noé BP Diastolic 2021-02-27 11:28:00 73 mm[Hg] Gerardo phen F Noé Weight Measured 2021-02-27 11:28:00 205.80 pounds Chin F Noé Height Measured 2021-02-27 11:28:00 70.50 inches Chin F Noé Body Temperature 2021-02-27 11:28:00 98.70 degrees Chin F Noé Heart Rate 2021-02-27 11:28:00 52.00 /min Mela en F Noé Respiratory Rate 2021-02-27 11:28:00 24.00 /min Chin F Noé BP Systolic 2021-02-06 16:00:00 132 mm[Hg] Step hen F Noé BP Diastolic 2021-02-06 16:00:00 81 mm[Hg] Gerardo phen F Noé Weight Measured 2021-02-06 16:00:00 202.60 pounds Chin F Noé Height Measured 2021-02-06 16:00:00 70.50 inches Chin F Noé Body Temperature 2021-02-06 16:00:00 98.40 degrees Chin F Noé Heart Rate 2021-02-06 16:00:00 79.00 /min Mela en F Noé Respiratory Rate 2021-02-06 16:00:00 24.00 /min Chin F Noé BP Systolic 2020-12-23 10:10:00 118 mm[Hg] Step hen F Noé BP Diastolic 2020-12-23 10:10:00 73 mm[Hg] Gerardo phen F Noé Weight Measured 2020-12-23 10:10:00 201.60 pounds Chin F Noé Height Measured 2020-12-23 10:10:00 70.50 inches Chin F Noé Body Temperature 2020-12-23 10:10:00 98.30 degrees Chin F Noé Heart Rate 2020-12-23 10:10:00 76.00 /min Mela en F Noé Respiratory Rate 2020-12-23 10:10:00 Chin F Noé BP Systolic 2020-12-12 17:36:00 142 mm[Hg] Step hen F Noé BP Diastolic 2020-12-12 17:36:00 90 mm[Hg] Gerardo phen F Noé Weight Measured 2020-12-12 17:36:00 205.60 pounds Chin F Noé Height Measured 2020-12-12 17:36:00 70.50 inches Chin F Noé Body Temperature 2020-12-12 17:36:00 98.10 degrees Chin F Noé Heart Rate 2020-12-12 17:36:00 83.00 /min Mela en F Noé Respiratory Rate 2020-12-12 17:36:00 17.00 /min Chin F Noé BP Systolic 2020-09-11 08:34:00 136 mm[Hg] Step hen F Noé BP Diastolic 2020-09-11 08:34:00 82 mm[Hg] Gerardo phen F Noé Weight Measured 2020-09-11 08:34:00 213.20 pounds Chin F Noé Height Measured 2020-09-11 08:34:00 70.50 inches Chin F Noé Body Temperature 2020-09-11 08:34:00 98.00 degrees Chin F Noé Heart Rate 2020-09-11 08:34:00 70.00 /min Mela en F Noé Respiratory Rate 2020-09-11 08:34:00 17.00 /min Chin F Noé BP Systolic 2019-12-21 09:39:00 139 mm[Hg] Step hen F Noé BP Diastolic 2019-12-21 09:39:00 66 mm[Hg] Gerardo phen F Noé Weight Measured 2019-12-21 09:39:00 193.40 pounds Chin Umanzor Height Measured 2019-12-21 09:39:00 70.50 inches Chin Umanzor Body Temperature 2019-12-21 09:39:00 97.90 degrees Chin Umanzor Heart Rate 2019-12-21 09:39:00 66.00 /min Mela Umanzor Respiratory Rate 2019-12-21 09:39:00 16.00 /min Chin Umanzor Procedures Procedure Date / Time Performed Performing Clinician Source SLEEP STUDY DATA REPORT 2023-09-16 06:01:00 Doct or Unassigned, [place] [facility] ASSIGNMENT OF BENEFITS 2023-06-21 15:02:59 Docto r Unassigned, [place] [facility] INSURANCE CORRESPONDENCE 2023-06-02 05:01:00 Doc tor Unassigned, [place] [facility] CONSENT/REFUSAL FOR DIAGNOSIS AND TREATMENT 2021-02-25 21:01:54 Doctor Unassigned, [place] [facility] Encounters Start Date/Time End Date/Time Encounter Type Admission Type Attending [facility] Care Department Encounter ID Source 2025-02-23 19:40:00 2025-02-23 22:11:00 Outpatient [facility] [id number] [facility] 2025-02-23 19:40:00 2025-02-23 22:11:00 Emergency E LAWS, ESTELA LAWS, ESTELA [facility] [id number] [facility] 2025-02-23 19:40:00 2025-02-23 19:40:00 Emergency E [facility] [id number] [facility] 2025-02-23 00:00:00 2025-02-23 08:44:42 Letter (Out) Orion Lopez [facility] [id number] [facility] 2025-02-14 11:12:41 2025-02-14 11:12:41 Outpatient SFA S[facility] [id number] [facility] 2025-02-14 00:00:00 2025-02-14 00:00:00 Outpatient Visit [facility] [id number] [facility] Uman[facility]or 2025-02-10 09:18:39 2025-02-10 09:18:39 Outpatient SFA [facility] [id number] Chin Umanzor 2025-02-10 00:00:00 2025-02-10 00:00:00 Outpatient Visit [facility] [id number] [facility]or 2024-11-16 14:00:00 2024-11-16 14:00:00 [id number] 2024-11-16 14:00:00 2024-11-16 14:00:00 [id number] 2024-01-06 11:00:00 2024-01-06 11:00:00 Outpatient R DION GAMING [facility] [id number] [facility] 2023-11-23 13:00:00 2023-11-23 13:00:[address] [facility] [id number] [facility] 2023-11-17 14:00:00 2023-11-17 14:13:56 [facility] [id number] [facility] 2023-11-17 14:00:00 2023-11-17 14:13:56 [facility] [id number] [facility] 2023-09-27 09:00:00 2023-09-27 10:00:07 Office Visit Dion Gaming [facility] [id number] [id number] [facility] 2023-09-27 09:00:00 2023-09-27 10:00:07 Outpatient DION TRISTAN [facility] [id number] [facility] 2023-09-24 00:00:00 2023-09-24 00:00:00 Citlaly Nguyen Shoaib [facility] [id number] [facility] 2023-09-21 09:20:00 2023-09-21 09:20:00 Outpatient Ulisses NGUYEN 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 [id number] [facility] 2023-09-16 00:00:00 2023-09-16 00:00:00 Orders Only Doctor Unassigned, [place] [facility] 1..840.114 350.1.13.10 [id number] [facility] 2023-08-05 14:00:00 2023-08-05 14:00:00 Outpatient R ELIZABETH OG [facility] [id number] [facility] 2023-07-13 09:00:00 2023-07-13 09:00:[address] [facility] [id number] [facility] 2023-06-21 10:40:00 2023-06-21 11:11:44 [facility] [id number] [facility] 2023-06-21 10:40:00 2023-06-21 11:11:44 [facility] 1.2.840.114 350.1.13.10 4.2.7.2.686 [id number] [facility] 2023-06-21 09:20:00 2023-06-21 09:20:00 [facility] [id number] [facility] 2023-06-21 00:00:00 2023-06-21 00:00:00 Orders Only Doctor Unassigned, [place] [facility] 1.2.840.114 350.1.13.10 4.2.7.2.686 [id number] 009 [id number] [facility] 2023-06-02 00:00:00 2023-06-02 00:00:00 Orders Only Doctor Unassigned, [place] [facility] 1.2.840.114 350.1.13.10 4.2.7.2.686 [id number] [facility] 2022-12-03 14:59:45 2022-12-03 14:59:45 Outpatient [facility] [id number] Chin Umanzor 2021-08-21 14:30:00 2021-08-21 14:30:[address] [facility] [id number] [facility] 2021-04-09 09:00:00 2021-04-09 09:00:[address] [facility] [id number] [facility] 2021-02-25 16:02:45 2021-02-25 16:30:08 Office Visit Shoaib Nguyen [facility] 1.2.840.114 350.1.13.10 4.2.7.2.686 [id number] [facility] 2021-02-25 16:00:00 2021-02-25 16:00:00 Outpatient R [facility] [id number] [facility] 2021-02-25 00:00:00 2021-02-25 00:00:00 Orders Only Doctor Unassigned, [place] [facility] 1.2.840.114 350.1.13.10 4.2.7.2.686 [id number] [id number] [facility] 2019-11-11 00:52:00 2019-11-11 00:52:00 Emergency [facility] [id number] [facility] 2019-11-11 00:52:00 2019-11-11 00:52:00 Emergency 1 Sally Galicia, Sally [facility] [id number] [facility] Results Test Description Test Time Test Comments Results Result Co mments Source COMPREHENSIVE METABOLIC LLAMAS *WW*2025-02-23 20:35:00* Test Item Value Reference Range Interpretation Comme nts GLUCOSE (test code = 06D) 100 mg/dL 75-100 SODIUM (test code = 01A) 144 mmol/L 136-145 POTASSIUM (test code = 01B) 3.5 mmol/L 3.6-5.1 L CHLORIDE (test code = 04A) 108 mmol/L 98-107 H CO2 (test code = 02A) 27 mmol/L 20-31 ANION GAP (test code = ANG) 12.5 mmol/L BUN (test code = 05D) 19 mg/dL 9-23 CREATININE (test code = 03E) 1.1 mg/dL 0.7-1.3 GFR (test code = GFR) 76 mL/min/1.73m\S\2 >=90 L EGFR (test code = EGFR) eGFR BY CKD-EPI CALCULATION IS NOT RECOMMENDED FOR PATIENTS UNDER 18 YEARS OF AGE. BUN/CREA (test code = BCR) 17 12-20 CALCIUM (test code = 09D) 8.9 mg/dL 8.3-10.6 BILI TOTAL (test code = 11A) 0.5 mg/dL 0.2-1.0 PROTEIN (test code = 07D) 7.0 g/dL 5.7-8.2 ALBUMIN (test code = 08D) 4.5 g/dL 3.2-4.8 GLOBULIN (test code = GLB) 2.5 g/dL 1.5-3.8 ALB/GLOB (test code = AGRR) 1.8 1.0-2.6 ALK PHOS (test code = 35A) 66 IU/L 46-116 AST (test code = 30A) 20 IU/L <=33 ALT (test code = 31A) 12 IU/L 10-49 Arterial Blood [id number] 20:34:00* Test Item Value Reference Range Interpretation Comme nts pH (test code = PHRT) 7.422 7.350-7.450 pCO2 (test code = PCO2RT) 38.5 mmHg 35.0-45.0 pO2 (test code = PO2RT) 118.0 mmHg 80.0-110.0 H HCO3? (test code = HCO3) 24.6 mmol/L 22.0-26.0 DERRICK (test code = DERRICK) 0.8 mmol/L -3.0-3.0 tHb (test code = THBRT) 14.4 g/dL 14.0-18.0 sO2 (test code = SO2RT) 98.8 % 92.0-100.0 FO2Hb (test code = BZ6PAXT) 96.3 % 94.0-100.0 FCOHb (test code = FCOHBRT) 1.8 % 0.0-3.0 FMetHb (test code = FMETHBRT) 0.8 % 0.2-0.6 H ABGTEMP (test code = ABGTEMP) * Temp Corrected Values* ABGTEMP (test code = ABGTEMP.) 37.0 ?C pH (T) (test code = PHTEMP) 7.422 7.350-7.450 pCO2 (T) (test code = NYZ0PIMO) 38.5 mmHg 35.0-45.0 pO2 (T) (test code = CI7ZBEF) 118.0 mmHg 80.0-110.0 H Device (test code = DEVICE) ROOM AIR FI02 (test code = FI02) 21.0 % Liter_flow (test code = LF) VENPAR (test code = VENPAR) * Ventilator Parameters * SIMV (test code = SIMV) A/C (test code = A/C) APRV (test code = APRV) Press Control (test code = PC) CPAP (test code = CPAP) PEEP (test code = PEEP) PS (test code = PS) PIP (test code = PIP) I_Time (test code = ITIME) I : E Ratio (test code = IERATIO) Vt (test code = VT) BIPAP INSP (test code = BIPAPINP) BIPAP EXP (test code = BIPAPEXP) Branden test (test code = ATEST) Positive SAMPLE SITE (test code = SSITE) Artery, Right Radial COMMENT (test code = CO) D-DIMER *[facility]2025-02-23 20:30:00* Test Item Value Reference Range Interpretation Comme nts D-DIMER (test code = DDI) 455 ng/mL FEU 0-500 CBC (INCLUDES AUTOMATED DIFFERENTIAL)*[id number] 20:21:00* Test Item Value Reference Range Interpretation Comme nts WBC (test code = WBC) 12.0 10\S\3/uL 4.5-11.0 H RBC (test code = RBC) 4.53 10\S\6/uL 4.20-5.60 HGB (test code = HBG) 15.2 g/dL 14.0-18.0 HCT (test code = HCT) 47.3 % 35.0-46.0 H MCV (test code = MCV) 104.4 fL 80.0-94.0 H MCH (test code = MCH) 33.6 pg 27.0-31.0 H MCHC (test code = MCHC) 32.1 g/dL 32.0-36.0 RDW (test code = RDW) 13.2 % 11.5-14.5 PLT (test code = PLT) 189 10\S\3/uL 130-400 MPV (test code = MPV) 11.2 fL 9.4-12.4 NEUTROP # (test code = NE#) 7.2 10\S\3/uL 2.0-8.0 LYMPH # (test code = LY#) 3.2 10\S\3/uL 1.2-4.0 MONOCYTE # (test code = MO#) 1.2 10\S\3/uL 0.0-1.1 H EOSINOPH # (test code = EO#) 0.3 10\S\3/uL 0.0-0.7 BASOPHIL # (test code = BA#) 0.1 10\S\3/uL 0.0-0.3 IG # (test code = IG#) 0.04 10\S\3/uL 0.00-0.06 NRBC # (test code = NRBC#) 0.00 10\S\3/uL 0.00-0.01 NEUTROPH % (test code = NE%) 59.9 % 35.0-73.0 LYMPH % (test code = LY%) 26.8 % 20.0-55.0 MONO % (test code = MO%) 9.9 % 2.5-10.0 EOSINOPH % (test code = EO%) 2.4 % 0.0-5.0 BASOPHIL % (test code = BA%) 0.7 % 0.0-2.0 IG % (test code = IG%) 0.3 % 0.0-0.8 NRBC% (test code = NRBC%) 0.0 % 0.0-0.2 MANDIFF (test code = WMDIFF) NO NO RBC MORPH (test code = WRBCMOR) NORMAL HEMOGLOBIN [id number] 00:00:00* Test Item Value Reference Range Interpretation Comme nts HEMOGLOBIN A1c (test code = 4548-4) 5.4 % Chin Ortiz AustinLIPID [id number] 00:00:00* Test Item Value Reference Range Interpretation Comme nts CHOLESTEROL, TOTAL (test cod e = 2093-3) 113 mg/dL HDL CHOLESTEROL (test code = 2085-9) 57 mg/dL TRIGLYCERIDES (test code = 2571-8) 66 mg/dL LDL-CHOLESTEROL (test code = 54506-2) 41 mg/dL(calc) CHOL/HDLC RATIO (test code = 9830-1) 2.0 (calc) NON HDL CHOLESTEROL (test co de = 25978-7) 56 mg/dL(calc) Chin UmanzorHIV 1/2 ANTIGEN/ANTIBODY,FOURTH GENERATION [id number] 00:00:00* Test Item Value Reference Range Interpretation Comme christine HIV AG/AB, 4TH GEN (test cod e = 46937-8) NON-REACTIVE Chin UmanzorHEPATITIS PANEL, [id number] 00:00:00* Test Item Value Reference Range Interpretation Comme nts HEPATITIS A AB, TOTAL (test code = 45177-0) NON-REACTIVE HEPATITIS B SURFACE ANTIBODY QL (test code = 72406-9) NON-REACTIVE HEPATITIS B SURFACE ANTIGEN (test code = 5196-1) NON-REACTIVE CONFIRMATION (test code = 7905-3) DNR HEPATITIS B CORE AB TOTAL (t est code = 49332-2) NON-REACTIVE HEPATITIS C ANTIBODY (test c ode = 44024-9) NON-REACTIVE Chin UmanzorPSA, [id number] 00:00:00* Test Item Value Reference Range Interpretation Comme christine PSA, TOTAL (test code = 2857-1) 1.19 ng/mL Chin UmanzorCHLAMYDIA/N. GONORRHOEAE RNA, [id number] 00:00:00* Test Item Value Reference Range Interpretation Comme christine CHLAMYDIA TRACHOMATIS RNA, T MA, UROGENITAL (test code = 35292-6) NOT DETECTED NEISSERIA GONORRHOEAE RNA, T MA, UROGENITAL (test code = 50284-8) NOT DETECTED Chin Ortiz AustinRPR (MONITOR) W/REFL [id number] 00:00:00* Test Item Value Reference Range Interpretation Comme nts RPR (MONITOR) W/REFL TITER ( test code = 38274-2) NON-REACTIVE Chin Ortiz [id number] 00:00:00* Test Item Value Reference Range Interpretation Comme nts TSH (test code = 3016-3) 22.45 mIU/L Chin UmanzorCOMPREHENSIVE METABOLIC [id number] 00:00:00* Test Item Value Reference Range Interpretation Comme nts GLUCOSE (test code = 2345-7) 86 mg/dL UREA NITROGEN (BUN) (test code = 3094-0) 15 mg/dL CREATININE (test code = 2160-0) 1.02 mg/dL EGFR (test code = 26039-0) 84 mL/min/1.73m2 BUN/CREATININE RATIO (test code = 3097-3) SEE NOTE: (calc) SODIUM (test code = 2951-2) 142 mmol/L POTASSIUM (test code = 2823-3) 5.4 mmol/L CHLORIDE (test code = 2075-0) 105 mmol/L CARBON DIOXIDE (test code = 2027-9) 29 mmol/L CALCIUM (test code = 55063-6) 9.5 mg/dL PROTEIN, TOTAL (test code = 2885-2) 6.6 g/dL ALBUMIN (test code = 1751-7) 4.0 g/dL GLOBULIN (test code = 25077-0) 2.6 g/dL(calc) ALBUMIN/GLOBULIN RATIO (test code = 1759-0) 1.5 (calc) BILIRUBIN, TOTAL (test code = 1975-2) 0.4 mg/dL ALKALINE PHOSPHATASE (test code = 6768-6) 70 U/L AST (test code = 1920-8) 16 U/L ALT (test code = 1742-6) 13 U/L Chin [id number] 00:00:00* Test Item Value Reference Range Interpretation Comme nts TSH, THIRD GENERATION (test code = 2821) 11.900 UIU/ML Chin UmanzorLIPID [id number] 00:00:00* Test Item Value Reference Range Interpretation Comme nts CHOLESTEROL (test code = 2210) 121 MG/DL TRIGLYCERIDES (test code = 2232) 100 MG/DL HDL CHOLESTEROL (test code = 2220) 40 MG/DL CALC LDL CHOL (test code = 2237) 62 MG/DL RISK RATIO LDL/HDL (test cod e = 2238) 1.55 RATIO Chin UmanzorCOMPREHENSIVE METABOLIC [id number] 00:00:00* Test Item Value Reference Range Interpretation Comme nts GLUCOSE (test code = 2217) 117 MG/DL BUN (test code = 2208) 15 MG/DL CREATININE (test code = 2214) 1.21 MG/DL eGFR AMER. (test cod e = 39282) 77 ML/MIN/1.73 eGFR NON- AMER. (test code = 75854) 66 ML/MIN/1.73 CALC BUN/CREAT (test code = 2235) 12 RATIO SODIUM (test code = 2231) 143 MEQ/L POTASSIUM (test code = 2228) 4.5 MEQ/L CHLORIDE (test code = 2215) 104 MEQ/L CARBON DIOXIDE (test code = 2206) 28 MEQ/L CALCIUM (test code = 2209) 9.3 MG/DL PROTEIN, TOTAL (test code = 2229) 6.9 G/DL ALBUMIN (test code = 2201) 4.4 G/DL CALC GLOBULIN (test code = 2240) 2.5 G/DL CALC A/G RATIO (test code = 2234) 1.8 RATIO BILIRUBIN, TOTAL (test code = 2207) 0.5 MG/DL ALKALINE PHOSPHATASE (test code = 2204) 88 U/L AST (test code = 2218) 12 U/L ALT (test code = 2219) 11 U/L Chin [id number] 00:00:00* Test Item Value Reference Range Interpretation Comme nts TSH, THIRD GENERATION (test code = 2821) 11.900 UIU/ML Chin UmanzorLIPID [id number] 00:00:00* Test Item Value Reference Range Interpretation Comme nts CHOLESTEROL (test code = 2210) 121 MG/DL TRIGLYCERIDES (test code = 2232) 100 MG/DL HDL CHOLESTEROL (test code = 2220) 40 MG/DL CALC LDL CHOL (test code = 2237) 62 MG/DL RISK RATIO LDL/HDL (test cod e = 223) 1.55 RATIO Chin UmanzorCOMPREHENSIVE METABOLIC [id number] 00:00:00* Test Item Value Reference Range Interpretation Comme nts GLUCOSE (test code = 2217) 117 MG/DL BUN (test code = 2208) 15 MG/DL CREATININE (test code = 2214) 1.21 MG/DL eGFR AMER. (test cod e = 16793) 77 ML/MIN/1.73 eGFR NON- AMER. (test code = 75950) 66 ML/MIN/1.73 CALC BUN/CREAT (test code = 2235) 12 RATIO SODIUM (test code = 2231) 143 MEQ/L POTASSIUM (test code = 2228) 4.5 MEQ/L CHLORIDE (test code = 2215) 104 MEQ/L CARBON DIOXIDE (test code = 2206) 28 MEQ/L CALCIUM (test code = 2209) 9.3 MG/DL PROTEIN, TOTAL (test code = 2229) 6.9 G/DL ALBUMIN (test code = 2201) 4.4 G/DL CALC GLOBULIN (test code = 2240) 2.5 G/DL CALC A/G RATIO (test code = 2234) 1.8 RATIO BILIRUBIN, TOTAL (test code = 7) 0.5 MG/DL ALKALINE PHOSPHATASE (test code = 2203) 88 U/L AST (test code = 8) 12 U/L ALT (test code = 2218) 11 U/L Chin Ortiz [id number] 00:00:00* Test Item Value Reference Range Interpretation Comme nts TSH, THIRD GENERATION (test code = 2821) 17.700 UIU/ML Chin Ortiz [id number] 00:00:00* Test Item Value Reference Range Interpretation Comme nts TSH, THIRD GENERATION (test code = 2821) 17.700 UIU/ML Chin Ortiz AustinHEMOGLOBIN [id number] 00:00:00* Test Item Value Reference Range Interpretation Comme nts HEMOGLOBIN A1c (test code = 08831) 5.6 % Chin Ortiz [id number] 00:00:00* Test Item Value Reference Range Interpretation Comme nts TSH, THIRD GENERATION (test code = 2821) 13.500 UIU/ML Chin F AustinHEMOGLOBIN [id number] 00:00:00* Test Item Value Reference Range Interpretation Comme nts HEMOGLOBIN A1c (test code = 48148) 5.6 % Chin F [id number] 00:00:00* Test Item Value Reference Range Interpretation Comme nts TSH, THIRD GENERATION (test code = 2821) 13.500 UIU/ML Chin F [id number] 00:00:00* Test Item Value Reference Range Interpretation Comme nts TSH, THIRD GENERATION (test code = 2821) 6.590 UIU/ML Chin Ortiz MiamiCBC W/AUTO [id number] 00:00:00* Test Item Value Reference Range Interpretation Comme nts WBC (test code = 1001) 9.1 K/UL RBC (test code = 1002) 4.53 M/UL HEMOGLOBIN (test code = 1003) 14.5 G/DL HEMATOCRIT (test code = 1004) 43.1 % MCV (test code = 1005) 95.1 fL MCH (test code = 1006) 32.0 PG MCHC (test code = 1007) 33.6 G/DL RDW (test code = 1038) 12.2 % NEUTROPHILS (test code = 1008) 65.9 % LYMPHOCYTES (test code = 1010) 22.2 % MONOCYTES (test code = 1011) 8.9 % EOSINOPHILS (test code = 1012) 2.1 % BASOPHILS (test code = 1013) 0.9 % PLATELET COUNT (test code = 1015) 167 K/UL Chin UmanzorLIPID [id number] 00:00:00* Test Item Value Reference Range Interpretation Comme nts CHOLESTEROL (test code = 2210) 95 MG/DL TRIGLYCERIDES (test code = 2232) 110 MG/DL HDL CHOLESTEROL (test code = 2220) 41 MG/DL CALC LDL CHOL (test code = 2237) 34 MG/DL RISK RATIO LDL/HDL (test cod e = 2238) 0.83 RATIO Chin Ortiz NoéCOMPREHENSIVE METABOLIC [id number] 00:00:00* Test Item Value Reference Range Interpretation Comme nts GLUCOSE (test code = 2217) 119 MG/DL BUN (test code = 2208) 14 MG/DL CREATININE (test code = 2214) 0.96 MG/DL eGFR AMER. (test cod e = 08462) 101 ML/MIN/1.73 eGFR NON- AMER. (test code = 74203) 87 ML/MIN/1.73 CALC BUN/CREAT (test code = 2235) 15 RATIO SODIUM (test code = 2231) 143 MEQ/L POTASSIUM (test code = 2228) 4.3 MEQ/L CHLORIDE (test code = 2215) 105 MEQ/L CARBON DIOXIDE (test code = 2206) 26 MEQ/L CALCIUM (test code = 2209) 9.2 MG/DL PROTEIN, TOTAL (test code = 2229) 6.6 G/DL ALBUMIN (test code = 2201) 4.1 G/DL CALC GLOBULIN (test code = 2240) 2.5 G/DL CALC A/G RATIO (test code = 2234) 1.6 RATIO BILIRUBIN, TOTAL (test code = 2207) 0.4 MG/DL ALKALINE PHOSPHATASE (test code = 2204) 77 U/L AST (test code = 2218) 14 U/L ALT (test code = 2219) 14 U/L Chin [id number] 00:00:00* Test Item Value Reference Range Interpretation Comme nts TSH, THIRD GENERATION (test code = 2821) 6.590 UIU/ML Chin UmanzorCBC W/AUTO [id number] 00:00:00* Test Item Value Reference Range Interpretation Comme nts WBC (test code = 1001) 9.1 K/UL RBC (test code = 1002) 4.53 M/UL HEMOGLOBIN (test code = 1003) 14.5 G/DL HEMATOCRIT (test code = 1004) 43.1 % MCV (test code = 1005) 95.1 fL MCH (test code = 1006) 32.0 PG MCHC (test code = 1007) 33.6 G/DL RDW (test code = 1038) 12.2 % NEUTROPHILS (test code = 1008) 65.9 % LYMPHOCYTES (test code = 1010) 22.2 % MONOCYTES (test code = 1011) 8.9 % EOSINOPHILS (test code = 1012) 2.1 % BASOPHILS (test code = 1013) 0.9 % PLATELET COUNT (test code = 1015) 167 K/UL Chin UmanzorLIPID [id number] 00:00:00* Test Item Value Reference Range Interpretation Comme nts CHOLESTEROL (test code = 2210) 95 MG/DL TRIGLYCERIDES (test code = 2232) 110 MG/DL HDL CHOLESTEROL (test code = 2220) 41 MG/DL CALC LDL CHOL (test code = 2237) 34 MG/DL RISK RATIO LDL/HDL (test cod e = 2238) 0.83 RATIO Chin UmanzorCOMPREHENSIVE METABOLIC [id number] 00:00:00* Test Item Value Reference Range Interpretation Comme nts GLUCOSE (test code = 2217) 119 MG/DL BUN (test code = 2208) 14 MG/DL CREATININE (test code = 2214) 0.96 MG/DL eGFR AMER. (test cod e = 90139) 101 ML/MIN/1.73 eGFR NON- AMER. (test code = 31605) 87 ML/MIN/1.73 CALC BUN/CREAT (test code = 2235) 15 RATIO SODIUM (test code = 2231) 143 MEQ/L POTASSIUM (test code = 2228) 4.3 MEQ/L CHLORIDE (test code = 2215) 105 MEQ/L CARBON DIOXIDE (test code = 2206) 26 MEQ/L CALCIUM (test code = 2209) 9.2 MG/DL PROTEIN, TOTAL (test code = 2229) 6.6 G/DL ALBUMIN (test code = 2201) 4.1 G/DL CALC GLOBULIN (test code = 2240) 2.5 G/DL CALC A/G RATIO (test code = 2234) 1.6 RATIO BILIRUBIN, TOTAL (test code = 2207) 0.4 MG/DL ALKALINE PHOSPHATASE (test code = 2204) 77 U/L AST (test code = 2218) 14 U/L ALT (test code = 2219) 14 U/L Chin UmanzorCOMPREHENSIVE METABOLIC [id number] 00:00:00* Test Item Value Reference Range Interpretation Comme nts GLUCOSE (test code = 2217) 105 MG/DL BUN (test code = 2208) 14 MG/DL CREATININE (test code = 2214) 0.98 MG/DL eGFR AMER. (test cod e = 58206) 99 ML/MIN/1.73 eGFR NON- AMER. (test code = 47690) 86 ML/MIN/1.73 CALC BUN/CREAT (test code = 2235) 14 RATIO SODIUM (test code = 2231) 140 MEQ/L POTASSIUM (test code = 2228) 4.5 MEQ/L CHLORIDE (test code = 2215) 101 MEQ/L CARBON DIOXIDE (test code = 2206) 24 MEQ/L CALCIUM (test code = 2209) 8.6 MG/DL PROTEIN, TOTAL (test code = 2229) 6.6 G/DL ALBUMIN (test code = 2201) 4.0 G/DL CALC GLOBULIN (test code = 2240) 2.6 G/DL CALC A/G RATIO (test code = 2234) 1.5 RATIO BILIRUBIN, TOTAL (test code = 2207) 0.2 MG/DL ALKALINE PHOSPHATASE (test code = 2204) 68 U/L AST (test code = 2218) 14 U/L ALT (test code = 2219) 8 U/L Chin [id number] 00:00:00* Test Item Value Reference Range Interpretation Comme christine TSH, THIRD GENERATION (test code = 2821) 12.500 UIU/ML Chin UmanzorCOMPREHENSIVE METABOLIC [id number] 00:00:00* Test Item Value Reference Range Interpretation Comme nts GLUCOSE (test code = 2217) 105 MG/DL BUN (test code = 2208) 14 MG/DL CREATININE (test code = 2214) 0.98 MG/DL eGFR AMER. (test cod e = 89057) 99 ML/MIN/1.73 eGFR NON- AMER. (test code = 79333) 86 ML/MIN/1.73 CALC BUN/CREAT (test code = 2235) 14 RATIO SODIUM (test code = 2231) 140 MEQ/L POTASSIUM (test code = 2228) 4.5 MEQ/L CHLORIDE (test code = 2215) 101 MEQ/L CARBON DIOXIDE (test code = 2206) 24 MEQ/L CALCIUM (test code = 2209) 8.6 MG/DL PROTEIN, TOTAL (test code = 2229) 6.6 G/DL ALBUMIN (test code = 2201) 4.0 G/DL CALC GLOBULIN (test code = 2240) 2.6 G/DL CALC A/G RATIO (test code = 2234) 1.5 RATIO BILIRUBIN, TOTAL (test code = 2207) 0.2 MG/DL ALKALINE PHOSPHATASE (test code = 2204) 68 U/L AST (test code = 2218) 14 U/L ALT (test code = 2219) 8 U/L Chin [id number] 00:00:00* Test Item Value Reference Range Interpretation Comme christine TSH, THIRD GENERATION (test code = 2821) 12.500 UIU/ML Chin UmanzorThyroid Stimulating [id number] 08:34:50* Test Item Value Reference Range Interpretation Comme christine TSH (test code = TSH) 16.180 mIU/mL 0.270-4.200 H Complete Blood Count with Volgtyrhocri8027-05-08 07:30:28* Test Item Value Reference Range Interpretation [...] code = IPF) 0 % N Automated [id number] 07:30:28* Test Item Value Reference Range Interpretation Comme nts Neutro Auto (test code = Shade tro Auto) 46.1 % 36.0-70.0 Lymph Auto (test code = Lymph Auto) 34.0 % 12.0-44.0 Ransom Auto (test code = Ransom Auto) 11.2 % 0.0-11.0 H Eos, Auto (test code = Eos, Auto) 7.6 % 0.0-7.0 H Basophil Auto (test code = B asophil Auto) 0.4 % 0.0-2.0 Neutro Absolute (test code = Neutro Absolute) 3.8 x10 1.6-7.4 Lymph Absolute (test code = Lymph Absolute) 2.79 x10 .50-4.60 Ransom Absolute (test code = M kiera Absolute) .92 x10 .00-1.20 Eos Absolute (test code = Eo s Absolute) 0.62 x10 0.00-0.74 Baso Absolute (test code = B aso Absolute) 0.03 x10 0.00-0.21 IG [id number] 07:30:28* Test Item Value Reference Range Interpretation Comme nts IG (test code = IG) 0.7 % 0.0-5.0 IG Abs (test code = IG Abs) 0 x10 N RPR [id number] 05:28:06* Test Item Value Reference Range Interpretation [...] code = Expiration Dt) 09.05.2020 N Hemoglobin [id number] 05:16:07* Test Item Value Reference Range Interpretation Comme nts Hemoglobin A1c (test code = Hemoglobin A1c) 5.4 % 4.8-5.9 Non Diabetic 4.8-5.9%Diabetic <7.0% Lipid [id number] 05:16:07* Test Item Value Reference Range Interpretation Comme nts Cholesterol Total (test code = Cholesterol Total) 133 mg/dL 0-200 RISK OF HEART DISEASEPublished by [place] [employer] Analyte Optimal Borderline Increased RiskCHOL [...] is LDL/HDL Ratio=LDL Calc/HDL Chol Thyroid Stimulating [id number] 05:16:07* Test Item Value Reference Range Interpretation Comme nts TSH (test code = TSH) 12.450 mIU/mL 0.270-4.200 H Urine Drug [id number] 05:06:35* Test Item Value Reference Range Interpretation [...] test if desired. Urinalysis with Microscopic if [id number] 04:50:25* Test Item Value Reference Range Interpretation [...] cre ated by rule GL_SJM_UA_MICRO_IN D IG [id number] 04:01:31* Test Item Value Reference Range Interpretation Comme nts IG (test code = IG) 0.4 % 0.0-5.0 IG Abs (test code = IG Abs) 0 x10 N Complete Blood Count with [id number] 04:01:30* Test Item Value Reference Range Interpretation [...] code = IPF) 0 % N Automated [id number] 04:01:30* Test Item Value Reference Range Interpretation Comme nts Neutro Auto (test code = Shade tro Auto) 62.6 % 36.0-70.0 Lymph Auto (test code = Lymph Auto) 24.4 % 12.0-44.0 Ransom Auto (test code = Ransom Auto) 10.8 % 0.0-11.0 Eos, Auto (test code = Eos, Auto) 1.5 % 0.0-7.0 Basophil Auto (test code = B asophil Auto) 0.3 % 0.0-2.0 Neutro Absolute (test code = Neutro Absolute) 8.1 x10 1.6-7.4 H Lymph Absolute (test code = Lymph Absolute) 3.18 x10 .50-4.60 Ransom Absolute (test code = M kiera Absolute) 1.41 x10 .00-1.20 H Eos Absolute (test code = Eo s Absolute) 0.19 x10 0.00-0.74 Baso Absolute (test code = B aso Absolute) 0.04 x10 0.00-0.21 Comprehensive Metabolic [id number] 03:49:38* Test Item Value Reference Range Interpretation [...] A/G Ratio) 1.8 ratio N Comprehensive Metabolic [id number] 03:49:38* Test Item Value Reference Range Interpretation [...] is not provided, and the patient is -[place], multiply by 1.212. If sex is not [...] by the [employer] Foundation, http://nkdep.nih.gov Alcohol [id number] 03:49:38* Test Item Value Reference Range Interpretation Comme nts Ethanol Level (test code = Ethanol Level) <0.00 g/dL 0.00-0.01 Intoxicated 0.08 0 g/dL or more Ethanol Inst (test code = Ethanol Inst) <0 N Comprehensive Metabolic [id number] 03:49:38* Test Item Value Reference Range Interpretation [...] is not provided, and the patient is -[place], multiply by 1.212. If sex is not [...] is not provided, and the patient is -[place], multiply by 1.212. If sex is not [...] Foundation, http://nkdep.nih.gov Notes Date/Time Note Provider [facility]00 [facility]2024-01-19 11:11:47 Codey Santiago is a 57 year old male Spouse is returning call and patient is already scheduled to see MD Gaming with pulmonology on 09/27/23. [id number] 10:40:31 Images from the original note were not included. Attempted to contact patient with results/recommendations. No vm was set up. Shoaib Nguyen MD P Cardiology Nurse Please make an appointment with sleep clinic Dr. Og for obstructive sleep apnea. L CLEANER Shanna [place] [facility] [id number] 10:40:00 Addended by: SHOAIB NGUYEN MD on: 06/21/2023 01:11 PM Modules accepted: [id number] 10:40:00 Addended by: SHOAIB NGUYEN MD on: 09/24/2023 09:28 AM Modules accepted: Orders [facility]
[2025-04-06] MEDS ORDERED: METHYLPREDNISOLONE 125 MG INJ ONE (14:17)
[2025-04-06] MEDS ORDERED: Levofloxacin 750mg IV 750 MG/150 ML BAG IV ONE (14:17)
[2025-04-06 14:32] LABS: Absolute Lymphocytes (CBC) 2.6 K/uL (0.7-4.9); Hematocrit 47.1 % (39.6-49.0); Hemoglobin 15.7 g/dL (13.6-17.9); MCH 33.8 pg (27.0-35.0); MCHC 33.3 g/dL (32.0-36.0); MCV 101.4 fL (80-100); MPV 9.4 fL (7.6-11.3); Nucleated RBC Absolute Count 0.0 (0-0); Nucleated Red Blood Cells % 0.0 % (0-0); RBC Red Blood Cell Count 4.64 M/uL (4.33-5.43); White Blood Count 9.00 thou/uL (4.3-10.9)
[2025-04-06 14:41] LABS: PT Prothrombin Time 12.0 SECONDS (10-13.0); PTT, Activated Partial Thromb 26.2 SECONDS (27.2-37.4); Protime INR 1.06
--- NOTE | 2025-04-06 14:41 | RAD REPORT ---
EXAMINATION: ONE VIEW CHEST XR CLINICAL INDICATION: CHEST PAIN TECHNIQUE: Frontal chest projection is submitted. Examination is limited by patient positioning and t echnique. COMPARISON: 03/23/2025 FINDINGS: The lungs are well inflated and clear. The heart is upper limit of normal in size. No displaced fract ures identified. IMPRESSION: No acute intrathoracic abnormalities.
[2025-04-06 14:54] LABS: Albumin 3.5 g/dL (3.4-5.0); Albumin/Globulin Ratio 1.0 (1.1-1.8); Alkaline Phosphatase 87 U/L (45-117); Anion Gap 6.0 mEq/L (5.0-15.0); BUN Blood Urea Nitrogen 14 mg/dL (7-18); Globulin 3.5 g/dL (2.3-3.5); Glucose Level 90 mg/dL (74-106); NT PRO-BNP 107 pg/mL (<125); Potassium 4.0 mEq/L (3.5-5.1); Troponin High Sensitivity 11.8 pg/mL (<58.9)
[2025-04-06 15:04] LABS: ALT/SGPT < 14 U/L (16-61); AST/SGOT < 10 U/L (15-37)
[2025-04-06] MEDS: METHYLPREDNISOLONE 40 MG INJ IV SCH (17:00)
[2025-04-06] MEDS: Levofloxacin 750mg IV 750 MG/150 ML BAG IV SCH (17:00)
[2025-04-06 17:51] VITALS: BMI 24.1
--- NOTE | 2025-04-06 18:02 | P.HP ---
Certification for Inpatient Patient admitted to: Observation With expected LOS: <2 Midnights Practitioner: I am a practitioner with admitting privileges, knowledge of patient current condition, hospital course, and medical plan of care. Services: Services provided to patient in accordance with Admission requirements found in Title 42 Section 412.3 of the Code of Federal Regulations Patient History Date of Service: 04/06/25 Reason for admission: Shortness of breath History of Present Illness: Patient is 59 years old male who presented to the emergency department via EMS with a complaint of worsening shortness of breath. Patient past medical history significant for COPD, asthma, hypertension, congestive heart failure, diverticulitis, and arthritis. Patient seen and examined at bedside, alert and oriented x 3, patient reports recent discharge from the hospital about 4 days ago and was discharged home on levofloxacin, inhaler and prednisone. However, patient unable to afford the cost of medicine, as such he could not manage his chronic obstructive pulmonary disease symptoms at home and his symptoms worsened. As such, he decided to come in for further evaluation and help. Otherwise patient endorses a productive cough with white phlegm that is associated with dyspnea; however, patient denies chest pain, palpitation and fever. Allergies iodine Allergy (Verified 01/27/23 09:56) Unknown ketorolac [From Toradol] Allergy (Verified 01/27/23 09:56) Anaphylaxis meperidine [From Demerol] Allergy (Verified 01/27/23 09:56) Unknown Penicillins Allergy (Verified 01/27/23 09:56) Itching/Hives/Rash seafood Allergy (Intermediate, Uncoded 01/27/23 09:56) Hives/Rash Home Medications: Diphenhydramine [Benadryl*] 25 mg PO Q6HP PRN #30 tab 03/26/16 Epinephrine [Epipen Jr 2-Bradley] 0.15 mg IM PRN PRN #1 ml 03/26/16 Methylprednisolone [Medrol dosepack] 4 mg PO DIRECTED #1 bradley 03/26/16 Albuterol Neb [Proventil 0.083% Neb Soln] 2.5 mg NEB [id number] PRN #60 amp 11/11/22 Ipratropium Neb [Atrovent*] 0.5 mg NEB [id number] #60 amp 11/11/22 Spironolactone [Aldactone*] 25 mg PO BID #60 tab 03/08/23 Nebulizer 1 each MC DAILY #1 ea 11/13/22 Nebulizer Accessories [Aeroneb Go] 1 each MC DAILY #1 ea 11/13/22 Dextromethorphan HBr 15 mg PO TID PRN #30 cap 01/27/23 predniSONE [Prednisone*] 20 mg PO DAILY 5 Days #5 tab 01/27/23 - Past Medical/Surgical History Has patient received pneumonia vaccine in the past: Yes Diabetic: No -: HTN -: GOUT -: COPD -: Hypothyroidism -: cholecysectomy 2004 -: tonsillectomy Psychosocial/ Personal History: Patient lives at home with his family - Family History Mother -: Lung disease, Cancer Father -: Heart disease - Social History Smoking Status: Current some day smoker Alcohol use: Yes CD- Drugs: No Caffeine use: Yes Place of Residence: Home Review of Systems Respiratory: Cough, Shortness of Breath, Sputum, Wheezing Physical Examination - Vital Signs Temperature: 98.2 F Blood Pressure: 127/80 Pulse: 79 Respirations: 22 Pulse Ox (%): 98 - Physical Exam General: Alert, Oriented x3, Mild distress HEENT: Atraumatic, Normocephalic, PERRLA Neck: 2+ carotid pulse no bruit Respiratory: Diminished, Expiratory wheezes, Rhonchi/gurgles Cardiovascular: Normal pulses, Regular rate/rhythm Capillary refill: <2 Seconds Gastrointestinal: Normal bowel sounds, Soft and benign Musculoskeletal: No clubbing, No swelling, No contractures Integumentary: No rashes Neurological: Normal speech, Normal tone, Sensation intact - Studies Laboratory Data (last 24 hrs) 04/06/25 04/06/25 04/06/25 14:14 14:14 14:14 WBC 9.00 Hgb 15.7 Hct 47.1 Plt Count 204 PT 12.0 INR 1.06 APTT 26.2 L Sodium 142 Potassium 4.0 BUN 14 Creatinine 1.09 Glucose 90 Total Bilirubin 0.3 AST < 10 L ALT < 14 L Alkaline Phosphatase 87 Assessment and Plan - Plan #COPD exacerbation History of asthma --Chest x-ray unremarkable --Patient was recent admission and discharge reports unable to manage symptoms outpatient due to financial constraint -- Patient started on Solu-Medrol IV 125 mg x 1 dose in the ER -- Neb treatments --Continue IV antibiotics with Levaquin -- Cough medication as needed --farmworker rice consulted for financial resources and support -- Continue to monitor patient respiratory status for any distress -- Consider ABG if work of breathing increase or altered mental status -- Repeat CBC, CMP, mag and phosphate in the morning Hypertension Congestive heart failure -- Blood pressure currently stable continue to monitor -- Antihypertensive titrate -- Resume home medication -- Vital signs per unit protocol Hypothyroidism --Check lab for TSH and free T4 -- Follow-up result Arthritis Gout --Status currently stable -- Continue to monitor and manage pain according Discharge Plan: Home Plan to discharge in: 48 Hours - Advance Directives Does patient have a Living Will: No Does patient have a Durable POA for Healthcare: No
[2025-04-06] MEDS: IPRATROPIUM BROM 0.5MG/2.5ML NEB SCH (20:22)
[2025-04-06] MEDS: ALBUTEROL 2.5 MG/3 ML NEB SOL NEB SCH (20:22)
[2025-04-06] MEDS: SPIRONOLACTONE 25 MG TABLET PO SCH (20:31)
[2025-04-07] MEDS: MUCINEX DM 12HR.SR TAB PO PRN (05:11)
[2025-04-07 05:58] LABS: Absolute Lymphocytes (CBC) 0.6 K/uL (0.7-4.9); Hematocrit 41.9 % (39.6-49.0); Hemoglobin 13.8 g/dL (13.6-17.9); MCH 32.9 pg (27.0-35.0); MCHC 33.0 g/dL (32.0-36.0); MCV 99.6 fL (80-100); MPV 10.4 fL (7.6-11.3); Nucleated RBC Absolute Count 0.0 (0-0); Nucleated Red Blood Cells % 0.0 % (0-0); RBC Red Blood Cell Count 4.20 M/uL (4.33-5.43); White Blood Count 11.50 thou/uL (4.3-10.9)
[2025-04-07 06:28] LABS: ALT/SGPT 15.0 U/L (16-61); AST/SGOT 11.0 U/L (15-37); Albumin 3.0 g/dL (3.4-5.0); Albumin/Globulin Ratio 1.0 (1.1-1.8); Alkaline Phosphatase 71.0 U/L (45-117); Anion Gap 9.9 mEq/L (5.0-15.0); BUN Blood Urea Nitrogen 17.0 mg/dL (7-18); Globulin 3.0 g/dL (2.3-3.5); Glucose Level 178.0 mg/dL (74-106); Magnesium 2.0 mg/dL (1.6-2.4); Potassium 3.9 mEq/L (3.5-5.1)
[2025-04-07 06:31] LABS: Thyroid Stimulating Hormone 6.15 uIU/mL (0.358-3.740)
[2025-04-07] MEDS ORDERED: EPINEPHRINE 0.15 MG/0.3 ML IM PRN (07:07)
[2025-04-07] MEDS ORDERED: DIPHENHYDRAMINE 25 MG TAB/CAP PO PRN (07:07)
[2025-04-07] MEDS ORDERED: EPINEPHRINE/PF 1 MG/ML AMP IM PRN (07:55)
[2025-04-07] MEDS: POTASS/SODIUM PHOSPHATE 1 PKT POWD.PACK PO SCH (09:39)
[2025-04-07] MEDS: SODIUM PHOSPHATE 30 MM in NA CHLORIDE 0.9% 500 ML IV ONE (09:40)
--- NOTE | 2025-04-07 10:49 | P.PN ---
Subjective Date of Service: 04/07/25 Chief Complaint: Shortness of breath Subjective: Improving (Patient is improving but still has diminished airway and wheezing.) Physical Examination - Vital Signs Temperature: 97.8 F Blood Pressure: 130/65 Pulse: 99 Respirations: 14 Pulse Ox (%): 94 - Physical Exam General: In no apparent distress, Cooperative Respiratory: Diminished, Expiratory wheezes Cardiovascular: No edema, Normal pulses, Regular rate/rhythm, Normal S1 S2 Neurological: Normal speech - Studies Laboratory Data (last 24 hrs) 04/06/25 04/06/25 04/06/25 14:14 14:14 14:14 WBC 9.00 Hgb 15.7 Hct 47.1 Plt Count 204 PT 12.0 INR 1.06 APTT 26.2 L Sodium 142 Potassium 4.0 BUN 14 Creatinine 1.09 Glucose 90 Total Bilirubin 0.3 AST < 10 L ALT < 14 L Alkaline Phosphatase 87 Assessment And Plan - Plan Assessment Patient is a 59-year-old male with a past medical history of COPD and asthma. Was admitted after he presented with shortness of breath and is currently being treated for COPD exacerbation. Patient is on room air. Acute COPD exacerbation Hypophosphatemia Asthma Hypertension Congestive heart failure Plan: Patient will benefit from additional day of systemic corticosteroids, antibiotics and bronchodilators Dulera on board He does not have a deputy court. Pulmonary medicine consulted Replace phosphorus Continue DVT and GI prophylaxis
[2025-04-07] MEDS: ENOXAPARIN 40 MG/0.4 ML SQ SCH (11:56)
[2025-04-07] MEDS: PANTOPRAZOLE 40MG TABLET PO SCH (11:56)
[2025-04-07 12:21] LABS: Blood Morphology Comment NOT SEEN (NOT SEEN); White Blood Cell Scan OK (OK)
[2025-04-08 05:07] LABS: Absolute Lymphocytes (CBC) 0.9 K/uL (0.7-4.9); Hematocrit 42.3 % (39.6-49.0); Hemoglobin 13.8 g/dL (13.6-17.9); MCH 32.8 pg (27.0-35.0); MCHC 32.7 g/dL (32.0-36.0); MCV 100.2 fL (80-100); MPV 10.4 fL (7.6-11.3); Nucleated RBC Absolute Count 0.0 (0-0); Nucleated Red Blood Cells % 0.1 % (0-0); RBC Red Blood Cell Count 4.22 M/uL (4.33-5.43); White Blood Count 19.70 thou/uL (4.3-10.9)
[2025-04-08 05:21] LABS: Albumin 2.9 g/dL (3.4-5.0); Albumin/Globulin Ratio 0.9 (1.1-1.8); Alkaline Phosphatase 63 U/L (45-117); Anion Gap 8.5 mEq/L (5.0-15.0); BUN Blood Urea Nitrogen 19 mg/dL (7-18); Globulin 3.1 g/dL (2.3-3.5); Glucose Level 145 mg/dL (74-106); Magnesium 2.2 mg/dL (1.6-2.4); Potassium 4.5 mEq/L (3.5-5.1)
[2025-04-08 05:43] LABS: ALT/SGPT < 14 U/L (16-61); AST/SGOT < 10 U/L (15-37)
[2025-04-08] MEDS: ALBUTEROL 2.5 MG/3 ML NEB SOL NEB PRN (08:00)
[2025-04-08] MEDS: SODIUM PHOSPHATE 30 MM in NA CHLORIDE 0.9% 500 ML IV ONE (08:38)
--- NOTE | 2025-04-08 09:22 | P.PN ---
Subjective Date of Service: 04/08/25 Chief Complaint: Shortness of breath Subjective: Improving (Patient feels 80% improved. He still has slight wheezing on lung auscultation, although on room air. He appears physically tired) Physical Examination - Vital Signs Temperature: 97.8 F Blood Pressure: 141/78 Pulse: 79 Respirations: 18 Pulse Ox (%): 95 - Physical Exam General: In no apparent distress, Cooperative HEENT: Atraumatic, Normocephalic Respiratory: Expiratory wheezes, Other (Better air movement) Cardiovascular: No edema, Normal pulses, Regular rate/rhythm, Normal S1 S2 Neurological: Normal speech Assessment And Plan - Plan Assessment Patient is a 59-year-old male with a past medical history of COPD and asthma. Was admitted after he presented with shortness of breath and is currently being treated for COPD exacerbation. Patient is on room air. 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 Pulmonary medicine consulted Replace phosphorus Continue DVT and GI prophylaxis Discharge tomorrow
--- NOTE | 2025-04-08 10:47 | P.CNS ---
Date of Consult: 04/08/25 Reason for Consult: COPD exacerbation Chief Complaint: Shortness of breath History of Present Illness: Patient is 59 years of age with a history of COPD active smoker admitted with cough congestion worsening dyspnea for the past 2 weeks he uses ProAir and alb uterol nebulizer at home apparently also has a history of C HF/he is have a significant coughing spell somewhat better Allergies iodine Allergy (Verified 01/27/23 09:56) Unknown ketorolac [From Toradol] Allergy (Verified 01/27/23 09:56) Anaphylaxis meperidine [From Demerol] Allergy (Verified 01/27/23 09:56) Unknown Penicillins Allergy (Verified 01/27/23 09:56) Itching/Hives/Rash seafood Allergy (Intermediate, Uncoded 01/27/23 09:56) Hives/Rash Home Medications: Diphenhydramine [Benadryl*] 25 mg PO Q6HP PRN #30 tab 03/26/16 Epinephrine [Epipen Jr 2-Bradley] 0.15 mg IM PRN PRN #1 ml 03/26/16 Albuterol Neb [Proventil 0.083% Neb Soln] 2.5 mg NEB [id number] PRN #60 amp 11/11/22 - Past Medical/Surgical History Diabetic: No -: HTN -: GOUT -: COPD -: Hypothyroidism -: cholecysectomy 2004 -: tonsillectomy Psychosocial/ Personal History: Patient lives at home with his family - Family History Mother Medical History: Lung disease, Cancer Father Medical History: Heart disease - Social History Smoking Status: Current some day smoker Alcohol use: Yes CD- Drugs: No Caffeine use: Yes Place of Residence: Home Review of Systems 10-point ROS is otherwise unremarkable General: Weakness Respiratory: Cough, Shortness of Breath Physical Examination Temp Pulse Resp BP Pulse Ox 97.8 F 79 18 141/78 H 95 04/08/25 09:22 04/08/25 09:22 04/08/25 09:22 04/08/25 09:22 04/08/25 09:22 General: Alert, Oriented x3 Respiratory: Expiratory wheezes Cardiovascular: No edema, Regular rate/rhythm, Normal S1 S2 - Problems (1) COPD exacerbation Current Visit: Yes Status: Acute Plan: Patient is 59 years of age active smoker admitted with a COPD exacerbation chest x-ray shows COPD changes labs chemistries x-rays reviewed white count is elevated possible discharge tomorrow on prednisone 10 mg twice a day for a week can continue with some levofloxacin for for 5 days discharged home on Dulera from the hospital he will need a long-acting bronchodilator consider Advair 251 puff twice a day counseled on stopping smoking follow-up with me in 2 weeks
[2025-04-08] MEDS: levoFLOXacin 500 MG TAB PO SCH (12:48)
[2025-04-08] MEDS: DULERA 200/5 (MOMETASONE/FORMOTEROL) INHALER IH SCH (12:58)
[2025-04-08] MEDS: predniSONE 20 MG TAB PO SCH (21:39)
[2025-04-09 04:43] LABS: Absolute Lymphocytes (CBC) 1.1 K/uL (0.7-4.9); Hematocrit 42.4 % (39.6-49.0); Hemoglobin 14.0 g/dL (13.6-17.9); MCH 33.2 pg (27.0-35.0); MCHC 33.0 g/dL (32.0-36.0); MCV 100.7 fL (80-100); MPV 9.7 fL (7.6-11.3); Nucleated RBC Absolute Count 0.0 (0-0); Nucleated Red Blood Cells % 0.0 % (0-0); RBC Red Blood Cell Count 4.21 M/uL (4.33-5.43); White Blood Count 16.10 thou/uL (4.3-10.9)
[2025-04-09 05:06] LABS: Albumin 2.9 g/dL (3.4-5.0); Albumin/Globulin Ratio 1.0 (1.1-1.8); Alkaline Phosphatase 65 U/L (45-117); Anion Gap 10.4 mEq/L (5.0-15.0); BUN Blood Urea Nitrogen 22 mg/dL (7-18); Globulin 3.0 g/dL (2.3-3.5); Glucose Level 180 mg/dL (74-106); Magnesium 2.3 mg/dL (1.6-2.4); Potassium 5.4 mEq/L (3.5-5.1)
[2025-04-09 05:24] LABS: ALT/SGPT < 14 U/L (16-61); AST/SGOT < 10 U/L (15-37)
[2025-04-09 09:27] VITALS: O2SAT 95
--- NOTE | 2025-04-09 09:28 | P.DS ---
Admission Date: 04/06/25 Discharge Date: 04/09/25 Disposition: ROUTINE DISCHARGE Discharge Condition: GOOD Reason for Admission: Shortness of breath Consultations: Pulmonology - Dr. Gomez Brief History of Present Illness: 59 yo M, PMH: COPD, asthma, hypertension, congestive heart failure, diverticulitis, and arthritis. Patient who presented to the emergency department via EMS with a complaint of worsening shortness of breath. Patient seen and examined at bedside, alert and oriented x 3, patient reports recent discharge from the hospital about 4 days ago and was discharged home on levofloxacin, inhaler and prednisone. However, patient unable to afford the cost of medicine, as such he could not manage his chronic obstructive pulmonary disease symptoms at home and his symptoms worsened. As such, he decided to come in for further evaluation and help. Otherwise patient endorses a productive cough with white phlegm that is associated with dyspnea; however, patient denies chest pain, palpitation and fever. Hospital Course: Problem List: Acute on chronic COPD exacerbation Asthma Hypertension Chronic CHF Physician discharge instructions: Patient presented with worsening shortness of breath, wheeze secondary to acute on chronic COPD exacerbation. Chest xray on admission was negative for any acute findings, noted clear lungs. Dr. Gomez, insolvency practitioner was consulted. Patient received IV steroids in addition to empiric antibiotics and nebulizer treatments and had improvement of her symptoms. IV steroids and IV levaquin were deescalated to oral Prednisone/Levaquin and patient continued to improve. Patient is to complete 1 more week of oral steroids in addition to 5 more days of empiric levaquin to cover possible infection. Patient was feeling better, breathing more comfortably, afebrile > 24 hours and was deemed stable for discharge. Follow up with Dr. Gomez in 1-2 weeks for further management. He was noted to develop leukocytosis ~24 hours after admission which has been improving daily over the last 48 hours. Leukocytosis secondary to steroid use. There was no evidence of ongoing active infection. Leukocytosis on discharge: 16.1 Repeat blood work in 1-2 weeks to monitor WBC and ensure continued improvement. Potassium was noted to be mildly elevated on day of discharge: 5.4, secondary to Spironolactone given while hospitalized. Medication was started on admission due it being listed as a home med, however patient states he hasn't taken in several months and does not need to continue it on discharge. Medications: Prednisone 10mg twice daily for 1 week Levaquin x5 days Dulera inhaler Prescriptions sent to [facility] in [place]. Follow up: PCP 3-[address] Gomez in 1-2 weeks Please call to schedule/ confirm appointments Physical Exam: GEN: Alert, oriented, NAD CV: Regular rate and rhythm, no edema Pulm: Nonlabored respirations on room air, clear bilaterally ABD: soft, nontender, nondistended Neuro: Normal speech, normal affect Vital Signs/Physical Exam: Temp Pulse Resp BP Pulse Ox 97.7 F 76 18 125/84 97 04/09/25 08:00 04/09/25 08:00 04/09/25 08:00 04/09/25 08:00 04/09/25 08:00 Laboratory Data at Discharge: WBC 16.10 thou/uL (4.3-10.9) H 04/09/25 04:08 Hgb 14.0 g/dL (13.6-17.9) 04/09/25 04:08 Hct 42.4 % (39.6-49.0) 04/09/25 04:08 Plt Count 179 thou/uL (152-406) 04/09/25 04:08 PT 12.0 SECONDS (10-13.0) 04/06/25 14:14 INR 1.06 04/06/25 14:14 APTT 26.2 SECONDS (27.2-37.4) L 04/06/25 14:14 Sodium 141 mEq/L (136-145) 04/09/25 04:08 Potassium Cancelled 04/09/25 10:00 BUN 22 mg/dL (7-18) H 04/09/25 04:08 Creatinine 1.17 mg/dL (0.70-1.30) 04/09/25 04:08 Glucose 180 mg/dL (74-106) H 04/09/25 04:08 Phosphorus 3.2 mg/dL (2.5-4.9) 04/09/25 04:08 Magnesium 2.3 mg/dL (1.6-2.4) 04/09/25 04:08 Total Bilirubin 0.3 mg/dL (0.2-1.0) 04/09/25 04:08 AST < 10 U/L (15-37) L 04/09/25 04:08 ALT < 14 U/L (16-61) L 04/09/25 04:08 Alkaline Phosphatase 65 U/L (45-117) 04/09/25 04:08 Home Medications: Diphenhydramine [Benadryl*] 25 mg PO Q6HP PRN #30 tab 03/26/16 Epinephrine [Epipen Jr 2-Bradley] 0.15 mg IM PRN PRN #1 ml 03/26/16 Albuterol Neb [Proventil 0.083% Neb Soln] 2.5 mg NEB [id number] PRN #60 amp 11/11/22 levoFLOXacin [Levaquin*] 500 mg PO DAILY 5 Days #5 tab 04/09/25 predniSONE [Deltasone] 10 mg PO BID 7 Days #14 tab 04/09/25 New Medications: predniSONE [Deltasone] 10 mg PO BID 7 Days #14 tab levoFLOXacin [Levaquin*] 500 mg PO DAILY 5 Days #5 tab Physician Discharge Instructions: Physician discharge instructions: Patient presented with worsening shortness of breath, wheeze secondary to acute on chronic COPD exacerbation. Chest xray on admission was negative for any acute findings, noted clear lungs. Dr. Gomez, insolvency practitioner was consulted. Patient received IV steroids in addition to empiric antibiotics and nebulizer treatments and had improvement of her symptoms. IV steroids and IV levaquin were deescalated to oral Prednisone/Levaquin and patient continued to improve. Patient is to complete 1 more week of oral steroids in addition to 5 more days of empiric levaquin to cover possible infection. Patient was feeling better, breathing more comfortably, afebrile > 24 hours and was deemed stable for discharge. Follow up with Dr. Gomez in 1-2 weeks for further management. He was noted to develop leukocytosis ~24 hours after admission which has been improving daily over the last 48 hours. Leukocytosis secondary to steroid use. Leukocytosis on discharge: 16.1 Repeat blood work in 1-2 weeks to monitor WBC and ensure continued improvement. Potassium was noted to be mildly elevated on day of discharge: 5.4, secondary to Spironolactone given while hospitalized. Medication was started on admission due it being listed as a home med, however patient states he hasn't taken in several months and does not need to continue it on discharge. Medications: Prednisone 10mg twice daily for 1 week Levaquin x5 days Dulera inhaler Prescriptions sent to [facility] in [place]. Follow up: PCP 3-[address] Gomez in 1-2 weeks Please call to schedule/ confirm appointments Followup: Lisandro Gomez MD [ACTIVE - CAN ADMIT] - 1 Week NONE,NONE [Primary Care Provider] - Time spent managing pt's care (in minutes): 45
[2025-04-09 13:12] VITALS: BP 150/88; TEMP 98
== END 2025-04-09 12:45 | disposition home or self-care (01) | DRG 192 ==
LOC: ER 13:20 → ERHOLD 16:08 → 2ND 16:56
PROVIDERS: ADMIT Internal Medicine; ATTEND Hospitalist
DX: J44.1 Chronic obstructive pulmonary disease with (acute) exacerbation (principal); I11.0 Hypertensive heart disease with heart failure; I50.9 Heart failure, unspecified; E03.9 Hypothyroidism, unspecified; M10.9 Gout, unspecified; M19.90 Unspecified osteoarthritis, unspecified site; F17.210 Nicotine dependence, cigarettes, uncomplicated; Z88.0 Allergy status to penicillin; Z88.5 Allergy status to narcotic agent; Z90.49 Acquired absence of other specified parts of digestive tract; Z59.89 Other problems related to housing and economic circumstances; Z91.141 Patient's other noncompliance with medication regimen due to financial hardship; Z79.52 Long term (current) use of systemic steroids; Z79.899 Other long term (current) drug therapy
CPT/HCPCS: 36415; 71045; 80053; 83605; 83735; 83880; 84100; 84439; 84443; 84484; 85025; 85610; 85730; 87040; 93005; 94640; 94760; 96365; 96366; 96375; 99285; J1650; J2919; J3535; J7040; J7512; J7613; J7644